=== PATIENT | male | born 1975 | race Caucasian/White ===

== ENCOUNTER 2025-01-23 14:51 | Emergency (ER) | payer OTHER, SELFPAY ==
[2025-01-23] VITALS (26 sets, daily range): BP systolic 104–130; BP diastolic 77–97; PULSE 127–135; TEMP 36.6; O2SAT 79–96; BMI 26.1
--- NOTE | 2025-01-23 15:09 | XR_ITS ---
[address] [address] Patient Name: ERIK ZAVALA MRN: [id number] date: 1975 Sex: M Assigned Patient Location: ER Current Patient Location: ED.MAIN Accession/Order Number: [id number] Exam Date: 01/23/2025 15:38 Report Date: 01/23/2025 15:38 At the request of: SANDER GUPTA MD Procedure: XR chest 1V Single view chest: CLINICAL HISTORY: sob COMPARISON: None FINDINGS: Cardiomegaly. Lungs are clear. No free air. XR/XR chest 1V IMPRESSION: CARDIOMEGALY WITHOUT ACUTE PROCESS. Impression dictated by: Tano Calix Jr., DCheyOChey 01/23/2025 3:38 PM Dictation Location: [place] [address] Electronically authenticated by: [id number] Y Date: 01/23/2025 15:38
--- OUTSIDE RECORDS SUMMARY | 2025-01-23 15:14 | XMS_ITS | Clinical Summary ---
Author Organization [employer] [facility] tem Address [id number] [address] [place] [address] Care Team Providers Care Youth Pastor Name Role Phone Eloise Pedroza MD Primary Care Provider [phone] Allergies No known active allergies Medications ibuprofen (ADVIL,MOTRIN) 200 mg tablet Take 1 tablet (200 mg total) by mouth every 6 (six) hours as needed for pain. Active Active Problems Problem Noted Date Diagnosed Date Elevated liver enzymes 12/27/2022 Tobacco abuse 12/27/2022 Substance abuse 12/27/2022 Acute intractable headache, unspecified headache type 12/24/2022 Weakness 12/24/2022 Hypomagnesemia 12/24/2022 Hypokalemia 12/24/2022 Transaminitis 12/24/2022 Immunizations No known immunizations Social History Tobacco Use Types Packs/Day Years Used Date Smoking Tobacco: Every Day Cigarettes Smokeless Tobacco: Never Tobacco Cessation:Ready to Q uit: Not Asked; Counseling Given: Not Answered Alcohol Use Standard Drinks/Week Comments Not Currently 0 (1 standard drink = 0.6 oz pur e alcohol) PHQ-2 Answer Date Recorded Total Score 1 12/27/2022 Childcare Answer Date Recorded Childcare Unknown 12/01/2018 Employment Answer Date Recorded Employment Unknown 12/01/2018 Hunger Screening Answer Date Recorded Within the past 12 months we worried whether our food would run out before we got money to buy more. Never True 12/24/2022 Within the past 12 months th e food we bought just didn't last and we didn't have money to get more. Never True 12/24/2022 Purpose - Life Answer Date Recorded Purpose and direction in life Unknown Sex and Gender Information Value Date Recorded Sex Assigned at Not on file Legal Sex Male 11:29 AM EDT Gender Identity Not on file Sexual Orientation Not on file Last Filed Vital Signs Vital Sign Reading Time Taken Comments Blood Pressure 129/91 12/28/2022 3:17 PM EDT Pulse 71 12/28/2022 3:17 PM EDT Temperature 36.6 C (97.9 F) 12/28/2022 11:17 AM EDT Respiratory Rate 18 12/28/2022 3:17 PM EDT Oxygen Saturation 95% 12/28/2022 11: 17 AM EDT Inhaled Oxygen Concentration - - Weight 86.5 kg (190 lb 11.2 oz) 023 11:17 AM EDT Height 180.3 cm (5' 11 ) 12/27/2022 8:40 AM EDT Body Mass Index 26.6 12/27/2022 8:40 AM EDT Plan of Treatment Health Maintenance Due Date Last Done Comments Tobacco Screening 1986 DTaP,Tdap and Td Vaccines (1 - Tdap) 1993 Depression Screening 12/28/2023 12/27/2022 Adult BMI Screening 12/29/2023 12/28/2022 Zoster (Shingles) Vaccine (1 of 2) 2024 Influenza Vaccine 02/20/2025 Goals Goal Patient Goal Type Associated Problems Recent Progress Patient-Stated? Author safe discharge to home General Yes Cecy Anguiano, RN Note: Evaluation of progress towards goal: safe transition from hospital to home with family support. Medical Devices Not on file Insurance [id number] Advance Directives * Full Code (Latest Code Status on File) Date Activated Date Inactivated Comments 12/27/2022 3:50 AM 12/28/2022 6:09 PM * Full Code Date Activated Date Inactivated Comments 12/24/2022 1:29 PM 12/27/2022 3:30 AM Care Teams Youth Pastor Relationship Specialty Start Date End Date Eloise Pedroza MD [address] [facility], [place] [address] PCP - General Internal Medicine 01/01/23
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
[2025-01-23 15:37] LABS: Hematocrit 47.0 % (42.0-54.0); Hemoglobin 16.1 g/dL (14.0-18.0); Immature Granulocytes Abs Auto 0.04 10^3/uL (0.00-0.03); Immature Granulocytes Pct Auto 0.4 % (0.0-0.5); Lymphocytes Absolute Auto 2.5 10^3/uL (1.2-3.8); Mean Corpuscular HGB Conc 34.3 g/dL (29.9-35.2); Mean Corpuscular Hemoglobin 31.1 pg (25.9-34.0); Mean Corpuscular Volume 90.9 fL (80.0-94.0); Platelet Count 231 10^3/uL (150-450); Red Blood Count 5.17 10^6/uL (4.70-6.10); White Blood Count 10.5 10^3/uL (4.0-11.0)
[2025-01-23] MEDS: 0.9 % SODIUM CHLORIDE 2,259 ML 753 ML IV (15:50)
[2025-01-23] MEDS: PIPERACILLIN SODIUM/TAZOBACTAM 4.5 GM in 0.9 % SODIUM CHLORIDE 50 ML IV (15:50)
[2025-01-23 15:53] LABS: INR 1.24; Partial Thromboplastin Time 27.2 sec (22.3-36.2); Prothrombin Time 12.9 sec (9.0-11.6)
[2025-01-23 16:04] LABS: Alanine Aminotransferase 46 U/L (16-63); Albumin Globulin Ratio 0.9; Albumin Level 3.1 g/dL (3.4-5.0); Alkaline Phosphatase 135 U/L (46-116); Anion Gap 12.2; Aspartate Amino Transferase 38 U/L (15-37); Blood Urea Nitrogen 21.0 mg/dL (7.0-18.0); Calcium 9.4 mg/dL (8.5-10.1); Carbon Dioxide 23.7 mmol/L (21.0-32.0); Chloride 103 mmol/L (98-107); Estimated GFR (African America >60 (>=60 mL/min/1.73m^2); Estimated GFR (Non-African Ame 57 (>=60 mL/min/1.73m^2); Globulin 3.4 g/dL; Glucose 130 mg/dL (74-106); Lactate/Lactic Acid 1.7 mmol/L (0.4-2.0); Potassium 3.9 mmol/L (3.5-5.1); Sodium 135 mmol/L (136-145); Total Protein 6.5 g/dL (6.4-8.2)
[2025-01-23 16:12] LABS: NT Pro B Type Natriuretic Pept 5665.0 pg/mL (<=900.0)
--- NOTE | 2025-01-23 16:16 | CT_ITS ---
The [address] [address] Patient Name: ERIK ZAVALA MRN: [id number] date: 1975 Sex: M Assigned Patient Location: ER Current Patient Location: ER Accession/Order Number: [id number] Exam Date: 01/23/2025 17:16 Report Date: 01/23/2025 17:21 At the request of: SANDER GUPTA MD Procedure: CT angio chest CT ANGIOGRAM OF THE CHEST, PULMONARY EMBOLISM PROTOCOL: CLINICAL INFORMATION: Tachycardia, shortness breath with leg edema COMPARISON: None TECHNIQUE: Following intravenous injection of contrast CT scans of the chest were obtained using pulmonary embolism protocol. Coronal and sagittal reconstructed images, as well as volume rendered CT pulmonary angiographic images were also submitted.The CT exam was performed using one or more of the following dose reduction techniques: Automated exposure control, adjustment of the MA and/or Kv according to patient size, or use of the iterative reconstruction technique. FINDINGS: Cardiomegaly. No pericardial effusion. Main pulmonary trunk 3.3 cm no central, lobar or segmental branch pulmonary emboli. No suspicious mediastinal or hilar adenopathy. Small right-sided effusion and right basilar atelectasis. Otherwise lungs are clear. The left-sided effusion. No pneumothorax. Multilevel degenerative change of the thoracic spine. Upper abdominal images are grossly unremarkable/noncontributory. CT/CT angio chest IMPRESSION: NO CT EVIDENCE OF PULMONARY EMBOLISM CARDIOMEGALY. RIGHT-SIDED EFFUSION AND ASSOCIATED RIGHT-SIDED ATELECTASIS. Impression dictated by: Peter Parmar M.D. 01/23/2025 5:21 PM Dictation Location: [place] [address] Electronically authenticated by: [id number] Y Date: 01/23/2025 17:21
[2025-01-23] MEDS: FUROSEMIDE 20 MG/2 ML VIAL IVP (18:35)
[2025-01-23] MEDS: DIGOXIN 500 MCG/2 ML AMPUL 250 MCG IV ×2 (18:35→18:46)
[2025-01-23] MEDS: ENOXAPARIN SODIUM 100 MG/ML SYRINGE 85 MG SUBQ (18:44)
--- NOTE | 2025-01-23 19:23 | ED_ITS ---
HPI HPI - General Adult General Chief complaint: Extremity Problem, Nontraumatic Stated complaint: LOWER EXTREMITY SWELLING Time Seen by Provider: 01/23/25 15:01 Source: patient Mode of arrival: walk-in Limitations: no limitations History of Present Illness HPI narrative: 49-year-old male sent to the emergency department and was initially seen by Dr. DUFF and signed out to me after discussing the case with her thoroughly. Related Data Home Medications ?Medication ?Instructions ?Recorded ?Confirmed No Known Home Medications 01/23/25 0810/14 Allergies Allergy/AdvReac Type Severity Reaction Status Date / Time No Known Drug Allergies Allergy Verified 01/23/25 14:54 Opioid HPI Opioid Management Most Recent Opioid Data: Last Pain Scale 5 Today, 14:54 PFSH PFSH Social History Little interest or pleasure in doing things: not at all Feeling down, depressed, or hopeless: not at all Exam Constitutional Vital Signs, click to edit/add: Last Vital Signs Temp 97.9 F 01/23/25 14:54 Pulse 131 H 01/23/25 18:00 Resp 24 H 01/23/25 18:00 BP 119/88 01/23/25 18:00 Pulse Ox 79 L 01/23/25 17:50 O2 Del Method Room Air 01/23/25 14:54 Course Vital Signs Vital signs: Vital Signs Temperature 97.9 F 01/23/25 14:54 Pulse Rate 132 H 01/23/25 14:54 Respiratory Rate 24 H 01/23/25 14:54 Blood Pressure 104/77 01/23/25 14:54 Pulse Oximetry 96 01/23/25 14:54 Oxygen Delivery Method Room Air 01/23/25 14:54 Temperature 97.9 F 01/23/25 14:54 Pulse Rate 131 H 01/23/25 18:00 Respiratory Rate 24 H 01/23/25 18:00 Blood Pressure 119/88 01/23/25 18:00 Pulse Oximetry 79 L 01/23/25 17:50 Oxygen Delivery Method Room Air 01/23/25 14:54 Medical Decision Making MDM Narrative Medical decision making narrative: The patient has been accepted by cardiology and hospitalist and the patient is stable and agreeable for transfer. I spoke to the oil house attendant, Bertha, who reports there is no need for us to speak with the hospitalist. Lab Data Lab results reviewed: Yes I reviewed the patient's lab results Labs: Lab Results 01/23/25 01/23/25 Range/Units 15:26 17:24 WBC 10.5 (4.0-11.0) 10^3/uL RBC 5.17 (4.70-6.10) 10^6/uL Hgb 16.1 (14.0-18.0) g/dL Hct 47.0 (42.0-54.0) % MCV 90.9 (80.0-94.0) fL MCH 31.1 (25.9-34.0) pg MCHC 34.3 (29.9-35.2) g/dL RDW 14.6 (11.0-15.0) % Plt Count 231 (150-450) 10^3/uL MPV 10.1 (9.5-13.5) fL Neut % (Auto) 65.9 (43.0-75.0) % Lymph % (Auto) 23.3 (20.5-60.0) % [place]ball % (Auto) 9.5 (1.7-12.0) % Eos % (Auto) 0.5 L (0.9-7.0) % Baso % (Auto) 0.4 (0.2-2.0) % Neut # (Auto) 6.9 H (1.4-6.5) 10^3/uL Lymph # (Auto) 2.5 (1.2-3.8) 10^3/uL [place] # (Auto) 1.0 H (0.3-0.8) 10^3/uL Eos # (Auto) 0.1 (0.0-0.7) 10^3/uL Baso # (Auto) 0.0 (0.0-0.1) 10^3/uL Abs Immat Gran (auto) 0.04 H (0.00-0.03) 10^3/uL Imm/Tot Granulo (auto) 0.4 (0.0-0.5) % PT 12.9 H (9.0-11.6) sec INR 1.24 APTT 27.2 (22.3-36.2) sec D-Dimer 1.00 H* (<=0.59) mg/L FEU Sodium 135 L (136-145) mmol/L Potassium 3.9 (3.5-5.1) mmol/L Chloride 103 (98-107) mmol/L Carbon Dioxide 23.7 (21.0-32.0) mmol/L Anion Gap 12.2 BUN 21.0 H (7.0-18.0) mg/dL Creatinine 1.33 H (0.70-1.30) mg/dL Est GFR ( Amer) >60 (>=60 mL/min/1.73m^2) Est GFR (Non-Af Amer) 57 L (>=60 mL/min/1.73m^2) BUN/Creatinine Ratio 15.8 Glucose 130 H (74-106) mg/dL Lactate 1.7 (0.4-2.0) mmol/L Calcium 9.4 (8.5-10.1) mg/dL Total Bilirubin 1.1 H (0.2-1.0) mg/dL AST 38 H (15-37) U/L ALT 46 (16-63) U/L Alkaline Phosphatase 135 H (46-116) U/L Troponin I High Sens 116.9 H* 125.3 H* (4.0-76.1) pg/mL NT-Pro-B Natriuret Pep 5665.0 H* (<=900.0) pg/mL Total Protein 6.5 (6.4-8.2) g/dL Albumin 3.1 L (3.4-5.0) g/dL Globulin 3.4 g/dL Albumin/Globulin Ratio 0.9 Imaging Data Chest x-ray: Radiologist's impression: ITS Impressions Chest X-Ray 01/23/25 15:09 IMPRESSION: CARDIOMEGALY WITHOUT ACUTE PROCESS. Impression dictated by: Tano Calix Jr., D.O. 01/23/2025 3:38 PM Dictation Location: [place] [address] Electronically authenticated by: [id number] Y Date: 01/23/2025 15:38 Chest CTA 01/23/25 16:16 IMPRESSION: NO CT EVIDENCE OF PULMONARY EMBOLISM CARDIOMEGALY. RIGHT-SIDED EFFUSION AND ASSOCIATED RIGHT-SIDED ATELECTASIS. Impression dictated by: Peter Parmar M.D. 01/23/2025 5:21 PM Dictation Location: [place] [address] Electronically authenticated by: [id number] Y Date: 01/23/2025 17:21 Discharge Plan Discharge Chief Complaint: Extremity Problem, Nontraumatic Clinical Impression: Congestive heart failure, Cardiomyopathy, Cellulitis of left leg [facility] Time of Disposition Decision: 19:22 Discharge Location: [facility] Condition: Fair Mode of Transportation: EMS
[2025-01-23] MEDS: ACETAMINOPHEN 300 MG/ 30 MG CODEINE TABLET 1 TAB PO (20:06)
== END 2025-01-23 20:59 | disposition short-term general hospital (02) ==
PROVIDERS: Emergency Medicine; Emergency Provider Emergency Medicine
DX: I50.9 Heart failure, unspecified (principal); L03.116 Cellulitis of left lower limb; F17.210 Nicotine dependence, cigarettes, uncomplicated; R79.89 Other specified abnormal findings of blood chemistry; I42.9 Cardiomyopathy, unspecified
CPT/HCPCS: 36415; 71045; 71275; 80053; 83605; 83880; 84484; 85025; 85378; 85610; 85730; 87040; 93005; 93971; 96365; 96372; 96375; 99285; J1160; J1650; J1938; J2543; Q9967

== ENCOUNTER 2025-04-12 14:50 | Inpatient (IN) | payer OTHER, SELFPAY ==
[2025-04-12] VITALS (37 sets, daily range): BP systolic 91–134; BP diastolic 68–101; PULSE 66–153; TEMP 36.8; O2SAT 84–100; BMI 27.4; BMI 29.2
--- OUTSIDE RECORDS SUMMARY | 2025-04-12 14:56 | XMS_ITS | Clinical Summary ---
Author Organization [email or web address] [facility] tem Address [id number] [address] [place] [address] Care Team Providers Care Jet Worker Name Role Phone Eloise Pedroza MD Primary Care Provider [phone] Allergies No known active allergies Medications MedicationSigDispense QuantityRefillsLast FilledStart DateEnd DateStatus ibuprofen (ADVIL,MOTRIN) 200 mg tablet Take 1 tablet (200 mg total) by mouth every 6 (six) hours as needed for pain. Active Active Problems ProblemNoted DateDiagnosed DateElevated liver jhtsczf9812/27/2022Tobacco abuse 12/27/2022Substance abuse12/27/2022cute intractable headache, unspecified headache type12/24/20225625Jxsanntn62/05/8771Yfrtcttxmlpryd82/05/2023Hypokalemia 12/24/20220713Ytbiedixhrmsf56/05/2023 Immunizations No known immunizations Social History Tobacco UseTypesPacks/DayYears UsedDateSmoking Tobacco: Every DayCigarettes Smokeless Tobacco: Never Tobacco Cessation:Ready to Q uit: Not Asked; Counseling Given: Not Answered Alcohol UseStandard Drinks/WeekCommentsNot Currently0 (1 standard drink = 0.6 oz pure alcohol)PHQ-2AnswerDate RecordedTotal Lzjpj417hildcareAnswerDate HynjmnweQyzcaezqzMsngjvp21/12/2019EmploymentAnswerDate RecordedEmploymentUnknown 12/01/2018Hunger ScreeningAnswerDate RecordedWithin the past 12 months we worried whether our food would run out before we got money to buy more.Never True12/24/2022Within the past 12 months the food we bought just didn't last and we didn't have money to get more.Never True12/24/2022urpose - LifeAnswerDate RecordedPurpose and direction in htxvRkavtzq41/11/2021ex and Gender Information ValueDate RecordedSex Assigned at BirthNot on fileLegal RywGkpg0001/25/2015 11:29 AM EDTGender IdentityNot on fileSexual OrientationNot on file Last Filed Vital Signs Vital SignReadingTime TakenCommentsBlood Dvcvpisi911/9112/28/2022 3:17 PM EDT Ohwko004312/28/2022 3:17 PM TPCWamplmgebwk48.6 ??C (97.9 ??F)12/28/2022 11:17 AM EDTRespiratory Eild743412/28/2022 3:17 PM EDTOxygen Ftdzfegryt00%12/28/2022 11:17 AM EDTInhaled Oxygen Concentration--Wxkkoj94.5 kg (190 lb 11.2 oz)12/28/2022 11:17 AM TSVVeaihp316.3 cm (5' 11 )12/27/2022 8:40 AM EDTBody Mass Index26.6 12/27/2022 8:40 AM EDT Plan of Treatment Health MaintenanceDue DateLast DoneCommentsTobacco Jaupnwfzy73/25/1987DTaP,Tdap and Td Vaccines (1 - Tdap)1993Depression Vtdretrpl80 Adult BMI Tuvqyvura76Zoster (Shingles) Vaccine (1 of 2) 2024Influenza Hcshbdb4802/20/2025 Goals GoalPatient Goal TypeAssociated ProblemsRecent ProgressPatient-Stated?Author safe discharge to home Cecy Kelly RN Note: Evaluation of progress towards goal: safe transition from hospital to home with family support. Medical Devices Not on file Insurance * Guarantor: Nathan Santos TypeRelation to PatientDate of BirthPhone Billing AddressPersonal/AsfaitZpkm57/25/1976 [address] [place] [address] Advance Directives * Full Code (Latest Code Status on File) Date ActivatedDate InactivatedComments12/27/2022 3:50 AM12/28/2022 6:09 PM * Full Code Date ActivatedDate InactivatedComments12/24/2022 1:29 PM12/27/2022 3:30 AM Care Teams Team MemberRelationshipSpecialtyStart DateEnd Date Eloise Pedroza MD [address] [facility] [place] [address] PCP - GeneralInternal Medicine01/01/23
--- OUTSIDE RECORDS SUMMARY | 2025-04-12 14:56 | XMS_ITS | Clinical Summary ---
Author Organization [facility] Address [address] [place] [address] Care Team Providers Care Inventory Control Coordinator Name Role Phone Unavailable Primary Care Provider Unavailabl e Allergies No known active allergies Medications No known medications Active Problems ProblemNoted DateDiagnosed DateAcute exacerbation of CHF (congestive heart failure)01/23/2025 Assessment & Plan (01/24/2025 4:14 PM EDT): New onset acute decompensated heart failure Echo pending preliminary suggestive of severely enlarged RA and RV likely in the setting of pulmonary arterial hypertension Continue Lasix 40 IV every 12 as well as Lopressor I's and O's and daily weight Plan for left and right heart cath today Atrial blwkoqz7101/23/2025 Assessment & Plan (01/24/2025 4:14 PM EDT): Cardioversion scheduled for 01/25 Bsguvcbocs37/04/2025 Assessment & Plan (01/24/2025 4:14 PM EDT): Left lower extremity Continue vancomycin for now Duplex ultrasound negative for DVT Assessment & Plan (01/23/2025 11:53 PM EDT): Will start patient on vancomycin, pharmacy to dose and Rocephin 1 g IV daily. Will check lower extremities Doppler to rule out DVT and because of patient's positive D-dimer and negative CTA of the chest Follow-up on lactic acid LA (acute kidney injury)01/23/2025 Assessment & Plan (01/23/2025 11:53 PM EDT): Will continue to monitor. Blood work is ordered. Patient's creatinine at [facility] was at 1.3. Elevated d-dimer01/23/2025 Assessment & Plan (01/23/2025 11:53 PM EDT): Lower extremities Doppler to rule out DVT CTA of the chest was done and it was negative for PE. Elevated /04/2025 Assessment & Plan (01/24/2025 4:14 PM EDT): In the setting of type II SC and decompensated heart failure Again right and left heart cath scheduled today Assessment & Plan (01/23/2025 11:53 PM EDT): We will recheck troponin Cardiology consult Echo is ordered Patient denies any chest pain Follow-up on EKG New onset of congestive heart osfuxgt5601/23/2025 Assessment & Plan (01/23/2025 11:53 PM EDT): Strict I's and O's, daily weight Will check labs, including BNP, TSH, electrolytes. Chest x-ray is ordered. Cardiology consult Echo Patient got IV Lasix before came to [facility] Cor pulmonale (chronic)01/23/2025 Encounters DateTypeDepartmentCare ZafcImcwtujfmpz72/05/2025 6:11 PM EDT - 01/24/2025 8:11 PM EDTSurgery [facility] [address] [place] [phone] Justyn Ramos MD Coronary qnxqkcmsunz36/04/2025 9:56 PM EDT - 01/26/2025 11:55 AM EDTHospital Encounter [facility] Medical Intensive Care [address] [place] [phone] Anand Davis MD Saad, Hani, MD Chang, Kyu Chul, MD Noori, Zaid, MD New onset of congestive heart failure (CMS/HCC) (Primary Dx); Elevated troponin; Elevated d-dimer; LA (acute kidney injury); Cellulitis of left lower extremity; Acute on chronic congestive heart failure, unspecified heart failure type (CMS/HCC); Cor pulmonale (chronic) (CMS/HCC); Atrial flutter, unspecified type (CMS/HCC) Discharge Disposition: Hospice/Medical Facility (51)01/23/2025Travelfrom Last 3 Months Social History Tobacco UseTypesPacks/DayYears UsedDateSmoking Tobacco: Every DayCigarettes Smokeless Tobacco: Never Tobacco Cessation:Ready to Q uit: Not Asked; Counseling Given: Not Answered Passive Exposure Comments:2 cigaretteAlcohol UseStandard Drinks/WeekComments Never0 (1 standard drink = 0.6 oz pure alcohol)[facility] UtilitiesAnswerDate Recorded In the past 12 months has the electric, gas, oil, or water company threatened to shut off services in your home?No01/23/2025Humiliation, Afraid, Rape, and Kick questionnaireAnswerDate RecordedWithin the last year, have you been afraid of your partner or ex-partner?No01/23/2025Emotionally AbusedNot on file01/23/2025 Physically AbusedNot on file01/23/2025Sexually AbusedNot on file01/23/2025 Overall Financial Resource Strain (CARDIA)AnswerDate RecordedHow hard is it for you to pay for the very basics like food, housing, medical care, and heating?Not hard at all01/23/2025TransportationAnswerDate RecordedIn the past 12 months, has lack of transportation kept you from medical appointments or from getting medications?No01/23/2025Lack of Transportation (Non-Medical)Not on file 01/23/2025Housing Stability Vital SignAnswerDate RecordedIn the last 12 months, was there a time when you were not able to pay the mortgage or rent on time?No 01/23/2025Number of Times Moved in the Last YearNot on file01/23/2025t any time in the past 12 months, were you homeless or living in a usp (including now)? No01/23/2025Hunger Vital SignAnswerDate RecordedWithin the past 12 months, you worried that your food would run out before you got the money to buymore.Never true01/23/2025Ran Out of Food in the Last YearNot on file01/23/2025Sex and Gender InformationValueDate RecordedSex Assigned at FiihvAgyl56/05/2025 6:02 AM EDTLegal ZqlLvdj8001/23/2025 6:28 PM EDTGender FtyaudngMswr85/05/2025 6:02 AM EDT Sexual OrientationHeterosexual or Rnfyddyr29/05/2025 6:02 AM EDT Last Filed Vital Signs Vital SignReadingTime TakenCommentsBlood Knrafren284/9401/25/2025 2:00 AM EDT Hhvcf32476/07/2025 10:00 AM XPTZygajtfizeb43.2 ??C (97.2 ??F)01/26/2025 8:30 AM EDTRespiratory Unmu5724 10:00 AM EDTOxygen Mwovjpawic07%01/26/2025 10:00 AM EDTInhaled Oxygen Concentration--Akuvqg33.5 kg (188 lb 7.9 oz)01/25/2025 10:20 AM UDWXhpexd563.3 cm (5' 11 )01/24/2025 12:14 AM EDTBody Mass Index26.29 01/24/2025 12:14 AM EDT Plan of Treatment Health MaintenanceDue DateLast DoneCommentsCT Tgyalzsceyyb74/25/1975Colonoscopy 1974Colorectal Cancer Htsbrunkr47/25/1975FIT-DNA1974FIT1974 FOBT1974 1594Dfnwuushkddtu26/25/1975Depression Nriyahlwh20/25/1987Hepatitis B Vaccines (1 of 3 - 19+ 3-dose series)1993Pneumococcal Vaccine: Pediatrics (0 to 5 Years) and At-Risk Patients (6 to 64 Years) (1 of 2 - PCV)1993 Adult Uxvsmro3212/14/1996Zoster Vaccines (1 of 2)5COVID-19 Vaccine (1 - season)2025Influenza Vaccine (#1)2025HIB VaccinesAged OutNo longer eligible based on patient's age to complete this topicHPV VaccinesAged OutNo longer eligible based on patient's age to complete this topicIPV Vaccines Aged OutNo longer eligible based on patient's age to complete this topic Meningococcal B VaccineAged OutNo longer eligible based on patient's age to complete this topicMeningococcal VaccineAged OutNo longer eligible based on patient's age to complete this topicRotavirus VaccinesAged OutNo longer eligible based on patient's age to complete this topic Procedures Procedure NamePriorityDate/TimeAssociated DiagnosisCommentsCT LOWER EXTREMITY LEFT W IV VGIHCPXZGyiksjh94/07/2025 10:24 AM EDT CTA CHEST W IV SUSVCGWHSvdouqp22/07/2025 10:24 AM EDT ABG COMPLETE UNSOLICITED IXVGIHQWigdqiw61/07/2025 8:15 AM EDT MAGNESIUMPending Lrrcerdco86/07/2025 8:13 AM EDT BASIC METABOLIC PANELPending Aiwubxlje01/07/2025 8:13 AM EDT ABG COMPLETE EVCMUhazrsm58/07/2025 7:35 AM EDTANTI-FACTOR XAPending Discharge 01/26/2025 6:58 AM EDT VANCOMYCIN, RANDOMAdd-On01/26/2025 3:20 AM EDT PHOSPHORUSPending Juoipkpqg25/07/2025 3:20 AM EDT MAGNESIUMPending Pquaoqdqh69/07/2025 3:20 AM EDT BASIC METABOLIC PANELPending Woouoxcql21/07/2025 3:20 AM EDT CBCPending Hcrogsarv76/07/2025 3:20 AM EDT PERIPHERAL BLOOD JZIQSClkxidj43/07/2025 12:12 AM EDT EXTRACTABLE NUCLEAR ANTIGEN WPZKXUUGBNJpffuwm15/07/2025 12:12 AM EDT ANTI-SCLERODERMA XPPWMTDMOgxpqfl56/07/2025 12:12 AM EDT HIV COMBO 8LStyvdvk48/07/2025 12:12 AM EDT ANCA-ASSOCIATED VASCULITIS KFCOWSMXkwehqk99/07/2025 12:12 AM EDT ANTI-FACTOR HXYanmx0501/26/2025 12:12 AM EDT RHEUMATOID FACTORAdd-On01/25/2025 5:56 PM EDT ANCA-ASSOCIATED VASCULITIS EKCUEIONcpemta40/06/2025 5:56 PM EDT OPNWhqyamo06/06/2025 5:56 PM EDT ANTI-FACTOR LUClznj6901/25/2025 5:56 PM EDT LIMITED ECHOCARDIOGRAM (TTE) W/ LTD DOPPLER AND COLOR SPIGTMXL01/06/2025 1:33 PM EDT RESPIRATORY ASSESS AND TREAT ZEXSRSISIiorayc35/06/2025 11:42 AM EDTRESPIRATORY ASSESS AND TREAT PIPFQLEWOtmwbbv69/06/2025 11:42 AM EDTEXTUBATIONRoutine 01/25/2025 11:37 AM EDTABG COMPLETE UNSOLICITED RBKKGCUYdrggzo74/06/2025 11:30 AM EDT LACTIC ACID WITH 4 HOUR QSMOFVZsbolhu20/06/2025 11:21 AM EDT TSH3 REFLEX TO RV4Puo-Pd35/06/2025 11:18 AM EDT CK TOTAL AND CKMBAdd-On01/25/2025 11:18 AM EDT CBC WITH AUTO XCGTWKGBMWNQGFBB09/06/2025 11:18 AM EDT CBC AND CDCDLVAMSNVKTXHR42/06/2025 11:18 AM EDT QQECUKNZCFFSPX31/06/2025 11:18 AM EDT NBPYWCSOUWUIT58/06/2025 11:18 AM EDT COMPREHENSIVE METABOLIC QNDFGXYRD70/06/2025 11:18 AM EDT ANTI-FACTOR LZMeweg9201/25/2025 11:18 AM EDT ABG KCDIAqutyui03/06/2025 11:11 AM EDTABG COMPLETE UXMBGbzwrsu20/06/2025 11:02 AM EDTRESPIRATORY ASSESS AND TREAT HHTVAYYHPbwichr21/06/2025 10:16 AM EDT RESPIRATORY ASSESS AND TREAT NVNNDIMVVcqnoff94/06/2025 10:16 AM EDTABG COMPLETE UNSOLICITED UBUBXZQMaduzwy18/06/2025 10:04 AM EDT EOMRKUAYglbtzo24/06/2025 9:57 AM EDT TOXICOLOGY PANEL HTQAAGnywevo36/06/2025 9:57 AM EDT TOXICOLOGY PANEL URINE WITH HJEGBOIZsgrbiq61/06/2025 9:57 AM EDT RESPIRATORY ASSESS AND TREAT ZZOQPETEXohogyg74/06/2025 9:50 AM EDTXR CHEST 1 JVZXQhzcopt26/06/2025 8:56 AM EDT ABG COMPLETE JUFCPheiapr82/06/2025 8:08 AM EDTXR TIBIA FIBULA 2 VIEWS LEFT Dsevvbc0601/25/2025 8:06 AM EDT RESPIRATORY ASSESS AND TREAT KYGOQOIBWweqhjc07/06/2025 8:00 AM EDTABG COMPLETE UNSOLICITED KKYINBHZbnouau00/06/2025 7:52 AM EDT BLOOD HQXVSSLLsedywy63/06/2025 7:52 AM EDT BLOOD TQLNFUXGtlxhck48/06/2025 7:52 AM EDT ABG COMPLETE TNTNXgwrhrq60/06/2025 7:46 AM EDTPROCALCITONIN TESTAdd-On01/25/2025 4:44 AM EDT GAMOXFAOTEQtcvtzd09/06/2025 4:44 AM EDT ZKJSHJJSAYysjweu59/06/2025 4:44 AM EDT VIAHjbdqqt76/06/2025 4:44 AM EDT ANTI-FACTOR AZQvxfm5301/25/2025 4:44 AM EDT BASIC METABOLIC UMZAGGiwywys14/06/2025 4:44 AM EDT ABG COMPLETE UNSOLICITED NMYLNPWUsmjboq55/06/2025 2:53 AM EDT ABG COMPLETE JOEVVltetgw22/06/2025 2:44 AM EDTCOMPLETE VENOUS BLOOD GAS PANEL Ntdgzww7301/25/2025 12:20 AM EDT PROCALCITONIN TESTAdd-01/24/2025 11:47 PM EDT HWSBEHCXPAHWKH13/05/2025 11:47 PM EDT BASIC METABOLIC EUXLLRDSS66/05/2025 11:47 PM EDT DWHJGXF5401/24/2025 11:47 PM EDT TDAJPTXYNGPEQ63/05/2025 11:47 PM EDT ANTI-FACTOR ZHDldmr5801/24/2025 11:47 PM EDT COMPLETE VENOUS BLOOD GAS TZCNUIvasjwi41/05/2025 11:17 PM EDT LACTIC ACID WITH 4 HOUR CFRIPTLMIG70/05/2025 9:52 PM EDT NTMYDWIHGFTTHY61/05/2025 9:52 PM EDT CMJNWUUMDXXOD18/05/2025 9:52 PM EDT AVUFNCH4001/24/2025 9:52 PM EDT BASIC METABOLIC VGXAJXYIF71/05/2025 9:52 PM EDT ANTI-FACTOR JZGywvf1701/24/2025 9:52 PM EDT ECG 12-GZBBVgimp25/05/2025 8:53 PM EDT PULMONARY GHYHRZCQUSgqxuwk30/05/2025 5:59 PM EDT New onset of congestive heart failure (CMS/HCC) Cor pulmonale (chronic) (CMS/HCC) SWAN (FLOW DIRECTED CATH) CRMIEPXMWVucqpvp30/05/2025 5:59 PM EDT New onset of congestive heart failure (CMS/HCC) Cor pulmonale (chronic) (CMS/HCC) RIGHT HEART DOXVQvumbkq53/05/2025 5:59 PM EDT New onset of congestive heart failure (CMS/HCC) Cor pulmonale (chronic) (CMS/HCC) CORONARY GCHNQBOAAEHVessrkp19/05/2025 5:59 PM EDT New onset of congestive heart failure (CMS/HCC) Cor pulmonale (chronic) (CMS/HCC) POCT HBO2%Cmrvnzo1501/24/2025 5:54 PM EDT POCT HBO2%Tuzyxam2201/24/2025 5:52 PM EDT POCT HBO2%Ogugxrg9501/24/2025 5:52 PM EDT POCT HBO2%Ksxreqm0901/24/2025 4:59 PM EDT POCT HBO2%Lhgpxen0201/24/2025 4:47 PM EDT POCT HBO2%Htuciwc4301/24/2025 4:47 PM EDT POCT HBO2%Mwrmkcs7901/24/2025 4:32 PM EDT GBLRKTHJ86/05/2025 11:17 AM EDT BASIC METABOLIC PANELAdd-On01/24/2025 11:11 AM EDT B-TYPE NATRIURETIC QCMALLEBcxcdsp05/05/2025 11:11 AM EDT HIGH SENSITIVITY TROPONIN ZUpxhhqh17/05/2025 11:11 AM EDT ECG 12-PLZZXrpzqbs36/05/2025 10:24 AM EDT LWHSZCTCSHKzoznxz66/05/2025 9:22 AM EDT VASC US LOWER EXTREMITY VENOUS DUPLEX BSOZURTZSJvglzpc32/05/2025 8:46 AM EDT COMPLETE ECHO (TTE) W/ IMAGING CQCOQElccjjz51/05/2025 8:37 AM EDT ECG 12-MMUQEDIF09/05/2025 7:07 AM EDT XR CHEST 1 YMANKtsfrmx53/05/2025 6:47 AM EDT ECG 12-JEHQYhzzwsp42/05/2025 2:25 AM EDT Procedure Note - 01/24/2025 2:25 AM EDT This note is in progress. IMPRESSION: Sinus tachycardia with occasional Premature ventricular complexes Right bundle branch block Left posterior fascicular block Bifascicular block T wave abnormality, consider lateral ischemia Abnormal ECG When compared with ECG of 23-JAN-2025 23:00, (unconfirmed) Premature ventricular complexes are now Present T wave inversion no longer evident in Inferior lead OPIATE, SERUM OR PLASMA, OYKFOPLWVPKMXoducjg39/04/2025 11:57 PM EDT AMPHETAMINE, SERUM OR PLASMA, BCUEJXYOFIHEMqquror18/04/2025 11:57 PM EDT CBC WITH AUTO JGLYFUMRVVWQIliaivf04/04/2025 11:57 PM EDT LACTIC ACID, SMETJWCcbioyd75/04/2025 11:57 PM EDT C-REACTIVE PPZUVZVPqxarhf56/04/2025 11:57 PM EDT DRUG SCREEN PANEL 9, CSIMLVdwalvp33/04/2025 11:57 PM EDT TSH3 REFLEX TO LT9Fkcheff47/04/2025 11:57 PM EDT HIGH SENSITIVITY TROPONIN EZzamxfd12/04/2025 11:57 PM EDT D-DIMER, DVGZWDCXAOJLMynjcys19/04/2025 11:57 PM EDT PROTIME-IMHGznbdaz21/04/2025 11:57 PM EDT ORYRRUMBVBykmadt03/04/2025 11:57 PM EDT HEPATIC FUNCTION ORSUTSnlcxqm96/04/2025 11:57 PM EDT CBC AND NTLDINUTLJGGAmwnrfv56/04/2025 11:57 PM EDT BASIC METABOLIC OAJYZXfbwrke66/04/2025 11:57 PM EDT B-TYPE NATRIURETIC BLMRKNWWnxumel99/04/2025 11:57 PM EDT PDCBWrltxpm95/04/2025 11:57 PM EDT ECG 12-NNZLZKYF20/04/2025 11:05 PM EDT from Last 3 Months Results * CT lower extremity left w IV contrast (01/26/2025 10:24 AM EDT)Anatomical RegionLateralityModalityLower ExtremitiesLeftComputed TomographySpecimen (Source)Anatomical Location / LateralityCollection Method / VolumeCollection TimeReceived Time01/26/2025 10:32 AM EDT Impressions 01/26/2025 10:37 AM EDT 1. Diffuse edema in the left lower extremity without localized abscess seen. 2. Enlarged left inguinal lymph nodes, possibly reactive. Electronically signed: DAVID LEDEZMA MD. Narrative 01/26/2025 10:[address] of the left lower extremity with contrast INDICATION: Left lower extremity swelling, assess for abscess. PROCEDURE: Automatic radiation exposure lowering techniques were utilized. All CT scans in this facility use dose modulation, iterative reconstruction, and/or weight based dosing when appropriate to reduce radiation dose to as low as reasonably achievable. Following the intravenous injection of 100 mL of Omnipaque 350, a CT of the left lower extremity with contrast and sagittal and coronal reformats obtained. FINDINGS: No comparisons available. Multiple enlarged lymph nodes in the left inguinal region measuring up to 1.6 cm in diameter. There is subcutaneous soft tissue swelling in the left lower extremity and pelvic wall; there is a subcutaneous fluid in the dorsum of the foot without localized or enhancing wall to suggest abscess. Vascular structures are not well evaluated on CTA, but no filling defects seen in the femoral, common femoral, or popliteal veins, these are better evaluated on Doppler ultrasound. Procedure Note David Ledezma MD - 01/26/2025 CT of the left lower extremity with contrast INDICATION: Left lower extremity swelling, assess for abscess. PROCEDURE: Automatic radiation exposure lowering techniques were utilized.All CT scans in this facility use dose modulation, iterative reconstruction,and/or weight based dosing when appropriate to reduce radiation dose to as lowas reasonably achievable. Following the intravenous injection of 100 mL of Omnipaque 350, a CT of the left lower extremity with contrast and sagittaland coronal reformats obtained. FINDINGS: No comparisons available. Multiple enlarged lymph nodes in theleft inguinal region measuring up to 1.6 cm in diameter. There is subcutaneoussoft tissue swelling in the left lower extremity and pelvic wall; there is a subcutaneous fluid in the dorsum of the foot without localized orenhancing wall to suggest abscess. Vascular structures are not well evaluated on CTA, butno filling defects seen in the femoral, common femoral, or popliteal veins,these are better evaluated on Doppler ultrasound. IMPRESSION: 1. Diffuse edema in the left lower extremity without localized abscessseen. 2. Enlarged left inguinal lymph nodes, possibly reactive. Electronically signed: DAVID LEDEZMA MD. Authorizing ProviderResult TypeResult StatusZamelinda Leos MDIM CT PROCEDURESFinal Result * CTA Chest W IV Contrast (01/26/2025 10:24 AM EDT)Anatomical RegionLaterality ModalityBody, ChestComputed TomographySpecimen (Source)Anatomical Location / LateralityCollection Method / VolumeCollection TimeReceived Time01/26/2025 10:26 AM EDT Impressions 01/26/2025 10:31 AM EDT 1. No pulmonary embolism seen. 2. [place] catheter in the descending left pulmonary artery. 3. Severe cardiomegaly predominantly due to dilatation of the right ventricle and right atrium. 4. Small right pleural effusion. 5. Dependent bilateral lower lobes consolidation and/or atelectasis. Electronically signed: DAVID LEDEZMA MD. Narrative 01/26/2025 10:31 AM EDT CTA of the chest with contrast and 3-D reformats dated 01/26/2025 at 10:09 AM INDICATION: Shortness of breath. PROCEDURE: Automatic radiation exposure lowering techniques were utilized. All CT scans in this facility use dose modulation, iterative reconstruction, and/or weight based dosing when appropriate to reduce radiation dose to as low as reasonably achievable. Following the intravenous injection 100 mL of Omnipaque 350, a CTA of the chest and 3-D reformats obtained Including 3-D maximum intensity projection reconstructions constructed under concurrent physician supervision on a independent workstation. 3-D images obtained to improve visualization of vascular detail. FINDINGS: No comparisons available. Severe cardiomegaly and dilatation of the right ventricle and right atrium. There is a small right pleural effusion and dependent consolidation and/or atelectasis in the lower lobes. No airspace disease or interstitial thickening in the rest of the lungs. There is a right IJ [place] catheter tip in the lobar branch of the left lower lobe pulmonary artery. The ascending aorta measures 3.3 cm and the main pulmonary artery measures 3.4 cm. No filling defects in the visualized pulmonary artery branches to suggest pulmonary. Procedure Note David Ledezma MD - 01/26/2025 CTA of the chest with contrast and 3-D reformats dated 01/26/2025 at 10:09AM INDICATION: Shortness of breath. PROCEDURE: Automatic radiation exposure lowering techniques were utilized.All CT scans in this facility use dose modulation, iterative reconstruction,and/or weight based dosing when appropriate to reduce radiation dose to as lowas reasonably achievable. Following the intravenous injection 100 mL ofOmnipaque 350, a CTA of the chest and 3-D reformats obtained Including 3-D maximum intensity projection reconstructions constructed under concurrentphysician supervision on a independent workstation. 3-D images obtained to improve visualization of vascular detail. FINDINGS: No comparisons available. Severe cardiomegaly and dilatation ofthe right ventricle and right atrium. There is a small right pleural effusionand dependent consolidation and/or atelectasis in the lower lobes. Noairspace disease or interstitial thickening in the rest of the lungs. There is aright IJ [place] catheter tip in the lobar branch of the left lower lobepulmonary artery. The ascending aorta measures 3.3 cm and the main pulmonaryartery measures 3.4 cm. No filling defects in the visualized pulmonary arterybranches to suggest pulmonary. IMPRESSION: 1. No pulmonary embolism seen. 2. [place] catheter in the descending left pulmonary artery. 3. Severe cardiomegaly predominantly due to dilatation of the rightventricle and right atrium. 4. Small right pleural effusion. 5. Dependent bilateral lower lobes consolidation and/or atelectasis. Electronically signed: DAVID LEDEZMA MD. Authorizing ProviderResult TypeResult StatusZaid Dafne NAVARRETEIMG CT PROCEDURESFinal Result * (ABNORMAL) Arterial Blood Gas Complete (01/26/2025 8:15 AM EDT) Only the most recent of5 resultswithin the time period is included. ComponentValueRef RangeTest MethodAnalysis TimePerformed AtPathologist Signature pH, Arterial7.437.35 - 7.4508 8:15 AM [facility] RESPIR[facility] THERAPYpCO2, Ebqdelvy63(L)35 - 45 mmHg01/26/2025 8:15 AM [facility] RESPIRAT[facility] THERAPYpO2, Mxpyeyjc51(L)83 - 108 mmHg01/26/2025 8:15 AM [facility] RESPIRAT[facility] THERAPYHCO3, Tkfqouqg23.921.0 - 28.0 mmol/L01/26/2025 8:15 AM [facility] RESPIRAT[facility] THERAPYO2 Sat, Modnyutm95.4(L)94.0 - 100.0 %01/26/2025 8:15 AM [facility] RESPIRAT[facility] THERAPY Base Excess, Arterial-1.6-2.0 - 3.0 mmol/L01/26/2025 8:15 AM [facility] RESPIRAT[facility] THERAPYCalcium Ionized, Arterial1.171.13 - 1.32 mmol/L01/26/2025 8:15 AM [facility] RESPIRATORY THERAPYSodium, Wmekvyir539(L)136 - 146 mmol/L01/26/2025 8:15 AM [facility] RESPIRATORY THERAPYPotassium, Arterial4.33.4 - 5.2 mmol/L01/26/2025 8:15 AM [facility] RESPIRAT[facility] THERAPYChloride, Xnohkvqm08160 - 107 mmol/L01/26/2025 8:15 AM [facility] RESPIRATORY THERAPYGlucose, Elappibs013(H)65 - 95 mg/dL01/26/2025 8:15 AM [facility] RESPIRATORY THERAPYLactate, Arterial0.400.36 - 1.39 mmol/L 01/26/2025 8:15 AM [facility] RESPIRATORY THERAPYHematocrit, Zmwdsybb6298 - 50 % 01/26/2025 8:15 AM [facility] RESPIRATORY THERAPYHemoglobin, Fqqqfidw01.3g/dL 01/26/2025 8:15 AM [facility] RESPIRATORY THERAPYOxyhemoglobin, Xjgpcdjp80.8(L)94.0 - 97.0 %01/26/2025 8:15 AM [facility] RESPIRAT[facility] THERAPYMethemoglobin, Arterial0.7 0.0 - 1.5 %01/26/2025 8:15 AM [facility] RESP[facility] THERAPYCarboxyhemoglobin, Arterial1.1%01/26/2025 8:15 AM [facility] RES[facility] THERAPYDeoxyhemoglobin, Arterial9.4%01/26/2025 8:15 AM [facility] KIFTARHVimcadhenpl01.0??C 01/26/2025 8:15 AM [facility] RES[facility] THERAPYOxygen Device #1High Flow Cannula 01/26/2025 8:15 AM [facility] XSICQMYPVF42.0LPM01/26/2025 8:15 AM EDT [facility] RES[facility]IR[facility] RAKRCAKUxW8197.0%01/26/2025 8:15 AM [facility] THERAPY PF Ustxx26lhAq36/07/2025 8:15 AM [facility] THERAPYA-aGg9406mdEr 01/26/2025 8:15 AM [facility] THERAPYpaO2/pAO20.54ndEa7101/26/2025 8:15 AM [facility] RESPIR[facility] THERAPYNotify Krqd309254/07/2025 8:15 AM [facility] RESPIRATORY THERAPYNotify Ovseyudyqdbpmd35/07/2025 8:15 AM [facility] RESPIRATORY THERAPYNotify ProviderDR BZKBDY9701/26/2025 8:15 AM [facility] RESPIR[facility] THERAPY Notify DovpvjZ4701/26/2025 8:15 AM [facility] RESPIRATORY THERAPYSpecimen (Source) Anatomical Location / LateralityCollection Method / VolumeCollection Time Received TimeBloodArterial blood specimen / Rzpwmxj4301/26/2025 8:15 AM EDT 01/26/2025 8:15 AM EDT Narrative Authorizing ProviderResult TypeResult StatusZaid Dafne MDLAB BLOOD ORDERABLES Final ResultPerforming OrganizationAddressCity/State/ZIP CodePhone Number [facility] THERAPY [address] [place] [address], * Magnesium (01/26/2025 8:13 AM EDT) Only the most recent of7 resultswithin the time period is included. ComponentValueRef RangeTest MethodAnalysis TimePerformed AtPathologist Signature Magnesium2.71.9 - 2.7 mg/dL01/26/2025 9:28 AM [facility] ([facility]) Specimen (Source)Anatomical Location / LateralityCollection Method / Volume Collection TimeReceived TimeBloodVenous blood specimen / UnknownArterial Line / Kegwiiy0001/26/2025 8:13 AM EDT01/26/2025 8:21 AM EDT Narrative Authorizing ProviderResult TypeResult StatusZaid Dafne ELISE BLOOD ORDERABLES Final ResultPerforming OrganizationAddressCity/State/ZIP CodePhone Number [facility] ([facility]) [address] [place] [address] * (ABNORMAL) Basic metabolic panel (01/26/2025 8:13 AM EDT) Only the most recent of7 resultswithin the time period is included. ComponentValueRef RangeTest MethodAnalysis TimePerformed AtPathologist Signature Wadtry945(L)136 - 145 mmol/L01/26/2025 9:28 AM [facility] ([facility]) Potassium4.63.5 - 5.1 mmol/L01/26/2025 9:28 AM [facility] ([facility]) Cwcrrrel61395 - 107 mmol/L01/26/2025 9:28 AM [facility] ([facility])CO224 21 - 31 mmol/L01/26/2025 9:28 AM [facility] ([facility])KFR453 - 25 mg/dL 01/26/2025 9:28 AM [facility] ([facility])Creatinine0.860.70 - 1.30 mg/dL 01/26/2025 9:28 AM [facility] ([facility])Qydswmb333(H)70 - 100 mg/dL 01/26/2025 9:28 AM [facility] ([facility])Calcium8.98.6 - 10.3 mg/dL 01/26/2025 9:28 AM [facility] ([facility])Anion Hui799 - 20 mmol/L 01/26/2025 9:28 AM [facility] ([facility])vSIC311.5>60.0 mL/min/1.73m*2 01/26/2025 9:28 AM [facility] ([facility])Comment:[facility]???s estimated glomerular filtration rate (eGFR) will no longer include consideration of race in its calculation. The National Kid[employer] Foundation???s eGFR Task Force developed new recommendations for the estimation of the glomerular filtration rate in the [place] They recommend immediate implementation of the new equation refit without the race variable in all la boratories because the calculation does not include race. In addition to not including race in the calculation and reporting, it included diversity in its development, and has acceptable performance characteristics and potential consequences that do not disproportionately affect any one group of individuals. BUN/Creatinine Ratio19.8001/26/2025 9:28 AM [facility] ([facility])Specimen (Source)Anatomical Location / LateralityCollection Method / VolumeCollection TimeReceived TimeBloodVenous blood specimen / UnknownArterial Line / Unknown 01/26/2025 8:13 AM EDT01/26/2025 8:21 AM EDT Narrative Authorizing ProviderResult TypeResult StatusBubba ELISE BLOOD ORDERABLES Final ResultPerforming OrganizationAddressCity/State/ZIP CodePhone Number [facility] ([facility]) [address] [place] [address] * (ABNORMAL) Anti-Xa (Heparin Level) (01/26/2025 6:58 AM EDT) Only the most recent of7 resultswithin the time period is included. ComponentValueRef RangeTest MethodAnalysis TimePerformed AtPathologist Signature Anti-Xa (Heparin)0.28(L)0.3 - 0.7 IU/mL01/26/2025 7:41 AM [facility] ([facility])Comment:Rivaroxaban and Apixaban will interfere with the anti Xa assay used to monitor UFH and LMWH.Specimen (Source)Anatomical Location / Laterality Collection Method / VolumeCollection TimeReceived TimeBloodArterial blood specimen / UnknownArterial Line / Vwdnrch3101/26/2025 6:58 AM EDT01/26/2025 7:06 AM EDT Narrative Authorizing ProviderResult TypeResult StatusBubba ELISE BLOOD ORDERABLES Final ResultPerforming OrganizationAddressCity/State/ZIP CodePhone Number [facility]) [address] [place] [address] * (ABNORMAL) CBC (01/26/2025 3:20 AM EDT) Only the most recent of4 resultswithin the time period is included. ComponentValueRef RangeTest MethodAnalysis TimePerformed AtPathologist Signature Auto WBC11.90(H)4.00 - 10.60 10*3/uL01/26/2025 3:43 AM [facility] ([facility])RBC4.794.20 - 5.70 10*6/uL01/26/2025 3:43 AM [facility] ([facility])Exznaomyet25.513.0 - 17.0 g/dL01/26/2025 3:43 AM [facility] ([facility])Ydfbahnwpr81.639.0 - 50.0 %01/26/2025 3:43 AM [facility] ([facility])MCV88.982.0 - 98.0 fL01/26/2025 3:43 AM [facility] ([facility])MCH 30.327.0 - 33.0 pg01/26/2025 3:43 AM [facility] ([facility])MCHC34.032.0 - 35.0 g/dL01/26/2025 3:43 AM [facility] ([facility])RDW14.511.5 - 15.0 % 01/26/2025 3:43 AM [facility] ([facility])Dxxtuxici155096 - 400 10*3/uL 01/26/2025 3:43 AM [facility] ([facility])Specimen (Source)Anatomical Location / LateralityCollection Method / VolumeCollection TimeReceived TimeBlood Arterial blood specimen / UnknownArterial Line / Waqageg1701/26/2025 3:20 AM EDT 01/26/2025 3:36 AM EDT Narrative Authorizing ProviderResult TypeResult StatusZaid Dafne NAVARRETELAB BLOOD ORDERABLES Final ResultPerforming OrganizationAddressCity/State/ZIP CodePhone Number [facility] ([facility]) [address] [place] [address] * Phosphorus (01/26/2025 3:20 AM EDT) Only the most recent of5 resultswithin the time period is included. ComponentValueRef RangeTest MethodAnalysis TimePerformed AtPathologist Signature Phosphorus3.62.5 - 5.0 mg/dL01/26/2025 3:58 AM [facility] ([facility]) Specimen (Source)Anatomical Location / LateralityCollection Method / Volume Collection TimeReceived TimeBloodArterial blood specimen / UnknownArterial Line / Gviutzu2201/26/2025 3:20 AM EDT01/26/2025 3:36 AM EDT Narrative Authorizing ProviderResult TypeResult StatusBubba Leos MNLAB BLOOD ORDERABLES Final ResultPerforming OrganizationAddressCity/State/ZIP CodePhone Number [facility]) [address] [place] [address] * Vancomycin, random (01/26/2025 3:20 AM EDT)ComponentValueRef RangeTest Method Analysis TimePerformed AtPathologist SignatureVancomycin Rm33.020.0 - 40.0 ug/mL01/26/2025 12:58 PM [facility] ([facility])Specimen (Source) Anatomical Location / LateralityCollection Method / VolumeCollection Time Received TimeBloodArterial blood specimen / UnknownArterial Line / Unknown 01/26/2025 3:20 AM EDT01/26/2025 3:36 AM EDT Narrative Authorizing ProviderResult TypeResult StatusScontreras Strauss [facility] BLOOD ORDERABLESFinal ResultPerforming OrganizationAddressCity/State/ZIP CodePhone Number [facility]) [address] [place] [address] * ANCA-Associated Vasculitis Profile (01/26/2025 12:12 AM EDT) Only the most recent of2 resultswithin the time period is included. ComponentValueRef RangeTest MethodAnalysis TimePerformed AtPathologist Signature Myeloperoxidase (MPO) Ab, IgG00 - 19 AU/mL01/28/2025 2:45 PM [facility] ([facility])Comment: INTERPRETIVE INFORMATION: Myeloperoxidase Abs, IgG ??19 AU/mL or Less ......... Negative ??20-25 AU/mL .............. Equivocal ??26 AU/mL or Greater ...... Positive Approximately 90% of patients with a P-ANCA pattern by IFA have antibodies specific for MPO. Serine Proteinase 3 (PR3) Ab, IgG00 - 19 AU/mL01/28/2025 2:45 PM [facility] ([facility])Comment: INTERPRETIVE INFORMATION: Serine Proteinase 3, IgG ??19 AU/mL or Less ........ Negative ??20-25 AU/mL ............. Equivocal ??26 AU/mL or Greater ..... Positive Approximately 85% of patients with a C-ANCA pattern by IFA have antibodies specific for PR3. ANCA IFA Titer<1:20<1: 2:45 PM EDTARUP [facility] ([facility])ANCA IFA PatternNone DetectedNone Egvnyiar30/09/2025 2:45 PM [facility]TAR[facility] ([facility]) Comment: INTERPRETIVE INFORMATION: ANCA IFA Pattern Neutrophil Cytoplasmic Antibodies (C-ANCA = granular cytoplasmic staining, P-ANCA = perinuclear staining) are found in the serum of over 90 percent of patients with certain necrotizing systemic vasculitides, and usually in less than 5 percent of patients with collagen vascular disease or arthritis. Performed By: [facility] [address] [place] [id number] Fnp: Vince Roberts MD, PhD CLIA Number: [id number] Specimen (Source)Anatomical Location / LateralityCollection Method / Volume Collection TimeReceived TimeBloodArterial blood specimen / UnknownArterial Line / Scxagjs5301/26/2025 12:12 AM EDT01/26/2025 12:27 AM EDT Narrative Authorizing ProviderResult TypeResult StatusZaid Dafne ELISE BLOOD ORDERABLES Final ResultPerforming OrganizationAddressCity/State/ZIP CodePhone Number [facility] ([facility]) [address] [place] [id number] * HIV combo 4G (01/26/2025 12:12 AM EDT)ComponentValueRef RangeTest Method Analysis TimePerformed AtPathologist SignatureHIV Combo 4GNegativeNegative 01/26/2025 1:26 AM EDT[facility] ([facility])Specimen (Source)Anatomical Location / LateralityCollection Method / VolumeCollection TimeReceived Time BloodArterial blood specimen / UnknownArterial Line / Dpnaybt6201/26/2025 12:12 AM EDT01/26/2025 12:27 AM EDT Narrative Authorizing ProviderResult TypeResult StatusZaid Dafne ELISE BLOOD ORDERABLES Final ResultPerforming OrganizationAddressCity/State/ZIP CodePhone Number [facility] ([facility]) [address] [place] [address] * Extractable nuclear antigen antibodies (01/26/2025 12:12 AM EDT)ComponentValue Ref RangeTest MethodAnalysis TimePerformed AtPathologist SignatureSmith Antibody, IgG10 - 40 AU/mL01/28/2025 1:43 PM EDTARUP LAB[facility] ([facility]) Comment: INTERPRETIVE INFORMATION: Bhatia ([place]) Antibody, IgG ??29 AU/mL or Less ............. Negative ??30 - 40 AU/mL ................ Equivocal ??41 AU/mL or Greater .......... Positive Bhatia antibody is highly specific (greater than 90 percent) for systemic lupus erythematosus (SLE) but only occurs in 30-35 percent of SLE cases. The presence of antibodies to Bhatia has variable associations with SLE clinical manifestations. Bhatia/PRIVATE EQUITY ANALYST Antibody, IgG50 - 19 Units01/28/2025 1:43 PM EDTARUP LABORATORY ([facility])Comment: INTERPRETIVE INFORMATION: Bhatia/PRIVATE EQUITY ANALYST ([place]) Antibody, IgG ??19 Units or Less ............. Negative ??20 to 39 Units ............... Weak Positive ??40 to 80 Units ............... Moderate Positive ??81 Units or greater .......... Strong Positive Bhatia/PRIVATE EQUITY ANALYST antibodies are frequently seen in patients with mixed connective tissue disease (MCTD) and are also associated with other systemic autoimmune rheumatic diseases (SARDs) such as systemic lupus erythematosus (SLE), systemic sclerosis, and myositis. Antibodies targeting the Bhatia/PRIVATE EQUITY ANALYST antigenic complex also recognize Bhatia antigens, therefore, the Bhatia antibody response must be considered when interpreting these results. Performed By: [facility] [address] [place] [address] Fnp: Vince Roberts MD, PhD CLIA Number: [id number] Specimen (Source)Anatomical Location / LateralityCollection Method / Volume Collection TimeReceived TimeBloodArterial blood specimen / UnknownArterial Line / Kgpwhto2301/26/2025 12:12 AM EDT01/26/2025 12:27 AM EDT Narrative Authorizing ProviderResult TypeResult StatusZaid Dafne ELISE BLOOD ORDERABLES Final ResultPerforming OrganizationAddressCity/State/ZIP CodePhone Number [facility] ([facility]) [address] [place] [address] * Anti-scleroderma antibody (01/26/2025 12:12 AM EDT)ComponentValueRef RangeTest MethodAnalysis TimePerformed AtPathologist SignatureScleroderma SCL-7000 - 40 AU/mL01/28/2025 1:18 PM EDTARUP LAB[facility]ORY ([facility])Comment: INTERPRETIVE INFORMATION: Scleroderma (Scl-70) ([place]) Ab, IgG ??29 AU/mL or Less ............. Negative ??30 - 40 AU/mL ................ Equivocal ??41 AU/mL or Greater .......... Positive The presence of Scl-70 antibodies (also referred to as topoisomerase I, rebekah-I or PATRICIA) is considered diagnostic for systemic sclerosis (SSc). Scl-70 antibodies alone are detected in about 20 percent of SSc patients and are associated with the diffuse form of the disease, which may include specific organ involvement and poor prognosis. Scl-70 antibodies have also been reported in a varying percentage of patients with systemic lupus erythematosus (SLE). Scl-70 (rebekah-1) is a DNA binding protein and anti-DNA/DNA complexes in the sera of SLE patients may bind to rebekah-I, leading to a false-positive result. The presence of Scl-70 antibody in sera may also be due to contamination of recombinant Scl-70 with DNA derived from cellular material used in immunoassays. Strong clinical correlation is recommended if both Scl-70 and dsDNA antibodies are detected. Negative results do not necessarily rule out the presence of SSc. If clinical suspicion remains, consider further testing for centromere, RNA polymerase III and U3-PRIVATE EQUITY ANALYST, PM/Scl, or Th/To antibodies. Performed By: [facility] [address] [place] [address] Fnp: Vince Roberts MD, PhD CLIA Number: [id number] Specimen (Source)Anatomical Location / LateralityCollection Method / Volume Collection TimeReceived TimeBloodArterial blood specimen / UnknownArterial Line / Fbapwwp0901/26/2025 12:12 AM EDT01/26/2025 12:27 AM EDT Narrative Authorizing ProviderResult TypeResult StatusBubba ELISE BLOOD ORDERABLES Final ResultPerforming OrganizationAddressCity/State/ZIP CodePhone Number [facility] ([facility]) [address] [place] [address] * Peripheral blood smear, path review (01/26/2025 12:12 AM EDT)ComponentValueRef RangeTest MethodAnalysis TimePerformed AtPathologist SignatureWBC Comment Normal count and differential.01/26/2025 11:11 AM [facility] ([facility])RBC CommentNo anemia, no specific RBC morphology.01/26/2025 11:11 AM [facility] ([facility])Platelet CommentDEQUATE.01/26/2025 11:11 AM EDT [facility] ([facility])Specimen (Source)Anatomical Location / Laterality Collection Method / VolumeCollection TimeReceived TimeBloodArterial blood specimen / UnknownArterial Line / Taxccjm7801/26/2025 12:12 AM EDT01/26/2025 12:27 AM EDT Narrative [facility] ([facility]) - 01/26/2025 11:11 AM EDT . Authorizing ProviderResult TypeResult Handy ELISE PATHOLOGY ORDERABLESFinal ResultPerforming OrganizationAddressCity/State/ZIP CodePhone Number [facility] ([facility]) [address] [place] [address] * Rheumatoid factor (01/25/2025 5:56 PM EDT)ComponentValueRef RangeTest Method Analysis TimePerformed AtPathologist SignatureRheumatoid Factor<8.0<=12.5 IU/mL08/12/2024 9:38 AM [facility] ([facility])Comment:Testing performed using a new methodology, turbidimetry. Normal ranges have been updated. Old normal range was <20 IU/mL.Specimen (Source)Anatomical Location / Laterality Collection Method / VolumeCollection TimeReceived TimeBloodVenous blood specimen / UnknownArterial Line / Awmioca3001/25/2025 5:56 PM EDT01/25/2025 6:06 PM EDT Narrative Authorizing ProviderResult TypeResult StatusBubba DillardBlount [facility] HospitalLAB BLOOD ORDERABLES Final ResultPerforming OrganizationAddressCity/State/ZIP CodePhone Number [facility] ([facility]) [address] [place] [address] * (ABNORMAL) MALLY (01/25/2025 5:56 PM EDT)ComponentValueRef RangeTest Method Analysis TimePerformed AtPathologist SignatureANA KisigsyXxddtprhr56/12/2025 1:39 PM [facility] ([facility])MALLY Titer1:80(H)<=1:40001/31/2025 1:39 PM [facility] ([facility])Comment:Test performed using PABLO IFA MALLY Hep-2 Test, a pre-standardized assay designed for the qualitativeand semi- quantitative detection of antinuclear antibodies.Specimen (Source)Anatomical Location / LateralityCollection Method / VolumeCollection TimeReceived Time BloodVenous blood specimen / UnknownArterial Line / Cywcldt6801/25/2025 5:56 PM EDT01/25/2025 6:06 PM EDT Narrative Authorizing ProviderResult TypeResult Handy Leos [facility] BLOOD ORDERABLES Final ResultPerforming OrganizationAddressCity/State/ZIP CodePhone Number [facility] ([facility]) [address] [place] [address] * LIMITED ECHOCARDIOGRAM (TTE) W/ LTD DOPPLER AND COLOR FLOW (01/25/2025 1:33 PM EDT)Anatomical RegionLateralityModalityOtherSpecimen (Source)Anatomical Location / LateralityCollection Method / VolumeCollection TimeReceived Time 01/25/2025 12:36 PM EDT Addenda Addendum by Ronaldo Valderrama MD on 01/25/2025 2:56 PM EDT 1 1 [facility] [address] [place] [address] [phone] (fax) Echocardiogram-[facility] Name: NATHAN SANTOS Study Date: 01/25/2025 12:36 PM B/P: 111 mmHg/94 mmHg HR: 115 bpm Date of : 1975 Location: [facility] Height: 71 in. Age: 49 year(s) Patient Room: 3207 Weight: 188 lb. Gender: Male Patient Status: InPt BSA: 2.05 m2 Indication: pulmonary HTN, [place] catheter Examination: Limited Echo/Limited Doppler, Color flow imaging, Agitated Saline Image Quality: Fair Patient Consent: Procedure explained to patient Exam Details Contrast: I.V. dose of agitated saline Conclusions Left Ventricle: The left ventricle is normal size. Global left ventricular systolic function is severely reduced. The EF is 25 % visually. Left ventricular wall thickness is normal. The septum is abnormal, consistent with RV volume and/or pressure overload. Right Ventricle: Catheter noted in the RV. The right ventricle is severely enlarged. Severely reduced right ventricular systolic function. A pacemaker wire/ catheter is seen in the right ventricle. Doppler studies suggest severely elevated right sided pressures. Left Atrium: The left atrium is normal in size. IAS: Atrial septal bowing from right to left. Agitated saline injections suggest a PFO. Right Atrium: The right atrium is severely enlarged. Mitral Valve: Trivial mitral regurgitation. Tricuspid Valve: Flow reversal is seen in the hepatic veins suggestive of severe tricuspid regurgitation. Great Vessels: IVC: The IVC is severely dilated. There is no inspiratory collapse of the IVC. Pericardium: There is a minimal pericardial effusion. A left pleural effusion is seen. Measurements Left Ventricle Label Value Normal Value LVEF visual 25 % LVDd, 2D 4.5 cm (4.2cm - 5.9cm) IVSd, 2D 0.7 cm (0.6cm - 1.1cm) LVPWd, 2D 0.86 cm (0.6cm - 1cm) LV Mass, 2D ASE 109.94 g LV Mass Index, 2D ASE 53.6 g/m?? (50g/m?? - 102.4g/m??) RWT, MM 0.38 (0 - 0.42) Right Ventricle Label Value Normal Value RVDd, 2D 6.41 cm (1.9cm - 3.8cm) Right Atrium Label Value Normal Value RA Area 47.2 cm?? Tricuspid Valve Label Value Normal Value RA Pressure 15 mmHg RVSP 57 mmHg Great Vessels Label Value Normal Value IVC 3.6 cm (1.2cm - 2.3cm) Valvular Assessment LVOT 0.7 - 1.1 m/sec Aortic Valve 1.0 - 1.7 m/sec Mitral Valve 0.6 - 1.3 m/sec Tricuspid Valve 0.3 - 0.7 m/sec Pulmonic Valve 0.6 - 0.9 m/sec Regurgitation No Trivial SevTR Trivial Stenosis No Findings Left Ventricle: The left ventricle is normal size. Global left ventricular systolic function is severely reduced. The EF is 25 % visually. Left ventricular wall thickness is normal. The septum is abnormal, consistent with RV volume and/or pressure overload. Right Ventricle: Catheter noted in the RV. The right ventricle is severely enlarged. Severely reduced right ventricular systolic function. A pacemaker wire/ catheter is seen in the right ventricle. Doppler studies suggest severely elevated right sided pressures. Left Atrium: The left atrium is normal in size. IAS: Atrial septal bowing from right to left. Agitated saline injections suggest a PFO. Right Atrium: The right atrium is severely enlarged. Mitral Valve: There is nonspecific thickening of the mitral valve leaflet. Trivial mitral regurgitation. There is mild mitral annular calcification. Aortic Valve: Focal aortic cusp thickening is noted. No aortic valve regurgitation. No aortic valve stenosis. Tricuspid Valve: Normal tricuspid valve. Flow reversal is seen in the hepatic veins suggestive of severe tricuspid regurgitation. Pulmonic Valve: Normal pulmonary valve. Trivial pulmonary regurgitation. Aorta: The aortic root exhibits upper limit of normal size. Great Vessels: IVC: The IVC is severely dilated. There is no inspiratory collapse of the IVC. Pericardium: There is a minimal pericardial effusion. A left pleural effusion is seen. Procedure Staff Reading Group: [facility] Batch Heat Treat Operator: KIANNA Churchill, RDCS ??Ordering Physician: RONALDO VALDERRAMA ?? Narrative 01/25/2025 2:56 PM EDT 1 1 [facility] [address] [place] [address] [phone] (fax) Echocardiogram-[facility] Name: NATHAN SANTOS Study Date: 01/25/2025 12:36 PM B/P: 111 mmHg/94 mmHg HR: 115 bpm Date of : 1975 Location: [facility] Height: 71 in. Age: 49 year(s) Patient Room: 3207 Weight: 188 lb. Gender: Male Patient Status: InPt BSA: 2.05 m2 Indication: pulmonary HTN, [place] catheter Examination: Limited Echo/Limited Doppler, Color flow imaging, Agitated Saline Image Quality: Fair Patient Consent: Procedure explained to patient Exam Details Contrast: I.V. dose of agitated saline Conclusions Left Ventricle: The left ventricle is normal size. Global left ventricular systolic function is severely reduced. The EF is 25 % visually. Left ventricular wall thickness is normal. The septum is abnormal, consistent with RV volume and/or pressure overload. Right Ventricle: Catheter noted in the RV. The right ventricle is severely enlarged. Severely reduced right ventricular systolic function. Doppler studies suggest severely elevated right sided pressures. Left Atrium: The left atrium is normal in size. IAS: Atrial septal bowing from right to left. Agitated saline injections suggest a PFO. Right Atrium: The right atrium is severely enlarged. Mitral Valve: Trivial mitral regurgitation. Tricuspid Valve: Flow reversal is seen in the hepatic veins suggestive of severe tricuspid regurgitation. Great Vessels: IVC: The IVC is severely dilated. There is no inspiratory collapse of the IVC. Pericardium: There is a minimal pericardial effusion. A left pleural effusion is seen. Measurements Left Ventricle Label Value Normal Value LVEF visual 25 % LVDd, 2D 4.5 cm (4.2cm - 5.9cm) IVSd, 2D 0.7 cm (0.6cm - 1.1cm) LVPWd, 2D 0.86 cm (0.6cm - 1cm) LV Mass, 2D ASE 109.94 g LV Mass Index, 2D ASE 53.6 g/m?? (50g/m?? - 102.4g/m??) RWT, MM 0.38 (0 - 0.42) Right Ventricle Label Value Normal Value RVDd, 2D 6.41 cm (1.9cm - 3.8cm) Right Atrium Label Value Normal Value RA Area 47.2 cm?? Tricuspid Valve Label Value Normal Value RA Pressure 15 mmHg RVSP 57 mmHg Great Vessels Label Value Normal Value IVC 3.6 cm (1.2cm - 2.3cm) Valvular Assessment LVOT 0.7 - 1.1 m/sec Aortic Valve 1.0 - 1.7 m/sec Mitral Valve 0.6 - 1.3 m/sec Tricuspid Valve 0.3 - 0.7 m/sec Pulmonic Valve 0.6 - 0.9 m/sec Regurgitation No Trivial SevTR Trivial Stenosis No Findings Left Ventricle: The left ventricle is normal size. Global left ventricular systolic function is severely reduced. The EF is 25 % visually. Left ventricular wall thickness is normal. The septum is abnormal, consistent with RV volume and/or pressure overload. Right Ventricle: Catheter noted in the RV. The right ventricle is severely enlarged. Severely reduced right ventricular systolic function. Doppler studies suggest severely elevated right sided pressures. Left Atrium: The left atrium is normal in size. IAS: Atrial septal bowing from right to left. Agitated saline injections suggest a PFO. Right Atrium: The right atrium is severely enlarged. Mitral Valve: There is nonspecific thickening of the mitral valve leaflet. Trivial mitral regurgitation. There is mild mitral annular calcification. Aortic Valve: Focal aortic cusp thickening is noted. No aortic valve regurgitation. No aortic valve stenosis. Tricuspid Valve: Normal tricuspid valve. Flow reversal is seen in the hepatic veins suggestive of severe tricuspid regurgitation. Pulmonic Valve: Normal pulmonary valve. Trivial pulmonary regurgitation. Aorta: The aortic root exhibits upper limit of normal size. Great Vessels: IVC: The IVC is severely dilated. There is no inspiratory collapse of the IVC. Pericardium: There is a minimal pericardial effusion. A left pleural effusion is seen. Procedure Staff Reading Group: [facility] Batch Heat Treat Operator: KIANNA Churchill, RDCS ??Ordering Physician: RONALDO VALDERRAMA ?? Procedure Note Ronaldo Valderrama MD - 01/25/2025 1 1 [facility] Heart Station [address] [place] [address] [phone] (fax) Echocardiogram-[facility] Name: NATHAN SANTOS Study Date: 01/25/2025 12:36 PM B/P: 111 mmHg/94 mmHg HR: 115 bpm Date of : 1975 Location: [facility] Height: 71 in. Age: 49 year(s) Patient Room: 3207 Weight: 188 lb. Gender: Male Patient Status: InPt BSA: 2.05 m2 Indication: pulmonary HTN, [place] catheter Examination: Limited Echo/Limited Doppler, Color flow imaging, Agitated Saline Image Quality: Fair Patient Consent: Procedure explained to patient Exam Details Contrast: I.V. dose of agitated saline Conclusions Left Ventricle: The left ventricle is normal size. Global left ventricular systolic function is severely reduced. The EF is 25 % visually. Left ventricular wall thickness is normal. The septum is abnormal, consistent with RV volume and/or pressure overload. Right Ventricle: Catheter noted in the RV. The right ventricle is severely enlarged. Severely reduced right ventricular systolic function. Doppler studies suggest severely elevated right sided pressures. Left Atrium: The left atrium is normal in size. IAS: Atrial septal bowing from right to left. Agitated saline injections suggest a PFO. Right Atrium: The right atrium is severely enlarged. Mitral Valve: Trivial mitral regurgitation. Tricuspid Valve: Flow reversal is seen in the hepatic veins suggestive of severe tricuspid regurgitation. Great Vessels: IVC: The IVC is severely dilated. There is no inspiratory collapse of the IVC. Pericardium: There is a minimal pericardial effusion. A left pleural effusion is seen. Measurements Left Ventricle Label Value Normal Value LVEF visual 25 % LVDd, 2D 4.5 cm (4.2cm - 5.9cm) IVSd, 2D 0.7 cm (0.6cm - 1.1cm) LVPWd, 2D 0.86 cm (0.6cm - 1cm) LV Mass, 2D ASE 109.94 g LV Mass Index, 2D ASE 53.6 g/m?? (50g/m?? - 102.4g/m??) RWT, MM 0.38 (0 - 0.42) Right Ventricle Label Value Normal Value RVDd, 2D 6.41 cm (1.9cm - 3.8cm) Right Atrium Label Value Normal Value RA Area 47.2 cm?? Tricuspid Valve Label Value Normal Value RA Pressure 15 mmHg RVSP 57 mmHg Great Vessels Label Value Normal Value IVC 3.6 cm (1.2cm - 2.3cm) Valvular Assessment LVOT 0.7 - 1.1 m/sec Aortic Valve 1.0 - 1.7 m/sec Mitral Valve 0.6 - 1.3 m/sec Tricuspid Valve 0.3 - 0.7 m/sec Pulmonic Valve 0.6 - 0.9 m/sec Regurgitation No Trivial SevTR Trivial Stenosis No Findings Left Ventricle: The left ventricle is normal size. Global left ventricular systolic function is severely reduced. The EF is 25 % visually. Left ventricular wall thickness is normal. The septum is abnormal, consistent with RV volume and/or pressure overload. Right Ventricle: Catheter noted in the RV. The right ventricle is severely enlarged. Severely reduced right ventricular systolic function. Doppler studies suggest severely elevated right sided pressures. Left Atrium: The left atrium is normal in size. IAS: Atrial septal bowing from right to left. Agitated saline injections suggest a PFO. Right Atrium: The right atrium is severely enlarged. Mitral Valve: There is nonspecific thickening of the mitral valve leaflet. Trivial mitral regurgitation. There is mild mitral annular calcification. Aortic Valve: Focal aortic cusp thickening is noted. No aortic valve regurgitation. No aortic valve stenosis. Tricuspid Valve: Normal tricuspid valve. Flow reversal is seen in the hepatic veins suggestive of severe tricuspid regurgitation. Pulmonic Valve: Normal pulmonary valve. Trivial pulmonary regurgitation. Aorta: The aortic root exhibits upper limit of normal size. Great Vessels: IVC: The IVC is severely dilated. There is no inspiratory collapse of the IVC. Pericardium: There is a minimal pericardial effusion. A left pleural effusion is seen. Procedure Staff Reading Group: [facility] Batch Heat Treat Operator: KIANNA Churchill, RDCS Ordering Physician: RONALDO VALDERRAMA Authorizing ProviderResult TypeResult StatusSarito Valderrama [facility] [place] [place] Edited Result - Final * Lactic acid with 4 hour reflex (01/25/2025 11:21 AM EDT) Only the most recent of2 resultswithin the time period is included. ComponentValueRef RangeTest MethodAnalysis TimePerformed AtPathologist Signature Lactate0.60.5 - 2.2 mmol/L01/25/2025 12:01 PM [facility] ([facility]) Specimen (Source)Anatomical Location / LateralityCollection Method / Volume Collection TimeReceived TimeBloodVenous blood specimen / UnknownArterial Line / Dlzfnzk8501/25/2025 11:21 AM EDT01/25/2025 11:35 AM EDT Narrative Authorizing ProviderResult TypeResult StatusZaid Dafne MDLAB BLOOD ORDERABLES Final ResultPerforming OrganizationAddressCity/State/ZIP CodePhone Number [facility] ([facility]) [address] [place] [address] * TSH3 Reflex to FT4 (01/25/2025 11:18 AM EDT) Only the most recent of2 resultswithin the time period is included. ComponentValueRef RangeTest MethodAnalysis TimePerformed AtPathologist Signature TSH0.790.34 - 5.60 mIU/L01/25/2025 9:33 PM [facility] ([facility])Specimen (Source)Anatomical Location / LateralityCollection Method / VolumeCollection TimeReceived TimeBloodVenous blood specimen / UnknownArterial Line / Unknown 01/25/2025 11:18 AM EDT01/25/2025 11:36 AM EDT Narrative Authorizing ProviderResult TypeResult StatusBubba Leos MDLAB BLOOD ORDERABLES Final ResultPerforming OrganizationAddressCity/State/ZIP CodePhone Number [facility]) [address] [place] [address] * (ABNORMAL) CBC auto differential (01/25/2025 11:18 AM EDT) Only the most recent of2 resultswithin the time period is included. ComponentValueRef RangeTest MethodAnalysis TimePerformed AtPathologist Signature Auto WBC9.534.00 - 10.60 10*3/uL01/25/2025 11:45 AM [facility] ([facility])RBC4.524.20 - 5.70 10*6/uL01/25/2025 11:45 AM [facility] ([facility])Onhkvgykck74.513.0 - 17.0 g/dL01/25/2025 11:45 AM [facility] ([facility])Mebhwlvbco77.139.0 - 50.0 %01/25/2025 11:45 AM [facility] ([facility])MCV88.782.0 - 98.0 fL01/25/2025 11:45 AM [facility] ([facility]) MCH29.927.0 - 33.0 pg01/25/2025 11:45 AM [facility] ([facility])MCHC33.7 32.0 - 35.0 g/dL01/25/2025 11:45 AM [facility] ([facility])RDW14.611.5 - 15.0 %01/25/2025 11:45 AM [facility] ([facility])Neutrophils %73.9(H)40.0 - 72.0 %01/25/2025 11:45 AM [facility] ([facility])Lymphocytes %17.2(L) 20.0 - 45.0 %01/25/2025 11:45 AM [facility] ([facility])Monocytes %7.65.0 - 12.0 %01/25/2025 11:45 AM [facility] ([facility])Eosinophils %0.50.0 - 6.0 %01/25/2025 11:45 AM [facility] ([facility])Basophils %0.40.0 - 1.0 % 01/25/2025 11:45 AM [facility] ([facility])Neutrophils Absolute7.041.60 - 7.60 10*3/uL01/25/2025 11:45 AM [facility] ([facility])Lymphocytes Absolute1.641.20 - 4.00 10*3/uL08 11:45 AM [facility] ([facility]) Monocytes Absolute0.720.10 - 1.00 10*3/uL01/25/2025 11:45 AM [facility] ([facility])Eosinophils Absolute0.050.00 - 0.50 10*3/uL08 11:45 AM [facility] ([facility])Basophils Absolute0.040.00 - 0.20 10*3/uL08/11/2024 11:45 AM [facility] ([facility])Dxrupiohc260207 - 400 10*01/25/2025 11:45 AM [facility] ([facility])nRBC %0.00 %01/25/2025 11:45 AM [facility] ([facility])Immature Granulocytes %0.40.0 - 1.0 %01/25/2025 11:45 AM [facility] ([facility])Immature Granulocytes Absolute0.040.00 - 0.20 10*301/25/2025 11:45 AM [facility] ([facility])Specimen (Source) Anatomical Location / LateralityCollection Method / VolumeCollection Time Received TimeBloodVenous blood specimen / UnknownArterial Line / Unknown 01/25/2025 11:18 AM EDT01/25/2025 11:37 AM EDT Narrative Authorizing ProviderResult TypeResult StatusBubba ELISE BLOOD ORDERABLES Final ResultPerforming OrganizationAddressCity/State/ZIP CodePhone Number [facility] ([facility]) [address] [place] [address] * (ABNORMAL) CK total and CKMB (01/25/2025 11:18 AM EDT)ComponentValueRef Range Test MethodAnalysis TimePerformed AtPathologist SignatureTotal CK81.030.0 - 223.0 U/L01/25/2025 3:00 PM [facility])CK-MB Index20.0(H)0.0 - 1.9001/25/2025 3:00 PM [facility])CK-MB16.2(H)0.0 - 5.0 ng/mL01/25/2025 3:00 PM [facility])Specimen (Source) Anatomical Location / LateralityCollection Method / VolumeCollection Time Received TimeBloodVenous blood specimen / UnknownArterial Line / Unknown 01/25/2025 11:18 AM EDT01/25/2025 11:36 AM EDT Narrative Authorizing ProviderResult TypeResult StatusBubba ELISE BLOOD ORDERABLES Final ResultPerforming OrganizationAddressCity/State/ZIP CodePhone Number [facility]) [address] [place] [address] * (ABNORMAL) Comprehensive metabolic panel (01/25/2025 11:18 AM EDT)Component ValueRef RangeTest MethodAnalysis TimePerformed AtPathologist SignatureSodium 958958 - 145 mmol/L01/25/2025 12:04 [facility] ([facility])Potassium 4.03.5 - 5.1 mmol/L01/25/2025 12:04 [facility] ([facility])Chloride 21921 - 107 mmol/L01/25/2025 12:04 [facility] ([facility])RW97894 - 31 mmol/L01/25/2025 12:04 [facility] ([facility])Anion Kha477 - 20 mmol/L01/25/2025 12:04 [facility] ([facility])NPO489 - 25 mg/dL 01/25/2025 12:04 [facility] ([facility])Creatinine0.950.70 - 1.30 mg/dL01/25/2025 12:04 [facility] ([facility])BUN/Creatinine Ratio23.2 01/25/2025 12:04 [facility] ([facility])Zshfbot525(H)70 - 100 mg/dL 01/25/2025 12:04 [facility] ([facility])Calcium8.78.6 - 10.3 mg/dL 01/25/2025 12:04 [facility] ([facility])LUF1213 - 39 U/L01/25/2025 12:04 [facility] ([facility])ALT (SGPT)177 - 52 U/L01/25/2025 12:04 [facility] ([facility])Alkaline Ikwoxqhkltr3019 - 104 U/L01/25/2025 12:04 [facility] ([facility])Total Protein5.8(L)6.0 - 8.3 g/dL 01/25/2025 12:04 [facility] ([facility])Albumin3.83.5 - 5.7 g/dL 01/25/2025 12:04 PM [facility] ([facility])Total Bilirubin1.6(H)0.3 - 1.0 mg/dL01/25/2025 12:04 PM [facility] ([facility])eGFR97.5>60.0 mL/min/1.73m* 12:04 PM [facility] ([facility])Comment:The [facility]???s estimated glomerular filtration rate (eGFR) will no longer include consideration of race in its calculation. The [employer]???s eGFR Task Force developed new recommendations for the estimation of the glomerular filtration rate in the [place] They recommend immediate implementation of the new equation refit without the race variable in all laboratories because the calculation does not include race. In addition to not including race in the calculation and reporting, it included diversity in its development, and has acceptable performance characteristics and potential consequences that do not disproportionately affect any one group of individuals.Specimen (Source)Anatomical Location / LateralityCollection Method / VolumeCollection TimeReceived TimeBloodVenous blood specimen / UnknownArterial Line / Zfvyzsb3601/25/2025 11:18 AM EDT01/25/2025 11:36 AM EDT Narrative Authorizing ProviderResult TypeResult StatusZaid Dafne ELISE BLOOD ORDERABLES Final ResultPerforming OrganizationAddressCity/State/ZIP CodePhone Number [facility] ([facility]) [address] [place] [address] * (ABNORMAL) Toxicology Screen, Urine (01/25/2025 9:57 AM EDT)ComponentValueRef RangeTest MethodAnalysis TimePerformed AtPathologist SignatureBarbiturates DtedcvukCaxqqzys62/06/2025 1:42 PM [facility] ([facility]) BenzodiazepinesPositive(A)Mzjbvynx16/06/2025 1:42 PM [facility] ([facility])GgpmxmiqsykmDtlfjrmxErbmdksr33/06/2025 1:42 PM [facility] ([facility])DrlvqbfwdPajkwconNncvrxal43/06/2025 1:42 PM [facility] ([facility])EguadsesoiIipmuyyaCwynorrh59/06/2025 1:42 PM [facility] ([facility])PvvjibhcwyloiIefvbamjEetwdjaz37/06/2025 1:42 PM [facility] ([facility])OpiatesPositive(A)Mhjdbgwy96/06/2025 1:42 PM [facility] ([facility])NorstilOqrtqdwfZcjasslr67/06/2025 1:42 PM [facility] ([facility])Amphetamines/MethamphetaminePositive(A)Eqycapwr80/06/2025 1:42 PM EDT [facility] ([facility])NwvqggmtlqjIhgiklhpYqvhfrzv85/06/2025 1:42 PM EDT [facility] ([facility])Specimen (Source)Anatomical Location / Laterality Collection Method / VolumeCollection TimeReceived TimeUrineUrine specimen obtained by clean catch procedure / UnknownNon-blood Collection / Unknown 01/25/2025 9:57 AM EDT01/25/2025 10:14 AM EDT Narrative [facility] ([facility]) - 01/25/2025 1:42 PM EDT Unconfirmed screening results should only be used for medical purposes. Authorizing ProviderResult TypeResult StatusZaid Dafne ELISE URINE ORDERABLES Final ResultPerforming OrganizationAddressCity/State/ZIP CodePhone Number [facility]) [address] [place] [address] * Ethanol (01/25/2025 9:57 AM EDT)ComponentValueRef RangeTest MethodAnalysis TimePerformed AtPathologist SignatureEthanol Calculated %<0.01%01/25/2025 10:44 AM [facility] ([facility])Ethanol Lvl<10<10 mg/dL01/25/2025 10:44 AM [facility] ([facility])Specimen (Source)Anatomical Location / LateralityCollection Method / VolumeCollection TimeReceived TimeBloodVenous blood specimen / UnknownArterial Line / Onmfhrg8401/25/2025 9:57 AM EDT 01/25/2025 10:17 AM EDT Narrative Authorizing ProviderResult TypeResult StatusZaid Dafne ELISE BLOOD ORDERABLES Final ResultPerforming OrganizationAddressCity/State/ZIP CodePhone Number [facility]) [address] [place] [address] * XR chest 1 view (01/25/2025 8:56 AM EDT) Only the most recent of2 resultswithin the time period is included. Anatomical RegionLateralityModalityChestComputed RadiographySpecimen (Source) Anatomical Location / LateralityCollection Method / VolumeCollection Time Received Time01/25/2025 9:04 AM EDT Impressions 01/25/2025 9:06 AM EDT 1. There is a [place] catheter with its tip in the right lower pulmonary arterial branch . 2. Atelectasis in the left lower lung field and mild vascular congestion. 3. No evidence of pneumothorax. Electronically signed: Koby Solano. Narrative 01/25/2025 9:06 AM EDT HISTORY: A 49-year-old male with the history of the shortness of breath. TECHNIQUE: ??Portable upright AP view of chest: One view COMPARISON: ??Comparison is made with the chest radiograph of the [facility] 2024. FINDINGS: ??There is cardiomegaly. A [place] catheter is seen with its tip in the right lower pulmonary arterial branch. Cardiac monitoring leads are seen overlying the chest. There is a parenchymal opacity in the left lower lungs suggestive of atelectasis. There is some mild vascular congestion. No pneumothorax is identified. No pleural effusions are seen. Hemidiaphragms are normal in position and contour. Procedure Note Koby Solano MD - 01/25/2025 HISTORY: A 49-year-old male with the history of the shortness of breath. TECHNIQUE: Portable upright AP view of chest: One view COMPARISON: Comparison is made with the chest radiograph of the [facility] . FINDINGS: There is cardiomegaly. A [place] catheter is seen with itstip in the right lower pulmonary arterial branch. Cardiac monitoring leads areseen overlying the chest. There is a parenchymal opacity in the left lower lungs suggestive of atelectasis. There is some mild vascular congestion. No pneumothorax is identified. No pleural effusions are seen. Hemidiaphragms are normal in position and contour. IMPRESSION: 1.There is a [place] catheter with its tip in the right lowerpulmonary arterial branch . 2.Atelectasis in the left lower lung field and mild vascularcongestion. 3.No evidence of pneumothorax. Electronically signed: Koby Solano. Authorizing ProviderResult TypeResult StatusZaid [facility] XR PROCEDURESFinal Result * XR tibia fibula 2 views left (01/25/2025 8:06 AM EDT)Anatomical Region LateralityModalityLower Extremities, Lower LegLeftComputed RadiographySpecimen (Source)Anatomical Location / LateralityCollection Method / VolumeCollection TimeReceived Time01/25/2025 8:11 AM EDT Impressions 01/25/2025 8:13 AM EDT Impression: 1. No acute fracture or destructive lesion. No periosteal reaction. 2. Diffuse soft tissue swelling, nonspecific. This could be cellulitis. Small foci of soft tissue gas in the anterior soft tissues of the mid left lower leg are not excluded. This could be further assessed with CT if clinically indicated. Electronically signed: Jaleel Kimble. Narrative 01/25/2025 8:13 AM EDT XR TIBIA FIBULA 2 VIEWS LEFT 01/25/2025 7:44 AM CLINICAL INDICATIONS: ??Deep soft tissue infection versus osteomyelitis. COMPARISON: Lower extremity venous duplex 01/24/2025 Procedure Note Jaleel Kimble MD - 01/25/2025 XR TIBIA FIBULA 2 VIEWS LEFT 01/25/2025 7:44 AM CLINICAL INDICATIONS: Deep soft tissue infection versus osteomyelitis. COMPARISON: Lower extremity venous duplex 01/24/2025 IMPRESSION: Impression: 1. No acute fracture or destructive lesion. No periosteal reaction. 2. Diffuse soft tissue swelling, nonspecific. This could be cellulitis.Small foci of soft tissue gas in the anterior soft tissues of the mid left lowerleg are not excluded. This could be further assessed with CT if clinically indicated. Electronically signed: Jaleel Kimble. Authorizing ProviderResult TypeResult StatusZaid [facility]neH[facility] ([place] XR PROCEDURESFinal Result * Blood culture, peripheral #2 (01/25/2025 7:52 AM EDT) Only the most recent of2 resultswithin the time period is included. ComponentValueRef RangeTest MethodAnalysis TimePerformed AtPathologist Signature Blood CultureNo growth at 5 days GEOFF 01/30/2025 9:01 AM [facility] ([facility])Specimen (Source)Anatomical Location / LateralityCollection Method / VolumeCollection TimeReceived TimeBlood Venous blood specimen / UnknownVenipuncture / Arnlbnw4901/25/2025 7:52 AM EDT 01/25/2025 8:14 AM EDT Narrative Authorizing ProviderResult TypeResult StatusZaid Dafne ELISE MICROBIOLOGY - GENERAL ORDERABLESFinal ResultPerforming OrganizationAddressCity/State/ZIP Code Phone Number [facility] ([facility]) [address] [place] [address] * Procalcitonin Test (01/25/2025 4:44 AM EDT) Only the most recent of2 resultswithin the time period is included. ComponentValueRef RangeTest MethodAnalysis TimePerformed AtPathologist Signature Procalcitonin0.060.00 - 0.10 ng/mL01/25/2025 8:12 AM [facility] ([facility])Comment: Suspected Lower Respiratory Tract Infection: 0.1-0.25 ng/mL - Low likelihood for bacterial infection;Antibiotics discouraged.* >0.25 ng/mL - Increased likelihood bacterial infection;Antibiotics encouraged. Suspected Sepsis: Strongly consider initiating antibiotics in all unstable patients. 0.1-0.5 ng/mL - Low likelihood for sepsis; Antibiotics discouraged.* >0.5 ng/mL - Increased likelihood sepsis; Antibiotics encouraged. >2.0 ng/mL - High risk of sepsis/septic shock; Antibiotics strongly encouraged. *Recommend retesting PCT within 6-12 hours if clinically indicated and initial PCT<0.5ng/mL Specimen (Source)Anatomical Location / LateralityCollection Method / Volume Collection TimeReceived TimeBloodVenous blood specimen / UnknownArterial Line / Wekjvgb4401/25/2025 4:44 AM EDT01/25/2025 5:31 AM EDT Narrative Authorizing ProviderResult TypeResult StatusZaid Dafne MDLAB BLOOD ORDERABLES Final ResultPerforming OrganizationAddressCity/State/ZIP CodePhone Number [facility] [address] [place] [address] * (ABNORMAL) Complete Venous Blood Gas Panel (01/25/2025 12:20 AM EDT) Only the most recent of2 resultswithin the time period is included. ComponentValueRef RangeTest MethodAnalysis TimePerformed AtPathologist Signature pH, Ven7.44(H)7.31 - 7.41001/25/2025 12:20 AM [facility] RESP[facility] THERAPYpCO2, Tjb5920 - 50 mmHg01/25/2025 12:20 AM [facility] RESPIR[facility]ORY THERAPYpO2, Ven29(L)35 - 45 mmHg01/25/2025 12:20 AM [facility] RESPIR[facility] THERAPYHCO3, Edgock59.8mmol/L 01/25/2025 12:20 AM [facility] RESPIR[facility] THERAPYO2 Sat, Ven45.4(LL)65.0 - 75.0 % 01/25/2025 12:20 AM [facility] RESPIRATORY THERAPYBase Excess, Ven3.3mmol/L 01/25/2025 12:20 AM [facility] RESPIRATORY THERAPYTotal Hemoglobin,Bckagw56.16.0 - 18.0 g/dL01/25/2025 12:20 AM [facility] RESPIRATORY THERAPYOxyhemoglobin, Venous 44.9%01/25/2025 12:20 AM [facility] RESPIR[facility]ORY THERAPYMethemoglobin, Venous0.5 <=3.0 %01/25/2025 12:20 AM [facility] RESPIR[facility] THERAPYCarboxyhemoglobin, Venous 0.6%01/25/2025 12:20 AM [facility] RESPIR[facility]ORY THERAPYDeoxyhemoglobin, Dfqfeb70.9 (HH)<=6.0 %01/25/2025 12:20 AM [facility] RESPIR[facility]ORY THERAPYSodium, Whole Zgihp441 (L)136 - 145 mmol/L01/25/2025 12:20 AM [facility] RESPIR[facility]ORY THERAPYPotassium, Whole Blood4.23.5 - 5.1 mmol/L01/25/2025 12:20 AM [facility] RESPIRATORY THERAPY Chloride, Dgxuoq81875 - 107 mmol/L01/25/2025 12:20 AM [facility] RESPIR[facility]ORY THERAPYGlucose, Wdwdqr429(H)65 - 95 mg/dL01/25/2025 12:20 AM [facility] RESPIR[facility]ORY THERAPYLactate, Venous0.900.36 - 1.39 mmol/L01/25/2025 12:20 AM [facility] RESPIR[facility]ORY THERAPYCalcium, Ion1.231.15 - 1.33 mmol/L01/25/2025 12:20 AM [facility] RESPIRATORY THERAPYHematocrit, Aoyuaq7902 - 50 %01/25/2025 12:20 AM [facility] RESPIR[facility]ORY DAUXUJNCeuqrrbpweb13.0??C001/25/2025 12:20 AM [facility] RESPIRATORY THERAPYOxygen Device #1Ddnwbfy37/06/2025 12:20 AM [facility] RESPIRATORY THERAPY PsK525.0%01/25/2025 12:20 AM [facility] RESPIRATORY THERAPYNotify [id number] 01/25/2025 12:20 AM [facility] RESPIRATORY THERAPYNotify ZousczyfZIOSN77/06/2025 12:20 AM [facility] RESPIRATORY THERAPYNotify ProviderVERITO NAVARRETE01/25/2025 12:20 AM [facility] RESPIRATORY THERAPYNotify ChylorT8901/25/2025 12:20 AM [facility] RESPIRATORY THERAPYSpecimen (Source)Anatomical Location / LateralityCollection Method / VolumeCollection TimeReceived TimeBloodVenous blood specimen / Csfwvvy9801/25/2025 12:20 AM EDT01/25/2025 12:20 AM EDT Narrative Authorizing ProviderResult TypeResult StatusZaid Dafne MDLAB BLOOD ORDERABLES Final ResultPerforming OrganizationAddressCity/State/ZIP CodePhone Number [facility] RESPIRATORY THERAPY [address] [place] [address], [place] * ECG 12 lead (01/24/2025 8:53 PM EDT) Only the most recent of4 resultswithin the time period is included. ComponentValueRef RangeTest MethodAnalysis TimePerformed AtPathologist Signature Ventricular [id number] MUSEAtrial Qppw398BQTTT MUSEQRS VOKXLWZI466xaTS MUSEQT Chutlwty545mmVX MUSEQTC CALCULATION(BAZETT)542msGE MUSEP Srcq051qzgnisdCA MUSE R-Bpek550gipciceNO MUSET Wave [place]-47degreesGE MUSESpecimen (Source)Anatomical Location / LateralityCollection Method / VolumeCollection TimeReceived Time 01/24/2025 8:26 PM EDT01/25/2025 11:40 PM EDT Impressions GE MUSE - 01/25/2025 11:40 PM EDT Atrial flutter with 2:1 A-V conduction Right bundle branch block , plus right ventricular hypertrophy Left posterior fascicular block Bifascicular block Abnormal ECG Confirmed by Jannie Valle ([id number]) on 01/25/2025 11:40:26 PM Narrative Procedure Note Erin Goode MD - 01/25/2025 IMPRESSION: Atrial flutter with 2:1 A-V conduction Right bundle branch block , plus right ventricular hypertrophy Left posterior fascicular block Bifascicular block Abnormal ECG Confirmed by Jannie Valle ([id number]) on 01/25/2025 11:40:26 PM Authorizing ProviderResult TypeResult StatusChristopher Richard NAVARRETEECStarr ORDERABLES Final ResultPerforming OrganizationAddressCity/State/ZIP CodePhone Number GE MUSE * PULMONARY ANGIOGRAM (01/24/2025 5:59 PM EDT)Anatomical RegionLaterality ModalityOtherSpecimen (Source)Anatomical Location / LateralityCollection Method / VolumeCollection TimeReceived Time Narrative 01/24/2025 6:14 PM EDT PROCEDURE PHYSICIAN: Justyn Ramos MD Clinical Presentation: 49 y.o. Male presents with a history of worsening shortness of breath with severe RV dysfunction by echocardiography Final Impression: 1) Severe pulmonary hypertension with advanced right heart failure (RA 17 mmHg) and severely low cardiac index (1.22 L/min/m2). ??Treatment with adenosine 200 mcg/min resulted in moderate improvement in cardiac index (1.68) with an improvement in pulmonary vascular resistance with no improvement in mean pulmonary pressure (48 mmHg) 2) Normal coronary arteries 3) Normal L heart filling pressure (wedge 9 mmHg) 4) No evidence of significant pulmonary embolism L lung or main PA Recommendations: 1) ??Treatment of primary pulmonary hypertension Procedures Performed: right heart catheterization and coronary angiography (R femoral vein and artery), [place] catheter placement (R IJ), pulmonary angiogram selective L pulmonary artery, conscious sedation (see sheet attached for duration), ultrasound guidance for vascular access, adenosine drug study into pulmonary artery for pulmonary hypertension Procedure Description: The patient was brought to the cardiac catheterization lab in a fasting state. ??Informed written consent was obtained. ??he was prepped and draped in usual sterile fashion. ??Time-out was performed. ??he was given Versed and fentanyl for sedation. ?? 1% lidocaine was infiltrated over the right femoral artery. ??A 6-Greek sheath was placed in right femoral artery. ?? Right heart catheterization was performed with a 6 Fr Grover catheter. Coronary angiography was performed with a JL4 and a JR4. After discussion with the inpatient team, he was prepped and draped in sterile fashion over the R neck and after lidocaine a 9Fr sheath and [place] catheter was placed with micropuncture technique. ??An adenosine study at 50, 100, 150 and 200 mcg / min was performed via the PA catheter. ?? AT completion of the procedure all femoral catheters and wires were removed. ??The right IJ sheath was sutured in place with the [place] catheter for continued monitoring. ?? Then ??manual pressure was applied to ?? to the groin to obtain hemostasis. Specimens Removed: None Complications: None Hemodynamic Data: ?? RA: 18/21/17 mmHg RV: 62/17 mmHg PA: 62/39/48 mmHg PCWP: 10/10/9 mmHg (confirmed saturation 96%) TP mmHg PVR: 15.2 Wood U PVRi: 32 Wood U/m2 CO: 2.56 L/min CI: 1.22 L/min/m2 O2 Sat: PA sat: 49% AO sat: 91% Hemodynamic Data, adenosine 200 mcg/min: ?? PA: 54/42/48 mmHg PCWP: 13/13/11 mmHg (confirmed saturation 96%) TP mmHg PVR: 10.5 Wood U PVRi: 22 Wood U/m2 CO: 3.53 L/min CI: 1.68 L/min/m2 O2 Sat: PA sat: 51% AO sat: 88% Coronary Angiogram: Left main: Normal LAD: Normal LCX: Normal RCA: Normal Study Details New onset of congestive heart failure (CMS/HCC) [I50.9]Cor pulmonale (chronic) (CMS/HCC) [I27.81] Authorizing ProviderResult TypeResult Status[place] Cristopher MonRussel [facility] [place] V[place]ULAR PROCEDURESFinal Result * CORONARY ANGIOGRAPHY, RIGHT HEART CATH, SWAN (FLOW DIRECTED CATH) INSERTION (01/24/2025 5:59 PM EDT)Anatomical RegionLateralityModalityOtherSpecimen (Source)Anatomical Location / LateralityCollection Method / VolumeCollection TimeReceived Time Narrative 01/24/2025 6:14 PM EDT PROCEDURE PHYSICIAN: Justyn Ramos MD Clinical Presentation: 49 y.o. Male presents with a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 Screen, S/P Methodology: Immunoassay Positive Cutoff: 20 ng/mL This test does not distinguish between the delta-8 and delta-9 forms of Carboxy-THC or their metabolites. Drug Screen Comments, Serum or PlasmaSee Note01/26/2025 2:03 PM [facility] ([facility])Comment: Interpretive Information: Drug Screen with Reflex to Quant ?S/P Presumptive negative results for drug(s) and/or drug metabolite(s) may indicate non-compliance, inappropriate timing of specimen collection relative to drug administration, poor drug absorption, or limitations of testing. The concentration at which the screening test can detect a drug or metabolite varies within a drug class. For medical purposes only; not valid for forensic use. This test was developed and its performance characteristics determined by [facility]. It has not been cleared or approved by the [place] Food and Drug Administration. This test was performed in a CLIA certified laboratory and is intended for clinical purposes. Performed By: [facility] [address] [place] [address] Fnp: Vince Roberts MD, PhD CLIA Number: [id number] Specimen (Source)Anatomical Location / LateralityCollection Method / Volume Collection TimeReceived TimeBloodVenous blood specimen / UnknownVenipuncture / Mdholjm9601/23/2025 11:57 PM EDT01/24/2025 12:22 AM EDT Narrative Authorizing ProviderResult TypeResult StatusScontreras ELISE BLOOD ORDERABLESFinal ResultPerforming OrganizationAddressCity/State/ZIP CodePhone Number [facility] ([facility]) [address] [place] [phone] * Amphetamine, serum or plasma, quantitative (01/23/2025 11:57 PM EDT)Component ValueRef RangeTest MethodAnalysis TimePerformed AtPathologist Signature Amphetamine, Gufyp35nh/mL01/28/2025 7:40 AM [facility] ([facility]) Comment: INTERPRETIVE INFORMATION: Amphetamines, Serum or ?Plasma, Quantitative Methodology: Quantitative Liquid Chromatography-Tandem Mass Spectrometry Positive cutoff: 20 ng/mL For medical purposes only; not valid for forensic use. The absence of expected drug(s) and/or drug metabolite(s) may indicate non-compliance, inappropriate timing of specimen collection relative to drug administration, poor drug absorption, or limitations of testing. ??The concentration value must be greater than or equal to the cutoff to be reported as positive. Interpretive questions should be directed to the laboratory. This test was developed and its performance characteristics determined by [facility]. It has not been cleared or approved by the [place] Food and Drug Administration. This test was performed in a CLIA certified laboratory and is intended for clinical purposes. Methamphetamine Tgkef011yu/mL01/28/2025 7:40 AM [facility] ([facility]) Methylenedioxyamphetamine Quant<20ng/mL01/28/2025 7:40 AM [facility] ([facility])Methylenedioxymethamphetamine Quant<20ng/mL01/28/2025 7:40 AM [facility] ([facility])Methylenedioxyethylamphetamine Quant<20ng/mL01/28/2025 7:40 AM [facility] ([facility])Comment: Performed By: [facility] [address] [place] [address] Fnp: Vince Roberts MD, PhD CLIA Number: [id number] Specimen (Source)Anatomical Location / LateralityCollection Method / Volume Collection TimeReceived TimeBloodVenous blood specimen / UnknownVenipuncture / Fegepvo0501/23/2025 11:57 PM EDT01/24/2025 12:22 AM EDT Narrative Authorizing ProviderResult TypeResult StatusSviprashant ELISE BLOOD ORDERABLESFinal ResultPerforming OrganizationAddressCity/State/ZIP CodePhone Number [facility] ([facility]) [address] [place] [phone] * Opiate, serum or plasma, quantitative (01/23/2025 11:57 PM EDT)ComponentValue Ref RangeTest MethodAnalysis TimePerformed AtPathologist Signature6- acetylmorphine, S/P, Quant<2ng/mL02/01/2025 11:10 AM ED[facility] ([facility])Comment: INTERPRETIVE INFORMATION: Opiates, Serum or Plasma, ?Quantitative Methodology: Quantitative Liquid Chromatography-Tandem Mass Spectrometry Positive cutoff: 2 ng/mL For medical purposes only; not valid for forensic use. Identification of specific drug(s) taken by specimen donor is problematic due to common metabolites, some of which are prescription drugs themselves. The absence of expected drug(s) and/or drug metabolite(s) may indicate non-compliance, inappropriate timing of specimen collection relative to drug administration, poor drug absorption, or limitations of testing. All drugs covered are the non-glucuronidated (free) form. ?? The concentration value must be greater than or equal to the cutoff to be reported as positive. A very small amount of an unexpected drug analyte in the presence of a large amount of an expected drug analyte may reflect pharmaceutical impurity. Interpretive questions should be directed to the laboratory. This test was developed and its performance characteristics determined by [facility]. It has not been cleared or approved by the US Food and Drug Administration. This test was performed in a CLIA certified laboratory and is intended for clinical purposes. Codeine, S/P, Nbvyu98ol/mL02/01/2025 11:10 AM [facility] ([facility]) Morphine, S/P, Quant<2ng/mL02/01/2025 11:10 AM [facility] ([facility]) Hydrocodone, S/P, Quant<2ng/mL02/01/2025 11:10 AM [facility] ([facility]) Hydromorphone, S/P, Quant<2ng/mL02/01/2025 11:10 AM [facility] ([facility]) Oxycodone, S/P, Quant<2ng/mL02/01/2025 11:10 AM [facility] ([facility]) Oxymorphone, S/P, Quant<2ng/mL02/01/2025 11:10 AM [facility] ([facility]) Comment: Performed By: [facility] [address] [place] [address] Fnp: Vince Roberts MD, PhD CLIA Number: [id number] Specimen (Source)Anatomical Location / LateralityCollection Method / Volume Collection TimeReceived TimeBloodVenous blood specimen / UnknownVenipuncture / Xcaykwn4201/23/2025 11:57 PM EDT01/24/2025 12:22 AM EDT Narrative Authorizing ProviderResult TypeResult StatusScontreras ELISE URINE ORDERABLESFinal ResultPerforming OrganizationAddressCity/State/ZIP CodePhone Number [facility] ([facility]) [address] [place] [phone] * (ABNORMAL) Protime-INR (01/23/2025 11:57 PM EDT)ComponentValueRef RangeTest MethodAnalysis TimePerformed AtPathologist YgfquswbqZanwhlm74.6(H)12.3 - 14.8 Kltqurz7101/24/2025 12:42 AM [facility] ([facility])INR1.33(H)0.90 - 1.10 01/24/2025 12:42 AM [facility] ([facility])Comment: ACCCP RECOMMENDED INR FOR WARFARIN THERAPY CONDITION ?INR PROPHYLAXIS OF VENOUS THROMBOSIS ? 2-3 (HIGH-RISK SURGERY) TREATMENT OF VENOUS THROMBOSIS ? 2-3 TREATMENT OF PULMONARY EMBOLISM ?2-3 PREVENTION OF SYSTEMIC EMBOLISM: ? 2-3 ?ACUTE MYOCARDIAL INFARCTION ?TISSUE HEART VALVES ?VALVULAR HEART DISEASE ?ATRIAL FIBRILLATION ?RECURRENT SYSTEMIC EMBOLISM MECHANICAL HEART VALVE ? 2.5-3.5 FROM: ORAL ANTICOAGULANTS. ??MECHANISM OF ACTION, CLINICAL EFFECTIVENESS, AND OPTIMAL THERAPEUTIC RANGE. ??CHEST 1995;108:231S-246S. Specimen (Source)Anatomical Location / LateralityCollection Method / Volume Collection TimeReceived TimeBloodVenous blood specimen / UnknownVenipuncture / Kizzwhp5401/23/2025 11:57 PM EDT01/24/2025 12:21 AM EDT Narrative Authorizing ProviderResult TypeResult StatusScontreras Strauss [facility] BLOOD ORDERABLESFinal ResultPerforming OrganizationAddressCity/State/ZIP CodePhone Number [facility]) [address] [place] [address] * (ABNORMAL) D-dimer, quantitative (01/23/2025 11:57 PM EDT)ComponentValueRef RangeTest MethodAnalysis TimePerformed AtPathologist SignatureD-Dimer, Quant (FEU)1.06(H)0.27 - 0.49 mcg/mL FEU01/24/2025 12:45 AM EDT[facility] ([facility])Specimen (Source)Anatomical Location / LateralityCollection Method / VolumeCollection TimeReceived TimeBloodVenous blood specimen / Unknown Venipuncture / Bfdevxq7701/23/2025 11:57 PM EDT01/24/2025 12:21 AM EDT Narrative [facility]) - 01/24/2025 12:45 AM EDT D-Dimer values of less than 0.50 ug/ml (FEU) are considered to be a negative predictor of thrombosis. However, the D-Dimer result should be used in conjunction with pretest probability and should not be used alone to diagnose a thrombotic event. Authorizing ProviderResult TypeResult StatusScontreras Strauss [facility] BLOOD ORDERABLESFinal ResultPerforming OrganizationAddressCity/State/ZIP CodePhone Number [facility]) [address] [place] [address] * (ABNORMAL) C-reactive protein (01/23/2025 11:57 PM EDT)ComponentValueRef Range Test MethodAnalysis TimePerformed AtPathologist GffnzdwkpFFF13.9(H)<=5.0 mg/L 01/24/2025 11:21 AM [facility] ([facility])Comment:Testing performed using a new methodology, turbidimetry. Normal ranges have been updated. Old normal range was <8 mg/L.Specimen (Source)Anatomical Location / Laterality Collection Method / VolumeCollection TimeReceived TimeBloodVenous blood specimen / UnknownVenipuncture / Umkskto5901/23/2025 11:57 PM EDT01/24/2025 12:23 AM EDT Narrative Authorizing ProviderResult TypeResult StatusScontreras Stra[facility] BLOOD ORDERABLESFinal ResultPerforming OrganizationAddressCity/State/ZIP CodePhone Number [facility] ([facility]) [address] [place] [address] * Lactic acid, plasma (01/23/2025 11:57 PM EDT)ComponentValueRef RangeTest MethodAnalysis TimePerformed AtPathologist SignatureLactate1.00.5 - 2.2 mmol/L 01/24/2025 12:49 AM [facility] ([facility])Specimen (Source)Anatomical Location / LateralityCollection Method / VolumeCollection TimeReceived Time BloodVenous blood specimen / UnknownVenipuncture / Nuzjktc1001/23/2025 11:57 PM EDT01/24/2025 12:23 AM EDT Narrative Authorizing ProviderResult TypeResult StatusKody Strauss [facility] BLOOD ORDERABLESFinal ResultPerforming OrganizationAddressCity/State/ZIP CodePhone Number [facility] ([facility]) [address] [place] [address] * (ABNORMAL) Hepatic function panel (01/23/2025 11:57 PM EDT)ComponentValueRef RangeTest MethodAnalysis TimePerformed AtPathologist SignatureTotal Bilirubin 1.1(H)0.3 - 1.0 mg/dL01/24/2025 12:55 AM [facility] ([facility]) Bilirubin, Direct0.4(H)0 - 0.2 mg/dL01/24/2025 12:55 AM [facility] ([facility])Alkaline Xpvuatjmrkh7949 - 104 U/L01/24/2025 12:55 AM [facility] ([facility])SNZ5360 - 39 U/L01/24/2025 12:55 AM [facility] ([facility]) ALT (SGPT)257 - 52 U/L01/24/2025 12:55 AM [facility] ([facility])Total Protein5.7(L)6.0 - 8.3 g/dL01/24/2025 12:55 AM [facility] ([facility]) Albumin3.3(L)3.5 - 5.7 g/dL01/24/2025 12:55 AM [facility] ([facility]) Specimen (Source)Anatomical Location / LateralityCollection Method / Volume Collection TimeReceived TimeBloodVenous blood specimen / UnknownVenipuncture / Xnvybwa2501/23/2025 11:57 PM EDT01/24/2025 12:23 AM EDT Narrative Authorizing ProviderResult TypeResult StatusSviprashant Strauss [facility] BLOOD ORDERABLESFinal ResultPerforming OrganizationAddressCity/State/ZIP CodePhone Number [facility] ([facility]) [address] [place], [place] [phone] from Last 3 Months Insurance * Guarantor: Nathan SantosAccount TypeRelation to PatientDate of BirthPhone Billing AddressPersonal/OeanahGhnr27/25/1976 [address] [place] [address] Advance Directives * Full Code (Latest Code Status on File) Date ActivatedDate InactivatedComments01/23/2025 11:36 PM8/12/2024 1:55 PM
--- NOTE | 2025-04-12 15:18 | ECG_ITS ---
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 Measurements Intervals [place] Rate: 154 P: -13565 [place]: -[address] QRS: 94 QRSD: 136 T: -54 QT: 334 QTc: 421 Interpretive Statements Atrial flutter with variable AV conduction 2450 Right bundle branch block 3424 Possible septal myocardial infarction, age undetermined [address] depression, possible subendocardial injury 4164 Twave abnormality, possible anterior ischemia 4664 Twave abnormality, possible inferior ischemia 9150 abnormal ECG Compared to ECG 10/14/2018 10:08:29 Right bundle-branch block now present Myocardial infarct finding now present Possible ischemia now present. Sinus rhythm no longer present Electronically Signed On 04-12-2025 23:50:03 EDT by UMANG CASTAÑEDA M.D.
--- NOTE | 2025-04-12 15:19 | XR_ITS ---
[address] [address] Patient Name: ERIK ZAVALA MRN: [id number] date: 1975 Sex: M Assigned Patient Location: ER Current Patient Location: ER Accession/Order Number: [id number] Exam Date: 04/12/2025 15:25 Report Date: 04/12/2025 16:10 At the request of: BRISA PRYOR Procedure: XR chest 1V PA CHEST: CLINICAL HISTORY: Epigastric pain COMPARISON: 01/23/2025 Enlarged cardiomediastinal silhouette with minor perihilar congestion. Minimal bibasilar atelectasis and or narrowing. Otherwise no definite large effusion or pneumothorax XR/XR chest 1V IMPRESSION: Cardiomegaly. Minimal right basilar parenchymal opacities favor scarring and atelectasis. Impression dictated by: Peter Parmar M.D. 04/12/2025 4:10 PM Dictation Location: [place] [address] Electronically authenticated by: [id number] Y Date: 04/12/2025 16:10
[2025-04-12 15:27] LABS: Hematocrit 48.0 % (42.0-54.0); Hemoglobin 15.8 g/dL (14.0-18.0); Immature Granulocytes Abs Auto 0.02 10^3/uL (0.00-0.03); Immature Granulocytes Pct Auto 0.2 % (0.0-0.5); Lymphocytes Absolute Auto 3.3 10^3/uL (1.2-3.8); Mean Corpuscular HGB Conc 32.9 g/dL (29.9-35.2); Mean Corpuscular Hemoglobin 29.2 pg (25.9-34.0); Mean Corpuscular Volume 88.6 fL (80.0-94.0); Platelet Count 330 10^3/uL (150-450); Red Blood Count 5.42 10^6/uL (4.70-6.10); White Blood Count 9.2 10^3/uL (4.0-11.0)
[2025-04-12] MEDS: DILTIAZEM HCL 25 MG/5 ML VIAL 20 MG IV (15:42)
[2025-04-12 15:43] LABS: Alanine Aminotransferase 99 U/L (16-63); Albumin Globulin Ratio 1.1; Albumin Level 3.8 g/dL (3.4-5.0); Alkaline Phosphatase 120 U/L (46-116); Anion Gap 13.6; Aspartate Amino Transferase 67 U/L (15-37); Blood Urea Nitrogen 24.0 mg/dL (7.0-18.0); Calcium 9.3 mg/dL (8.5-10.1); Carbon Dioxide 28.6 mmol/L (21.0-32.0); Chloride 102 mmol/L (98-107); Estimated GFR (African America >60 (>=60 mL/min/1.73m^2); Estimated GFR (Non-African Ame 58 (>=60 mL/min/1.73m^2); Globulin 3.6 g/dL; Glucose 106 mg/dL (74-106); Potassium 3.2 mmol/L (3.5-5.1); Sodium 141 mmol/L (136-145); Total Protein 7.4 g/dL (6.4-8.2)
[2025-04-12 15:50] LABS: Lipase 45.0 U/L (16.0-77.0)
[2025-04-12 15:53] LABS: NT Pro B Type Natriuretic Pept 7536.0 pg/mL (<=900.0)
--- NOTE | 2025-04-12 16:46 | ED_ITS ---
HPI HPI - General Adult General Chief complaint: Shortness of Breath/Dyspnea Stated complaint: SOB ABDOMINAL PAIN Time Seen by Provider: 04/12/25 14:54 Source: patient Mode of arrival: Wheelchair Limitations: no limitations History of Present Illness HPI narrative: Patient is a 49-year-old male with a PMH of A-fib, CHF, and pulmonary hypertension that presents to the emergency department with complaints of a few days of shortness of breath and chest/epigastric pain. At his last visit in this ED he was transferred to [facility] for elevated troponin and BNP. He states that they ended up transferring him to [facility] and he was placed on Coumadin, furosemide, and sildenafil. He states that he has been following with [facility] since his discharge but has had to move a few appointments and they would not refill his sildenafil without being seen. He is following with Pulmonology in [place], [place]. He states he has been out of this for about 5 to 7 days and thinks he would feel much better with that. He also feels like he is bloated but denies abdominal pain. His bloating feels better when he passes flatus. He states he has had a BM a couple days ago but feels he did not fully evacuate his bowels. He denies any abdominal surgery. Related Data Home Medications ?Medication ?Instructions ?Recorded ?Confirmed torsemide 20 mg tablet 20 mg PO DAILY 04/12/2503/23 warfarin 1 mg tablet 7 mg PO DAILY 04/12/2504/12 Allergies Allergy/AdvReac Type Severity Reaction Status Date / Time No Known Drug Allergies Allergy Verified 04/12/25 14:55 Opioid HPI Opioid Management Most Recent Opioid Data: Last Pain Scale 9 Today, 14:55 Review of Systems ROS Status of ROS 10 or more systems reviewed and unremark able except as noted in history and below PFSH PFSH Social History Little interest or pleasure in doing things: not at all Feeling down, depressed, or hopeless: not at all Exam Narrative Exam Narrative: General: No distress, age-appropriate Skin: Warm, dry, no pallor. No rash. Head: Normocephalic, atraumatic. Neck: Supple, non-tender. Eye: Pupils are equal, round and EOMI. No scleral icterus. Ears, Nose, Mouth, and Throat: No nasal mucosal hypertrophy. Oral mucosa is moist, no posterior oropharynx erythema, uvula is mid-line Cardiovascular: Tachycardic rate, A-fib with RVR with murmur, no gallop or rub. Respiratory: No accessory muscle use, mildy respiratory distress, speaks in few word sentences. Lungs are clear to auscultation, no wheezing, rales or rhonchi Chest Wall: epigastric tenderness Back: No midline thoracic or lumbar vertebral tenderness. Musculoskeletal: Full ROM of all extremities, no calf or popliteal tenderness GI: Abdomen is soft, non-distended, epigastric tenderness. No masses appreciated. No rebound, guarding, or rigidity noted. Neurological: A&O x4. No cranial nerve dysfunction observed. No truncal ataxia. Moves all extremities. Sensation intact. Psychiatric: Cooperative and interactive. Normal mood and affect. Constitutional Vital Signs, click to edit/add: Last Vital Signs Pulse 101 H 04/12/25 19:10 Resp 13 04/12/25 19:10 BP 119/91 04/12/25 19:10 Pulse Ox 96 04/12/25 19:10 O2 Del Method Nasal Cannula 04/12/25 15:46 O2 Flow Rate 2 04/12/25 15:46 Documenting provider has reviewed patient's vital signs: yes Course Vital Signs Vital signs: Vital Signs Pulse Rate 66 04/12/25 14:55 Respiratory Rate 20 04/12/25 14:55 Blood Pressure 118/84 04/12/25 14:55 Pulse Oximetry 95 04/12/25 14:55 Oxygen Delivery Method Room Air 04/12/25 14:55 Pulse Rate 101 H 04/12/25 19:10 Respiratory Rate 13 04/12/25 19:10 Blood Pressure 119/91 04/12/25 19:10 Pulse Oximetry 96 04/12/25 19:10 Oxygen Delivery Method Nasal Cannula 04/12/25 15:46 Oxygen Delivery Flow Rate 2 04/12/25 15:46 Medical Decision Making MDM Narrative Medical decision making narrative: This is a 49-year-old male with a past medical history of pulmonary hypertension, atrial fibrillation, cardiomyopathy, CHF that presented to the emergency department with complaints of about 3 days of epigastric pain and shortness of breath. On 01/23/25 he was evaluated in this emergency department for bilateral leg swelling and SOB, was transferred to [facility] with elevated BNP and troponin. He had a heart cath done at [facility], no stents placed. He was then transferred to [facility] for treatment of pulmonary hypertension. He was started on Coumadin, furosemide, and sildenafil. He has been unable to get his sildenafil refilled and has been out of it for about 5 to 7 days. On arrival he is speaking in few word sentences. Heart rate is varying between 130s/40s. He is having the chest/epigastric pain on exam. Pain cannot be reproduced with palpation. IV placed. CBC, CMP, troponin, BNP, INR, lipase, EKG and chest x-ray ordered. 2 L NC placed, O2 saturations were dipping into the high 80s. EKG reviewed and he appears to be in A.Fib with RVR. Troponin 75 first draw, 62 on repeat. Lipase within normal limits. No anemia, Hgb 15.8. INR 2.36, therapeutic on warfarin. A-fib with RVR -EKG as above -20 mg Cardizem bolus given, heart rate stabilized around to 100, Cardizem drip started. CHF - BNP 7536 - CXR with enlarged cardiomediastinal silhouette with minor perihilar congestion. Minimal bibasilar atelectasis and or narrowing. No definite PTX or effusion Trasaminitis - AST 67, ALT 99, alk phos 120-baseline unknown After Cardizem bolus and drip started, patient reports improvement in shortness of breath. He states he is feeling much better. Now he states he is hungry and thirsty. I discussed admission with him given his workup and findings and he is agreeable. I did discuss admission with Dr. Ureña who accepted patient to stepdown floor. Patient's blood pressure was stable in the emergency department. His heart rate remained around the 100 after the start of the Car dizem drip. I was able to wean him off of supplemental oxygen. Patient was transferred to the stepdown floor in fair condition for further treatment of his A-fib with RVR, pulmonary hypertension, and CHF. Differential Diagnosis Differential Diagnosis: Acute decompensated CHF, worsening pulm HTN, ACS, A-fib with RVR Lab Data Lab results reviewed: Yes I reviewed the patient's lab results Labs: Lab Results 04/12/25 04/12/25 Range/Units 15:10 17:53 WBC 9.2 (4.0-11.0) 10^3/uL RBC 5.42 (4.70-6.10) 10^6/uL Hgb 15.8 (14.0-18.0) g/dL Hct 48.0 (42.0-54.0) % MCV 88.6 (80.0-94.0) fL MCH 29.2 (25.9-34.0) pg MCHC 32.9 (29.9-35.2) g/dL RDW 14.6 (11.0-15.0) % Plt Count 330 (150-450) 10^3/uL MPV 9.4 L (9.5-13.5) fL Neut % (Auto) 55.1 (43.0-75.0) % Lymph % (Auto) 36.0 (20.5-60.0) % [place] % (Auto) 6.5 (1.7-12.0) % Eos % (Auto) 1.2 (0.9-7.0) % Baso % (Auto) 1.0 (0.2-2.0) % Neut # (Auto) 5.1 (1.4-6.5) 10^3/uL Lymph # (Auto) 3.3 (1.2-3.8) 10^3/uL [place] # (Auto) 0.6 (0.3-0.8) 10^3/uL Eos # (Auto) 0.1 (0.0-0.7) 10^3/uL Baso # (Auto) 0.1 (0.0-0.1) 10^3/uL Abs Immat Gran (auto) 0.02 (0.00-0.03) 10^3/uL Imm/Tot Granulo (auto) 0.2 (0.0-0.5) % PT 23.0 H (9.0-11.6) sec INR 2.36 APTT 28.7 (22.3-36.2) sec Sodium 141 (136-145) mmol/L Potassium 3.2 L (3.5-5.1) mmol/L Chloride 102 (98-107) mmol/L Carbon Dioxide 28.6 (21.0-32.0) mmol/L Anion Gap 13.6 BUN 24.0 H (7.0-18.0) mg/dL Creatinine 1.31 H (0.70-1.30) mg/dL Est GFR ( Amer) >60 (>=60 mL/min/1.73m^2) Est GFR (Non-Af Amer) 58 L (>=60 mL/min/1.73m^2) BUN/Creatinine Ratio 18.3 Glucose 106 (74-106) mg/dL Calcium 9.3 (8.5-10.1) mg/dL Total Bilirubin 2.3 H (0.2-1.0) mg/dL AST 67 H (15-37) U/L ALT 99 H (16-63) U/L Alkaline Phosphatase 120 H (46-116) U/L Troponin I High Sens 75.0 62.7 (4.0-76.1) pg/mL NT-Pro-B Natriuret Pep 7536.0 H* (<=900.0) pg/mL Total Protein 7.4 (6.4-8.2) g/dL Albumin 3.8 (3.4-5.0) g/dL Globulin 3.6 g/dL Albumin/Globulin Ratio 1.1 Lipase 45.0 (16.0-77.0) U/L Imaging Data Chest x-ray: Attestation: I have reviewed the pertinent imaging results. Radiologist's impression: ITS Impressions Chest X-Ray 04/12/25 15:19 IMPRESSION: Cardiomegaly. Minimal right basilar parenchymal opacities favor scarring and atelectasis. Impression dictated by: Peter Parmar M.D. 04/12/2025 4:10 PM Dictation Location: [place] [address] Electronically authenticated by: [id number] Y Date: 04/12/2025 16:10 ECG Data Attestation: ?I have reviewed the pertinent ECG results. Discharge Plan Discharge Chief Complaint: Shortness of Breath/Dyspnea Clinical Impression: Atrial fibrillation with RVR, Pulmonary artery hypertension, CHF (congestive heart failure) Patient Disposition: Admitted As Inpatient Time of Disposition Decision: 18:48 Condition: Fair Discharge Date/Time: 04/12/25 19:32
[2025-04-12 17:13] LABS: INR 2.36; Partial Thromboplastin Time 28.7 sec (22.3-36.2); Prothrombin Time 23.0 sec (9.0-11.6)
--- NOTE | 2025-04-12 19:17 | PC.NURSE ---
this patient informed of his room will be 223 and i take him upstairs inn 15 minutes
--- NOTE | 2025-04-12 20:15 | ECG_ITS ---
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 Measurements Intervals [place] Rate: 111 P: -36049 [place]: -87466 QRS: 70 QRSD: 162 T: 58 QT: 436 QTc: 501 Interpretive Statements Atrial flutter with variable AV conduction with premature ventricular or aberrantly conducted complexes 2450 Right bundle branch block [address] depression, possible subendocardial injury or digitalis effect 06382 Twave abnormality, possible anterior ischemia or digitalis effect 7300 Indeterminate axis 9150 abnormal ECG Compared to ECG 04/12/2025 15:03:33 Indeterminate axis now present Premature ventricular or aberrantly conducted complexes are now present Electronically Signed On 04-12-2025 23:54:31 EDT by UMANG CASTAÑEDA M.D.
[2025-04-12] MEDS: METOPROLOL TARTRATE 25 MG TABLET PO (22:09)
[2025-04-12] MEDS: ASPIRIN 81 MG TAB.CHEW PO (22:09)
[2025-04-12] MEDS: POTASSIUM CHLORIDE 10 MEQ ER TABLET 30 MEQ PO (22:09)
[2025-04-13] VITALS (95 sets, daily range): BP systolic 71–132; BP diastolic 49–101; PULSE 83–115; TEMP 36.4–36.9; O2SAT 80–100
[2025-04-13 01:38] LABS: Glucose Urine UA NEGATIVE (NEGATIVE)
[2025-04-13 01:53] LABS: Cast Seen? NONE SEEN #/LPF (NONE SEEN); Crystals Seen? None Seen #/HPF (None Seen); Urine Culture Indicated NO
[2025-04-13] MEDS: ONDANSETRON 4 MG RAPDIS TABLET PO (02:23)
[2025-04-13] MEDS: CALCIUM CARBONATE 500 MG (200MG ELEMENTAL) TAB CHEW PO ×2 (02:23→12:07)
[2025-04-13 06:11] LABS: Hematocrit 43.7 % (42.0-54.0); Hemoglobin 14.1 g/dL (14.0-18.0); Immature Granulocytes Abs Auto 0.03 10^3/uL (0.00-0.03); Immature Granulocytes Pct Auto 0.3 % (0.0-0.5); Lymphocytes Absolute Auto 2.6 10^3/uL (1.2-3.8); Mean Corpuscular HGB Conc 32.3 g/dL (29.9-35.2); Mean Corpuscular Hemoglobin 28.7 pg (25.9-34.0); Mean Corpuscular Volume 88.8 fL (80.0-94.0); Platelet Count 298 10^3/uL (150-450); Red Blood Count 4.92 10^6/uL (4.70-6.10); White Blood Count 9.3 10^3/uL (4.0-11.0)
[2025-04-13 06:26] LABS: INR 2.57; Prothrombin Time 24.8 sec (9.0-11.6)
[2025-04-13 06:35] LABS: Alanine Aminotransferase 81 U/L (16-63); Albumin Globulin Ratio 1.1; Albumin Level 3.1 g/dL (3.4-5.0); Alkaline Phosphatase 101 U/L (46-116); Anion Gap 12.5; Aspartate Amino Transferase 57 U/L (15-37); Blood Urea Nitrogen 24.0 mg/dL (7.0-18.0); Calcium 8.8 mg/dL (8.5-10.1); Carbon Dioxide 28.7 mmol/L (21.0-32.0); Chloride 102 mmol/L (98-107); Cholesterol 119 mg/dL (<=200); Estimated GFR (African America >60 (>=60 mL/min/1.73m^2); Estimated GFR (Non-African Ame 59 (>=60 mL/min/1.73m^2); Globulin 2.9 g/dL; Glucose 104 mg/dL (74-106); HDL Cholesterol 27 mg/dL (40-60); Magnesium 2.0 mg/dL (1.8-2.4); Potassium 3.2 mmol/L (3.5-5.1); Sodium 140 mmol/L (136-145); Thyroid Stimulating Hormone 4.365 uIU/mL (0.358-3.740); Total Protein 6.0 g/dL (6.4-8.2); Triglycerides 70 mg/dL (<=150); VLDL CHOLESTEROL 14.0 mg/dL
[2025-04-13 06:41] LABS: NT Pro B Type Natriuretic Pept 4819.0 pg/mL (<=900.0)
--- NOTE | 2025-04-13 08:00 | ECG_ITS ---
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 Measurements Intervals [place] Rate: 98 P: 251 [place]: 256 QRS: 82 QRSD: 164 T: 90 QT: 440 QTc: 496 Interpretive Statements Atrial flutter with premature ventricular or aberrantly conducted complexes 2450 Right bundle branch block [address] depression, possible subendocardial injury 4164 Twave abnormality, possible anterior ischemia 7300 Indeterminate axis 9150 abnormal ECG Compared to ECG 04/12/2025 19:52:18 No significant changes Electronically Signed On 04-13-2025 19:19:00 EDT by UMANG CASTAÑEDA M.D.
--- NOTE | 2025-04-13 08:00 | US_ITS ---
The [address] [address] Patient Name: ERIK ZAVALA MRN: [id number] date: 1975 Sex: M Assigned Patient Location: MS Current Patient Location: Accession/Order Number: [id number] Exam Date: 04/13/2025 08:01 Report Date: 04/13/2025 09:20 At the request of: JAYLA SHEFFIELD MD Procedure: US right upper quadrant LIMITED RIGHT UPPER QUADRANT ABDOMINAL ULTRASOUND CLINICAL HISTORY: Elevated LFTs. Epigastric pain for the past couple days. COMPARISON: Chest CT 01/23/2025 The gallbladder is physiologically distended without shadowing calculi. The gallbladder wall is borderline thickened. There is perihepatic and pericholecystic ascites. No intra- or extrahepatic biliary dilatation is evident. The common duct measures 4 - 5 mm. The liver has a subtle nodular contour. There is normal hepatic echogenicity, without focal masses. There is pulsatile flow within the main portal vein. This is nonspecific though could be seen with right heart failure as suspected based on comparison chest CT or cirrhosis. The pancreas shows no significant sonographic abnormality. Evaluation of the right kidney reveals no hydronephrosis. US/US right upper quadrant IMPRESSION: MILD RIGHT UPPER QUADRANT ASCITES. NO CHOLELITHIASIS. Impression dictated by: Mirna Gilbert M.D. 04/13/2025 9:20 AM Dictation Location: [place] [address] Electronically authenticated by: [id number] Y Date: 04/13/2025 09:20
[2025-04-13] MEDS: ASPIRIN 81 MG TAB.CHEW PO (09:30)
[2025-04-13] MEDS: METOPROLOL TARTRATE 25 MG TABLET PO (09:30)
--- NOTE | 2025-04-13 10:38 | PM.IMHP1 ---
Internal Medicine - H&P: HPI History of Present Illness Chief complaint: SOB ABDOMINAL PAIN, AFIB, PULIMON, HTN Narrative: This is a 49 y.o male with past history of methamphetamine use disorder, biventricular systolic CHF EF 25%, with severe pulmonary hypertension and right heart failure questionable compliance to medication doctors visits, likely undiagnosed DON. He presented to the ED yesterday with shortness of breath as well as chest/epigastric pain that has been going on for few days. Patient states that the symptoms were not related to exertion. He states that as he has no nausea vomiting or palpitations. He feels uncomfortable even when he is on he was still uncomfortable. Patient states that he has been off his Coumadin for the last few days and has been off his sildenafil for at least 1 or 2 weeks and that [facility] would not refill his sildenafil without being seen. Of note, he presented to [facility] on 01/23 he had a EF at the time of that admission and showed severe biventricular systolic dysfunction at LV LVEF of 25%, he underwent IV Lasix and underwent both right and left heart cath which were negative for ischemia. Right heart cath showed severe pulmonary hypertension advanced right heart failure severe low cardiac index with no pulmonary embolism. He was transferred at the time to [facility] for further management he was in a flutter in the 120s at the time and was started on warfarin. Pt is a poor historian and appears to be with poor compliance to medication regimen or to doctor's visit. Back to his ED visit, patient was noted to be in atrial flutter with RVR, his blood pressure was normal. Troponin x 2 were negative. EKG did show atrial flutter. His CBC and CMP were not significant. TSH was normal. Patient was started on a Cardizem drip, he was signed out to my colleague overnight and he was accepted to be admitted. When I saw him today he was out of the Cardizem drip. Review of Systems ROS Status of ROS 10 or more systems reviewed and unremarkable except as noted in history and below [facility] Social History (Updated 04/12/25 @ 20:34 by Edel Juarez) Within the past year, how often did you have a drink containing alcohol: never Score interpretation: A score less than 4 is consistent with normal alcohol consumption. Smoking status: Former smoker Non-prescribed substance use: denies use Highest level of school completed/degree received: high school graduate Are you now , , , , never or living with a partner: don't know Little interest or pleasure in doing things: not at all Feeling down, depressed, or hopeless: not at all Feel stressed/tense/nervous/anxious/difficulty sleeping: not at all Gender Identity: male Meds Home Medications and Allergies Home Medications ?Medication ?Instructions ?Recorded ?Confirmed ?Type sildenafil (pulm.hypertension) 20 mg 04/12/25 History mg tablet torsemide 20 mg tablet 20 mg PO DAILY 04/12/25 04/12/25 History warfarin 1 mg tablet 7 mg PO DAILY 04/12/25 04/12/25 History Allergies Allergy/AdvReac Type Severity Reaction Status Date / Time No Known Drug Allergies Allergy Verified 04/12/25 14:55 Exam Narrative Exam Narrative: General: Frail 49-year-old male, appears much older than stated age. Chronically ill. Does appear to be uncomfortable. In mild to moderate respiratory distress Skin: Warm, dry, no pallor. No rash. Head: Normocephalic, atraumatic. Neck: Supple, non-tender. Eye: Pupils are equal, round and EOMI. No scleral icterus Cardiovascular: Tachycardic rate, A-fib with RVR with murmur, no gallop or rub. Respiratory: No accessory muscle use, not able to speak in full sentences. He does have some tachypnea appears to be increased work of breathing. No wheezes but decreased bilateral air entry. No crackles. Saturating 90% on 2 L nasal cannula Lungs are clear to auscultation, no wheezing, rales or rhonchi Back: No midline thoracic or lumbar vertebral tenderness. Musculoskeletal: Full ROM of all extremities, no calf or popliteal tenderness GI: Abdomen is soft, non-distended, no tenderness on exam. No masses appreciated. No rebound, guarding, or rigidity noted. Neurological: A&O x4. No cranial nerve dysfunction observed. No truncal ataxia. Moves all extremities. Sensation intact. Constitutional Vital Signs, click to edit/add: Last Vital Signs Temp 97.6 F 04/13/25 08:00 Pulse 99 H 04/13/25 10:00 Resp 20 04/13/25 08:00 BP 109/70 04/13/25 08:00 Pulse Ox 90 L 04/13/25 08:00 O2 Del Method Nasal Cannula 04/13/25 08:00 O2 Flow Rate 2 04/13/25 08:00 Internal Medicine - H&P: Reslt Labs Labs: Short CBC 04/12/25 04/13/25 Range/Units 15:10 05:43 WBC 9.2 9.3 (4.0-11.0) 10^3/uL Hgb 15.8 14.1 (14.0-18.0) g/dL Hct 48.0 43.7 (42.0-54.0) % Plt Count 330 298 (150-450) 10^3/uL BMP 04/12/25 04/13/25 15:10 05:43 Sodium 141 140 Potassium 3.2 L 3.2 L Chloride 102 102 Carbon Dioxide 28.6 28.7 BUN 24.0 H 24.0 H Creatinine 1.31 H 1.29 Glucose 106 104 Calcium 9.3 8.8 Liver Function 04/12/25 04/13/25 Range/Units 15:10 05:43 Total Bilirubin 2.3 H 1.9 H (0.2-1.0) mg/dL AST 67 H 57 H (15-37) U/L ALT 99 H 81 H (16-63) U/L Alkaline Phosphatase 120 H 101 (46-116) U/L Albumin 3.8 3.1 L (3.4-5.0) g/dL Urine 04/13/25 Range/Units 01:20 Urine Color Lt. yellow (YELLOW) Urine Clarity Clear (CLEAR) Urine pH 6.0 (5.0-9.0) Ur Specific [place] <=1.005 A (1.005-1.025) Urine Protein Negative (NEG/TRACE) mg/dL Urine Glucose (UA) Negative (NEGATIVE) mg/dL Assessment and Plan Assessment and Plan (1) CHF (congestive heart failure): (2) Pulmonary artery hypertension: (3) Atrial fibrillation with RVR: (4) Cardiomyopathy: Plan A-fib with RVR with hypoxic respiratory failure in the setting of complex history of severe biventricular heart failure with pulmonary hypertension type I Questionable compliance with medications, history of substance use mainly methamphetamine (former) - Patient admitted to stepdown unit here at [facility] -Unfortunately I was told that we have no cardiology service in house here. I will try to reach out to the visual merchandising specialist on-call at [facility] since the patient is not a [facility] patient. That is as per the hospital protocol -Agree with metoprolol tartrate 25 mg p.o. twice daily, patient off Cardizem -Restart warfarin, patient counseled on the importance of compliance with his warfarin -Obtain CT angio of the chest -Full code -Further recommendations to follow after speaking with cardiology data collection associate
--- NOTE | 2025-04-13 10:56 | CT_ITS ---
The [address] [address] Patient Name: ERIK ZAVALA MRN: [id number] date: 1975 Sex: M Assigned Patient Location: Current Patient Location: Accession/Order Number: [id number] Exam Date: 04/13/2025 12:38 Report Date: 04/13/2025 13:25 At the request of: LAURIE CLEMENS MD Procedure: CT angio chest CT angio chest 04/13/2025 12:44 PM SIGN AND SYMPTOMS: ^ruling out PE vs dissection, epigastric pain CONTRAST: 100 mL of intravenous Omnipaque 350 TECHNIQUE: Multidetector CT axial slices of the chest were obtained with IV contrast. Multiplanar reformats were performed and viewed on a separate workstation and reviewed to further define anatomy and possible pathology. CT was performed with one or more of the following dose reduction techniques: Automated exposure control, adjustment of the mA and/or kV according to patient size, or use of iterative reconstruction technique. COMPARISON: 01/24/2024. FINDINGS: Lower neck: Thyroid gland within normal limits, no supraclavicle adenopathy. Vessels: Within normal limits. There is no evidence of pulmonary embolism. There is reflux of contrast into the inferior vena cava suggesting elevated right heart pressures. The thoracic aorta is difficult to assess for dissection due to pulmonary bolus timing evaluation for PE. Mediastinum and [place]: Within normal limits. Heart: There is cardiomegaly. No pericardial effusion. Airways: Within normal limits Lungs: There is compressive atelectasis in the right lung base. Pleura: There is a moderate right-sided pleural effusion. Chest Wall: There is mild diffuse anasarca. Upper Abdomen: Calcified granulomas are noted in the spleen. Intra-abdominal ascites is noted, greatest in the left upper quadrant. Bones: Degenerative changes are noted in the cervical and thoracic spine. CT/CT angio chest IMPRESSION: There is cardiomegaly with a moderate right-sided pleural effusion and reflux of contrast into the inferior vena cava suggesting congestive heart failure. There is no evidence of pulmonary embolism. The thoracic aorta is difficult to assess for dissection due to pulmonary bolus timing evaluation for PE. Intra-abdominal ascites is noted with diffuse anasarca. Impression dictated by: Segundo Fields M.D. 04/13/2025 1:25 PM Dictation Location: [place] [address] Electronically authenticated by: [id number] Y Date: 04/13/2025 13:25
[2025-04-13] MEDS: SILDENAFIL CITRATE 20 MG TABLET 10 MG PO (11:20)
--- NOTE | 2025-04-13 11:30 | CM.NOTE ---
I initiated the transfer process to [facility]. A face sheet and clinical information were faxed to fax # [phone].
[2025-04-13] MEDS: FUROSEMIDE 20 MG/2 ML VIAL IVP ×2 (11:49→14:54)
--- NOTE | 2025-04-13 12:08 | CM.NOTE ---
Rounds made with Dr. Salinas, discussed plan of care with pt. Pt possibly being transferred to higher level of care. Call placed to [facility] for request to transfer.
--- NOTE | 2025-04-13 13:07 | PC.NURSE ---
pt switched from bipap to vapotherm 40L/min 50% fiO2 per respiratory
--- NOTE | 2025-04-13 13:09 | PC.NURSE ---
[address] per wheelchair with O2 4L NC by radiology staff. [address] bipap initiated per respiratory
[2025-04-13 14:28] LABS: Cannabinoid Screen Urine NEGATIVE (NEGATIVE); Methamphetamines Screen Urine POSITIVE (NEGATIVE); Tricyclic Antidepressant Urine NEGATIVE (NEGATIVE)
--- NOTE | 2025-04-13 15:10 | CM.NOTE ---
[facility] did not have any beds available so requested a transfer to [facility] in [place]. I placed a call to [facility] at [phone]. They requested imaging and a face sheet to be faxed to fax # [phone]. They will reach out to for further information.
[2025-04-13 15:28] LABS: Alanine Aminotransferase 91 U/L (16-63); Albumin Globulin Ratio 1.1; Albumin Level 3.2 g/dL (3.4-5.0); Alkaline Phosphatase 111 U/L (46-116); Anion Gap 13.7; Aspartate Amino Transferase 70 U/L (15-37); Blood Urea Nitrogen 25.0 mg/dL (7.0-18.0); Calcium 8.7 mg/dL (8.5-10.1); Carbon Dioxide 29.2 mmol/L (21.0-32.0); Chloride 96 mmol/L (98-107); Estimated GFR (African America 59 (>=60 mL/min/1.73m^2); Estimated GFR (Non-African Ame 48 (>=60 mL/min/1.73m^2); Globulin 3.0 g/dL; Glucose 94 mg/dL (74-106); Potassium 3.9 mmol/L (3.5-5.1); Sodium 135 mmol/L (136-145); Total Protein 6.2 g/dL (6.4-8.2)
--- NOTE | 2025-04-13 17:56 | PM.DS1 ---
DS: Providers Provider Date of admission: 04/12/25 19:32 Primary care physician: Non-Staff Physician, Consults: 04/12/25 20:15 Consult to Cardiology Routine Reason for consultation: A fib RV R DS: Diagnosis Discharge Diagnosis (1) CHF (congestive heart failure): (2) Pulmonary artery hypertension: (3) Atrial fibrillation with RVR: (4) Cardiomyopathy: DS: Summary Time Spent with Patient Time attestation: Total time spent providing and/or coordinating discharge services: Exam Constitutional Vital Signs, click to edit/add: Last Vital Signs Temp 98.4 F 04/13/25 15:45 Pulse 96 H 04/13/25 17:10 Resp 13 04/13/25 17:10 BP 102/77 04/13/25 17:01 Pulse Ox 99 04/13/25 17:10 O2 Del Method Vapotherm 04/13/25 13:10 O2 Flow Rate 40 04/13/25 15:45 FiO2 100 04/13/25 15:45 DS: Data Data Completed and Pending Labs on day of discharge: Labs from last 24 hours 04/13/25 04/13/25 04/13/25 14:54 14:06 05:43 WBC 9.3 RBC 4.92 Hgb 14.1 Hct 43.7 MCV 88.8 MCH 28.7 MCHC 32.3 RDW 14.6 Plt Count 298 MPV 9.7 Neut % (Auto) 63.6 Lymph % (Auto) 28.1 [place] % (Auto) 5.9 Eos % (Auto) 1.5 Baso % (Auto) 0.6 Neut # (Auto) 5.9 Lymph # (Auto) 2.6 [place] # (Auto) 0.6 Eos # (Auto) 0.1 Baso # (Auto) 0.1 Abs Immat Gran (auto) 0.03 Imm/Tot Granulo (auto) 0.3 PT 24.8 H INR 2.57 Sodium 135 L 140 Potassium 3.9 3.2 L Chloride 96 L 102 Carbon Dioxide 29.2 28.7 Anion Gap 13.7 12.5 BUN 25.0 H 24.0 H Creatinine 1.53 H 1.29 Est GFR ( Amer) 59 L >60 Est GFR (Non-Af Amer) 48 L 59 L BUN/Creatinine Ratio 16.3 18.6 Glucose 94 104 Calcium 8.7 8.8 Phosphorus 3.8 Magnesium 2.0 Total Bilirubin 2.0 H 1.9 H AST 70 H 57 H ALT 91 H 81 H Alkaline Phosphatase 111 101 Troponin I High Sens NT-Pro-B Natriuret Pep 4819.0 H* Total Protein 6.2 L 6.0 L Albumin 3.2 L 3.1 L Globulin 3.0 2.9 Albumin/Globulin Ratio 1.1 1.1 Triglycerides 70 Cholesterol 119 LDL Cholesterol, Calc 78.0 VLDL Cholesterol 14.0 HDL Cholesterol 27 L Cholesterol/HDL Ratio 4.4 TSH 4.365 H Urine Color Urine Clarity Urine pH Ur Specific [place] Urine Protein Urine Glucose (UA) Urine Ketones Urine Occult Blood Urine Nitrite Urine Bilirubin Urine Urobilinogen Ur Leukocyte Esterase Urine RBC Urine WBC Ur Squamous Epith Cells Urine Crystals Urine Bacteria Urine Casts Urine Mucus Ur Culture Indicated? Urine Opiates Screen Negative Ur Buprenorphine Scrn Negative Ur Oxycodone Screen Negative Urine Methadone Screen Negative Ur Barbiturates Screen Negative U Tricyclic Antidepress Negative Ur Phencyclidine Scrn Negative Ur Amphetamines Screen Positive A U Methamphetamines Scrn Positive A U Benzodiazepines Scrn Negative Urine Cocaine Screen Negative U Cannabinoids Screen Negative 04/13/25 04/12/25 01:20 17:53 WBC RBC Hgb Hct MCV MCH MCHC RDW Plt Count MPV Neut % (Auto) Lymph % (Auto) [place] % (Auto) Eos % (Auto) Baso % (Auto) Neut # (Auto) Lymph # (Auto) [place] # (Auto) Eos # (Auto) Baso # (Auto) Abs Immat Gran (auto) Imm/Tot Granulo (auto) PT INR Sodium Potassium Chloride Carbon Dioxide Anion Gap BUN Creatinine Est GFR ( Amer) Est GFR (Non-Af Amer) BUN/Creatinine Ratio Glucose Calcium Phosphorus Magnesium Total Bilirubin AST ALT Alkaline Phosphatase Troponin I High Sens 62.7 NT-Pro-B Natriuret Pep Total Protein Albumin Globulin Albumin/Globulin Ratio Triglycerides Cholesterol LDL Cholesterol, Calc VLDL Cholesterol HDL Cholesterol Cholesterol/HDL Ratio TSH Urine Color Lt. yellow Urine Clarity Clear Urine pH 6.0 Ur Specific [place] <=1.005 A Urine Protein Negative Urine Glucose (UA) Negative Urine Ketones Negative Urine Occult Blood Negative Urine Nitrite Negative Urine Bilirubin Negative Urine Urobilinogen 1.0 Ur Leukocyte Esterase Negative Urine RBC None seen Urine WBC None seen Ur Squamous Epith Cells None seen Urine Crystals None seen Urine Bacteria None seen Urine Casts None seen Urine Mucus None seen Ur Culture Indicated? No Urine Opiates Screen Ur Buprenorphine Scrn Ur Oxycodone Screen Urine Methadone Screen Ur Barbiturates Screen U Tricyclic Antidepress Ur Phencyclidine Scrn Ur Amphetamines Screen U Methamphetamines Scrn U Benzodiazepines Scrn Urine Cocaine Screen U Cannabinoids Screen Discharge Plan Discharge Disposition: Xfer Acute Care Hospital Condition: Fair
--- OUTSIDE RECORDS SUMMARY | 2025-04-13 18:24 | XMS_ITS | Encounter Summary ---
Author Organization [facility] Address [address] [place] [address] Care Team Providers Care Rn Cardiovascular Name Role Phone 3, Pharmacist Unavailable Unavailable Source Comments In the event this information is protected by the Federal Confidentiality of Alcohol and Drug AbusePatient Records regulations: The Federal rules restrict any use of the information to criminally investigate or prosecute any alcohol or drug abuse patient.[facility] Reason for Referral * Consult, Test, Treat (Routine)SpecialtyDiagnoses / ProceduresReferred By ContactReferred To Contact [address] [address] Phone: tel: Referral IDStatusReasonStart DateExpiration DateVisits RequestedVisits Authorized PCP Requested Referral Reason for Visit * Auth/Cert (Routine)SpecialtyDiagnoses / ProceduresReferred By ContactReferred To Contact Diagnoses Acute right heart failure (HCC) Acute right ventricular heart failure (HCC) Procedures [facility] IP/OBS CARE HIGH MDM 75 MINUTES [facility] [id number] [place] [address] Phone: tel: Referral IDStatusReasonStart DateExpiration DateVisits RequestedVisits [id number] Encounter Details DateTypeDepartmentCare Team (Latest Contact Info)Nfxrbtqhggn88/23/2025 6:24 PM EDT - PresentHospital Encounter [facility] [address] [place], [place] [id number] Kina Vásquez MD [address] [place], [place] [phone] [place] [address] [place], [place] [id number] TaryntTessy MD [address] [place] [address] [place] [address] [place] [address] Acute right heart failure (HCC) [I50.811] Social History Tobacco UseTypesPacks/DayYears UsedDateSmoking Tobacco: Never AssessedHunger Vital SignAnswerDate RecordedWithin the past 12 months, you worried that your food would run out before you got the money to buymore.Never true04/16/2025 Within the past 12 months, the food you bought just didn't last and you didn't have money to get more.Never true04/16/2025PRAPARE - TransportationAnswerDate RecordedIn the past 12 months, has lack of transportation kept you from medical appointments or from getting medications?No04/16/2025In the past 12 months, has lack of transportation kept you from meetings, work, or from getting things needed for daily living?No04/16/2025Housing Stability Vital SignAnswerDate RecordedIn the last 12 months, was there a time when you were not able to pay the mortgage or rent on time?No04/16/2025In the past 12 months, how many times have you moved where you were living?t any time in the past 12 months, were you homeless or living in a retirement (including now)?No04/16/2025HC UtilitiesAnswerDate RecordedIn the past 12 months has the electric, gas, oil, or water company threatened to shut off services in your home?No04/16/2025rea Deprivation IndexAnswerDate RecordedNational Score (1-100), lower number is lower thhx975302/06/2025State Score (1-10), lower number is lower odgg535 Data from: https://www.neighborhoodatlas.[facility].edu/. Last address used for refpdrvvvor[address]02/06/2025Sex and Gender InformationValueDate RecordedSex Assigned at BirthNot on fileLegal BhiRyhk1401/25/2025 10:57 AM EDT Gender IdentityNot on fileSexual OrientationNot on filedocumented as of this encounter Last Filed Vital Signs Vital SignReadingTime TakenCommentsBlood Rnnxdmer73/6904/17/2025 8:45 AM EDT Tdtss232804/17/2025 8:45 AM OBXKolixjcyzag96.4 ??C (97.5 ??F)04/17/2025 8:00 AM EDTRespiratory Ilml8592 8:45 AM EDTOxygen Fehnbhpcpn43%04/17/2025 7:19 AM EDTInhaled Oxygen Concentration--Direwx92.6 kg (188 lb 11.4 oz)04/17/2025 4:00 AM FIZFowpvb033.8 cm (5' 10 )04/13/2025 8:05 PM EDTBody Mass Index27.08 04/13/2025 8:05 PM EDTdocumented in this encounter Functional Status * Are you deaf or do you have serious difficulty hearing?AnswerDate of SrnaxevgpeSwbumbVo56/14/2025 2:25 PM María Elena Arits, CARRILLO * Are you blind or do you have serious difficulty seeing, even when wearing glasses?AnswerDate of HwqrzqvjhbOgqpmhTg81/14/2025 2:25 PM María Elena Artis, RN * Do you have serious difficulty walking or climbing stairs?AnswerDate of LkrrsenxvuPayjmuUl37/14/2025 2:25 PM María Elena Artis RN * Do you have difficulty dressing or bathing?AnswerDate of AssessmentAuthorNo 02/02/2025 2:25 PM María Elena Artis RN * Because of a physical, mental, or emotional condition, do you have difficulty doing errands alone such as visiting a doctor's office or shopping?AnswerDate of MyzjbuksfsMuykwyTb78/14/2025 2:25 PM María Elena Artis RN documented as of this encounter Mental Status * Because of a physical, mental, or emotional condition, do you have serious difficulty concentrating, remembering, or making decisions?AnswerEntry Date NadyjzLp56/14/2025 2:25 PM María Elena Artis RN documented in this encounter Discharge Instructions * Discharge Instr - Other Orders* Janice Raymond APRN.FIELD ADMINISTRATOR - 04/17/2025 8:31 AM EDT Behavioral Health Discharge Instructions If you are experiencing a behavioral health emergency, please call Mobile Crisis at [phone]. Recovery Resources Warmline - Peer support crisis line: [phone] Open 9:00am-1:00am, including holidays You are advised to not use drugs or alcohol. You were advised to take medications as prescribed. You were advised to go to a chemical dependency program such as: Alcoholics Anonymous: 912.353.9945 or [phone], http://www.aacleve.org/ Narcotics Anonymous:9-691-OMA-HOPE, http://nabuckeye.org/ [facility] [address] [address] [facility] [address] [place] [address] [facility] [address] [facility], [address] [address] Ana Moy [address] [place], [place] [id number] [facility] [address] [place] [address] [facility] [address] [facility] [address] [place], [place] [id number] [facility] [address] [place] [address] [facility] [id number] [place] [id number] documented in this encounter Progress Notes * Raysa Cervantes DO - 04/16/2025 1:18 PM EDT Images from the original note were not included. MICU PROGRESS NOTE WITH [facility] DATE: 04/16/2025 Admission Date: 04/13/2025 Indication for MICU Admission: AHRF on BiPAP/airvo Significant PMH/PSH: - Migraines - Substance abuse, methamphetamine use - Afib on Coumadin - CHF (EF 25%) - Severe pHTN, on Sildenafil Hospital Course: 49 y/o male with the above history who reportedly ran out of home Sildenafil around one to two months prior to admission. Pt presented to [facility] in [place], [place] with c/oepigastric pain and respiratory distress, saturating 93% on 2L NC. Cardiomegaly seen on imaging. Ptgiven lasix and cent for CT PE. Pt also noted to be in afib w RVR so started on Cardizem gtt. Givenongoing respiratory distress pt placed on BiPAP. Pt transferred to ICU for acute hypoxic respiratory failure 2/2 acute right HF w exacerbation iso severe PH and medication non compliance. Pt arrived at [facility] and placed on Airvo 40L 45% with SpO2 96%. Off cardizem drip and in NSR rate 90s, normotensive and afebrile. Luis Eduardo-mckeon breathing, intermittent tachycardia. CVC placed. [place] placed. Significant New Events Past 24 hrs: net negative 2.9L On 50L/50%fiO2 A/P of Major Active Problems: Neuro: #Hx Migraines #Substance abuse, methamphetamines There is a previous history of substance abuse, but pt denies tobacco use, alcohol or illicit drug use Plan: - Delirium monitoring - Tylenol PRN pain - Consult Psychiatry-appreciate recs - Social work consulted for outpatient resources Pulm: #AHRF 2/2 CHF exacerbation #pHTN On HF 50L at 50% Plan: - Titrate down FiO2 to maintain SpO2 >90% - Wean O2 as tolerated - cont diuresis - Continue inhaled Epoprostenol - Continue Sildenafil 80mg TID CV: #Acute right heart failure exacerbation #Afib with RVR, on Coumadin #Severe pulmondary HTN on Sildenafil #CHF Echo 04/14 EF 15%, RV severely dilated and decreased function. Entire anterior wall, entire lateralwall, entire septum, entire apex, and entire inferior wall are severely hypokinetic Plan: - D/c lasix drip, switch to 120mg IV BID. Diuresis goal: 2-3L - Continue home Sildenafil - d/c amio drip, resume home PO - Start AC once INR closer to 2 (currently 3.1) - start jardiance - Consult cardiology Renal / Electrolytes: #LA Plan: - Daily BMP, Mag, Phos GI / Nutrition: Plan: - heart healthy diet Heme / Onc: Plan: - PT/INR - Start Enoxaparin once INR is within range - Daily CBC Barriers to transfer out of MICU: O2 requirements Plan Discussed with Dr Cervantes and RN OBJECTIVE: BP 95/80 Pulse 102 Temp 36.7 ??C (98 ??F) (Oral) Resp 26 Ht 177.8 cm (5' 10 ) Wt 88.5 kg (195 lb 1.7 oz) SpO2 97% BMI 27.99 kg/m?? Vital signs reviewed. Relevant comments- stable NET FLUID BALANCE Intake/Output Summary (Last 24 hours) at 04/16/2025 1319 Last data filed at 04/16/2025 1306 Gross per 24 hour Intake 1163.2 ml Output 5350 ml Net -4186.8 ml MEDICATIONS Current Facility-Administered Medications Medication Dose Route Frequency sodium chloride 0.9 % (flush) 2-10 mL (BD POSIFLUSH) 2-10 mL INTRAVENOUS DIRECTED PRN And perflutren lipid microspheres 1.1 mg/mL 1.3 mL injection (DEFINITY) 1.3 mL INTRAVENOUS DIRECTED PRN NaCl 0.9% iv flush bag 20 mL INTRAVENOUS PRN aluminum-magnesium hydroxide-simethicone 200-200-20 mg/5 mL 30 mL 30 mL ORAL q 6 H PRN epoprostenol INHALATION 1.5 mg in NaCl 0.9% 50 mL syringe (VELETRI) 0.01-0.05 mcg/kg/min ([place]) INHALATION CONTINUOUS prochlorperazine 10 mg injection (COMPAZINE) 10 mg INTRAVENOUS q 6 H PRN sildenafil 80 mg tab(s) (REVATIO) 80 mg ORAL TID furosemide 120 mg injection (LASIX) 120 mg INTRAVENOUS BID 9a/5p amiodarone 200 mg tab(s) (PACERONE) 200 mg ORAL DAILY [START ON 04/17/2025] empagliflozin 10 mg tab(s) (JARDIANCE) 10 mg ORAL DAILY INFUSIONS epoprostenol, Last Rate: 0.05 mcg/kg/min (04/16/25 1158) Lines, Drains, and Airways Line Duration Peripheral 04/13/25 1845 [facility] Left Forearm 20 Gauge 2 days Peripheral 04/13/25 184 [facility] Left Wrist 22 Gauge 2 days Arterial Line/Sheath 04/14/25 1515 Right Radial 1 day Central Line Triple Lumen 04/14/251999 Pulmonary Artery Catheter Right Neck Through Introducer 1 day Introducer / Venous Sheath Single Lumen 04/14/251999 Right Neck 1 day Drain Duration Indwelling Urinary Catheter 04/14/25 [facility] Coude 16 Fr 2 days PHYSICAL EXAM HEENT: Oral Mucosa: Moist mucous membranes Feeding Tube: No Eyes: PERRL Neck: no jugular venous distention Cardiovascular: atrial fibrillation / atrial flutter Edema- No edema, 1+ edema his legs Respiratory: Reduced breath sounds bilat. Hi flow NC Abdomen: Soft, non-tender, non-distended. Bowel sounds normal. Extremities: Peripheral Pulses-UE 3+= normal LE 3+= normal Cap Refill: CAP REFILL: < or = 2 seconds Skin: Abnormalities- No Breakdown- No Neurologic: Oriented to person, place, and time. No focal motor, sensory deficits. NUTRITION: Heart healthy Enteral Feeds: Yes DATA: Diagnostic tests reviewed for today's visit: Most recent labs and imaging results. LABS: CBC, Coags, BMP, Mg, Phos Recent Labs 04/16/25 0413 04/15/25 0350 04/14/25 0545 04/13/25 2103 WBC 10.09 11.47* 7.83 9.68 HB 13.0 13.9 13.4 13.9 HCT 38.3* 41.0 41.5 42.9 PLT 257 298 298 312 INR 3.1* 3.2* 2.5* 2.6* APTT -- -- -- 27.9 NA 130* 132* 136 136 K 3.6* 4.1 4.0 3.7 CHLOR 95* 95* 100 99 CO2 23 21* 22 24 BUN 28* 30* 25* 27* CREAT 1.34* 1.51* 1.18 1.34* GLUC 122* 130* 93 101* CA 8.4* 9.0 8.7 8.9 MG 2.0 2.0 2.0 1.8 P 2.7 4.2 3.1 3.6 ICU Checklist Last Documented/Reviewed time: 04/16/2025 1:14 PM ICU Consent Complete?: Yes ICU Code Status History assess/Full code by default: No, active code status present A= Assess, Prevent, Manage Pain Pain adequately controlled?: Yes C= Choice of Sedation and Analgesia RASS at Goal?: Yes B= Both Spontaneous Awakening and Breathing Trials Ventilator: None D= Delirium: Assess, Prevent and Manage ICU Delirium Status: CAM Negative - no action required Sleep adequate?: Yes Restraint Status: None E= Early Mobility/Excercise ICU Mobility: ICU Mobility Goal: Head of bed 60 degrees F= Family Engagement and Empowerment ICU plan of care visit at bedside in last 24 hours: Yes, Provider, RN, Patient/ designee ICU Disposition: ICU Disposition-POC Detail: To be determined Prevention: Line Status: Arterial line, Central multi-lumen catheter Arterial Line Status: Still need today Central Line Status: Still need today Chavez Status: Present, still need today Pressure Injury Status: None GI/Stress Ulcer Prophylaxis: None - not required Nutrition is at Goal: Advancing to goal VTE Prophylaxis: Chemoprophylaxis: Therapeutic Anticoagulation SIGNATURE: Cydney Foster APRN.CNP PATIENT NAME: Erik Santos DATE: April 16, 2025 TIME: 1:19 PM [phone] [facility] STAFF PHYSICIAN NOTE OF PERSONAL INVOLVEMENT IN CARE I have reviewed the progress note obtained and documented by the Resident/Fellow/JOSE. I have personally performed a face to face assessment of the patient and performed history, physical exam the substantive portion of the visit which includes the medical decision making. I have discussed the case and management of the patient's care. The following comments revise or confirm relevant jessica components of the note. IMPRESSION: 49 year old male with toxin (amphetamine) induced PAH and HFrEF 2/2 nonischemic cardiomyopathy withbiventricular heart failure presenting with cardiogenic shock (RV shock, SCAI B) with acute kidney and liver injury (improving) course complicated by encephalopathy likely with amphetamine withdrawal(resolved) Previous history: RHC/LHC performed by Dr. Erin Goode ([facility]) on 01/24/2025 demonstratedmRAP 17, PA 62/39 (48), PAWP 10 (confirmed by gas), CO 2.5, PVR 15. Vasodilator challenge did improve cardiac output (TDCO 2.5 --> 3.5) leading to reduciton in PVR 15-->10. LHC at this time normal. PFT normal. NM VQ normal. Liver Vascular US without concern for PoPH. Noted LV systolic failure (LVEF 15 now, 25% in January) Repeat hemodynamics with PA locked at 58cm this morning - mRAP 20s-->15 without respiratory oscillation and steep y-descent, PAP 42/24 (m31), PAWP ~16-18, BP 90s/60s (MAP 70), HR 80s NSR iFICK CO 3.33 MVO2 52%. REYNOLD remains ~1.2 Warm, improved skin tone and temperature relative to admission. DATA MINING ANALYST < 3 seconds. Cr improving 1.5 --> 1.3 and UOP remains robust. In summary - it appears that RV (and LV) failure here is likely provoked primarily by pump failure / cardiomyopathy related to amphetamine use primarily with further RV insult from precapillary pulmonary hypertension and surprisingly less driven by LV failure given absence of lung congestion and significant PAWP elevation. PLAN: - consult to psychiatry given drug dependence, CM will see tomorrow re: inpatient rehabilitation discussion - continue inhaled epoprostenol, will trial weaning process today and reassess hemodynamics - continue sildenafil 80mg TID, will not add on additional vasodilators - discontinue furosemide infusion, resume bolus dosing to maintain UOP > 150cc hour goal net negative 2-3L today (RAP 8-10 at least) - discontinue amiodarone infusion, restart home maintenance , would benefit from outpatient EP evaluation for ablative therapies as this will improve BIV performance and protends better mordbitiy/mortality over time - holding warfarin for AF until INR < 2 at which point we will start LMHW vs UFH - appreciate HF consultation by Dr. Delacruz, noting patient not a LVAD/Nick candidate given profound ongoing dependence issues and BiV failure Check hemodynamics every shift now given improvement. Patient not candidate for VAD therapies as noted but could be candidate for [facility]- ECMO as bridge to recovery in case of progressive decompensation shock and SHOCK team should be convened if he were to get worse. This patient has a high probability of sudden, clinically significant deterioration, which requiresthe highest level of physician preparedness to intervene urgently. I managed/supervised life or organ supporting interventions that required frequent physician assessment. I devoted my full attentionto the direct care of this patient for the amount of time indicated below. Time I spent with familyor surrogate(s) is included only if the patient was incapable of providing the necessary information or participating in medical decision making. Time devoted to teaching and to any procedures I billed separately is not included. ICU Checklist: DVT PPX: INR > 3 Diet: oral Lines/Chavez: R. Radial Arterial Line (D2), RIJ PAC (D2) Code Status: Full Code Family Contact: Mother Disposition: ICU Time spent providing critical care services: 60 minutes. SIGNATURE: Raysa Cervantes DO [facility] April 16, 2025 * Rafaela Matos RN - 04/16/2025 1:07 PM EDT CARE MANAGEMENT: ASSESSMENT AND DISCHARGE PLAN SERVICE DATE: April 16, 2025 SERVICE TIME: 1:10 PM PCP: No primary care provider on file. Primary Contact: Extended Emergency Contact Information Primary Emergency Contact: Ivory Ureña Mobile Relation: Mother Secondary Emergency Contact: Ryan Santos Mobile Relation: Son Admission Status: Inpatient Insurance Provider: BESSY RUBALCAVA TPA Discharge Planning requested by: Per Department Practice Potential Transition Plans Home Advance Directives Current Advance Directive: Health Care Power of Clerk Secretary In Chart: Yes Up To Date and Valid: Yes Current Living Arrangements and Support Lives with: Parent (Mother) Type of Residence: Private Residence (House) Does the patient have to climb stairs at home?: No Support: Family members, Children, Parent How do you manage to accomplish the following: Independent: Ambulation, Bathe/Shower, Dress, Meals/Meal Prep, Going to the bathroom, Medication Management, Transportation to appointments/community Current Services/Equipment Current Post-Acute Service(s): None Discharge Planning Patient Goal(s): General wellness, Independent living, Be able to go home [place] of Choice Explained: Are you interested in bedside delivery of your medications? No Discharge Planning Participant(s): Patient Patient/Family Comments: Return home. Caregiver Assessment: Caregiver is ready, willing and able to meet the patient's needs as recommended by the inter-professional team: Yes Name of Caregiver: Mom and son as needed. Transport at Discharge: Transportation Arrangements: Car Destination: Home Needs Prior to Discharge: Needs Prior to Discharge: Desat Study Post-Acute Discharge Plan: 49 y/o lives with his mother Ivory. He describes himself being independent with ADLs/IADLs. He states he still drives and uses no assistive devices. His mother will provide dc transportation. He was admitted 04/13/25 for acute right heart failure pre chart review. CM reviewed his chart, he reportedly ran out of home Sildenafil one to two months prior to admission. Pt presented to [facility] in [place], [place] with c/o epigastric pain and respiratory distress, saturating 93% on 2L NC. Cardiomegaly seen on imaging. Pt given lasix and cent for CT PE. Pt also noted to be in afib w RVR so started on Cardizem gtt. Given ongoing respiratory distress pt placed on BiPAP. Pt transferredto ICU for acute hypoxic respiratory failure 2/2 acute right HF w exacerbation iso severe PH andmedication non compliance. Patient denied to CM financial difficulty paying for medications. Patient has history of polysubstance abuse, but pt denies tobacco use, alcohol or illicit drug use,Psychiatry consulted for drug dependence. Per Psychiatry note Patient is methamphetamine 40 dollarsa day for few years. Last use a couple weeks ago. Currently no withdrawal symptoms. Longest period of sobriety 8 months . Polysubstance use disorder (methamphetamine. Marijuana, LSD) in early remission). SW consulted for outpatient resources. SIGNATURE: Rafaela Matos RN PATIENT NAME: Erik Santos DATE: April 16, 2025 TIME: 1:07 PM * Raysa Cervantes DO - 04/15/2025 11:34 AM EDT MICU PROGRESS NOTE SERVICE DATE: 04/15/2025 SERVICE TIME: 11:34 AM Admission Date: 04/13/2025 Hospital Day # 2 Assessment/Plan Indication for MICU Admission: AHRF on BiPAP/airvo Significant PMH/PSH: - Migraines - Substance abuse, methamphetamine use - Afib on Coumadin - CHF (EF 25%) - Severe pHTN, on Sildenafil Hospital Course: 49 y/o male with the above history who reportedly ran out of home Sildenafil around one to two months prior to admission. Pt presented to [facility] in [place], [place] with c/oepigastric pain and respiratory distress, saturating 93% on 2L NC. Cardiomegaly seen on imaging. Ptgiven lasix and cent for CT PE. Pt also noted to be in afib w RVR so started on Cardizem gtt. Givenongoing respiratory distress pt placed on BiPAP. Pt transferred to ICU for acute hypoxic respiratory failure 2/2 acute right HF w exacerbation iso severe PH and medication non compliance. Pt arrived at [facility] and placed on Airvo 40L 45% with SpO2 96%. Off cardizem drip and in NSR rate 90s, normotensive and afebrile. Luis Eduardo-mckeon breathing, intermittent tachycardia. CVC placed. [place] placed. Significant New Events Past 24 hrs: CVC and swan catheter placed. PA pressure 41/25 w/ mean 31, Systemic 91/68 with mean of 76, Right atrial pressure 20. On lasix gtt and amio gtt. INR 3.2-heparin held. A/P of Major Active Problems: Neuro: #Hx Migraines #Substance abuse, methamphetamines There is a previous history of substance abuse, but pt denies tobacco use, alcohol or illicit drug use Plan: - Delirium care plan if needed - Tylenol PRN pain - Consult Psychiatry-appreciate recs Pulm: #AHRF 2/2 CHF exacerbation #pHTN On HF 60L at 60% [place] in place PA Pressure: 41/25 Mean 31, Systemic 91/68 Mean 76, Right Atrial Pressure 20. Plan: - Titrate down FiO2 to maintain SpO2 >90% - Wean O2 as tolerated - Repeat CXR - Continue inhaled Epoprostenol - Continue Sildenafil 80mg TID - ABG q8h - VBG q8h CV: #Acute right heart failure exacerbation #Afib with RVR, on Coumadin #Severe pulmondary HTN on Sildenafil #CHF Echo 02/13: LV normal in size, no LVH, severely decreased LV systolic function, LVEF 25%, RV severely dilated with severely decreased function, RA severely dilated, moderately severe TR caused by annular dilation, RVSP likely underestimated but 61mmHg c/w moderate pHTn. No PFO. Plan: - Continue Lasix gtt at 10mg/hr. Diuresis goal: 2-3L today - Continue home Sildenafil - Continue Amio gtt - Stop Heparin, start Enoxaparin once PTT is therapeutic - Consult cardiology, may need initiation of GDMT Renal / Electrolytes: #LA Plan: - Daily BMP, Mag, Phos GI / Nutrition: Plan: - Clear liquid diet Heme / Onc: Plan: - PT/INR - Start Enoxaparin once INR is within range - Daily CBC Barriers to transfer out of MICU: O2 requirements Principal Problem: Acute right ventricular heart failure (HCC) Active Problems: Acute on chronic systolic congestive heart failure (HCC) Biventricular heart failure (HCC) Acute hypoxic respiratory failure (HCC) Right ventricular dysfunction Elevated LFTs Methamphetamine use Shock circulatory (HCC) LA (acute kidney injury) (HCC) Lines, Drains, and Airways Line Duration Peripheral 04/13/25 184 [facility] Left Forearm 20 Gauge 1 day Peripheral 04/13/25 184 [facility] Left Wrist 22 Gauge 1 day Arterial Line/Sheath 04/14/25 1515 Right Radial <1 day Central Line Triple Lumen 04/14/251999 Pulmonary Artery Catheter Right Neck Through Introducer <1 day Introducer / Venous Sheath Single Lumen 04/14/251999 Right Neck <1 day Drain Duration Indwelling Urinary Catheter 04/14/25 [facility] Coude 16 Fr 1 day Central Line Reviewed and Maintained Due to: REASONS: Intravenous fluids Frequent Blood Draws Urinary catheter reviewed and Maintained Due to: REASONS: Strict immobilization with instability Objective PHYSICAL EXAM PERFORMED: HEENT: HF cannula in place. Poor dentition. Oral Mucosa: Moist mucous membranes Eyes: PERRLA Neck: Unremarkable; No adenopathy or JVD Cardiovascular: Irregular rhythm Respiratory: Clear to auscultation Vent/Oxygen: Supplemental Oxygen: Yes. FiO2 60% Abdomen: Soft and Nontender Extremities: Edema- No Peripheral Pulses- Present all extremities Capillary Refill- less than 3 seconds Neurologic: Awake, oriented, Alert, and Follows commands ICU Checklist Last Documented/Reviewed time: 04/15/2025 9:42 AM ICU Consent Complete?: Yes ICU Code Status History assess/Full code by default: No, active code status present A= Assess, Prevent, Manage Pain Pain adequately controlled?: Yes C= Choice of Sedation and Analgesia RASS at Goal?: Yes B= Both Spontaneous Awakening and Breathing Trials Ventilator: None D= Delirium: Assess, Prevent and Manage ICU Delirium Status: CAM Negative - no action required Sleep adequate?: Yes Restraint Status: None E= Early Mobility/Excercise ICU Mobility: ICU Mobility Goal: Head of bed 60 degrees F= Family Engagement and Empowerment ICU plan of care visit at bedside in last 24 hours: Yes, Provider, RN, Patient/ designee ICU Disposition: ICU Disposition-POC Detail: To be determined Prevention: Line Status: Arterial line, Central multi-lumen catheter Arterial Line Status: Still need today Central Line Status: Still need today Chavez Status: Discontinue chavez order Pressure Injury Status: None GI/Stress Ulcer Prophylaxis: None - not required Nutrition is at Goal: Advancing to goal VTE Prophylaxis: Chemoprophylaxis: Therapeutic Anticoagulation Saul Arrieta MD PGY-2 Family Medicine SIGNATURE: Salu Arrieta MD PATIENT NAME: Erik Santos DATE: April 15, 2025 TIME: 11:34 AM [facility] STAFF PHYSICIAN NOTE OF PERSONAL INVOLVEMENT IN CARE I have reviewed the progress note obtained and documented by the Resident/Fellow/JOSE. I have personally performed a face to face assessment of the patient and performed history, physical exam the substantive portion of the visit which includes the medical decision making. I have discussed the case and management of the patient's care. The following comments revise or confirm relevant jessica components of the note. 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 Previous history: RHC/LHC performed by Dr. Erin Goode ([facility]) on 01/24/2025 demonstratedmRAP 17, PA 62/39 (48), PAWP 10 (confirmed by gas), CO 2.5, PVR 15. Vasodilator challenge did improve cardiac output (TDCO 2.5 --> 3.5) leading to reduciton in PVR 15-->10. LHC at this time normal. PFT normal. NM VQ normal. Liver Vascular US without concern for PoPH. Noted LV systolic failure (LVEF 15 now, 25% in January) Repeat hemodynamics with PA locked at 58cm this morning demonstrate persistent RV falure with RV diastolic dysfunction and poor PA pulsatility : mRAP 20s without respiratory variation and with steep y-descents, PAP 41/25 (m30), Reynold ~1.2, unable to wedge, iFICK CO/CI 2.7 / 1.3 , MVo2 47%, AV PCO2 ~10, BP 90- 100s/70s (MAP 75-85), HR 80s now NSR. Updated Hemodynamic MEasurements (1300): SpO2 100% HR 94 in NSR. 95/65 (MAP 74). mRAP 14. End expiratory PAWP 16 (mPAWP 13). PAP 43/24 (m31). MVO2 59 iFICK CO/CI 3.55 / 1.7 PVR ~4.22 LAGOS. Reynold ~ 1.4 In summary - it appears that RV (and LV) failure here is likely provoked primarily by pump failure cardiomyopathy related to amphetamine use primarily with further insult precapillary pulmonary hypertension and surprisingly less driven by LV failure given absence of lung congestion and significant PAWP elevation. PLAN: - consult to psychiatry given drug dependence, and guidance for withdrawal beyond BZD - continue inhaled epoprostenol at current dose, will start to wean tomorrow given recovery - continue sildenafil 80mg TID, will not add on additional vasodilators - can consider dobutamine for inotropic support IF patient decompensates unexpectedly - continue current loop diuretic infusion, targeting net negative >2-3L today, goal RAP ~8-10 ultimately - continue amidoarone infusion for atrial fibrillation likely provoked by above, would benefit frommaintenance of sinus rhythm and outpatient EP evaluation for ablative therapies as this will improve BIV performance and protends better mordbitiy/mortality over time - holding warfarin for AF until INR < 2 at which point we will start LMHW vs UFH - appreciate HF consultation by Dr. Delacruz, noting patient not a LVAD/Nick candidate given profound ongoing dependence issues and BiV failure Will check hemodynamics every 8 hours. Patient not candidate for VAD therapies as noted but could be candidate for VA-ECMO as bridge to recovery in case of progressive decompensation shock and SHOCK team should be convened if he were to get worse. This patient has a high probability of sudden, clinically significant deterioration, which requiresthe highest level of physician preparedness to intervene urgently. I managed/supervised life or organ supporting interventions that required frequent physician assessment. I devoted my full attentionto the direct care of this patient for the amount of time indicated below. Time I spent with familyor surrogate(s) is included only if the patient was incapable of providing the necessary information or participating in medical decision making. Time devoted to teaching and to any procedures I billed separately is not included. ICU Checklist: DVT PPX: INR > 3 Diet: oral Lines/Chavez: R. Radial Arterial Line (D1), RIJ PAC (D1) Code Status: Full Code Family Contact: Mother Disposition: ICU Time spent providing critical care services: 60 minutes. SIGNATURE: Raysa Cervantes DO [facility] DATE of SERVICE: 04/15/2025 * Judi Roman MD - 04/14/2025 7:00 PM EDT [facility] Consult Note [facility] STAFF PHYSICIAN NOTE OF PERSONAL INVOLVEMENT IN CARE IMPRESSION/PLAN: 49M with severe biventricular failure and in occult cardiogenic shock who needed placement of pulmonary artery catheter and ongoing assessments to guide therapy including reduction in RV/LV preload, RV preload with improvement in RV-PA coupling with improved cardiac indices and circulation along with hypoxemia. Our local pulmonary hypertension expertise involved. Will need re-assessments. Patient/Family Updated: patient updated This patient has a high probability of sudden, clinically significant deterioration, which requiresthe highest level of physician preparedness to intervene urgently. I managed/supervised life or organ supporting interventions that required frequent physician assessment. I devoted my full attentionto the direct care of this patient for the amount of time indicated below. Time I spent with familyor surrogate(s) is included only if the patient was incapable of providing the necessary information or participating in medical decision making. Time devoted to teaching and to any procedures I billed separately is not included. Critical Care Documentation: The patient has the following organ/system impairment(s): Circulatory shock Time spent providing critical care services: 70 minutes. SIGNATURE: Holbrook MD [facility] DATE of SERVICE: 04/14/2025 * Justyn Rosales LSW - 04/14/2025 3:15 PM EDT CARE MANAGEMENT PROGRESS NOTE SERVICE DATE: 04/14/2025 SERVICE TIME: 3:15 PM LOS: 1 day CM attempted to see pt bedside for initial assessment. Pt unavailable, Medical team in room with ptdiscussing care. CM will revisit pt to complete initial assessment. CM will continue to follow. For weekend coverage please contact by secure chat: Sejal [facility] THURSDAY/THURSDAY: SHOBHA MATOS SIGNATURE: MITUL Coleman PATIENT NAME: Erik Santos DATE: April 14, 2025 TIME: 3:15 PM * Kina Vásquez MD - 04/14/2025 8:35 AM EDT [facility] STAFF PHYSICIAN NOTE OF PERSONAL INVOLVEMENT IN CARE I have reviewed the progress note obtained and documented by the JOSE. I have personally performed aface to face assessment of the patient and performed the substantive portion of the visit which includes the medical decision making. I have discussed the case and management of the patient's care. The following comments revise or confirm relevant jessica components of the note. Interval events: net positive overnight, still requiring HFNC. IMPRESSION/PLAN: Acute hypoxic respiratory failure d/t 2: on 40%/40L. Biventricular heart failure: Baseline pHTN, suspected exacerbation in the setting of pulmonary edema as well as non-adherence with his sildenafil, which has been restarted. pHTN team consulted. Formal echo for LV function pending but at outside institution reported EF of 25%, unclear cause. Overtlyvolume overloaded but blood pressures may preclude very aggressive diuresis. For now, plan for net negative 1-1.5 L for the day, will start with lasix 60 mg and reassess for more doses today. Afib with RVR: not adherent to amiodarone as an outpatient. Will re-load with IV amiodarone then switch back to po. On warfarin, therapeutic. [place] checked for eliquis, not covered. Will swtich to heparin gtt to allow for potential PAC placement. Heparin gtt PIVs HHD This patient has a high probability of sudden, clinically significant deterioration, which requiresthe highest level of physician preparedness to intervene urgently. I managed/supervised life or organ supporting interventions that required frequent physician assessment. I devoted my full attentionto the direct care of this patient for the amount of time indicated below. Time I spent with familyor surrogate(s) is included only if the patient was incapable of providing the necessary information or participating in medical decision making. Time devoted to teaching and to any procedures I billed separately is not included. Critical Care Documentation: The patient has the following organ/system impairment(s): acute on chronic heart failure systolic, acute hypoxic respiratory failure. Time spent providing critical care services: 110 minutes. SIGNATURE: Kina Vásquez MD [facility] DATE of SERVICE: 04/14/2025 * Portia Rhoades APRN.FIELD ADMINISTRATOR - 04/14/2025 7:10 AM EDT MICU PROGRESS NOTE SERVICE DATE: 04/14/2025 SERVICE TIME: 11:02 AM Admission Date: 04/13/2025 Hospital Day # 1 Assessment/Plan Indication for MICU Admission: AHRF on BiPAP/airvo Significant PMH/PSH: - Migraines - Substance abuse, methamphetamine use - Afib on Coumadin - CHF (EF 25%) - Severe pHTN, on Sildenafil Hospital Course: 49 y/o male with the above history who reportedly ran out of home Sildenafil around one to two months prior to admission. Pt presented to [facility] in [place], [place] with c/oepigastric pain and respiratory distress, saturating 93% on 2L NC. Cardiomegaly seen on imaging. Ptgiven lasix and cent for CT PE. Pt also noted to be in afib w RVR so started on Cardizem gtt. Givenongoing respiratory distress pt placed on BiPAP. Pt transferred to ICU for acute hypoxic respiratory failure 2/2 acute right HF w exacerbation iso severe PH and medication non compliance. Pt arrived at [facility] and palced on Airvo 40L 45% with SpO2 96%. Off cardizem drip and in NSR rate 90s, normotensive and afebrile. He is A7Ox4 reports significantly improved shortness of breath. Significant New Events Past 24 hrs: Afebrile, HDS remains in Afib overnight. On HFNC 40L/40%. Resumed home amio and coumadin, continued Sildenafil. Was given 40mg Lasix yesterday, and had 750cc out, net +250cc/24 hours. Plan to trial 60mg Lasix with goal net negative 1-1.5L Consult to Dr. SHARMA for pHTN, and consult to Dr. Delacruz for HF and Afib. Continues to have AFib with RVR therefore was bolus with 300mg Amio and started on Amio gtt. A/P of Major Active Problems: Neuro: #Hx Migraines #Substance abuse, methamphetamines There is a previous history of substance abuse, but pt denies tobacco use, alcohol or illicit drug use Plan: - Delirium care plan if needed - Tylenol PRN pain Pulm: #AHRF 2/2 CHF exacberbation Plan: - Titrate down FiO2 to maintain SpO2 >90% - Continue airvo for now, can keep off NIV - CXR CV: #Acute right heart failure exacerbation #Afib with RVR, on Coumadin #Severe pulmondary HTN on Sildenafil #CHF Echo 02/13: LV normal in size, no LVH, severely decreased LV systolic function, LVEF 25%, RV severely dilated with severely decreased function, RA severely dilated, moderately severe TR caused by annular dilation, RVSP likely underestimated but 61mmHg c/w moderate pHTn. No PFO. Plan: - Echo in AM - Lasix 60mg, goal net negative 1-1.5L (assess urine output throughout the day and may need re-dose) - Continue home Sildenafil, Amio - Continue home Coumadin - Consult cardiology, may need initiation of GDMT - Consult PK for RV failure and pHTN Renal / Electrolytes: #LA Plan: - Daily BMP, Mag, Phos GI / Nutrition: Plan: - Clear liquid diet Heme / Onc: Plan: - PT/INR - Will consult pharmacy and restart coumadin based on INR - Daily CBC Barriers to transfer out of MICU: O2 requirements Principal Problem: Acute right ventricular heart failure (HCC) Active Problems: Biventricular heart failure (HCC) Lines, Drains, and Airways Line Duration Peripheral 04/13/251844 [facility] Left Forearm 20 Gauge <1 day Peripheral 04/13/251844 [facility] Left Wrist 22 Gauge <1 day Objective PHYSICAL EXAM PERFORMED: HEENT: Oral Mucosa: Moist mucous membranes Eyes: PERRLA Neck: Unremarkable; No adenopathy or JVD Cardiovascular: Regular rhythm Respiratory: Reduced breath sounds bilat Vent/Oxygen: Supplemental Oxygen: Yes. FiO2 40L/40% Abdomen: Soft and Positive bowel sounds Extremities: Edema- No Peripheral Pulses- Present all extremities Capillary Refill- less than 3 seconds Neurologic: Awake, oriented, Alert, Follows commands, and Moving all extremities ICU Checklist Last Documented/Reviewed time: 04/14/2025 9:18 AM ICU Consent Complete?: Yes ICU Code Status History assess/Full code by default: No, active code status present A= Assess, Prevent, Manage Pain Pain adequately controlled?: Yes C= Choice of Sedation and Analgesia RASS at Goal?: Yes B= Both Spontaneous Awakening and Breathing Trials Ventilator: None D= Delirium: Assess, Prevent and Manage ICU Delirium Status: CAM Negative - no action required Sleep adequate?: Yes Restraint Status: None E= Early Mobility/Excercise ICU Mobility: ICU Mobility Goal: Head of bed 60 degrees F= Family Engagement and Empowerment ICU plan of care visit at bedside in last 24 hours: Yes, Provider, RN, Patient/ designee ICU Disposition: ICU Disposition-POC Detail: To be determined Prevention: Line Status: None Chavez Status: None Pressure Injury Status: None GI/Stress Ulcer Prophylaxis: None - not required Nutrition is at Goal: Advancing to goal VTE Prophylaxis: Chemoprophylaxis: Therapeutic Anticoagulation SIGNATURE: Portia Rhoades APRN.CNP PATIENT NAME: Erik Santos DATE: April 14, 2025 TIME: 7:10 AM Cosigned by Kina Vásquez MD at 04/14/2025 4:00 PM EDT Associated attestation - Kina Vásquez MD - 04/14/2025 4:00 PM EDT [facility] STAFF PHYSICIAN NOTE OF PERSONAL INVOLVEMENT IN CARE I have reviewed the history and physical examination obtained and documented by the JOSE. I have personally performed a face to face assessment of the patient and have personally participated on the jessica components of the history, exam and medical decision making. I have discussed the case and management of the patient's care. Please see my separate note for comments revising or confirming relevantkey components of the note. documented in this encounter H&P Notes * Kaleb Pepe MD - 04/13/2025 7:25 PM EDT MICU H&P SERVICE DATE: 04/13/2025 SERVICE TIME: 8:49 PM Admission Date: 04/13/2025 Subjective HPI: This is a 49 year old with hisotry of migraines, substance abuse, afib on Coumadin, CHF (EF 25%) and severe pulmonary hypertension on Sildenafil. Pt reportedly ran out of home Sildenafil around a week prior to admission. Pt presented to [facility] in [place], [place] with c/o epigastric pain and respiratory distress, saturating 93% on 2L NC. Cardiomegaly seen on imaging. Pt given lasix and cent for CT PE. Pt also noted to be in afib w RVR so started on Cardizem gtt. Given ongoing respiratory distress pt placed on BiPAP. Pt transferred to ICU for acute hypoxic respiratory failure 2/2 acute right HF w exacerbation iso severe PH and medication non compliance. Pt arrived at [facility] and palced on Airvo 40L 45% with SpO2 96%. Off cardizem drip and in NSR rate 90s, normotensive and afebrile. He is A7Ox4 reports significantly improved shortness of breath. The following problems are present on admission at this time: Cardiac arrhythmias afib, afib w RVR Heart failure Respiratory Failure: Acute Hypoxemia Drug abuse Pulmonary circulation disease Continue current outpatient treatment plan and current medications for these conditions, except where otherwise noted. No past medical history on file. No past surgical history on file. No family history on file. SOCIAL HISTORY[1] Prescriptions Prior to Admission[2] ALLERGIES No Known Allergies COMPLETE REVIEW OF SYSTEMS: Pt reports shortness of breath and chest tightness with deep breathing but denies other pain, N/V, fever, chills, fatigue Objective VITAL SIGNS (last 24hrs min/max): Temp Av.9 ??C (98.4 ??F) Min: 36.9 ??C (98.4 ??F) Max: 36.9 ??C (98.4 ??F) Pulse Av.5 Min: 98 Max: 100 No data recorded Cuff BP Min: 102/70 Max: 146/104 Vital signs reviewed. Relevant comments- HDS NET FLUID BALANCE No intake or output data in the 24 hours ending 04/13/251924 [employer]HE[employer]: Lines, Drains, and Airways Line Duration Peripheral 04/13/25 184 [facility] Left Forearm 20 Gauge <1 day Peripheral 04/13/251844 [facility] Left Wrist 22 Gauge <1 day PHYSICAL EXAM: Physical exam performed HEENT: Oral Mucosa: Moist mucous membranes Feeding Tube: No Eyes: PERRL Neck: Unremarkable; No adenopathy or JVD Cardiovascular: Irregular rhythm Relevant Hemodynamic Data: HDS Respiratory: Reduced breath sounds bilat Supplemental Oxygen: Yes. FiO2 40% 40L Abdomen: Nontender, Firm, and Positive bowel sounds Extremities: Edema- No Peripheral Pulses- Present all extremities Capillary Refill- less than 3 seconds Skin: Abnormalities- No Breakdown- No Neurologic: Awake, oriented, Alert, Follows commands, and Moving all extremities NUTRITION: well nourished Enteral Feeds: No DATA: Diagnostic tests reviewed for today's visit: Most recent labs and imaging results. Most recent EKG LABS: CBC, Coags, BMP, Mg, Phos Cardiac Enzymes CULTURES: N/A CXR FINDINGS: CXR personally viewed and interpreted by ICU staff Nurse Practitioner OTHER IMAGING: na Assessment/Plan Patient Summary: 49yo male admitted to [facility] after presenting to [facility]SH with shortness of breath and epigastric pain. Pt reported that he had not taken his Sildenafil for the past week as he ran out athome. Admitted with AHRF iso CHF exacerbation 2/2 severe pHTN. Assessment + Plan: The following diagnoses were present upon admission to the MICU: migraines, substance abuse, afib on Coumadin, CHF (EF 25%) and severe pulmonary hypertension on Sildenafil, acute on chronic RV failure Neuro: #Hx Migraines #Substance abuse, methamphetamines Assessment: There is a previous history of substance abuse, but pt denies tobacco use, alcohol or illicit drug use Plan: - Delirium care plan if needed - Tylenol PRN pain Pulm: #AHRF 2/2 CHF exacberbation Assessment: Plan: - Titrate down FiO2 to maintain SpO2 >90% - Continue airvo for now, can keep off NIV - CXR CV: #Acute right heart failure exacerbation #Afib with RVR, on Coumadin #Severe pulmondary HTN on Sildenafil #CHF Assessment: Echo 02/13: LV normla in size, no LVH, severely decreased LV systolic function, LVEF 25%, RV severely dilated with severely decreased function, RA severely dilated, moderately severe TR caused by annular dilation, RVSP likely underestimated but 61mmHg c/w moderate pHTn. No PFO. Plan: - Echo in AM - Troponin - BNP - 40mg lasix, goal net negative 1-2L - Restart home Sildenafil, Amio - Will resume home Coumadin after INR results - Consult cardiology, may need initiation of GDMT - Consult PK for RV failure Renal / Electrolytes: No active issues Assessment: Plan: - Daily BMP, Mag, Phos GI / Nutrition: No active issues Assessment: Plan: - Clears Heme / Onc: No active issues Assessment: Plan: - PT/INR - Will consult pharmacy and restart coumadin based on INR - Daily CBC Medication and Non-Pharmacologic VTE Prophylaxis/Anticoagulants 04/13/25 190 activity - mobilize patient (wy,dc) VTE Prophylaxis: VTE prophylaxis appropriate ICU Checklist Last Documented/Reviewed time: 04/13/2025 8:04 PM ICU Consent Complete?: Yes ICU Code Status History assess/Full code by default: No, active code status present A= Assess, Prevent, Manage Pain Pain adequately controlled?: Yes C= Choice of Sedation and Analgesia RASS at Goal?: Yes B= Both Spontaneous Awakening and Breathing Trials Ventilator: None D= Delirium: Assess, Prevent and Manage ICU Delirium Status: CAM Negative - no action required Sleep adequate?: Yes Restraint Status: None E= Early Mobility/Excercise ICU Mobility: ICU Mobility Goal: Head of bed 60 degrees F= Family Engagement and Empowerment ICU plan of care visit at bedside in last 24 hours: Yes, Provider, RN, Patient/ designee ICU Disposition: ICU Disposition-POC Detail: To be determined Prevention: Line Status: None Chavez Status: None Pressure Injury Status: None GI/Stress Ulcer Prophylaxis: None - not required Nutrition is at Goal: Advancing to goal VTE Prophylaxis: Chemoprophylaxis: Therapeutic Anticoagulation SIGNATURE: DEEDEE LEWIS APRN.CNP PATIENT NAME: Erik Santos DATE: April 13, 2025 TIME: 7:25 PM [facility] STAFF PHYSICIAN NOTE OF PERSONAL INVOLVEMENT IN CARE I have reviewed the history and physical examination obtained and documented by the nurse practitioner and I personally participated in the jessica components. I have discussed the case and management ofthe patient's care. The following comments revise or confirm relevant jessica components of the note and have added additional documentation as needed. HPI: 49 year old male w/ PMH as below who p/w c/o respiratory failure admitted to ICU for further evaluation and management. Interval Events: Admission PAST MEDICAL HISTORY No past medical history on file. PAST SURGICAL HISTORY No past surgical history on file. FAMILY HISTORY No family history on file. No current facility-administered medications on file prior to encounter. Current Outpatient Medications on File Prior to Encounter Medication Sig warfarin (COUMADIN) 1 mg tablet Take 5 mg daily or as directed by [facility] torsemide (DEMADEX) 20 mg tablet Take 1 tablet by mouth once daily. amiodarone (PACERONE) 200 mg tablet Take 1 tablet by mouth once daily. sildenafil (REVATIO) 20 mg tablet Take 3 tablets by mouth every 8 hours until MONDAY 02/05. 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 Y Wounds: N Social: Full code The following problems are present on admission at this time: Heart failure Drug abuse Pulmonary circulation disease Continue current outpatient treatment plan and current medications for these conditions, except where otherwise noted. Portions of this note including HPI, ROS, impression/plan, and examination may have been copied forward as to provide important historical information essential in contributing to medical decision making. Documentation has been reviewed and edited as necessary to support clinical decision making for today's visit and to reflect my own independent evaluation of this patient on 04/13/2025 This patient has a high probability of sudden, clinically significant deterioration, which requiresthe highest level of physician preparedness to intervene urgently. I managed/supervised life or organ supporting interventions that required frequent physician assessment. I devoted my full attentionto the direct care of this patient for the amount of time indicated below. Time I spent with familyor surrogate(s) is included only if the patient was incapable of providing the necessary information or participating in medical decision making. Time devoted to teaching and to any procedures I billed separately is not included. Critical Care Documentation: The patient has the following organ/system impairment(s): As per impression and plan above Time spent providing critical care services: 60 minutes. SIGNATURE: Kaleb Pepe MD [facility] [1] [2] warfarin (COUMADIN) 1 mg tablet, Take 5 mg daily or as directed by [facility], Disp: 200 tablet, Rfl: 1 torsemide (DEMADEX) 20 mg tablet, Take 1 tablet by mouth once daily., Disp: 30 tablet, Rfl: 1 amiodarone (PACERONE) 200 mg tablet, Take 1 tablet by mouth once daily., Disp: 30 tablet, Rfl: 0 sildenafil (REVATIO) 20 mg tablet, Take 3 tablets by mouth every 8 hours until MONDAY 02/05. Starting TUESDAY 02/06 take 4 tablets every 8 hours, Disp: 387 tablet, Rfl: 0 documented in this encounter Procedure Notes * Judi Roman MD - 04/14/2025 7:14 PM EDTAssociated Order(s): PA CATHETER Post-Procedure Diagnose(s): Acute right-sided heart failure (HCC); Acute right ventricular heart failure (HCC) BEDSIDE PROCEDURE NOTE PA CATHETER Performed by: Judi Roman MD Authorized by: Judi Roman MD Where was Patient When this Procedure was Performed: Bedside/Unscheduled Procedure Room Informed Consent Consent Obtained: Written [place] Protocol A moment to CARE was completed. SIGN IN Personnel directly involved with the procedure wore the appropriate PPE. Patient/Surrogate Stated/Verified: Patient name, Date of , Relevant allergies and Intended procedure TIME OUT Relevant labs, photos, and/or imaging studies have been reviewed. Intended patient and procedure match source documents. Consent obtained and matches the intended procedure. Correct side/site marked and visible. Medications required for procedure verified. Fire risk assessed and interventions discussed. Pre-Procedure Details: The area was prepped with chlorhexidine (Chloroprep) and allowed to dry. A sterile full body drape was applied following the usual aseptic technique. [facility] Central Line Insertion Checklist, attached to the Central Line- Associated Bloodstream Infection Prevention policy utilized: Yes Medications: Local Anesthesia (see MAR): Lidocaine 1% Procedure Details: Indication: Monitoring of pulmonary arterial pressures, pulmonary wedge pressure and cardiac output Patient Position: Reverse Trendelenburg Site: right internal jugular Insertion Type: New stick A thermodilution pulmonary arterial catheter was threaded through a contamination sleeve. All portswere flushed with sterile saline solution and transduced to monitor waveforms. The balloon was inflated with air to document integrity and the catheter tip was shaken to document waveform transduction. Introducer Details: 10 cm, single-lumen, 8.5 Fr Catheter Size: 7.5 [place], 110 cm The catheter was inserted through the introducer sheath and the balloon was inflated. The catheter was floated with the balloon inflated while monitoring the pressure waveform. The catheter was advanced through the right ventricle into the pulmonary artery to a distance of 48cm. The balloon was deflated. The contamination sleeve was extended and connected to the introducersheath. Securement/Dressing: Securement device used Wave form: PA RA Pressure: 27 RV Pressure: 47/18 PA Pressure: 48/34 PA Mean Pressure: 38 Post-procedure X-ray: Pending All catheters, needles, and wires were accounted for and intact Number of attempts: 1 Post-Procedure Details: Patient Tolerance: Patient tolerated the procedure well with no immediate complications Comments: Unable to wedge because of patient going into VT when attempting x 2. SIGNATURE: [place] MD PATIENT NAME: Erik Santos DATE: April 14, 2025 TIME: 7:10 PM * Portia Rhoades APRN.FIELD ADMINISTRATOR - 04/14/2025 3:25 PM EDTAssociated Order(s): ART LINE/SHEATH Post-Procedure Diagnose(s): Acute hypoxic respiratory failure (HCC) BEDSIDE PROCEDURE NOTE ART LINE/SHEATH Date/Start Time: 04/14/2025 3:15 PM Date/Stop Time: 04/14/2025 3:25 PM Performed by: Portia Rhoades APRN.CNP Authorized by: Portia Rhoades APRN.CNP Where was Patient When this Procedure was Performed: Bedside/Unscheduled Procedure Room This procedure has been performed by a resident/fellow without an attending's supervision Informed Consent Consent Obtained: Written [place] Protocol A moment to CARE was completed. SIGN IN Sign in communication not applicable due to emergent procedure. Personnel directly involved with the procedure wore the appropriate PPE. Special Equipment: N/A Patient/Surrogate Stated/Verified: Patient name, Date of , Relevant allergies and Intended procedure TIME OUT Relevant labs, photos, and/or imaging studies have been reviewed. Intended patient and procedure match source documents. Consent obtained and matches the intended procedure. Correct side/site marked and visible. Medications required for procedure verified. Fire risk assessed and interventions discussed. No implant(s) inserted. Pre-Procedure Details: The area was prepped with chlorhexidine (Chloroprep) and allowed to dry. A sterile partial body drape was applied following the usual aseptic technique. Medications: None Procedure Details: Indication: Monitoring of vital bodily functions and frequent ABGs and labs Arterial Line Type: arterial line Site: right radial Technique: Modified Seldinger The vessel was cannulated under direct ultrasound visualization with a 20 gauge catheter. A straight-tipped spring wire was passed into the artery through the indwelling catheter and left in situ while the catheter was advanced. The catheter was left in situ while the guidewire was removed. Arterial Sheath Size: 2.5 Fr Pulsatile blood flow exited the catheter. Securement/Dressing: Sterile, transparent, occlusive dressing All catheters, needles, and wires were accounted for and intact Number of attempts: 1 Successful Placement: Yes Post-Procedure Details: Patient Tolerance: Patient tolerated the procedure well with no immediate complications Estimated Blood Loss: scant Specimens Sent: none SIGN OUT No specimen collected. SIGNATURE: Portia Rhoades APRN.CNP PATIENT NAME: Erik Santos DATE: April 14, 2025 TIME: 3:25 PM documented in this encounter Consult Notes * Umu Linda MD - 04/16/2025 7:00 AM EDTAssociated Order(s): PHYSICIAN CONSULT (AK,AV,EU,FV,HL,IR,MICHAEL,MH,MM,MO,MR,SP,UN) CL NEW - PSYCHIATRY INITIAL CONSULTATION NOTE SERVICE DATE: April 16, 2025 SERVICE TIME: 7:01 AM Visit Type: In person CONSULTING SERVICE : Psychiatry, requested by REASON FOR CONSULTATION: Detox. Subjective IDENTIFYING INFO: Mr. Santos is a 49 year old male from [place], [place] HISTORY OF PRESENT ILLNESS : Patient is 49 yo male with past medical history of migraines, afib, severe pulmonary hypertension and past psychiatry history of polysubstance use disorder presenting with Shortness of Breath Patient is methamphetamine 40 dollars a day for few years. Last use a couple weeks ago. Currently no withdrawal symptoms. Longest period of sobriety 8 months Denied symptoms of depression/ panic disorder/ carlyle/ psychosis/ ETHAN/ PTSD/ OCD. No previous hospitalizations. No previous SA. NO self mutilation behaviors Denied CURRENT SI/HI/AVH. Denied access to guns at home Does Patient Have Any Suicidal Ideations: No STRESSORS: none PSYCHIATRIC REVIEW OF SYMPTOMS: The remainder was reviewed and unremarkable. MEDICAL REVIEW OF SYSTEMS: Pertinent Positives: The remainder was reviewed and unremarkable. PSYCHIATRIC HISTORY: Diagnoses: Substance Abuse Current Psychiatrist: None Current Therapist: None Psychiatric Hospitalization(s): None History of Suicide Attempts: None Previous Psychiatric Medication Trials: none Current Outpatient Psychiatric Medications: none SUBSTANCE ABUSE HISTORY: Alcohol: No history of use or dependence Marijuana: Positive for previous use history, in partial/full remission for 10 years Cocaine: No history of use or dependence Opioids: No history of use or dependence Other Substance Use: see HPI SOCIAL HISTORY: Childhood: ok Relationships: Children: Yes, adult (1)(3) minors - does not have custody Living Situation: lives with mother Education: High school 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 FAMILY PSYCHIATRIC HISTORY: None No family history on file. No past medical history on file. No past surgical history on file. Current Facility-Administered Medications Medication Dose Route Frequency potassium chloride ER 20 mEq tab(s) (KLOR-CON) 20 mEq ORAL ONCE sildenafil 80 mg tab(s) (REVATIO) 80 mg ORAL TID amiodarone iv infusion 360 mg in D5W 200 mL (NEXTERONE) 0.5 mg/min INTRAVENOUS CONTINUOUS aluminum-magnesium hydroxide-simethicone 200-200-20 mg/5 mL 30 mL 30 mL ORAL q 6 H PRN epoprostenol INHALATION 1.5 mg in NaCl 0.9% 50 mL syringe (VELETRI) 0.01-0.05 mcg/kg/min ([place]) INHALATION CONTINUOUS furosemide 500 mg in empty container, plastic bag 50 mL (LASIX) 10 mg/hr INTRAVENOUS CONTINUOUS prochlorperazine 10 mg injection (COMPAZINE) 10 mg INTRAVENOUS q 6 H PRN sodium chloride 0.9 % (flush) 2-10 mL (BD POSIFLUSH) 2-10 mL INTRAVENOUS DIRECTED PRN And perflutren lipid microspheres 1.1 mg/mL 1.3 mL injection (DEFINITY) 1.3 mL INTRAVENOUS DIRECTED PRN NaCl 0.9% iv flush bag 20 mL INTRAVENOUS PRN ALLERGIES No Known Allergies Objective VITAL SIGNS: 04/16/25 0400 04/16/25 0406 04/16/25 0415 04/16/25 0430 BP: Pulse: 100 100 94 98 Resp: 13 25 16 21 Temp: 36.4 ??C (97.5 ??F) TempSrc: Axillary SpO2: 95% 94% 98% 96% Weight: 88.5 kg (195 lb 1.7 oz) Height: PHYSICAL EXAMINATION: Muscle Tone/Strength: No Tremors, Rigidity, Hyperreflexia, or Clonus. Moved Extremities Against [place]. Gait / Station: Not assessed MENTAL STATUS EXAMINATION: Appearance: In hospital gown, well groomed, good eye contact. Behavior: Engaged readily, cooperative, appropriate. Psychomotor: No psychomotor agitation. Cognition: Level of Consciousness: Awake and alert. No fluctuation in wakefulness. Orientation: Person, Place, Time and Situation Memory: Intact Attention/Concentration: Fair Fund of Knowledge: Able to demonstrate an awareness of current events. Mood: Euthymic Affect: Mood-congruent and reactive within a normal range. Speech/Language: Appropriate tone, prosody, len, phonetics, and syntax Thought Form: Goal directed. No Loosening of associations Thought Content: No delusions. Perceptual disturbances: No hallucinations. Safety: Suicidal Ideations: No suicidal ideation, intent or plan. Homicidal Ideations: No homicidal ideation, intent or plan. Insight: Recognized the presence of illness. Judgment: Appropriate. MINI MENTAL STATUS EXAM : (click the first blank choice if not needed): LABS : Lab Results Component Value Date/Time WBC 10.09 04/16/2025 04:13 AM RBC 4.55 04/16/2025 04:13 AM HCT 38.3 (L) 04/16/2025 04:13 AM MCV 84.2 04/16/2025 04:13 AM MCH 28.6 04/16/2025 04:13 AM MCHC 33.9 04/16/2025 04:13 AM RDWCV 14.6 04/16/2025 04:13 AM PLT 257 04/16/2025 04:13 AM GLUC 122 (H) 04/16/2025 04:13 AM NA 130 (L) 04/16/2025 04:13 AM K 3.6 (L) 04/16/2025 04:13 AM K 4.2 12/28/2022 05:33 AM CHLOR 95 (L) 04/16/2025 04:13 AM BUN 28 (H) 04/16/2025 04:13 AM CREAT 1.34 (H) 04/16/2025 04:13 AM MG 2.0 04/16/2025 04:13 AM CO2 23 04/16/2025 04:13 AM TPROT 5.9 (L) 04/16/2025 04:13 AM ALB 3.3 (L) 04/16/2025 04:13 AM CA 8.4 (L) 04/16/2025 04:13 AM AST 117 (H) 04/16/2025 04:13 AM ALT 119 (H) 04/16/2025 04:13 AM ALKPHOS 88 04/16/2025 04:13 AM TBILI 1.7 (H) 04/16/2025 04:13 AM Urinalysis (past 7 days) Recent Labs 04/14/25 1035 UPH 6.0 SPGR 1.026 UGLUC Negative UBILI Negative UKET Negative UHB Negative UPROT Negative UROBILINOGEN Normal NITRITES Negative UWBC 0-5 /HPF Urine Toxicology & Blood Alcohol Lab Results Component Value Date UBARB2 Negative 04/14/2025 UBENZ Negative 04/14/2025 UCOC2 Negative 04/14/2025 UTHC Negative 04/14/2025 UOPI Negative 04/14/2025 UPCP Negative 04/14/2025 UETOH <11 04/14/2025 IMAGING : Not indicated EKG: QTC-504 ASSESSMENT : DIAGNOSIS: Patient is 49 yo male with past medical history of migraines, afib, severe pulmonary hypertension and past psychiatry history of polysubstance use disorder presenting with Shortness of Breath Patient is methamphetamine 40 dollars a day for few years. Last use a couple weeks ago. Currently no withdrawal symptoms. Longest period of sobriety 8 months Denied symptoms of depression/ panic disorder/ carlyle/ psychosis/ ETHAN/ PTSD/ OCD. No previous hospitalizations. No previous SA. NO self mutilation behaviors Denied CURRENT SI/HI/AVH. Denied access to guns at home 1. Polysubstance use disorder (methamphetamine. Marijuana, LSD) in early remission) Global Assessment of Functionin-51 Moderate symptoms or moderate difficulty in social, occupational or school functioning. Clinical Global Impression--Severity of illness Scale: 4 = Moderately ill (overt symptoms, noticeable but modest functional impairment, may warrant meds) PLAN : 1. Patient would like to have resources for chemical dependency rehab 2. Get SW involved tomorrow for outpatient resources 3. Follow up as needed it I discussed my assessment and recommendations with Primary Team Staff My final impression and recommendations will be communicated back to the requesting physician by way of the shared medical record. During weekdays, 8 AM - 5 PM: please page for any questions of concerns. After 5 PM, weekends, and holidays: Please page psychiatry business solutions director at [phone]. SIGNATURE: Umu Linda MD PATIENT NAME: Erik Santos DATE: April 16, 2025 TIME: 7:01 AM I spent a total of 50 minutes on the date of the service which included preparing to see the patient, [id number] patient care, completing clinical documentation, obtaining and/or reviewing separately obtained history, counseling and educating the patient/family/caregiver, and care coordination (no t separately reported). * Ruthy Sy [facility] - 04/14/2025 12:49 PM EDT PHARMACY ANTICOAGULATION CONSULT Patient Name:Rosalba Santos Admission Date: 04/13/2025 Date: 04/14/2025 Time: 12:52 PM Consult for warfarin dosing per pharmacy has been discontinued. Pharmacy will sign off. Please place order for warfarin dosing per pharmacy if pharmacy is to resume warfarin dosing. Thank you for allowing us to participate in the care of this patient. Ruthy Sy RPh * Maryann Delacruz MD - 04/14/2025 10:06 AM EDTAssociated Order(s): PHYSICIAN CONSULT (AK,AV,EU,FV,HL,IR,MICHAEL,MH,MM,MO,MR,SP,UN) Images from the original note were not included. CONSULT: ADVANCED HEART FAILURE AND TRANSPLANT CARDIOLOGY SERVICE IMPRESSION/ASSESSMENT: Erik Santos is a 49 year old male with a pmhx of non-ischemic CM (LVEF 25% 01/2025), PAH thoughtto be 2/2 to meth use, Aflutter, substance use who is admitted from OSH with epigastric pain and respiratory distress. HF consulted given aflutter and low EF PROBLEM LIST Atrial flutter: intermittent RVR. Acute on Chronic Systolic Heart Failure/ biventricular failure/ predominant RV dysfunction: NT pro 4.0K, Suspect his LV dysfunction is likely from meth vs arrhythmia issues. Echo 01/26 -- LVEF 25%, LV small, RVSF severe, RV severely dil. Hypoxic Resp Failure: on HHF NC PAH - evaluated by PH team at . On sildenafil. Has been out of it for ~ 1 wk. Presumed from meth use. RHC from OSH 01/2025 with PVR 15.2, PCWP 8, RAP 17mmHg with low CO/CI. Substance use: ongoing. Elevated LFTs: likely congestion +/- low output state. PLAN/RECOMMENDATIONS: Agree with PH consult for management of PAH. Update echocardiogram here. Agree with IV amiodarone for flutter control. Would benefit from EP consult for ablation consideration in the usp once optimized Continue IV diuresis currently IV 60mg --> can increase as needed. Goal negative ~ 1.0 to 1.5L. Trend labs q 6 hrs --> CMP, lactate etc. If hemodynamic issues arise would have low threshold for PA-C placement. AT: not a heart transplant candidate given active/ongoing IV meth use and PAH; Not an LVAD candidate due to small LV size and severe RV dysfunction. 2L fluid and 2g Na restriction Check daily weights (standing weight ideal if possible) Measure strict I/O's atleast every shift and record. Please replace electrolytes to maintain K> 4, Mg >2 Plan discussed with patient, mom and ICU team. Thank you for allowing me to participate in the care of Erik Santos. Cardiology Team A to follow over the weekend. Feel free to reach out with questions or concerns. Please contact Team A pager for urgent questions/concerns about this patient and for routine questions after-hours or on weekends. [place] [phone]; [place] [phone] Maryann Delacruz MD [facility] Transplant [facility] [place] [address] Appointment: [phone] SERVICE DATE: 04/14/2025 SERVICE TIME: 8:00AM Admit date: 04/13/2025 6:24 PM Length of stay: 1 CONSULTING PHYSICIAN: maryann delacruz PCP: No primary care provider on file. ATTENDING: Kina Vásquez* REASON FOR CONSULT: history of EF 25%, history of afib CHIEF COMPLAINT: Acute right heart failure (HCC) [I50.811] Acute right ventricular heart failure (HCC) [I50.811] HISTORY OF PRESENT ILLNESS: Mr. Santos is a 49 year old male with a pmhx of non- ischemic CM (LVEF 25% 01/2025), PAH thought to be 2/2 to meth use, Aflutter, substance use who is admitted from OSH with epigastric pain and respiratory distress. Mr. Santos was admitted to in January with cardiogenic shock due to PAH and RV dysfunction. He wasreportedly in his usual state of health until December of 2024 when he went to an OSH and was noted to have elevated LFTs and Echo with severe RV dsyfunction and PH. LVEF was 50-55% at that time. He later presented on January 23 to [facility] with worsening dyspnea and palpitations along with LE erythema/swelling. While admitted there he underwent an echo which was notable for LVEF of 25% and ongoing severe RV dysfunction and PH. He underwent a RHC/LHC notable for no epicardial CAD, severe pre-cap PH, with reduced CI. He was subsequently admitted to the ICU --> started on veletri and transferred to F . On admission to the MICU we was noted to have ongoing flutter --> evaluated by PH and cardiology teams. PH felt to be from amphetamine use. He was transitioned to PO sildenafil uptitratedto 80mg TID. Since discharge has been unable to follow up with PH team. He states that since his discharge he was feeling well until ~ 5-7 days ago when he started to haveabd bloating/pain, dyspnea on exertion again and with progressive sxs went to the ED for eval. He notes that since his discharge he has taken his torsemide but has been out of his amiodarone for the past 6 wks and ran out of his sildenafil ~ 1 wk ago. He also notes that he is back to using meth - last use likely a few days ago. He reports that he is not using as often as prior. He also notes difficulty with keeping follow up appts but isn't able to state why he cancelled some. Currently he notes ongoing dyspnea, abd pain/distention, +nausea. No past medical history on file. No past surgical history on file. No family history on file. SOCIAL HISTORY[1] Prior to Admission Medications Prescriptions Last Dose Informant Patient Reported? Taking? amiodarone (PACERONE) 200 mg tablet No No Sig: Take 1 tablet by mouth once daily. sildenafil (REVATIO) 20 mg tablet No No Sig: Take 3 tablets by mouth every 8 hours until MONDAY 02/05. Starting TUESDAY 02/06 take 4 tablets every 8 hours torsemide (DEMADEX) 20 mg tablet No No Sig: Take 1 tablet by mouth once daily. warfarin (COUMADIN) 1 mg tablet No No Sig: Take 5 mg daily or as directed by [facility] Facility-Administered Medications: None Current Facility-Administered Medications Medication Dose Route Frequency sodium chloride 0.9 % (flush) 2-10 mL (BD POSIFLUSH) 2-10 mL INTRAVENOUS DIRECTED PRN And perflutren lipid microspheres 1.1 mg/mL 1.3 mL injection (DEFINITY) 1.3 mL INTRAVENOUS DIRECTED PRN sildenafil 80 mg tab(s) (REVATIO) 80 mg ORAL q 8 H WARFARIN DOSING PER PHARMACY 1 each OTHER DAILY - WARFARIN NaCl 0.9% iv flush bag 20 mL INTRAVENOUS PRN amiodarone iv infusion 360 mg in D5W 200 mL (NEXTERONE) 1 mg/min INTRAVENOUS CONTINUOUS Followed by amiodarone iv infusion 360 mg in D5W 200 mL (NEXTERONE) 0.5 mg/min INTRAVENOUS CONTINUOUS ALLERGIES No Known Allergies No current facility-administered medications on file prior to encounter. Current Outpatient Medications on File Prior to Encounter Medication Sig warfarin (COUMADIN) 1 mg tablet Take 5 mg daily or as directed by Coumadin Clinic torsemide (DEMADEX) 20 mg tablet Take 1 tablet by mouth once daily. amiodarone (PACERONE) 200 mg tablet Take 1 tablet by mouth once daily. sildenafil (REVATIO) 20 mg tablet Take 3 tablets by mouth every 8 hours until MONDAY 02/05. StartingTUESDAY 02/06 take 4 tablets every 8 hours REVIEW OF SYSTEMS: Constitution: negative for fevers, chills, night sweats, +fatigue HEENT: negative for headache, vision changes Respiratory: negative for cough,+shortness of breath Cardiovascular: as above Gastrointestinal: negative for: abdominal bloating/pain, : negative for dysuria or hematuria Musculoskeletal: negative for arthralgias, myalgias Neurological: negative for headaches, syncope. Skin: negative for rash. Psychiatry: negative for anxiety, depression, hallucinations. Objective PHYSICAL EXAM: BP 89/71 Pulse 97 Temp (Src) 97.5 (Oral) Resp 26 Ht 5' 10 (1.78m) Wt 207 lb 3.7 oz (94.0kg) SpO2 98% BMI 29.73 kg/(m^2). O2 Therapy: Hi-Flow Nasal Cannula-Heated, Liters (Numeric Only): 40, %FIO2: (S) 40 Admission Weight: 86.2 kg (190 lb) General: appears uncomfortale Neck: supple, no carotid bruits. JVD to earlob cm H2O. Cardiac: tachycardic, regular. Normal S1 and S2. No S3 or S4. no murmurs or gallops. Lungs: fair inspiratory effort anteriorly Abdominal: soft, nontender, mildly distended. Extremities: Edema: none. Pulses: normal radial artery pulses. Normal capillary refill. Skin: Warm to touch. No clubbing or cyanosis. Neuro: awake, Psychiatric: appropriate mood and affect for his clinical situation. DATA: I/O's 24 hrs: Intake/Output Summary (Last 24 hours) at 04/14/2025 1006 Last data filed at 04/14/2025 0414 Gross per 24 hour Intake 1000 ml Output 750 ml Net 250 ml No current facility-administered medications on file prior to encounter. Current Outpatient Medications on File Prior to Encounter Medication Sig warfarin (COUMADIN) 1 mg tablet Take 5 mg daily or as directed by Coumadin Clinic torsemide (DEMADEX) 20 mg tablet Take 1 tablet by mouth once daily. amiodarone (PACERONE) 200 mg tablet Take 1 tablet by mouth once daily. sildenafil (REVATIO) 20 mg tablet Take 3 tablets by mouth every 8 hours until MONDAY 02/05. StartingTUESDAY 02/06 take 4 tablets every 8 hours LABS: Recent Labs 04/14/25 0545 04/13/25 2103 WBC 7.83 9.68 HB 13.4 13.9 HCT 41.5 42.9 PLT 298 312 NA 136 136 K 4.0 3.7 BUN 25* 27* CREAT 1.18 1.34* GLUC 93 101* NATALIYA High Sensitivity 32 04/13/2025 No results found for: CHOL , HDL , LDL , TG @RESUFAST)HBA1C)@ No results found for this basename: tsh,t3,t4,cor No results found for: FE , SAT , TIBC , CARIDAD IMAGING AND TESTS (personally reviewed) TELE: flutter EK04/14/25 Wide complex tach CXR: 04/13/25 IMPRESSION: As above. Echo: 01/26/25 Impression CONCLUSIONS: - Technically difficult exam due to suboptimal positioning and body habitus. - Exam indication: R/p PFO, eval RVSP - The left ventricle is normal in size. There is no left ventricular hypertrophy. Left ventricular systolic function is severely decreased. EF = 25 ?? 5% (visual est.) - The right ventricle is severely dilated. Right ventricular systolic function is severely decreased. - The right atrial cavity is severely dilated. - There is moderately severe (3+) tricuspid valve regurgitation caused by annular dilatation. - Estimated right ventricular systolic pressure is likely underestimated due to a weak or incomplete tricuspid regurgitation signal and is, at least, 61 mmHg consistent with moderate pulmonary hypertension. Estimated right atrial pressure is 15 mmHg based on IVC assessment. - Agitated saline was administered to rule out PFO [clips: 2]. There is evidence of a right to left shunt as detected by agitated saline contrast. - The patient has not had a prior CC echocardiographic exam for comparison. Cath: 01/24/25 Final Impression: 1) Severe pulmonary hypertension with advanced right heart failure (RA 17 mmHg) and severely low cardiac index (1.22 L/min/m2). Treatment with adenosine 200 mcg/min resulted in moderate improvement in cardiac index (1.68) with an improvement in pulmonary vascular resistance with no improvement in mean pulmonary pressure (48 mmHg) 2) Normal coronary arteries 3) Normal L heart filling pressure (wedge 9 mmHg) 4) No evidence of significant pulmonary embolism L lung or main PA Hemodynamic Data: RA: 18/21/17 mmHg RV: 62/17 mmHg PA: 62/39/48 mmHg PCWP: 10/10/9 mmHg (confirmed saturation 96%) TP mmHg PVR: 15.2 Wood U PVRi: 32 Wood U/m2 CO: 2.56 L/min CI: 1.22 L/min/m2 O2 Sat: PA sat: 49% AO sat: 91% Hemodynamic Data, adenosine 200 mcg/min: PA: 54/42/48 mmHg PCWP: 13/13/11 mmHg (confirmed saturation 96%) TP mmHg PVR: 10.5 Wood U PVRi: 22 Wood U/m2 CO: 3.53 L/min CI: 1.68 L/min/m2 O2 Sat: PA sat: 51% AO sat: 88% Coronary Angiogram: Left main: Normal LAD: Normal LCX: Normal RCA: Normal Study Details [1] * Garo Landin, [facility] - 04/13/2025 9:58 PM EDT PHARMACY WARFARIN DOSING CONSULT PATIENT NAME: Erik Santos DATE of SERVICE: 04/13/2025 TIME of SERVICE: 9:58 PM Indication for Anticoagulation: A fib (Cardioversion Planned? no) Goal INR: 2.0 to 3.0 Expected Duration of Therapy: Indefinite Pharmacy is consulted to manage warfarin dosing for Erik Santos, a 49 year old male. Assessment: New Start: No Home Dose: Warfarin 5mg daily, with last recorded visit on 03/06 with INR of 2.4 Other Anticoagulants: None Dosing Considerations/Precautions: None Drug interactions (Kaitlin Comp level C, D and contraindicated or otherwise clinically relevant: May INCREASE the anticoagulant effect and/or bleeding risk of warfarin: amiodarone (Of note, medications taken prior to admission concurrently with warfarin may not be of significantconcern) Is INR less than 1.7 (2.1 if goal INR 2.5-3.5)? No Is bridge therapy active? No Has phytonadione been administered during the current admission? No Current liver function test values elevated? No Any relevant history of holding doses, significant bleeding, etc, that will influence subsequent warfarin dosing? No Evidence of side effects?: No The patient's INR is currently therapeutic. Continue 5mg x1. Pt reported he last took a dose on 04/10. He has no hx of elevated INR will continue home dose. Plan: Based on the protocol approved by the hospital Pharmacy and Therapeutics Committee, the following order will be initiated: Warfarin 5mg PO x 1 dose Patient's INR, condition, and signs/symptoms of bleeding will be monitored daily. Thank you for allowing me to participate in the care for this patient. Current Laboratory Values Recent Labs 04/13/25 2103 03/06/25 1449 02/24/25 0952 02/17/25 0817 02/07/25 1028 02/02/25 1416 02/02/25 0440 02/01/25 0554 01/27/25 1230 01/27/25 0223 01/26/25 1737 INR 2.6* 2.4* 3.0* 2.5* < > -- 1.1 -- < > -- -- APTT 27.9 -- -- -- -- 51.5* 51.6* 69.6* < > -- -- HEPASY -- -- -- -- -- -- -- -- -- <0.10 1.45* < > = values in this interval not displayed. Recent Labs 04/13/25 2103 01/31/25 0903 01/29/25 0014 01/27/25 2308 HB 13.9 15.0 15.4 14.9 HCT 42.9 45.1 45.7 44.9 PLT 312 152 201 204 Recent Labs 04/13/25 2103 01/31/25 0903 01/29/25 2350 01/29/25 0014 ALB 3.6* 4.1 3.8* 3.9 AST 66* 42* 45* 57* ALT 71* 43 41 43 Estimated Creatinine Clearance: 68.1 mL/min (A) (based on SCr of 1.34 mg/dL (H)). Current Medications Current Facility-Administered Medications Medication Dose Route Frequency sodium chloride 0.9 % (flush) 2-10 mL (BD POSIFLUSH) 2-10 mL INTRAVENOUS DIRECTED PRN And perflutren lipid microspheres 1.1 mg/mL 1.3 mL injection (DEFINITY) 1.3 mL INTRAVENOUS DIRECTED PRN amiodarone 200 mg tab(s) (PACERONE) 200 mg ORAL DAILY sildenafil 80 mg tab(s) (REVATIO) 80 mg ORAL q 8 H WARFARIN DOSING PER PHARMACY 1 each OTHER DAILY - WARFARIN warfarin 5 mg tab(s) (COUMADIN) 5 mg ORAL ONCE Garo Landin RPh 04/13/2025 9:58 PM Phone/Extension: or [facility] pharmacy at [phone]. documented in this encounter Miscellaneous Notes * Plan of Care - Presley Crawford CPhT - 04/17/2025 9:23 AM EDT Reason for test claim: Cardiology Farxiga (dapagliflozin) Medication: Farxiga 10 mg tablets Qty: 30 tablets Day supply: 30 days Cost on Insurance: $0 Does patient have a deductible? No No - Patient has already exhausted their once per lifetime use of voucher, unable to use voucher again Reason for test claim: Cardiology Jardiance (empagliflozin) Medication: Jardiance 10 mg tablets Qty: 30 tablets Day supply: 30 days Cost on Insurance: $0 Total number of whiting checks: 2 If prior authorization is required, please send medication to designated pharmacy 24-48 hours in advance. Any questions, please reach out the medication dispute coordinator. Thank you. (Prices may vary at different pharmacy locations, this is the cost at [facility] on April 17, 2025 ). * [facility] - Ruben Rodriguez RT(R) - 04/17/2025 8:38 AM EDT Radiology Service Progress Note PATIENT NAME: Erik Santos DATE OF SERVICE: April 17, 2025 TIME: 8:38 AM PATIENT IDENTITY VERIFICATION COMPLETED USING TWO (2) IDENTIFIERS: Name and Date of confirmedby patient verbally and Name and Date of confirmed by identification band. FALL SCREENING: Has the patient had 2 falls in the last year or 1 fall with injury or currently using an Ambulatory Assistive Device (Walker, Cane, Wheelchair, Crutches, etc.)? [facility] PAT[facility] GEND[facility] DATA: Assigned male at PATIENT RELEVANT IMPLANT DATA REVIEWED: Not Applicable PATIENT PRESENTS WITH AN IMPLANTABLE OR ATTACHED SLAB POLISHER: No RADIOLOGY DEPARTMENT: General X-ray: Exam(s) Completed: Chest X-Ray PERIPHERAL IV DATA: Not applicable SIGNED BY: RT Nakul(Stacy) April 17, 2025 8:38 AM * [facility] - [place] RT(R) - 04/16/2025 9:11 AM EDT Radiology Service Progress Note PATIENT NAME: Erik Santos DATE OF SERVICE: April 16, 2025 TIME: 9:11 AM PATIENT IDENTITY VERIFICATION COMPLETED USING TWO (2) IDENTIFIERS: Name and Date of confirmedby patient verbally and Name and Date of confirmed by identification band. FALL SCREENING: Has the patient had 2 falls in the last year or 1 fall with injury or currently using an Ambulatory Assistive Device (Walker, Cane, Wheelchair, Crutches, etc.)? [facility] PATIENT GENDER DATA: Assigned male at PATIENT RELEVANT IMPLANT DATA REVIEWED: Not Applicable PATIENT PRESENTS WITH AN IMPLANTABLE OR ATTACHED SLAB POLISHER: No RADIOLOGY DEPARTMENT: General X-ray: Exam(s) Completed: Chest X-Ray PERIPHERAL IV DATA: Not applicable SIGNED BY: RT Malcom(R) April 16, 2025 9:11 AM * [facility] - [place] RT(Stacy) - 04/15/2025 10:19 AM EDT Radiology Service Progress Note PATIENT NAME: Erik Santos DATE OF SERVICE: April 15, 2025 TIME: 10:19 AM PATIENT IDENTITY VERIFICATION COMPLETED USING TWO (2) IDENTIFIERS: Name and Date of confirmedby patient verbally and Name and Date of confirmed by identification band. FALL SCREENING: Has the patient had 2 falls in the last year or 1 fall with injury or currently using an Ambulatory Assistive Device (Walker, Cane, Wheelchair, Crutches, etc.)? [facility] PATIENT GENDER DATA: Assigned male at PATIENT RELEVANT IMPLANT DATA REVIEWED: Not Applicable PATIENT PRESENTS WITH AN IMPLANTABLE OR ATTACHED SLAB POLISHER: No RADIOLOGY DEPARTMENT: General X-ray: Exam(s) Completed: Chest X-Ray PERIPHERAL IV DATA: Not applicable SIGNED BY: RT Malcom(Stacy) April 15, 2025 10:19 AM * Plan of Care - Raysa Cervantes DO - 04/15/2025 7:51 AM EDT [facility] STAFF PHYSICIAN NOTE OF PERSONAL INVOLVEMENT IN CARE I have reviewed the progress note obtained and documented by the Resident/Fellow/JOSE. I have personally performed a face to face assessment of the patient and performed history, physical exam the substantive portion of the visit which includes the medical decision making. I have discussed the case and management of the patient's care. The following comments revise or confirm relevant jessica components of the note. 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 Previous history: RHC/LHC performed by Dr. Erin Goode ([facility]) on 01/24/2025 demonstratedmRAP 17, PA 62/39 (48), PAWP 10 (confirmed by gas), CO 2.5, PVR 15. Vasodilator challenge did improve cardiac output (TDCO 2.5 --> 3.5) leading to reduciton in PVR 15-->10. LHC at this time normal. PFT normal. NM VQ normal. Liver Vascular US without concern for PoPH. Noted LV systolic failure (LVEF 15 now, 25% in January) Repeat hemodynamics with PA locked at 58cm this morning demonstrate persistent RV falure with RV diastolic dysfunction and poor PA pulsatility : mRAP 20s without respiratory variation and with steep y-descents, PAP 41/25 (m30), Reynold ~1.2, unable to wedge, iFICK CO/CI 2.7 / 1.3 , MVo2 47%, AV PCO2 ~10, BP 90- 100s/70s (MAP 75-85), HR 80s now NSR. Updated Hemodynamic MEasurements (1300): SpO2 100% HR 94 in NSR. 95/65 (MAP 74). mRAP 14. End expiratory PAWP 16 (mPAWP 13). PAP 43/24 (m31). MVO2 59 iFICK CO/CI 3.55 / 1.7 PVR ~4.22 LAGOS. Reynold ~ 1.4 In summary - it appears that RV (and LV) failure here is likely provoked primarily by pump failure cardiomyopathy related to amphetamine use primarily with further insult precapillary pulmonary hypertension and surprisingly less driven by LV failure given absence of lung congestion and significant PAWP elevation. PLAN: - consult to psychiatry given drug dependence, and guidance for withdrawal beyond BZD - continue inhaled epoprostenol at current dose, will start to wean tomorrow given recovery - continue sildenafil 80mg TID, will not add on additional vasodilators - can consider dobutamine for inotropic support IF patient decompensates unexpectedly - continue current loop diuretic infusion, targeting net negative >2-3L today, goal RAP ~8-10 ultimately - continue amidoarone infusion for atrial fibrillation likely provoked by above, would benefit frommaintenance of sinus rhythm and outpatient EP evaluation for ablative therapies as this will improve BIV performance and protends better mordbitiy/mortality over time - holding warfarin for AF until INR < 2 at which point we will start LMHW vs UFH - appreciate HF consultation by Dr. Delacruz, noting patient not a LVAD/Nikc candidate given profound ongoing dependence issues and BiV failure Will check hemodynamics every 8 hours. Patient not candidate for VAD therapies as noted but could be candidate for VA-ECMO as bridge to recovery in case of progressive decompensation shock and SHOCK team should be convened if he were to get worse. This patient has a high probability of sudden, clinically significant deterioration, which requiresthe highest level of physician preparedness to intervene urgently. I managed/supervised life or organ supporting interventions that required frequent physician assessment. I devoted my full attentionto the direct care of this patient for the amount of time indicated below. Time I spent with familyor surrogate(s) is included only if the patient was incapable of providing the necessary information or participating in medical decision making. Time devoted to teaching and to any procedures I billed separately is not included. ICU Checklist: DVT PPX: INR > 3 Diet: oral Lines/Chavez: R. Radial Arterial Line (D1), RIJ PAC (D1) Code Status: Full Code Family Contact: Mother Disposition: ICU Time spent providing critical care services: 60 minutes. SIGNATURE: Raysa Cervantes DO [facility] DATE of SERVICE: 04/15/2025 * [facility] - Renae Lane RT(R) - 04/14/2025 8:15 PM EDT Radiology Service Progress Note PATIENT NAME: Erik Santos DATE OF SERVICE: April 14, 2025 TIME: 8:15 PM PATIENT IDENTITY VERIFICATION COMPLETED USING TWO (2) IDENTIFIERS: Name and Date of confirmedby patient verbally and Name and Date of confirmed by identification band. FALL SCREENING: Has the patient had 2 falls in the last year or 1 fall with injury or currently using an Ambulatory Assistive Device (Walker, Cane, Wheelchair, Crutches, etc.)? [facility] PATIENT GENDER DATA: Assigned male at PATIENT RELEVANT IMPLANT DATA REVIEWED: Not Applicable PATIENT PRESENTS WITH AN IMPLANTABLE OR ATTACHED SLAB POLISHER: No RADIOLOGY DEPARTMENT: General X-ray: Exam(s) Completed: Chest X-Ray PERIPHERAL IV DATA: Not applicable SIGNED BY: RT Luis(R) April 14, 2025 8:15 PM * [facility] - Segundo Barrientos RT(R) - 04/13/2025 8:06 PM EDT Radiology Service Progress Note PATIENT NAME: Erik Santos DATE OF SERVICE: April 13, 2025 TIME: 8:06 PM PATIENT IDENTITY VERIFICATION COMPLETED USING TWO (2) IDENTIFIERS: Name and Date of confirmedby patient verbally and Name and Date of confirmed by identification band. FALL SCREENING: Has the patient had 2 falls in the last year or 1 fall with injury or currently using an Ambulatory Assistive Device (Walker, Cane, Wheelchair, Crutches, etc.)? [facility] PATIENT GENDER DATA: Assigned male at PATIENT RELEVANT IMPLANT DATA REVIEWED: Not Applicable PATIENT PRESENTS WITH AN IMPLANTABLE OR ATTACHED SLAB POLISHER: No RADIOLOGY DEPARTMENT: General X-ray: Exam(s) Completed: Chest X-Ray PERIPHERAL IV DATA: Not applicable SIGNED BY: RT Rizwana(R) April 13, 2025 8:06 PM documented in this encounter Plan of Treatment DateTypeDepartmentCare Team (Latest Contact Info)Wgedyicsfjw08/30/2025 8:30 AM EDTOffice Visit Pulmonary Medicine [address], [address] [place] [address] Raysa Cervantes [address] [place] [address] 05/11/2025 12:15 PM ESTProcedure Cardiology [address] [id number] Acute systolic congestive heart mcladwx9405/11/2025 12:45 PM ESTOffice Visit Cardiology [address] [phone] Cristopher Alonzo MD [address] [id number] Acute systolic congestive heart failureNameTypePriorityAssociated Diagnoses Date/TimeECG DMWQOXMWVJCKITB75/24/2025 8:02 AM EDTNameTypePriorityAssociated DiagnosesOrder ScheduleECG COMPLETEECGSTATConditional (Specify) for 10 Occurrences starting 04/13/2025, 1 completedARTERIAL BLOOD GASESLabRoutineRT Protocol (Adult Critical Care) until discontinued starting 04/14/2025, 1 completedCOMPREHENSIVE METABOLIC PANELLabRoutineMorning draw (Lab) until discontinued starting 04/15/2025, 3 completedMAGNESIUMLabRoutineMorning draw (Lab) until discontinued starting 04/15/2025, 3 completedPROTHROMBIN TIMELab RoutineMorning draw (Lab) until discontinued starting 04/15/2025, 3 completed VENOUS BLOOD GASESLabRoutineTWICE DAILY until discontinued starting 04/16/2025, 2 completedBASIC METABOLIC PANELLabRoutineONCE for 1 Occurrences starting 04/17/2025 until 04/17/2025NameTypePriorityAssociated DiagnosesOrder Schedule SMOKING CESSATION (AK,AV,EU,FV,HL,IR,MICHAEL,MH,MM,MO,MR,SP,UN)ReferralRoutine Conditional x 1 for 1 Occurrences starting 04/13/2025documented as of this encounter Procedures * The patient is currently admitted. The information in this section might not be complete until the patient is discharged. Procedure NamePriorityDate/TimeAssociated DiagnosisCommentsCOMPLETE BLOOD COUNT STAT1 8:46 AM EDT XR CHEST 1V FADDPDKDROP60/27/2025 8:32 AM EDT VENOUS BLOOD COISEAlcklgd61/27/2025 6:09 AM EDT MAGNESIUM EDHQthbxcn88/27/2025 4:23 AM EDT PROTHROMBIN LJHSMxdvdix14/27/2025 4:23 AM EDT COMPREHENSIVE METABOLIC ZJMRBFefmddm95/27/2025 4:23 AM EDT VENOUS BLOOD QBTOXTMIO30/26/2025 11:29 PM EDT VENOUS BLOOD ATCFDUrllcyw34/26/2025 9:00 PM EDT MAGNESIUM GBLYhrxrwr19/26/2025 4:03 PM EDT BASIC METABOLIC QSZVXCpgphkd62/26/2025 4:03 PM EDT XR CHEST 1V FRONTAL FVYYEFIA32/26/2025 9:09 AM EDT MAGNESIUM QVXYycyhyz93/26/2025 4:13 AM EDT VENOUS BLOOD MJQVURgvib85/26/2025 4:13 AM EDT ARTERIAL BLOOD IPITPKueyw80/26/2025 4:13 AM EDT PROTHROMBIN PAUWBsvlalg03/26/2025 4:13 AM EDT PHOSPHORUS EXFZGTKKLYjovwef35/26/2025 4:13 AM EDT COMPREHENSIVE METABOLIC HZOFFUefarwq04/26/2025 4:13 AM EDT COMPLETE BLOOD GOOZDMzkvckt16/26/2025 4:13 AM EDT VENOUS BLOOD IULKOQfszs63/25/2025 8:23 PM EDT ARTERIAL BLOOD DMKXFQyopo48/25/2025 8:23 PM EDT VENOUS BLOOD MZQJYFtpnwad05/25/2025 1:28 PM EDT XR CHEST 1V FRONTAL ZSULDgpftrl16/25/2025 10:18 AM EDT VENOUS BLOOD ZKXRDLclzm58/25/2025 8:39 AM EDT ARTERIAL BLOOD FECVUJlqrg27/25/2025 8:39 AM EDT MAGNESIUM QHBSmatubc60/25/2025 3:50 AM EDT VENOUS BLOOD UZMXVAjuwh45/25/2025 3:50 AM EDT ARTERIAL BLOOD FYFLERyvcy43/25/2025 3:50 AM EDT PROTHROMBIN NLTZWnbpvby28/25/2025 3:50 AM EDT PHOSPHORUS BCMBKIFDEGpkxewg76/25/2025 3:50 AM EDT COMPREHENSIVE METABOLIC VYZKFKfqjbqa36/25/2025 3:50 AM EDT COMPLETE BLOOD IRSHZYncnadb39/25/2025 3:50 AM EDT VENOUS BLOOD QDOCXGyzjp93/24/2025 11:48 PM EDT ARTERIAL BLOOD SFASOVrqmi13/24/2025 10:25 PM EDT ARTERIAL BLOOD ZGFCMCZTT70/24/2025 8:28 PM EDT XR CHEST 1V FRONTAL SGDYKOZE69/24/2025 8:20 PM EDT VENOUS BLOOD KUQJTOoawi74/24/2025 8:15 PM EDT US VASCULAR ACCESS (POC) ICU USE AXTEQmbjpnf37/24/2025 7:21 PM EDTINSERTION FLOW DIRECTED CATHETER FOR QZFUNKYKTMOqyauvd31/24/2025 7:14 PM EDT Acute right-sided heart failure (HCC) Acute right ventricular heart failure (HCC) INSERTION FLOW DIRECTED CATHETER FOR DSHITZBMNVQxmhlvv08/24/2025 7:14 PM EDT Acute right-sided heart failure (HCC) Acute right ventricular heart failure (HCC) ARTERIAL BLOOD CBHDDBvakbof23/24/2025 5:30 PM EDT ARTERIAL BLOOD TVKPRSUOS20/24/2025 4:20 PM EDT ARTL CATHJ/CANNULJ MNTR/TRANSFUSION SPX LSINpthxmr24/24/2025 3:25 PM EDT Acute hypoxic respiratory failure (HCC) ARTERIAL LINE (SMARTFORM LINK)Rdegrpf4904/14/2025 3:25 PM EDT Acute hypoxic respiratory failure (HCC) ARTL CATHJ/CANNULJ MNTR/TRANSFUSION SPX ZKEZrglpfs13/24/2025 3:25 PM EDT Acute hypoxic respiratory failure (HCC) ARTERIAL BLOOD VFNTCNRKX66/24/2025 1:46 PM EDT LVEF RKJNLjuhskk58/24/2025 11:46 AM EDT WRZXRNZX24/24/2025 11:46 AM EDT URINALYSIS (WITH MICROSCOPIC) WITH CULTURE IF EGAHTJFHODbdysmp80/24/2025 10:35 AM EDT TOX SCREEN ROUT EHSyikifs85/24/2025 10:35 AM EDT ECG GRNBDQZXSJRM83/24/2025 8:02 AM EDTMAGNESIUM EYHAfkotth76/24/2025 5:45 AM EDT PROTHROMBIN CYQDMcvuyij36/24/2025 5:45 AM EDT PHOSPHORUS DYGUQSKNJVthlhdg88/24/2025 5:45 AM EDT COMPREHENSIVE METABOLIC OJTMCFicwzmo30/24/2025 5:45 AM EDT COMPLETE BLOOD BFPLMOiwwfbm23/24/2025 5:45 AM EDT VENOUS BLOOD JQJBIYomwnrl89/23/2025 10:50 PM EDT STAPHYLOCOCCUS AUREUS & MRSA SCREEN, PCR, DVGICNfuqczy09/23/2025 9:33 PM EDT MAGNESIUM RRMALEQ53/23/2025 9:03 PM EDT HIGH SENSITIVITY TROPONIN TSTAT1 9:03 PM EDT NT PRO NIJCFBT7704/13/2025 9:03 PM EDT PROTHROMBIN OGRWWTHE23/23/2025 9:03 PM EDT PHOSPHORUS QXJZCZUJSPYVP04/23/2025 9:03 PM EDT HEPATIC FUNCTION FMKObofzir26/23/2025 9:03 PM EDT COMPLETE BLOOD PQXUVGGYU25/23/2025 9:03 PM EDT BASIC METABOLIC KXOIWAKCH56/23/2025 9:03 PM EDT ACTIVATED ITYNhhjtiv91/23/2025 9:03 PM EDT XR CHEST 1V FRONTAL GNFBWRCC82/23/2025 8:07 PM EDT documented in this encounter Results * (ABNORMAL) COMPLETE BLOOD COUNT (04/17/2025 8:46 AM EDT)ComponentValueRef RangeTest MethodAnalysis TimePerformed AtPathologist SignatureWBC9.703.70 - 11.00 k/uL04/17/2025 8:59 AM EDTFAIRVIEW LABORATORYRBC4.294.20 - 6.00 m/uL 04/17/2025 8:59 AM EDTFAIRVIEW QRLYSUJINQYsmruautrw71.2(L)13.0 - 17.0 g/dL 04/17/2025 8:59 AM EDTFAIRVIEW VIWEXHLNOGAurctxpcef85.7(L)39.0 - 51.0 % 04/17/2025 8:59 AM EDTFAIRVIEW SSZMWEBKXGYNO64.580.0 - 100.0 fL04/17/2025 8:59 AM EDTFAIRVIEW PSZFBIYZBWECP32.426.0 - 34.0 pg04/17/2025 8:59 AM EDTFAIRVIEW CUDNFVAGGLVAGS65.230.5 - 36.0 g/dL04/17/2025 8:59 AM EDTFAIRVIEW LABORATORY RDW-CV14.611.5 - 15.0 %04/17/2025 8:59 AM EDTFAIRVIEW LABORATORYPlatelet Count [id number] - 400 k/uL04/17/2025 8:59 AM EDTFAIRVIEW LABORATORYMPV9.29.0 - 12.7 fL 04/17/2025 8:59 AM EDTFAIRVIEW LABORATORYAbsolute nRBC<0.01<0.01 k/uL 04/17/2025 8:59 AM EDTFAIRVIEW LABORATORYSpecimen (Source)Anatomical Location / LateralityCollection Method / VolumeCollection TimeReceived TimeBloodBLOOD SPECIMEN / UnknownVenipuncture / Wyfkrhf6204/17/2025 8:46 AM EDT1 8:53 AM EDT Narrative Authorizing ProviderResult TypeResult StatusXiomara Arias APRN.CNPLABORATORY Final ResultPerforming OrganizationAddressCity/State/[facility] CodePhone Number [facility] [address] * XR CHEST 1V FRONTAL (04/17/2025 8:32 AM EDT)Anatomical RegionLaterality ModalityChestRadiographic ImagingSpecimen (Source)Anatomical Location / LateralityCollection Method / VolumeCollection TimeReceived Time04/17/2025 8:32 AM EDT Impressions 04/17/2025 8:35 AM EDT IMPRESSION: Right internal jugular approach pulmonary artery catheter with tip in the right pulmonary artery, slightly more proximal than on prior. Deckhand: KEATON ?? Transcribe Date/Time: Apr 17 2025 ??8:32A Dictated by : ANETA GUZMAN MD This examination was interpreted and the report reviewed and electronically signed by: ANETA GUZMAN MD on Apr 17 2025 ??8:33AM ??EST Narrative 04/17/2025 8:35 AM EDT * * *Final Report* * * DATE OF EXAM: Apr 17 2025 ??8:32AM ?? FVX ?? 5290 ??- ??XR CHEST 1V FRONTAL ?? / PROCEDURE REASON: Evaluate tube, line, ??or lead position ? * * * * Physician Interpretation * * * * EXAMINATION: ??CHEST RADIOGRAPH (SINGLE VIEW AP OR PA) CLINICAL HISTORY: Evaluate tube, line, ??or lead position MQ: ??XC1_5 Comparison: ??04/16/2025 RESULT: Lines, tubes, and devices: ??Right internal jugular approach pulmonary artery catheter with tip in the right pulmonary artery, slightly more proximal than on prior. Lungs and pleura: ??No consolidation. No lung mass. No pleural effusion. Cardiomediastinal silhouette: ??Unchanged cardiomegaly. Procedure Note Provider, [facility] [place] - 04/17/2025 * * *Final Report* * * DATE OF EXAM: Apr 17 2025 8:32AM FVX 5290 - XR CHEST 1V FRONTAL / PROCEDURE REASON: Evaluate tube, line, or lead position * * * * Physician Interpretation * * * * EXAMINATION: CHEST RADIOGRAPH (SINGLE VIEW AP OR PA) CLINICAL HISTORY: Evaluate tube, line, or lead position MQ: XC1_5 Comparison: 04/16/2025 RESULT: Lines, tubes, and devices: Right internal jugular approach pulmonary artery catheter with tip in the right pulmonary artery, slightly more proximal than on prior. Lungs and pleura: No consolidation. No lung mass. No pleural effusion. Cardiomediastinal silhouette: Unchanged cardiomegaly. IMPRESSION IMPRESSION: Right internal jugular approach pulmonary artery catheter with tip in the right pulmonary artery, slightly more proximal than on prior. Deckhand: [facility] Transcribe Date/Time: Apr 17 2025 8:32A Dictated by : ANETA GUZMAN MD This examination was interpreted and the report reviewed and electronically signed by: ANETA GUZMAN MD on Apr 17 2025 8:33AM EST Authorizing ProviderResult TypeResult StatusNaveenponce Arias SENIOR MOBILE APPLICATION DEVELOPER.CNPRAD-PAMAFinal Result * (ABNORMAL) VENOUS BLOOD GASES (04/17/2025 6:09 AM EDT)ComponentValueRef Range Test MethodAnalysis TimePerformed AtPathologist SignaturepH, Venous7.44(H)7.32 - 7.421 6:32 AM EDTFAIRVIEW LABORATORYpCO2, Nmmcfo6640 - 55 mmHg 04/17/2025 6:32 AM EDTFAIRVIEW LABORATORYpO2, Venous<4035 - 45 mmHg04/17/2025 6:32 AM [facility] LABORATORYO2 Saturation, Iysoil4737 - 85 %04/17/2025 6:32 AM [facility] LABORATORYBase Excess, Venous6(H)0 - 2 mmol/L1 6:32 AM [facility] LABORATORYBicarbonate, Tfxwmh66(H)24 - 28 mmol/L1 6:32 AM [facility] LABORATORYOxyhemoglobin, Fcrdky1386 - 85 %04/17/2025 6:32 AM [facility] LABORATORYCarboxyhemoglobin, Venous0.70.0 - 2.0 %04/17/2025 6:32 AM [facility] LABORATORYComment:Carboxyhemoglobin Reference Range for Smokers: 2.0-8.0%Methemoglobin, Venous0.70.0 - 1.5 %04/17/2025 6:32 AM [facility] LABORATORYSodium, Whole Xclhm785(L)136 - 144 mmol/L1 6:32 AM [facility] LABORATORYPotassium, Whole Blood3.1(L)3.5 - 5.0 mmol/L1 6:32 AM [facility] LABORATORYChloride, Whole Nufba4668 - 105 mmol/L1 6:32 AM [facility] LABORATORYCalcium Ionized, Whole Blood1.151.08 - 1.30 mmol/L1 6:32 AM [facility] LABORATORYCalcium Ionized, pH corrected 1.171.08 - 1.30 mmol/L1 6:32 AM [facility] LABORATORYGlucose, Whole Zihir8607 - 105 mg/dL04/17/2025 6:32 AM [facility] LABORATORYLactate0.80.5 - 2.2 mmol/L1 6:32 AM [facility] LABORATORYHemoglobin, Whole Blood12.3 (L)13.0 - 17.0 g/dL04/17/2025 6:32 AM [facility] LABORATORYHematocrit, Whole Blood37.8(L)39.0 - 51.0 %04/17/2025 6:32 AM EDTFAIRVIEW LABORATORYTemperature, Body37.0C1 6:32 AM EDTFAIRVIEW AQTQPQEDCJFmV940%04/17/2025 6:32 AM EDTFAIRVIEW LABORATORYO2 TherapyHi-Flow Nasal Cannula-Bexhet1904/17/2025 6:32 AM EDTFAIRVIEW LABORATORYSpecimen (Source)Anatomical Location / Laterality Collection Method / VolumeCollection TimeReceived TimeBlood, VenousBLOOD SPECIMEN / UnknownCentral Line / Fledhhw9204/17/2025 6:09 AM EDT1 6:12 AM EDT Narrative Authorizing ProviderResult TypeResult StatusPradhab Kirupaharan DOBLOOD GASES Final ResultPerforming OrganizationAddressCity/State/ZIP CodePhone Number [facility] [address] * (ABNORMAL) PROTHROMBIN TIME (04/17/2025 4:23 AM EDT)ComponentValueRef Range Test MethodAnalysis TimePerformed AtPathologist SignaturePT Sec20.3(H)9.7 - 13.0 sec04/17/2025 4:54 AM EDTFAIRVIEW LABORATORYINR2.0(H)0.9 - 1.310 4:54 AM EDTFAIRVIEW LABORATORYComment: Vitamin K Antagonist (VKA) Therapeutic Range: INR 2 to 3 (Target INR of 2.5) Note: For patients treated with VKA drugs, such as warfarin, the [place] [employer] 2012 Guideline recommends a therapeutic INR range of 2 to 3 (target INR of 2.5). This recommendation includes high-risk patients with antiphospholipid syndrome with previous arterial or venous thromboembolism, current-generation mechanical or bioprosthetic aortic heart valve replacement. Note: Patients with mechanical aortic valve replacement and additional risk factors for thromboembolic events (atrial fibrillation, previous thromboembolism, LV dysfunction, hypercoagulable conditions) or an older generation mechanical AVR (i.e., ball in-Cage) or any mechanical MVR should have a INR therapeutic range of 2.5 to 3.5 (target INR of 3). Edy VIRAMONTES, et al. Chest 2012, 141:7S-47S Mark RA, et al. JACC 2017, 70: 252-289 Specimen (Source)Anatomical Location / LateralityCollection Method / Volume Collection TimeReceived TimeBloodBLOOD SPECIMEN / UnknownVenipuncture / Unknown 04/17/2025 4:23 AM EDT1 4:26 AM EDT Narrative Authorizing ProviderResult TypeResult StatusEileen Panstares PA-CLABORATORYFinal ResultPerforming OrganizationAddressCity/State/ZIP CodePhone Number [facility] [address] [place] [address], * MAGNESIUM (04/17/2025 4:23 AM EDT)ComponentValueRef RangeTest MethodAnalysis TimePerformed AtPathologist SignatureMagnesium2.01.7 - 2.3 mg/dL04/17/2025 5:01 AM EDTFAIRVIEW LABORATORYSpecimen (Source)Anatomical Location / LateralityCollection Method / VolumeCollection TimeReceived TimeBloodBLOOD SPECIMEN / UnknownVenipuncture / Azuspom7504/17/2025 4:23 AM EDT1 4:26 AM EDT Narrative Authorizing ProviderResult TypeResult StatusEileen Panstares PA-CLABORATORYFinal ResultPerforming OrganizationAddressCity/State/ZIP CodePhone Number [facility] [phone] [place] [address], * (ABNORMAL) COMPREHENSIVE METABOLIC PANEL (04/17/2025 4:23 AM EDT)Component ValueRef RangeTest MethodAnalysis TimePerformed AtPathologist Signature Protein, Total5.6(L)6.3 - 8.0 g/dL04/17/2025 5:01 AM EDTFAIRVIEW LABORATORY Albumin3.4(L)3.9 - 4.9 g/dL04/17/2025 5:01 AM EDTFAIRVIEW LABORATORYCalcium, Total8.4(L)8.5 - 10.2 mg/dL04/17/2025 5:01 AM EDTFAIRVIEW LABORATORYBilirubin, Total2.0(H)0.2 - 1.3 mg/dL04/17/2025 5:01 AM EDTFAIRVIEW LABORATORYAlkaline Jqrtpmygsyr3456 - 113 U/L1 5:01 AM EDTFAIRVIEW BLOVKHNZFOBBL12(H)14 - 40 U/L1 5:01 AM EDTFAIRVIEW MSNKUZSBUONNT13(H)10 - 54 U/L1 5:01 AM [facility] OYJHTQBNYZZdsiqqk5498 - 99 mg/dL04/17/2025 5:01 AM [facility] LABORATORYComment: The [place] [employer] (ADA) provides guidance for cutoff values for fasting glucose andrandom glucose. The ADA defines fasting as no caloric intake for at least 8 hours. Fasting plasma glucose results between 100 to 125 mg/dL indicate increased risk for diabetes (prediabetes). Fasting plasma glucose results greater than or equal to 126 mg/dL meet the criteria for diagnosis of diabetes. In the absence of unequivocal hyperglycemia, results should be confirmed by repeat testing. In a patient with classic symptoms of hyperglycemia or hyperglycemic crisis, random plasma glucose results greater than or equal to 200 mg/dL meet the criteria for diagnosis of diabetes. Reference: Standards of Medical Care in Diabetes 2016, [place] [employer]. Diabetes Care. 2016.39(Suppl 1). RYH861 - 24 mg/dL04/17/2025 5:01 AM [facility] LABORATORYCreatinine1.060.73 - 1.22 mg/dL04/17/2025 5:01 AM [facility] FCNLVGMSZMNaiqlq459(L)136 - 144 mmol/L 04/17/2025 5:01 AM [facility] LABORATORYPotassium3.5(L)3.7 - 5.1 mmol/L 04/17/2025 5:01 AM [facility] WNDRESEAPUFructdse16(L)98 - 107 mmol/L1 5:01 AM [facility] GOADGQDXJPZA86050 - 30 mmol/L1 5:01 AM [facility] LABORATORYAnion Out711 - 15 mmol/L1 5:01 AM [facility]ORY Estimated Glomerular Filtration Rate85>=60 mL/min/1.73m 04/17/2025 5:01 AM [facility] LABORATORYComment:Estimated Glomerular Filtration Rate (eGFR) is calculated using the 2020 CKD-EPI creatinine equation. This equation utilizes serum creatinine, sex, and age as parameters. The creatinine assay has traceable calibration to isotope dilution-mass spectrometry. Refer to KDIGO guidelines for clinical interpretation. In patients with unstable renal function, e.g. those with acute kidney injury, the eGFRmay not accurately reflect actual GFR.Specimen (Source)Anatomical Location / LateralityCollection Method / VolumeCollection TimeReceived TimeBloodBLOOD SPECIMEN / Unknown Venipuncture / Dreeree3204/17/2025 4:23 AM EDT1 4:26 AM EDT Narrative Authorizing ProviderResult TypeResult StatusEileen Panstares PA-CLABORATORYFinal ResultPerforming OrganizationAddressCity/State/ZIP CodePhone Number [facility] [id number] * (ABNORMAL) VENOUS BLOOD GASES (04/16/2025 11:29 PM EDT)ComponentValueRef Range Test MethodAnalysis TimePerformed AtPathologist SignaturepH, Venous7.45(H)7.32 - 7.421 11:37 PM EDTFAIRVIEW LABORATORYpCO2, Jiiaro2867 - 55 mmHg 04/16/2025 11:37 PM EDTFAIRVIEW LABORATORYpO2, Venous<4035 - 45 mmHg04/16/2025 11:37 PM EDTFAIRVIEW LABORATORYO2 Saturation, Pytvkq32(L)60 - 85 %04/16/2025 11:37 PM EDTFAIRVIEW LABORATORYBase Excess, Venous7(H)0 - 2 mmol/L1 11:37 PM EDTFAIRVIEW LABORATORYBicarbonate, Beqhwa43(H)24 - 28 mmol/L 04/16/2025 11:37 PM EDTFAIRVIEW LABORATORYOxyhemoglobin, Tsdtyl71(L)60 - 85 % 04/16/2025 11:37 PM EDTFAIRVIEW LABORATORYCarboxyhemoglobin, Venous0.50.0 - 2.0 %04/16/2025 11:37 PM EDTFAIRVIEW LABORATORYComment:Carboxyhemoglobin Reference Range for Smokers: 2.0-8.0%Methemoglobin, Venous0.70.0 - 1.5 % 04/16/2025 11:37 PM EDTFAIRVIEW LABORATORYSodium, Whole Crxse842(L)136 - 144 mmol/L1 11:37 PM EDTFAIRVIEW LABORATORYPotassium, Whole Blood3.4(L) 3.5 - 5.0 mmol/L1 11:37 PM EDTFAIRVIEW LABORATORYChloride, Whole Blood95(L)97 - 105 mmol/L1 11:37 PM EDTFAIRVIEW LABORATORYCalcium Ionized, Whole Blood1.121.08 - 1.30 mmol/L1 11:37 PM EDTFAIRVIEW LABORATORYCalcium Ionized, pH corrected1.151.08 - 1.30 mmol/L1 11:37 PM EDTFAIRVIEW LABORATORYGlucose, Whole Jjgqv691(H)60 - 105 mg/dL04/16/2025 11:37 PM EDTFAIRVIEW LABORATORYLactate1.40.5 - 2.2 mmol/L1 11:37 PM EDTFAIRVIEW LABORATORYHemoglobin, Whole Blood12.7(L)13.0 - 17.0 g/dL04/16/2025 11:37 PM EDTFAIRVIEW LABORATORYHematocrit, Whole Blood39.039.0 - 51.0 % 04/16/2025 11:37 PM EDTFAIRVIEW LABORATORYTemperature, Body37.0C1 11:37 PM EDTFAIRVIEW MADFFQYKRGDlC339%04/16/2025 11:37 PM EDTFAIRVIEW RFPWBWFIUXWcovjk77Nwcasl/min04/16/2025 11:37 PM EDTFAIRVIEW LABORATORYO2 TherapyHi-Flow Nasal Cannula-Ldzrqk2704/16/2025 11:37 PM EDTFAIRVIEW LABORATORY Specimen (Source)Anatomical Location / LateralityCollection Method / Volume Collection TimeReceived TimeBlood, VenousBLOOD SPECIMEN / UnknownCentral Line / Popryyo2704/16/2025 11:29 PM EDT1 11:34 PM EDT Narrative Authorizing ProviderResult TypeResult StatusSamankristin Ruiz SENIOR MOBILE APPLICATION DEVELOPER.CNPBLOOD GASES Final ResultPerforming OrganizationAddressCity/State/ZIP CodePhone Number [facility] [phone] [place] [address], * (ABNORMAL) VENOUS BLOOD GASES (04/16/2025 9:00 PM EDT)ComponentValueRef Range Test MethodAnalysis TimePerformed AtPathologist SignaturepH, Venous7.46(H)7.32 - 7.421 9:07 PM EDTFAIRVIEW LABORATORYpCO2, Nqjvpj4280 - 55 mmHg 04/16/2025 9:07 PM ED[facility] LABORATORYpO2, Venous<4035 - 45 mmHg04/16/2025 9:07 PM EDHOU[facility] LABORATORYO2 Saturation, Ibpasd36(L)60 - 85 %04/16/2025 9:07 PM EDHOU[facility] LABORATORYBase Excess, Venous5(H)0 - 2 mmol/L1 9:07 PM EDHOU[facility] OF [facility] LABORATORYBicarbonate, Nzkdzc81(H)24 - 28 mmol/L1 9:07 PM EDHOU[facility] LABORATORYOxyhemoglobin, Pytqhk50(L)60 - 85 %04/16/2025 9:07 PM EDHOU[facility] LABORATORYCarboxyhemoglobin, Venous1.20.0 - 2.0 % 04/16/2025 9:07 PM [facility] LABORATORYComment:Carboxyhemoglobin Reference Range for Smokers: 2.0-8.0%Methemoglobin, Venous0.40.0 - 1.5 %04/16/2025 9:07 PM [facility] LABORATORYSodium, Whole Majvu400(L)136 - 144 mmol/L1 9:07 PM [facility] LABORATORYPotassium, Whole Blood3.3(L)3.5 - 5.0 mmol/L 04/16/2025 9:07 PM [facility] LABORATORYChloride, Whole Tlswb7646 - 105 mmol/L1 9:07 PM [facility] LABORATORYCalcium Ionized, Whole Blood 1.05(L)1.08 - 1.30 mmol/L1 9:07 PM [facility] LABORATORYCalcium Ionized, pH corrected1.081.08 - 1.30 mmol/L1 9:07 PM [facility] LABORATORYGlucose, Whole Gmsdq000(H)60 - 105 mg/dL04/16/2025 9:07 PM [facility] LABORATORYLactate1.80.5 - 2.2 mmol/L1 9:07 PM [facility] LABORATORYHemoglobin, Whole Blood12.1(L)13.0 - 17.0 g/dL04/16/2025 9:07 PM [facility] LABORATORYHematocrit, Whole Blood37.1(L)39.0 - 51.0 %04/16/2025 9:07 PM EDTFAIRVIEW LABORATORYTemperature, Body37.0C1 9:07 PM EDTFAIRVIEW ZSHRXYRAVRPlC739%04/16/2025 9:07 PM EDTFAIRVIEW VPLXTZZDKTDjtfii61Sslxqq/min 04/16/2025 9:07 PM EDTFAIRVIEW LABORATORYO2 TherapyHi-Flow Nasal Cannula-Nehtss5104/16/2025 9:07 PM EDTFAIRVIEW LABORATORYSpecimen (Source) Anatomical Location / LateralityCollection Method / VolumeCollection Time Received TimeBlood, VenousBLOOD SPECIMEN / UnknownCentral Line / Unknown 04/16/2025 9:00 PM EDT1 9:04 PM EDT Narrative Authorizing ProviderResult TypeResult StatusPradhab Kirupaharan DOBLOOD GASES Final ResultPerforming OrganizationAddressCity/State/ZIP CodePhone Number [facility] [phone] [place] [address], [place] * MAGNESIUM (04/16/2025 4:03 PM EDT)ComponentValueRef RangeTest MethodAnalysis TimePerformed AtPathologist SignatureMagnesium1.91.7 - 2.3 mg/dL04/16/2025 4:44 PM EDTFAIRMERCY [facility]ALTH LABORATORYSpecimen (Source)Anatomical Location / LateralityCollection Method / VolumeCollection TimeReceived TimeBloodBLOOD SPECIMEN / UnknownVenipuncture / Jfqgnbh7204/16/2025 4:03 PM EDT1 4:29 PM EDT Narrative Authorizing ProviderResult TypeResult StatusAutumn Bittikofer SENIOR MOBILE APPLICATION DEVELOPER.CNPLABORATORY Final ResultPerforming OrganizationAddressCity/State/ZIP CodePhone Number [facility] [phone] [place] [address], * (ABNORMAL) BASIC METABOLIC PANEL (04/16/2025 4:03 PM EDT)ComponentValueRef RangeTest MethodAnalysis TimePerformed AtPathologist NxpbrkdlyXeobkjg260(H)74 - 99 mg/dL04/16/2025 4:44 PM EDTFAIRVIEW LABORATORYComment: The [place] [employer] (ADA) provides guidance for cutoff values for fasting glucose andrandom glucose. The ADA defines fasting as no caloric intake for at least 8 hours. Fasting plasma glucose results between 100 to 125 mg/dL indicate increased risk for diabetes (prediabetes). Fasting plasma glucose results greater than or equal to 126 mg/dL meet the criteria for diagnosis of diabetes. In the absence of unequivocal hyperglycemia, results should be confirmed by repeat testing. In a patient with classic symptoms of hyperglycemia or hyperglycemic crisis, random plasma glucose results greater than or equal to 200 mg/dL meet the criteria for diagnosis of diabetes. Reference: Standards of Medical Care in Diabetes 2016, [place] [employer]. Diabetes Care. 2016.39(Suppl 1). DIX412 - 24 mg/dL04/16/2025 4:44 PM EDTFAIRVIEW LABORATORYCreatinine1.100.73 - 1.22 mg/dL04/16/2025 4:44 PM EDTFAIRVIEW CRJDFGOWNMIcwsjz712(L)136 - 144 mmol/L 04/16/2025 4:44 PM EDTFAIRVIEW LABORATORYPotassium3.3(L)3.7 - 5.1 mmol/L 04/16/2025 4:44 PM EDTFAIRVIEW TLMLBNTECUWbkoiovc26(L)98 - 107 mmol/L1 4:44 PM EDTFAIRVIEW KGSBOJUAJRCX33512 - 30 mmol/L1 4:44 PM EDTFAIRVIEW LABORATORYAnion Mmg017 - 15 mmol/L1 4:44 PM EDTFAIRVIEW LABORATORY Calcium, Total8.4(L)8.5 - 10.2 mg/dL04/16/2025 4:44 PM EDTFAIRVIEW LABORATORY Estimated Glomerular Filtration Rate82>=60 mL/min/1.73m 04/16/2025 4:44 PM EDTFAIRVIEW LABORATORYComment:Estimated Glomerular Filtration Rate (eGFR) is calculated using the 2020 CKD-EPI creatinine equation. This equation utilizes serum creatinine, sex, and age as parameters. The creatinine assay has traceable calibration to isotope dilution-mass spectrometry. Refer to KDIGO guidelines for clinical interpretation. In patients with unstable renal function, e.g. those with acute kidney injury, the eGFRmay not accurately reflect actual GFR.Specimen (Source)Anatomical Location / LateralityCollection Method / VolumeCollection TimeReceived TimeBloodBLOOD SPECIMEN / Unknown Venipuncture / Xtiftdj11/ 4:03 PM EDT1 4:29 PM EDT Narrative Authorizing ProviderResult TypeResult StatusAutumn Bittiravindercaridad SENIOR MOBILE APPLICATION DEVELOPER.CNPLABORATORY Final ResultPerforming OrganizationAddressCity/State/ZIP CodePhone Number [facility] [address] [place] [id number], [place] * XR CHEST 1V FRONTAL PORT (04/16/2025 9:09 AM EDT)Anatomical RegionLaterality ModalityChestRadiographic ImagingSpecimen (Source)Anatomical Location / LateralityCollection Method / VolumeCollection TimeReceived Time04/16/2025 9:09 AM EDT Impressions 04/16/2025 9:35 AM EDT IMPRESSION: 1. ??Slight interval retraction of the [place]-Sharon catheter with tip overlying the RIGHT pulmonary artery. 2. ??Otherwise stable when compared with 04/15/2025 at 9:56 AM. Deckhand: PSCB ?? Transcribe Date/Time: Apr 16 2025 ??9:31A Dictated by : OLIVERIO RAYMOND MD This examination was interpreted and the report reviewed and electronically signed by: OLIVERIO RAYMOND MD on Apr 16 2025 ??9:33AM ??EST Narrative 04/16/2025 9:35 AM EDT * * *Final Report* * * DATE OF EXAM: Apr 16 2025 ??9:09AM ?? FVX ?? [id number] ??- ??XR CHEST 1V FRONTAL PORT ??/ PROCEDURE REASON: Evaluate tube, line, ??or lead position ? * * * * Physician Interpretation * * * * EXAMINATION: ??CHEST RADIOGRAPH (PORTABLE SINGLE VIEW AP) Exam Date/Time: ??04/16/2025 9:09 AM CLINICAL HISTORY: Evaluate tube, line, ??or lead position MQ: ??XCPR_5 Comparison: ??Chest x-ray dated 04/15/2025 and 9:56 AM and 04/14/2025 at 7:58 PM RESULT: Lines, tubes, and devices: ??[place]Sh[place] catheter in place with tip overlying the RIGHT pulmonary artery, only slightly retracted when compared with 04/15/2025. Lungs and pleura: ??Relative, bilateral upper lobe hyperlucency with diminished pulmonary vascular markings. ??No pleural effusion or pneumothorax. ??No discrete focal consolidation. ??Right lower lobe subpleural atelectasis. Cardiomediastinal silhouette: ??Stable enlargement of the cardiac pericardial silhouette. Other: ??No acute osseous abnormality. Procedure Note Provider, [facility] - 04/16/2025 * * *Final Report* * * DATE OF EXAM: Apr 16 2025 9:09AM FVX 5376 - XR CHEST 1V FRONTAL PORT / PROCEDURE REASON: Evaluate tube, line, or lead position * * * * Physician Interpretation * * * * EXAMINATION: CHEST RADIOGRAPH (PORTABLE SINGLE VIEW AP) Exam Date/Time: 04/16/2025 9:09 AM CLINICAL HISTORY: Evaluate tube, line, or lead position MQ: XCPR_5 Comparison: Chest x-ray dated 04/15/2025 and 9:56 AM and 04/14/2025 at 7:58 PM RESULT: Lines, tubes, and devices: [place]Sh[place] catheter in place with tip overlying the RIGHT pulmonary artery, only slightly retracted when compared with 04/15/2025. Lungs and pleura: Relative, bilateral upper lobe hyperlucency with diminished pulmonary vascular markings. No pleural effusion or pneumothorax. No discrete focal consolidation. Right lower lobe subpleural atelectasis. Cardiomediastinal silhouette: Stable enlargement of the cardiac pericardial silhouette. Other: No acute osseous abnormality. IMPRESSION IMPRESSION: 1. Slight interval retraction of the [place]-Sharon catheter with tip overlying the RIGHT pulmonary artery. 2. Otherwise stable when compared with 04/15/2025 at 9:56 AM. Deckhand: KEATON Transcribe Date/Time: Apr 16 2025 9:31A Dictated by : OLIVERIO RAYMOND MD This examination was interpreted and the report reviewed and electronically signed by: OLIVERIO RAYMOND MD on Apr 16 2025 9:33AM EST Authorizing ProviderResult TypeResult StatusAutumn Bittikocaridad BAUMANN.CNPRAD-PAMA Final Result * (ABNORMAL) COMPLETE BLOOD COUNT (04/16/2025 4:13 AM EDT)ComponentValueRef RangeTest MethodAnalysis TimePerformed AtPathologist PnyhfqnioSUO57.093.70 - 11.00 k/uL04/16/2025 4:24 AM EDTFBOST[facility] LABORATORYRBC4.554.20 - 6.00 m/uL 04/16/2025 4:24 AM EDHARDTNER MEDICAL [facility]ENTERV[facility] UPSAFEBYNQVijuqheawu56.013.0 - 17.0 g/dL 04/16/2025 4:24 AM [facility] FTUKFWQKGHPrgnvzzosd29.3(L)39.0 - 51.0 % 04/16/2025 4:24 AM [facility] ABKFGTGXOZOUR76.280.0 - 100.0 fL04/16/2025 4:24 AM [facility] ARHGCNXMDOJJQ85.626.0 - 34.0 pg04/16/2025 4:24 AM [facility] VLFXKRMCEYJKFN67.930.5 - 36.0 g/dL04/16/2025 4:24 AM [facility] RDW-CV14.611.5 - 15.0 %04/16/2025 4:24 AM [facility] LABORATORYPlatelet Count 875155 - 400 k/uL04/16/2025 4:24 AM [facility] LABORATORYMPV9.19.0 - 12.7 fL 04/16/2025 4:24 AM ED[facility] LABORATORYAbsolute nRBC<0.01<0.01 k/uL 04/16/2025 4:24 AM [facility] LABORATORYSpecimen (Source)Anatomical Location / LateralityCollection Method / VolumeCollection TimeReceived TimeBloodBLOOD SPECIMEN / UnknownVenipuncture / Lnxtcyb5504/16/2025 4:13 AM EDT1 4:19 AM EDT Narrative Authorizing ProviderResult TypeResult StatusSakatelynn Ruiz SENIOR MOBILE APPLICATION DEVELOPER.CNPLABORATORY Final ResultPerforming OrganizationAddressCity/State/ZIP CodePhone Number [facility] [address] [place] [address], * (ABNORMAL) VENOUS BLOOD GASES (04/16/2025 4:13 AM EDT)ComponentValueRef Range Test MethodAnalysis TimePerformed AtPathologist SignaturepH, Venous7.45(H)7.32 - 7.421 4:34 AM EDTFBOSTON [facility] W[facility] LABORATORYpH, Temp Corrected, Venous 04/16/2025 4:34 AM EDHARDTNER MED[facility]ENTERVIEW LABORATORYpCO2, Jugtgj53(L)42 - 55 mmHg 04/16/2025 4:34 AM EDTFAIRVIEW LABORATORYpCO2, Temp Corrected, Venous 04/16/2025 4:34 AM EDTFAIRVIEW LABORATORYpO2, Venous<4035 - 45 mmHg04/16/2025 4:34 AM EDTFAIRVIEW LABORATORYpO2, Temp Corrected, Tacxka5504/16/2025 4:34 AM EDTFAIRVIEW LABORATORYO2 Saturation, Jadnpp43(L)60 - 85 %04/16/2025 4:34 AM EDTFBAN[facility]ON [facility]ERVIEW LABORATORYBase Excess, Venous4(H)0 - 2 mmol/L1 4:34 AM EDTFBANNER PAYSON [facility]ENTERV[facility] LABORATORYBicarbonate, Yczcah0523 - 28 mmol/L1 4:34 AM EDTFBOSTON HOSPITAL FOR WOMEN LABORATORYOxyhemoglobin, Wahoyx98(L)60 - 85 %04/16/2025 4:34 AM ED[facility] LABORATORYCarboxyhemoglobin, Venous1.00.0 - 2.0 %04/16/2025 4:34 AM ED[facility] LABORATORYComment:Carboxyhemoglobin Reference Range for Smokers: 2.0-8.0%Methemoglobin, Venous0.40.0 - 1.5 %04/16/2025 4:34 AM [facility] LABORATORYSodium, Whole Sytfq181(L)136 - 144 mmol/L1 4:34 AM [facility] LABORATORYPotassium, Whole Blood3.1(L)3.5 - 5.0 mmol/L1 4:34 AM [facility] LABORATORYChloride, Whole Duoxe65392 - 105 mmol/L 04/16/2025 4:34 AM [facility] LABORATORYCalcium Ionized, Whole Blood1.05(L) 1.08 - 1.30 mmol/L1 4:34 AM EDTFBANNER PAYSON [facility]ENT[facility] LABORATORYCalcium Ionized, pH corrected1.081.08 - 1.30 mmol/L1 4:34 AM [facility] Glucose, Whole Ueavj692(H)60 - 105 mg/dL04/16/2025 4:34 AM EDTFAIRVIEW LABORATORYLactate1.50.5 - 2.2 mmol/L1 4:34 AM EDTFAIRMERCY [facility]AT[facility] Hemoglobin, Whole Blood12.8(L)13.0 - 17.0 g/dL04/16/2025 4:34 AM [facility] LABORATORYHematocrit, Whole Blood39.539.0 - 51.0 %04/16/2025 4:34 AM EDT [facility]ORATORYTemperature, Body36.4C04/16/2025 4:34 AM EDHARDTNER [facility]ENTERV[facility] WPQMYKPAJWAlH811%04/16/2025 4:34 AM EDTFBANNER PAYSON [facility]ENTERV[facility] EEVYQESYEMWvvkuj89Wktohg/min 04/16/2025 4:34 AM EDHARDTNER MEDICAL CENTERVIEW LABORATORYO2 TherapyHi-Flow Nasal Cannula-Bwioqe6704/16/2025 4:34 AM EDTFBOSTON H[facility] FOR WOM[facility] LABORATORYSpecimen (Source) Anatomical Location / LateralityCollection Method / VolumeCollection Time Received TimeBlood, VenousBLOOD SPECIMEN / UnknownCentral Line / Unknown 04/16/2025 4:13 AM EDT1 4:30 AM EDT Narrative Authorizing ProviderResult TypeResult StatusSamankristin Ruiz SENIOR MOBILE APPLICATION DEVELOPER.CNPBLOOD GASES Final ResultPerforming OrganizationAddressCity/State/ZIP CodePhone Number [facility] [id number] [place] [address], * (ABNORMAL) ARTERIAL BLOOD GASES (04/16/2025 4:13 AM EDT)ComponentValueRef RangeTest MethodAnalysis TimePerformed AtPathologist SignaturepH, Arterial7.48 (H)7.35 - 7.451 4:25 AM EDTFAIRVIEW LABORATORYpH, Temp Corrected, Cybcumph22/26/2025 4:25 AM EDTFAIRVIEW LABORATORYpCO2, Qauwxsrw76(L)36 - 46 mm Hg04/16/2025 4:25 AM EDTFAIRVIEW LABORATORYpCO2, Temp Corrected, Arterial 04/16/2025 4:25 AM EDTFAIRVIEW LABORATORYpO2, Jmpbhosm68(L)85 - 95 mm Hg 04/16/2025 4:25 AM EDTFAIRVIEW LABORATORYpO2, Temp Corrected, Arterial 04/16/2025 4:25 AM EDTFAIRVIEW LABORATORYBicarbonate, Qkkrtkex7620 - 26 mmol/L 04/16/2025 4:25 AM [facility] LABORATORYO2 Saturation, Dxeovfnz1367 - 98 % 04/16/2025 4:25 AM EDHOU[facility] LABORATORYBase Excess, Arterial3(H)0 - 2 mmol/L 04/16/2025 4:25 AM ED[facility] LABORATORYOxyhemoglobin, Mycaojol72(L)95 - 98 % 04/16/2025 4:25 AM ED[facility] LABORATORYCarboxyhemoglobin, Arterial1.50.0 - 2.0 %04/16/2025 4:25 AM [facility] LABORATORYComment:Carboxyhemoglobin Reference Range for Smokers: 2.0-8.0%Methemoglobin, Arterial0.30.0 - 1.5 % 04/16/2025 4:25 AM [facility] LABORATORYSodium, Whole Vbrpg491(L)136 - 144 mmol/L1 4:25 AM ED[facility] LABORATORYPotassium, Whole Blood3.3(L)3.5 - 5.0 mmol/L1 4:25 AM [facility] LABORATORYChloride, Whole Blood99 97 - 105 mmol/L1 4:25 AM [facility] LABORATORYCalcium Ionized, Whole Blood1.091.08 - 1.30 mmol/L1 4:25 AM [facility] LABORATORYCalcium Ionized, pH corrected1.131.08 - 1.30 mmol/L1 4:25 AM [facility] LABORATORYGlucose, Whole Jazql301(H)60 - 105 mg/dL04/16/2025 4:25 AM [facility] LABORATORYLactate1.50.5 - 2.2 mmol/L1 4:25 AM [facility] LABORATORYHemoglobin, Whole Blood13.213.0 - 17.0 g/dL04/16/2025 4:25 AM [facility] LABORATORYHematocrit, Whole Blood40.539.0 - 51.0 %04/16/2025 4:25 AM [facility] LABORATORYTemperature, Body36.4C04/16/2025 4:25 AM EDTFAIRVIEW HTCEIKADBNOcR338%04/16/2025 4:25 AM EDTFAIRVIEW LABORATORYPO2 / FIO2 Xqlif387 (L)>300 mmHg04/16/2025 4:25 AM EDTFAIRVIEW UKKIPYRSWROkfxtn37Uzxbtb/min 04/16/2025 4:25 AM EDTFAIRVIEW LABORATORYO2 TherapyHi-Flow Nasal Cannula-Bdxwcw8304/16/2025 4:25 AM EDTFAIRVIEW LABORATORYSpecimen (Source) Anatomical Location / LateralityCollection Method / VolumeCollection Time Received TimeBlood, ArterialBLOOD SPECIMEN / Usxftot8504/16/2025 4:13 AM EDT 04/16/2025 4:20 AM EDT Narrative Authorizing ProviderResult TypeResult StatusSamantha Joseph SENIOR MOBILE APPLICATION DEVELOPER.CNPBLOOD GASES Final ResultPerforming OrganizationAddressCity/State/ZIP CodePhone Number [facility] [phone] [place] [address], * PHOSPHORUS INORGANIC (04/16/2025 4:13 AM EDT)ComponentValueRef RangeTest MethodAnalysis TimePerformed AtPathologist SignaturePhosphorus2.72.7 - 4.8 mg/dL04/16/2025 4:42 AM EDTFAIRVIEW LABORATORYSpecimen (Source)Anatomical Location / LateralityCollection Method / VolumeCollection TimeReceived Time BloodBLOOD SPECIMEN / UnknownVenipuncture / Vkmhrbb1804/16/2025 4:13 AM EDT 04/16/2025 4:20 AM EDT Narrative Authorizing ProviderResult TypeResult StatusEileen Panstares PA-CLABORATORYFinal ResultPerforming OrganizationAddressCity/State/ZIP CodePhone Number [facility] [phone] [place] [address], * (ABNORMAL) PROTHROMBIN TIME (04/16/2025 4:13 AM EDT)ComponentValueRef Range Test MethodAnalysis TimePerformed AtPathologist SignaturePT Sec30.7(H)9.7 - 13.0 sec04/16/2025 4:44 AM EDTFAIRVIEW LABORATORYINR3.1(H)0.9 - 1.310 4:44 AM EDTFAIRVIEW LABORATORYComment: Vitamin K Antagonist (VKA) Therapeutic Range: INR 2 to 3 (Target INR of 2.5) Note: For patients treated with VKA drugs, such as warfarin, the [place] [employer] 2012 Guideline recommends a therapeutic INR range of 2 to 3 (target INR of 2.5). This recommendation includes high-risk patients with antiphospholipid syndrome with previous arterial or venous thromboembolism, current-generation mechanical or bioprosthetic aortic heart valve replacement. Note: Patients with mechanical aortic valve replacement and additional risk factors for thromboembolic events (atrial fibrillation, previous thromboembolism, LV dysfunction, hypercoagulable conditions) or an older generation mechanical AVR (i.e., ball in-Cage) or any mechanical MVR should have a INR therapeutic range of 2.5 to 3.5 (target INR of 3). Edy GH, et al. Chest 2012, 141:7S-47S Mark RA, et al. [facility] 2017, 70: 252-289 Specimen (Source)Anatomical Location / LateralityCollection Method / Volume Collection TimeReceived TimeBloodBLOOD SPECIMEN / UnknownVenipuncture / Unknown 04/16/2025 4:13 AM EDT1 4:20 AM EDT Narrative Authorizing ProviderResult TypeResult StatusEileen Panstares PA-CLABORATORYFinal ResultPerforming OrganizationAddressCity/State/ZIP CodePhone Number [facility] [phone] [place] [address], * MAGNESIUM (04/16/2025 4:13 AM EDT)ComponentValueRef RangeTest MethodAnalysis TimePerformed AtPathologist SignatureMagnesium2.01.7 - 2.3 mg/dL04/16/2025 4:42 AM EDTFAIRMERCY [facility]ALTH LABORATORYSpecimen (Source)Anatomical Location / LateralityCollection Method / VolumeCollection TimeReceived TimeBloodBLOOD SPECIMEN / UnknownVenipuncture / Udeffhf5304/16/2025 4:13 AM EDT1 4:20 AM EDT Narrative Authorizing ProviderResult TypeResult StatusEileen Panstares PA-CLABORATORYFinal ResultPerforming OrganizationAddressCity/State/ZIP CodePhone Number [facility] [phone] [place] [address], * (ABNORMAL) COMPREHENSIVE METABOLIC PANEL (04/16/2025 4:13 AM EDT)Component ValueRef RangeTest MethodAnalysis TimePerformed AtPathologist Signature Protein, Total5.9(L)6.3 - 8.0 g/dL04/16/2025 4:42 AM EDTFAIRVIEW LABORATORY Albumin3.3(L)3.9 - 4.9 g/dL04/16/2025 4:42 AM EDTFAIRVIEW LABORATORYCalcium, Total8.4(L)8.5 - 10.2 mg/dL04/16/2025 4:42 AM EDTFAIRVIEW LABORATORYBilirubin, Total1.7(H)0.2 - 1.3 mg/dL04/16/2025 4:42 AM EDTFAIRVIEW LABORATORYAlkaline Dixnrtidxus2952 - 113 U/L1 4:42 AM EDTFAIRVIEW JDZZAYTQPGTOQ834(H)14 - 40 U/L1 4:42 AM EDTFAIRVIEW WPFBZAYWNMABF673(H)10 - 54 U/L 04/16/2025 4:42 AM EDTFAIRVIEW GTHHHEDVGOSignlov540(H)74 - 99 mg/dL04/16/2025 4:42 AM EDTFAIRVIEW LABORATORYComment: The [place] [employer] (ADA) provides guidance for cutoff values for fasting glucose andrandom glucose. The ADA defines fasting as no caloric intake for at least 8 hours. Fasting plasma glucose results between 100 to 125 mg/dL indicate increased risk for diabetes (prediabetes). Fasting plasma glucose results greater than or equal to 126 mg/dL meet the criteria for diagnosis of diabetes. In the absence of unequivocal hyperglycemia, results should be confirmed by repeat testing. In a patient with classic symptoms of hyperglycemia or hyperglycemic crisis, random plasma glucose results greater than or equal to 200 mg/dL meet the criteria for diagnosis of diabetes. Reference: Standards of Medical Care in Diabetes 2016, [place] [employer]. Diabetes Care. 2016.39(Suppl 1). BUN28(H)9 - 24 mg/dL04/16/2025 4:42 AM EDTFAIRVIEW LABORATORYCreatinine1.34(H) 0.73 - 1.22 mg/dL04/16/2025 4:42 AM EDTFAIRVIEW YKDFSUBMJXYciwnb646(L)136 - 144 mmol/L1 4:42 AM EDTFAIRVIEW LABORATORYPotassium3.6(L)3.7 - 5.1 mmol/L 04/16/2025 4:42 AM EDTFAIRVIEW ILKDJPTHHVUekqchqd13(L)98 - 107 mmol/L1 4:42 AM EDTFAIRVIEW BAGGVVIHCRTR17936 - 30 mmol/L1 4:42 AM EDTFAIRVIEW LABORATORYAnion Krd203 - 15 mmol/L1 4:42 AM EDTFAIRVIEW LABORATORY Estimated Glomerular Filtration Rate65>=60 mL/min/1.73m 04/16/2025 4:42 AM EDTFAIRVIEW LABORATORYComment:Estimated Glomerular Filtration Rate (eGFR) is calculated using the 2020 CKD-EPI creatinine equation. This equation utilizes serum creatinine, sex, and age as parameters. The creatinine assay has traceable calibration to isotope dilution-mass spectrometry. Refer to KDIGO guidelines for clinical interpretation. In patients with unstable renal function, e.g. those with acute kidney injury, the eGFRmay not accurately reflect actual GFR.Specimen (Source)Anatomical Location / LateralityCollection Method / VolumeCollection TimeReceived TimeBloodBLOOD SPECIMEN / Unknown Venipuncture / Fgramxb0804/16/2025 4:13 AM EDT1 4:20 AM EDT Narrative Authorizing ProviderResult TypeResult StatusEileen Panstares PA-CLABORATORYFinal ResultPerforming OrganizationAddressCity/State/[facility] CodePhone Number [place] [phone] [place] [address], * (ABNORMAL) VENOUS BLOOD GASES (04/15/2025 8:23 PM EDT)ComponentValueRef Range Test MethodAnalysis TimePerformed AtPathologist SignaturepH, Venous7.45(H)7.32 - 7.421 8:33 PM EDTFAIRVIEW LABORATORYpCO2, Rpyton36(L)42 - 55 mmHg 04/15/2025 8:33 PM EDTFAIRVIEW LABORATORYpO2, Venous<4035 - 45 mmHg04/15/2025 8:33 PM EDTFAIRVIEW LABORATORYO2 Saturation, Amncfh92(L)60 - 85 %04/15/2025 8:33 PM EDTFAIRVIEW LABORATORYBase Excess, Venous4(H)0 - 2 mmol/L1 8:33 PM EDTFAIRVIEW LABORATORYBicarbonate, Qrjftk1042 - 28 mmol/L1 8:33 PM EDTFAIRMERCY HEALTH LABORATORYOxyhemoglobin, Hzmekn01(L)60 - 85 %04/15/2025 8:33 PM EDTFAIRVIEW LABORATORYCarboxyhemoglobin, Venous0.90.0 - 2.0 % 04/15/2025 8:33 PM EDTFBANNER PAYSON MEDICAL CENTERVIEW LABORATORYComment:Carboxyhemoglobin Reference Range for Smokers: 2.0-8.0%Methemoglobin, Venous0.60.0 - 1.5 %04/15/2025 8:33 PM EDTFAIRVIEW LABORATORYSodium, Whole Sdhfa063(L)136 - 144 mmol/L1 8:33 PM EDTFAIRVIEW LABORATORYPotassium, Whole Blood3.63.5 - 5.0 mmol/L 04/15/2025 8:33 PM EDTFBANNER PAYSON MEDICAL CENTERVIEW LABORATORYChloride, Whole Vbngc2207 - 105 mmol/L1 8:33 PM EDTFBOSTON H[facility] FOR [facility] LABORATORYCalcium Ionized, Whole Blood 1.081.08 - 1.30 mmol/L1 8:33 PM EDHOU[facility] LABORATORYCalcium Ionized, pH corrected1.111.08 - 1.30 mmol/L1 8:33 PM EDHOU[facility] LABORATORYGlucose, Whole Oeiei152(H)60 - 105 mg/dL04/15/2025 8:33 PM EDT [facility] LABORATORYLactate2.00.5 - 2.2 mmol/L1 8:33 PM EDHOU[facility] LABORATORYHemoglobin, Whole Blood13.213.0 - 17.0 g/dL04/15/2025 8:33 PM EDT [facility] LABORATORYHematocrit, Whole Blood40.539.0 - 51.0 %04/15/2025 8:33 PM EDHOU[facility] LABORATORYTemperature, Body37.0C1 8:33 PM EDTFBOSTON HOSPITAL FOR WOM[facility] NZVUVKJOOUIiY488%04/15/2025 8:33 PM EDTFBANNER PAYSON MEDICAL CENTERVIEW OPNOEYEBOYJckqzj34Genwfp/min 04/15/2025 8:33 PM EDTFBOSTON HOSPITAL FOR WOMEN LABORATORYO2 TherapyHi-Flow Nasal Cannula-Fkbavq4304/15/2025 8:33 PM EDTFAIRVIEW LABORATORYSpecimen (Source) Anatomical Location / LateralityCollection Method / VolumeCollection Time Received TimeBlood, VenousBLOOD SPECIMEN / UnknownCentral Line / Unknown 04/15/2025 8:23 PM EDT1 8:28 PM EDT Narrative Authorizing ProviderResult TypeResult StatusKina Vásquez MD BLOOD GASESFinal ResultPerforming OrganizationAddressCity/State/ZIP CodePhone Number [facility] [phone] * (ABNORMAL) ARTERIAL BLOOD GASES (04/15/2025 8:23 PM EDT)ComponentValueRef RangeTest MethodAnalysis TimePerformed AtPathologist SignaturepH, Arterial7.51 (H)7.35 - 7.451 8:33 PM EDTFAIRVIEW LABORATORYpCO2, Ppwvfqrg11(L)36 - 46 mm Hg04/15/2025 8:33 PM EDTFAIRVIEW LABORATORYpO2, Coywiutr60(L)85 - 95 mm Hg04/15/2025 8:33 PM EDTFAIRVIEW LABORATORYBicarbonate, Yzyslkiq2346 - 26 mmol/L1 8:33 PM EDTFAIRVIEW LABORATORYO2 Saturation, Wfrjghya7037 - 98 %04/15/2025 8:33 PM EDTFAIRVIEW LABORATORYBase Excess, Hqlzdsob19 - 2 mmol/L1 8:33 PM EDTFAIRVIEW LABORATORYOxyhemoglobin, Gsctdqai8665 - 98 %04/15/2025 8:33 PM EDTFAIRVIEW LABORATORYCarboxyhemoglobin, Arterial1.40.0 - 2.0 %04/15/2025 8:33 PM EDTFAIRVIEW LABORATORYComment:Carboxyhemoglobin Reference Range for Smokers: 2.0-8.0%Methemoglobin, Arterial0.50.0 - 1.5 % 04/15/2025 8:33 PM EDTFAIRVIEW LABORATORYSodium, Whole Swlsh474(L)136 - 144 mmol/L1 8:33 PM EDTFAIRVIEW LABORATORYPotassium, Whole Blood3.73.5 - 5.0 mmol/L1 8:33 PM EDTFAIRVIEW LABORATORYChloride, Whole Mrhsa33644 - 105 mmol/L1 8:33 PM EDTFAIRVIEW LABORATORYCalcium Ionized, Whole Blood1.091.08 - 1.30 mmol/L1 8:33 PM EDTFAIRVIEW LABORATORYCalcium Ionized, pH corrected1.151.08 - 1.30 mmol/L1 8:33 PM EDTFAIRVIEW LABORATORYGlucose, Whole Foflg286(H)60 - 105 mg/dL04/15/2025 8:33 PM EDT [facility] LABORATORYLactate1.80.5 - 2.2 mmol/L1 8:33 PM EDTFAIRMERCY HEALTH LABORATORYHemoglobin, Whole Blood13.313.0 - 17.0 g/dL04/15/2025 8:33 PM EDT [facility]ORATORYHematocrit, Whole Blood40.939.0 - 51.0 %04/15/2025 8:33 PM EDTFBANNER PAYSON MEDICAL CENTERVIEW LABORATORYTemperature, Body37.0C1 8:33 PM EDTFAIRVIEW BWXJEBLXGYZyP067%04/15/2025 8:33 PM EDTFAIRVIEW LABORATORYPO2 / FIO2 Nbrzy904 (L)>300 mmHg04/15/2025 8:33 PM EDTFAIRVIEW BFRKQVUFCRAemdzf33Ypabtp/min 04/15/2025 8:33 PM EDTFAIRVIEW LABORATORYO2 TherapyHi-Flow Nasal Cannula-Squjjd4504/15/2025 8:33 PM EDTFAIRMERCY HEALTH LABORATORYSpecimen (Source) Anatomical Location / LateralityCollection Method / VolumeCollection Time Received TimeBlood, ArterialBLOOD SPECIMEN / Qydeakb0504/15/2025 8:23 PM EDT 04/15/2025 8:28 PM EDT Narrative Authorizing ProviderResult TypeResult StatusKina Vásquez MD BLOOD GASESFinal ResultPerforming OrganizationAddressCity/State/ZIP CodePhone Number [facility] [phone] [place] [address], * (ABNORMAL) VENOUS BLOOD GASES (04/15/2025 1:28 PM EDT)ComponentValueRef Range Test MethodAnalysis TimePerformed AtPathologist SignaturepH, Venous7.43(H)7.32 - 7.421 1:40 PM EDTFAIRMERCY HEALTH LABORATORYpCO2, Lrvehu11(L)42 - 55 mmHg 04/15/2025 1:40 PM EDHOU[facility] LABORATORYpO2, Venous<4035 - 45 mmHg04/15/2025 1:40 PM EDHOU[facility] LABORATORYO2 Saturation, Snxkin37(L)60 - 85 %04/15/2025 1:40 PM EDHOU[facility] LABORATORYBase Excess, Hbckwa48 - 2 mmol/L1 1:40 PM EDHOU[facility] LABORATORYBicarbonate, Aabjsx2356 - 28 mmol/L1 1:40 PM EDHOU[facility] LABORATORYOxyhemoglobin, Tlhwvl64(L)60 - 85 %04/15/2025 1:40 PM EDHOU[facility] LABORATORYCarboxyhemoglobin, Venous0.50.0 - 2.0 %04/15/2025 1:40 PM [facility] LABORATORYComment:Carboxyhemoglobin Reference Range for Smokers: 2.0-8.0%Methemoglobin, Venous0.70.0 - 1.5 %04/15/2025 1:40 PM [facility] LABORATORYSodium, Whole Yfcvt365(L)136 - 144 mmol/L1 1:40 PM [facility] LABORATORYPotassium, Whole Blood3.53.5 - 5.0 mmol/L1 1:40 PM [facility] LABORATORYChloride, Whole Jflgc8312 - 105 mmol/L1 1:40 PM [facility] LABORATORYCalcium Ionized, Whole Blood1.081.08 - 1.30 mmol/L1 1:40 PM [facility] LABORATORYCalcium Ionized, pH corrected 1.101.08 - 1.30 mmol/L1 1:40 PM [facility] LABORATORYGlucose, Whole Zltls293(H)60 - 105 mg/dL04/15/2025 1:40 PM EDHOU[facility] LABORATORYLactate1.6 0.5 - 2.2 mmol/L1 1:40 PM [facility] LABORATORYHemoglobin, Whole Blood13.413.0 - 17.0 g/dL04/15/2025 1:40 PM [facility] LABORATORYHematocrit, Whole Blood41.139.0 - 51.0 %04/15/2025 1:40 PM EDTFAIRVIEW LABORATORY Temperature, Body37.0C1 1:40 PM EDTFAIRVIEW LABORATORYO2 TherapyHi- Flow Nasal Cannula-Pnsbiz1604/15/2025 1:40 PM EDTFAIRVIEW LABORATORYSpecimen (Source)Anatomical Location / LateralityCollection Method / VolumeCollection TimeReceived TimeBlood, VenousBLOOD SPECIMEN / UnknownCentral Line / Unknown 04/15/2025 1:28 PM EDT1 1:37 PM EDT Narrative Authorizing ProviderResult TypeResult StatusPradhab Kirupaharan DOBLOOD GASES Final ResultPerforming OrganizationAddressCity/State/ZIP CodePhone Number [facility] [phone] * XR CHEST 1V FRONTAL PORT (04/15/2025 10:18 AM EDT)Anatomical RegionLaterality ModalityChestRadiographic ImagingSpecimen (Source)Anatomical Location / LateralityCollection Method / VolumeCollection TimeReceived Time04/15/2025 10:18 AM EDT Impressions 04/15/2025 1:04 PM EDT IMPRESSION: NO SIGNIFICANT INTERVAL CHANGE SINCE 04/14/2025. Deckhand: KEATON ?? Transcribe Date/Time: Apr 15 2025 ??1:00P Dictated by : MOHAN RUIZ MD This examination was interpreted and the report reviewed and electronically signed by: MOHAN RUIZ MD on Apr 15 2025 ??1:02PM ??EST Narrative 04/15/2025 1:04 PM EDT * * *Final Report* * * DATE OF EXAM: Apr 15 2025 10:18AM ?? FVX ?? [id number] ??- ??XR CHEST 1V FRONTAL PORT ??/ PROCEDURE REASON: Evaluate tube, line, ??or lead position ? * * * * Physician Interpretation * * * * EXAMINATION: ??CHEST RADIOGRAPH (PORTABLE SINGLE VIEW AP) Exam Date/Time: ??04/15/2025 10:18 AM CLINICAL HISTORY: Evaluate tube, line, ??or lead position MQ: ??XCPR_5 Comparison: ??Chest x-ray dated 04/14/2025, 04/13/2025, 01/31/2025, 01/30/2025 RESULT: Lines, tubes, and devices: ??The right IJ [place]-Sharon catheter is again identified. Lungs and pleura: ??The lungs are grossly clear. Cardiomediastinal silhouette: ??Stable cardiomediastinal silhouette. ?? Pericardial effusion cannot be excluded. Other: ??No bony abnormalities. Procedure Note Provider, [facility] - 04/15/2025 * * *Final Report* * * DATE OF EXAM: Apr 15 2025 10:18AM FVX 5376 - XR CHEST 1V FRONTAL PORT / PROCEDURE REASON: Evaluate tube, line, or lead position * * * * Physician Interpretation * * * * EXAMINATION: CHEST RADIOGRAPH (PORTABLE SINGLE VIEW AP) Exam Date/Time: 04/15/2025 10:18 AM CLINICAL HISTORY: Evaluate tube, line, or lead position MQ: XCPR_5 Comparison: Chest x-ray dated 04/14/2025, 04/13/2025, 01/31/2025, 01/30/2025 RESULT: Lines, tubes, and devices: The right IJ [place]-Sharon catheter is again identified. Lungs and pleura: The lungs are grossly clear. Cardiomediastinal silhouette: Stable cardiomediastinal silhouette. Pericardial effusion cannot be excluded. Other: No bony abnormalities. IMPRESSION IMPRESSION: NO SIGNIFICANT INTERVAL CHANGE SINCE 04/14/2025. Deckhand: KEATON Transcribe Date/Time: Apr 15 2025 1:00P Dictated by : MOHAN RUIZ MD This examination was interpreted and the report reviewed and electronically signed by: MOHAN RUIZ MD on Apr 15 2025 1:02PM EST Authorizing ProviderResult TypeResult StatusPradhab Kirupaharan DORAD-PAMAFinal Result * (ABNORMAL) ARTERIAL BLOOD GASES (04/15/2025 8:39 AM EDT)ComponentValueRef RangeTest MethodAnalysis TimePerformed AtPathologist SignaturepH, Arterial7.47 (H)7.35 - 7.451 8:46 AM EDTFAIRVIEW LABORATORYpCO2, Ezvelucl74(L)36 - 46 mm Hg10/ 8:46 AM EDTFAIRPanizon LABORATORYpO2, Kpxhxnmu284(H)85 - 95 mm Hg04/15/2025 8:46 AM EDTFAIRPanizon LABORATORYBicarbonate, Llfbjmbv30(L)22 - 26 mmol/L1 8:46 AM EDTFAIRPanizon LABORATORYO2 Saturation, Mkpbaiye50(H) 95 - 98 %04/15/2025 8:46 AM EDTFAIRPanizon LABORATORYBase Deficit, Xfrcogrc-0-7 - 0 mmol/L1 8:46 AM EDTFAIRPanizon LABORATORYOxyhemoglobin, Axzlokeh4577 - 98 %04/15/2025 8:46 AM EDTFBANNER PAYSON MEDICAL CENTERPanizon LABORATORYCarboxyhemoglobin, Arterial1.2 0.0 - 2.0 %04/15/2025 8:46 AM EDHARDTNER MEDICAL CENTERPanizon LABORATORYComment:Carboxyhemoglobin Reference Range for Smokers: 2.0-8.0%Methemoglobin, Arterial0.60.0 - 1.5 % 04/15/2025 8:46 AM EDHARDTNER MEDICAL CENTERPanizon LABORATORYSodium, Whole Wkbzh246(L)136 - 144 mmol/L1 8:46 AM EDHum LABORATORYPotassium, Whole Blood3.83.5 - 5.0 mmol/L1 8:46 AM EDHum LABORATORYChloride, Whole Faobw61277 - 105 mmol/L1 8:46 AM EDHum LABORATORYCalcium Ionized, Whole Blood1.111.08 - 1.30 mmol/L1 8:46 AM EDTFAIRPanizon LABORATORYCalcium Ionized, pH corrected1.151.08 - 1.30 mmol/L1 8:46 AM EDHARDTNER MEDICAL CENTERPanizon LABORATORYGlucose, Whole Magtr748(H)60 - 105 mg/dL04/15/2025 8:46 AM [facility] LABORATORYLactate2.20.5 - 2.2 mmol/L1 8:46 AM EDHARDTNER MEDICAL CENTERPanizon LABORATORYHemoglobin, Whole Blood13.913.0 - 17.0 g/dL04/15/2025 8:46 AM [facility] LABORATORYHematocrit, Whole Blood42.739.0 - 51.0 %04/15/2025 8:46 AM EDTFAIRVIEW LABORATORYTemperature, Body37.0C1 8:46 AM EDTFAIRVIEW LABORATORYO2 TherapyHi-Flow Nasal Cannula-Latizd7004/15/2025 8:46 AM EDTFAIRVIEW LABORATORYSpecimen (Source)Anatomical Location / LateralityCollection Method / VolumeCollection TimeReceived TimeBlood, ArterialBLOOD SPECIMEN / Unknown 04/15/2025 8:39 AM EDT1 8:43 AM EDT Narrative Authorizing ProviderResult TypeResult StatusEileen Panstares PA-CBLOOD GASES Final ResultPerforming OrganizationAddressCity/State/ZIP CodePhone Number [facility] [phone] * (ABNORMAL) VENOUS BLOOD GASES (04/15/2025 8:39 AM EDT)ComponentValueRef Range Test MethodAnalysis TimePerformed AtPathologist SignaturepH, Venous7.417.32 - 7.421 8:46 AM EDTFAIRVIEW LABORATORYpCO2, Jfcacp18(L)42 - 55 mmHg 04/15/2025 8:46 AM EDTFAIRVIEW LABORATORYpO2, Venous<4035 - 45 mmHg04/15/2025 8:46 AM EDTFAIRVIEW LABORATORYO2 Saturation, Pheudf88(L)60 - 85 %04/15/2025 8:46 AM EDTFAIRVIEW LABORATORYBase Excess, Fkpeoc13 - 2 mmol/L1 8:46 AM EDTFAIRVIEW LABORATORYBicarbonate, Hthtdv5020 - 28 mmol/L1 8:46 AM EDTFAIRVIEW LABORATORYOxyhemoglobin, Lwriqz80(L)60 - 85 %04/15/2025 8:46 AM EDTFAIRVIEW LABORATORYCarboxyhemoglobin, Venous0.80.0 - 2.0 %04/15/2025 8:46 AM EDTFAIRVIEW LABORATORYComment:Carboxyhemoglobin Reference Range for Smokers: 2.0-8.0%Methemoglobin, Venous0.60.0 - 1.5 %04/15/2025 8:46 AM EDT [facility] LABORATORYSodium, Whole Dqrlk544(L)136 - 144 mmol/L10/ 8:46 AM EDTFAIRVIEW LABORATORYPotassium, Whole Blood3.73.5 - 5.0 mmol/L1 8:46 AM EDTFAIRVIEW LABORATORYChloride, Whole Gqjmq8271 - 105 mmol/L1 8:46 AM EDTFAIRVIEW LABORATORYCalcium Ionized, Whole Blood1.111.08 - 1.30 mmol/L1 8:46 AM EDTFAIRVIEW LABORATORYCalcium Ionized, pH corrected 1.121.08 - 1.30 mmol/L1 8:46 AM EDTFAIRVIEW LABORATORYGlucose, Whole Tqiad609(H)60 - 105 mg/dL04/15/2025 8:46 AM EDTFAIRVIEW LABORATORYLactate2.1 0.5 - 2.2 mmol/L1 8:46 AM EDTFAIRVIEW LABORATORYHemoglobin, Whole Blood13.813.0 - 17.0 g/dL04/15/2025 8:46 AM EDTFAIRVIEW LABORATORYHematocrit, Whole Blood42.339.0 - 51.0 %04/15/2025 8:46 AM EDTFBANNER PAYSON MEDICAL CENTERVIEW LABORATORY Temperature, Body37.0C1 8:46 AM EDTFAIRVIEW LABORATORYO2 TherapyHi- Flow Nasal Cannula-Lrtjov3804/15/2025 8:46 AM EDTFBOSTON [facility]ITAL FOR [facility] LABORATORYSpecimen (Source)Anatomical Location / LateralityCollection Method / VolumeCollection TimeReceived TimeBlood, VenousBLOOD SPECIMEN / UnknownCentral Line / Unknown 04/15/2025 8:39 AM EDT1 8:43 AM EDT Narrative Authorizing ProviderResult TypeResult StatusEileen Panstares PA-CBLOOD GASES Final ResultPerforming OrganizationAddressCity/State/ZIP CodePhone Number [facility] [id number] [place] [address], * (ABNORMAL) ARTERIAL BLOOD GASES (04/15/2025 3:50 AM EDT)ComponentValueRef RangeTest MethodAnalysis TimePerformed AtPathologist SignaturepH, Arterial7.54 (H)7.35 - 7.451 4:13 AM EDTFAIRMERCY HEALTH LABORATORYpH, Temp Corrected, Qpcnzcwb32/ 4:13 AM EDHOU[facility] LABORATORYpCO2, Ixshwtdu91(L)36 - 46 mm Hg04/15/2025 4:13 AM EDTFBAN[facility]ERVIEW LABORATORYpCO2, Temp Corrected, Arterial 04/15/2025 4:13 AM EDHARDTNER MEDICAL CENTERVIEW LABORATORYpO2, Wprzoovi789(H)85 - 95 mm Hg 04/15/2025 4:13 AM EDHARDTNER MEDICAL CENTERVIEW LABORATORYpO2, Temp Corrected, Arterial 04/15/2025 4:13 AM EDHOU[facility] LABORATORYBicarbonate, Ukgvtqtl40(L)22 - 26 mmol/L1 4:13 AM EDHOU[facility] LABORATORYO2 Saturation, Xgejtkbd511(H)95 - 98 %04/15/2025 4:13 AM EDHOU[facility] LABORATORYBase Deficit, Lcxrjjiq-3-7 - 0 mmol/L1 4:13 AM [facility] LABORATORYOxyhemoglobin, Qshynxxl0202 - 98 %04/15/2025 4:13 AM EDHOU[facility] LABORATORYCarboxyhemoglobin, Arterial1.40.0 - 2.0 %04/15/2025 4:13 AM [facility] LABORATORYComment:Carboxyhemoglobin Reference Range for Smokers: 2.0-8.0%Methemoglobin, Arterial0.40.0 - 1.5 % 04/15/2025 4:13 AM [facility] LABORATORYSodium, Whole Ycvsy111(L)136 - 144 mmol/L1 4:13 AM EDHOU[facility] LABORATORYPotassium, Whole Blood3.93.5 - 5.0 mmol/L1 4:13 AM EDHOU[facility] LABORATORYChloride, Whole Kbiqj1588 - 105 mmol/L1 4:13 AM EDHOU[facility] LABORATORYCalcium Ionized, Whole Blood1.101.08 - 1.30 mmol/L1 4:13 AM EDHOU[facility] LABORATORYCalcium Ionized, pH corrected1.181.08 - 1.30 mmol/L1 4:13 AM [facility] LABORATORYGlucose, Whole Hunvk082(H)60 - 105 mg/dL04/15/2025 4:13 AM [facility] LABORATORYLactate2.9(H)0.5 - 2.2 mmol/L1 4:13 AM ED[facility] LABORATORYHemoglobin, Whole Blood14.313.0 - 17.0 g/dL04/15/2025 4:13 AM EDT [facility] LABORATORYHematocrit, Whole Blood43.839.0 - 51.0 %04/15/2025 4:13 AM ED[facility] LABORATORYTemperature, Body36.4C04/15/2025 4:13 AM [facility] GKAKOJEOMDXjP627%04/15/2025 4:13 AM EDTFBAN[facility] LABORATORYPO2 / FIO2 Iofqo766 (L)>300 mmHg04/15/2025 4:13 AM EDTFBANNER [facility] UXQHTFMZIHXqztks99Xtugjz/min 04/15/2025 4:13 AM EDHOU[facility] LABORATORYO2 TherapyHi-Flow Nasal Cannula-Klzhin3804/15/2025 4:13 AM ED[facility] LABORATORYSpecimen (Source) Anatomical Location / LateralityCollection Method / VolumeCollection Time Received TimeBlood, ArterialBLOOD SPECIMEN / UnknownArterial Line / Unknown 04/15/2025 3:50 AM EDT1 4:06 AM EDT Narrative Authorizing ProviderResult TypeResult StatusEileen Panstares PA-CBLOOD GASES Final ResultPerforming OrganizationAddressCity/State/ZIP CodePhone Number [facility] [phone] [place] [address], * PHOSPHORUS INORGANIC (04/15/2025 3:50 AM EDT)ComponentValueRef RangeTest MethodAnalysis TimePerformed AtPathologist SignaturePhosphorus4.22.7 - 4.8 mg/dL04/15/2025 4:46 AM EDHOU[facility] LABORATORYSpecimen (Source)Anatomical Location / LateralityCollection Method / VolumeCollection TimeReceived Time BloodBLOOD SPECIMEN / UnknownVenipuncture / Nrcaepk9804/15/2025 3:50 AM EDT 04/15/2025 4:06 AM EDT Narrative Authorizing ProviderResult TypeResult StatusEileen Panstares PA-CLABORATORYFinal ResultPerforming OrganizationAddressCity/State/ZIP CodePhone Number [facility] [phone] [place] [address], * (ABNORMAL) COMPLETE BLOOD COUNT (04/15/2025 3:50 AM EDT)ComponentValueRef RangeTest MethodAnalysis TimePerformed AtPathologist BhusutxraCPI15.47(H)3.70 - 11.00 k/uL04/15/2025 4:12 AM EDTFBOST[facility] LABORATORYRBC4.904.20 - 6.00 m/uL 04/15/2025 4:12 AM ED[facility] RHJNUEHIUJOpulqphdfe70.913.0 - 17.0 g/dL 04/15/2025 4:12 AM ED[facility] XEGJYRTXRQFzvexyqxmy72.039.0 - 51.0 %04/15/2025 4:12 AM [facility] SPWBBTCDSYQSS86.780.0 - 100.0 fL04/15/2025 4:12 AM EDT [facility] FHXJOZKSOTTSC24.426.0 - 34.0 pg04/15/2025 4:12 AM [facility] JGQXUUWZZUXNNX17.930.5 - 36.0 g/dL04/15/2025 4:12 AM [facility] LABORATORY RDW-CV14.711.5 - 15.0 %04/15/2025 4:12 AM [facility] LABORATORYPlatelet Count 777407 - 400 k/uL04/15/2025 4:12 AM [facility] LABORATORYMPV9.49.0 - 12.7 fL 04/15/2025 4:12 AM [facility] LABORATORYAbsolute nRBC<0.01<0.01 k/uL 04/15/2025 4:12 AM [facility] LABORATORYSpecimen (Source)Anatomical Location / LateralityCollection Method / VolumeCollection TimeReceived TimeBloodBLOOD SPECIMEN / UnknownVenipuncture / Avezgxr8104/15/2025 3:50 AM EDT1 4:06 AM EDT Narrative Authorizing ProviderResult TypeResult StatusEileen Panstares PA-CLABORATORYFinal ResultPerforming OrganizationAddressCity/State/ZIP CodePhone Number [facility] [phone] [place] [address], * (ABNORMAL) VENOUS BLOOD GASES (04/15/2025 3:50 AM EDT)ComponentValueRef Range Test MethodAnalysis TimePerformed AtPathologist SignaturepH, Venous7.427.32 - 7.421 4:14 AM EDTFBAN[facility] LABORATORYpH, Temp Corrected, Venous 04/15/2025 4:14 AM EDTFBAN[facility] LABORATORYpCO2, Tncmaq42(L)42 - 55 mmHg 04/15/2025 4:14 AM EDTFAIRVIEW LABORATORYpCO2, Temp Corrected, Venous 04/15/2025 4:14 AM EDTFAIRVIEW LABORATORYpO2, Venous<4035 - 45 mmHg04/15/2025 4:14 AM EDTFAIRVIEW LABORATORYpO2, Temp Corrected, Lynpud0904/15/2025 4:14 AM EDTFBOSTON [facility]OSP[facility] FOR W[facility] LABORATORYO2 Saturation, Qljpze39(L)60 - 85 %04/15/2025 4:14 AM EDHOU[facility] LABORATORYBase Deficit, Venous>-1-2 - 0 mmol/L1 4:14 AM EDTFBAN[facility] LABORATORYBicarbonate, Wtuezi4708 - 28 mmol/L1 4:14 AM ED[facility] LABORATORYOxyhemoglobin, Wwidqy63(L)60 - 85 %04/15/2025 4:14 AM ED[facility] LABORATORYCarboxyhemoglobin, Venous0.80.0 - 2.0 %04/15/2025 4:14 AM ED[facility] LABORATORYComment:Carboxyhemoglobin Reference Range for Smokers: 2.0-8.0%Methemoglobin, Venous0.50.0 - 1.5 %04/15/2025 4:14 AM [facility] LABORATORYSodium, Whole Uvkvt165(L)136 - 144 mmol/L1 4:14 AM ED[facility] LABORATORYPotassium, Whole Blood3.83.5 - 5.0 mmol/L1 4:14 AM EDTFBOSTON [facility]OSP[facility] LABORATORYChloride, Whole Dxmrr4962 - 105 mmol/L1 4:14 AM EDTFBOSTON [facility]OSP[facility] FOR W[facility] LABORATORYCalcium Ionized, Whole Blood1.081.08 - 1.30 mmol/L1 4:14 AM EDTFBAN[facility] LABORATORYCalcium Ionized, pH corrected 1.091.08 - 1.30 mmol/L1 4:14 AM EDTFAIRVIEW LABORATORYGlucose, Whole Jdkhq313(H)60 - 105 mg/dL04/15/2025 4:14 AM EDTFAIRVIEW LABORATORYLactate2.4 (H)0.5 - 2.2 mmol/L1 4:14 AM EDTFAIRVIEW LABORATORYHemoglobin, Whole Blood14.113.0 - 17.0 g/dL04/15/2025 4:14 AM EDTFAIRVIEW LABORATORYHematocrit, Whole Blood43.239.0 - 51.0 %04/15/2025 4:14 AM EDTFAIRVIEW LABORATORY Temperature, Body36.4C04/15/2025 4:14 AM EDTFAIRVIEW QTIVMJEXCJLqH527% 04/15/2025 4:14 AM EDTFAIRVIEW MBUYQVIWZGTbwmwr41Nsdfhu/min04/15/2025 4:14 AM EDTFAIRVIEW LABORATORYO2 TherapyHi-Flow Nasal Cannula-Pdqgpr4504/15/2025 4:14 AM EDTFAIRVIEW LABORATORYSpecimen (Source)Anatomical Location / Laterality Collection Method / VolumeCollection TimeReceived TimeBlood, VenousBLOOD SPECIMEN / UnknownCentral Line / Ulkavyu0204/15/2025 3:50 AM EDT1 4:06 AM EDT Narrative Authorizing ProviderResult TypeResult StatusEileen Panstares PA-CBLOOD GASES Final ResultPerforming OrganizationAddressCity/State/ZIP CodePhone Number [facility] [address] * (ABNORMAL) PROTHROMBIN TIME (04/15/2025 3:50 AM EDT)ComponentValueRef Range Test MethodAnalysis TimePerformed AtPathologist SignaturePT Sec32.1(H)9.7 - 13.0 sec04/15/2025 4:35 AM EDTFAIRVIEW LABORATORYINR3.2(H)0.9 - 1.310 4:35 AM EDTFAIRVIEW LABORATORYComment: Vitamin K Antagonist (VKA) Therapeutic Range: INR 2 to 3 (Target INR of 2.5) Note: For patients treated with VKA drugs, such as warfarin, the [place] [employer] 2012 Guideline recommends a therapeutic INR range of 2 to 3 (target INR of 2.5). This recommendation includes high-risk patients with antiphospholipid syndrome with previous arterial or venous thromboembolism, current-generation mechanical or bioprosthetic aortic heart valve replacement. Note: Patients with mechanical aortic valve replacement and additional risk factors for thromboembolic events (atrial fibrillation, previous thromboembolism, LV dysfunction, hypercoagulable conditions) or an older generation mechanical AVR (i.e., ball in-Cage) or any mechanical MVR should have a INR therapeutic range of 2.5 to 3.5 (target INR of 3). Edy GH, et al. Chest 2012, 141:7S-47S Mark RA, et al. [facility] 2017, 70: 252-289 Specimen (Source)Anatomical Location / LateralityCollection Method / Volume Collection TimeReceived TimeBloodBLOOD SPECIMEN / UnknownVenipuncture / Unknown 04/15/2025 3:50 AM EDT1 4:06 AM EDT Narrative Authorizing ProviderResult TypeResult StatusEileen Panstares PA-CLABORATORYFinal ResultPerforming OrganizationAddressCity/State/ZIP CodePhone Number [facility] [phone] [place] [address], * MAGNESIUM (04/15/2025 3:50 AM EDT)ComponentValueRef RangeTest MethodAnalysis TimePerformed AtPathologist SignatureMagnesium2.01.7 - 2.3 mg/dL04/15/2025 4:46 AM EDTFAIRVIEW LABORATORYSpecimen (Source)Anatomical Location / LateralityCollection Method / VolumeCollection TimeReceived TimeBloodBLOOD SPECIMEN / UnknownVenipuncture / Czwliwj2204/15/2025 3:50 AM EDT1 4:06 AM EDT Narrative Authorizing ProviderResult TypeResult StatusEileen Panstares PA-CLABORATORYFinal ResultPerforming OrganizationAddressty/State/ZIP CodePhone Number [facility] [phone] [place] [address], * (ABNORMAL) COMPREHENSIVE METABOLIC PANEL (04/15/2025 3:50 AM EDT)Component ValueRef RangeTest MethodAnalysis TimePerformed AtPathologist Signature Protein, Total6.36.3 - 8.0 g/dL04/15/2025 4:46 AM EDTFAIRVIEW LABORATORY Albumin3.6(L)3.9 - 4.9 g/dL04/15/2025 4:46 AM EDTFAIRVIEW LABORATORYCalcium, Total9.08.5 - 10.2 mg/dL04/15/2025 4:46 AM EDTFAIRVIEW LABORATORYBilirubin, Total2.0(H)0.2 - 1.3 mg/dL04/15/2025 4:46 AM EDTFAIRVIEW LABORATORYAlkaline Rngrltdzdql9120 - 113 U/L1 4:46 AM EDTFAIRVIEW UIQVCQTURIXVP717(H)14 - 40 U/L1 4:46 AM EDTFAIRVIEW ZBSOAKEEMKTBR085(H)10 - 54 U/L 04/15/2025 4:46 AM EDTFAIRVIEW SSREXHXGOVDrqwxqo222(H)74 - 99 mg/dL04/15/2025 4:46 AM EDTFAIRVIEW LABORATORYComment: The [place] [employer] (ADA) provides guidance for cutoff values for fasting glucose andrandom glucose. The ADA defines fasting as no caloric intake for at least 8 hours. Fasting plasma glucose results between 100 to 125 mg/dL indicate increased risk for diabetes (prediabetes). Fasting plasma glucose results greater than or equal to 126 mg/dL meet the criteria for diagnosis of diabetes. In the absence of unequivocal hyperglycemia, results should be confirmed by repeat testing. In a patient with classic symptoms of hyperglycemia or hyperglycemic crisis, random plasma glucose results greater than or equal to 200 mg/dL meet the criteria for diagnosis of diabetes. Reference: Standards of Medical Care in Diabetes 2016, [place] [employer]. Diabetes Care. 2016.39(Suppl 1). BUN30(H)9 - 24 mg/dL04/15/2025 4:46 AM EDTFAIRVIEW LABORATORYCreatinine1.51(H) 0.73 - 1.22 mg/dL04/15/2025 4:46 AM EDTFAIRVIEW BDPLDZGZJTGgjczu288(L)136 - 144 mmol/L1 4:46 AM EDTFAIRVIEW LABORATORYPotassium4.13.7 - 5.1 mmol/L 04/15/2025 4:46 AM EDTFAIRVIEW DOWKIWFDCWEuayokjd47(L)98 - 107 mmol/L1 4:46 AM EDTFAIR[facility] DSAVRACBDQGR233(L)22 - 30 mmol/L1 4:46 AM EDT [facility] LABORATORYAnion Gap16(H)8 - 15 mmol/L1 4:46 AM EDTFBANNER PAYSON MEDICAL CENTERVIEW LABORATORYEstimated Glomerular Filtration Rate56(L)>=60 mL/min/1.73m 04/15/2025 4:46 AM EDHOU[facility] LABORATORYComment:Estimated Glomerular Filtration Rate (eGFR) is calculated using the 2020 CKD-EPI creatinine equation. This equation utilizes serum creatinine, sex, and age as parameters. The creatinine assay has traceable calibration to isotope dilution-mass spectrometry. Refer to KDIGO guidelines for clinical interpretation. In patients with unstable renal function, e.g. those with acute kidney injury, the eGFRmay not accurately reflect actual GFR.Specimen (Source)Anatomical Location / LateralityCollection Method / VolumeCollection TimeReceived TimeBloodBLOOD SPECIMEN / Unknown Venipuncture / Xsxghhw4504/15/2025 3:50 AM EDT1 4:06 AM EDT Narrative Authorizing ProviderResult TypeResult StatusEileen Panstares PA-CLABORATORYFinal ResultPerforming OrganizationAddressCity/State/ZIP CodePhone Number [facility] [phone] [place] [address], * (ABNORMAL) VENOUS BLOOD GASES (04/14/2025 11:48 PM EDT)ComponentValueRef Range Test MethodAnalysis TimePerformed AtPathologist SignaturepH, Venous7.417.32 - 7.421 12:09 AM EDTFAIRVIEW LABORATORYpCO2, Nbfttq82(L)42 - 55 mmHg 04/15/2025 12:09 AM EDTFAIRVIEW LABORATORYpO2, Venous<4035 - 45 mmHg04/15/2025 12:09 AM EDTFAIRVIEW LABORATORYO2 Saturation, Gitsac02(L)60 - 85 %04/15/2025 12:09 AM EDTFAIRVIEW LABORATORYBase Deficit, Venous>-1-2 - 0 mmol/L1 12:09 AM EDTFAIRVIEW LABORATORYBicarbonate, Nautiy5052 - 28 mmol/L1 12:09 AM EDTFAIRVIEW LABORATORYOxyhemoglobin, Sbnvam31(L)60 - 85 %04/15/2025 12:09 AM EDTFAIRVIEW LABORATORYCarboxyhemoglobin, Venous0.80.0 - 2.0 % 04/15/2025 12:09 AM [facility] LABORATORYComment:Carboxyhemoglobin Reference Range for Smokers: 2.0-8.0%Methemoglobin, Venous0.60.0 - 1.5 %04/15/2025 12:09 AM [facility] LABORATORYSodium, Whole Yinvt796(L)136 - 144 mmol/L1 12:09 AM [facility] LABORATORYPotassium, Whole Blood4.13.5 - 5.0 mmol/L 04/15/2025 12:09 AM [facility] LABORATORYChloride, Whole Oakxq3163 - 105 mmol/L1 12:09 AM [facility] LABORATORYCalcium Ionized, Whole Blood 1.141.08 - 1.30 mmol/L1 12:09 AM [facility] LABORATORYCalcium Ionized, pH corrected1.151.08 - 1.30 mmol/L1 12:09 AM [facility] LABORATORYGlucose, Whole Guwiy690(H)60 - 105 mg/dL04/15/2025 12:09 AM [facility] LABORATORYLactate2.10.5 - 2.2 mmol/L1 12:09 AM [facility] LABORATORYHemoglobin, Whole Blood14.613.0 - 17.0 g/dL04/15/2025 12:09 AM [facility] LABORATORYHematocrit, Whole Blood44.839.0 - 51.0 %04/15/2025 12:09 AM [facility] LABORATORYTemperature, Body37.0C1 12:09 AM [facility] LLLMJCKXFUIfV505%04/15/2025 12:09 AM [facility] PHDBXQQWVPNvzgrl44Gnmyaf/min 04/15/2025 12:09 AM [facility] LABORATORYO2 TherapyHi-Flow Nasal Cannula-Kacofk2804/15/2025 12:09 AM [facility] LABORATORYSpecimen (Source) Anatomical Location / LateralityCollection Method / VolumeCollection Time Received TimeBlood, VenousBLOOD SPECIMEN / UnknownCentral Line / Unknown 04/14/2025 11:48 PM EDT1 11:58 PM EDT Narrative Authorizing ProviderResult TypeResult StatusEileen Panstares PA-CBLOOD GASES Final ResultPerforming OrganizationAddressCity/State/ZIP CodePhone Number [facility] [phone] * (ABNORMAL) ARTERIAL BLOOD GASES (04/14/2025 10:25 PM EDT)ComponentValueRef RangeTest MethodAnalysis TimePerformed AtPathologist SignaturepH, Arterial7.45 7.35 - 7.451 10:38 PM EDTFBOSTON [facility] FOR W[facility] LABORATORYpCO2, Mbktvpft66(L)36 - 46 mm Hg04/14/2025 10:38 PM EDTFBOSTON HOSPITAL FOR WOM[facility] LABORATORYpO2, Lnjmvquz758(H)85 - 95 mm Hg04/14/2025 10:38 PM EDHOU[facility] LABORATORYBicarbonate, Tdjscywf56(L)22 - 26 mmol/L1 10:38 PM EDHOU[facility] LABORATORYO2 Saturation, Qzmoxfjz023 (H)95 - 98 %04/14/2025 10:38 PM ED[facility] LABORATORYBase Deficit, Arterial-5 (L)-2 - 0 mmol/L1 10:38 PM EDHOU[facility] LABORATORYOxyhemoglobin, Yfcrixko1557 - 98 %04/14/2025 10:38 PM EDTFBOSTON HOSP[facility] FOR W[facility] LABORATORY Carboxyhemoglobin, Arterial1.10.0 - 2.0 %04/14/2025 10:38 PM EDHOU[facility] LABORATORYComment:Carboxyhemoglobin Reference Range for Smokers: 2.0-8.0% Methemoglobin, Arterial0.60.0 - 1.5 %04/14/2025 10:38 PM ED[facility] LABORATORYSodium, Whole Nptbv036(L)136 - 144 mmol/L1 10:38 PM EDT [facility] LABORATORYPotassium, Whole Blood4.23.5 - 5.0 mmol/L1 10:38 PM EDTFBOSTON HOSP[facility] FOR WOM[facility] LABORATORYChloride, Whole Ifwjg31610 - 105 mmol/L1 10:38 PM ED[facility] LABORATORYCalcium Ionized, Whole Blood1.151.08 - 1.30 mmol/L1 10:38 PM EDTFAIRVIEW LABORATORYCalcium Ionized, pH corrected 1.181.08 - 1.30 mmol/L1 10:38 PM EDTFAIRVIEW LABORATORYGlucose, Whole Ikplw224(H)60 - 105 mg/dL04/14/2025 10:38 PM EDTFAIRVIEW LABORATORYLactate2.0 0.5 - 2.2 mmol/L1 10:38 PM EDTFAIRVIEW LABORATORYHemoglobin, Whole Blood14.613.0 - 17.0 g/dL04/14/2025 10:38 PM EDTFAIRVIEW LABORATORYHematocrit, Whole Blood44.839.0 - 51.0 %04/14/2025 10:38 PM EDTFAIRVIEW LABORATORY Temperature, Body37.0C1 10:38 PM EDTFAIRVIEW LLWWVEDWKXWbT645% 04/14/2025 10:38 PM EDTFAIRVIEW LABORATORYPO2 / FIO2 Ibudl722(L)>300 mmHg 04/14/2025 10:38 PM EDTFAIRVIEW JQAMKDFZJWLmjhes16Nsjkzp/min04/14/2025 10:38 PM EDTFAIRVIEW LABORATORYO2 TherapyHi-Flow Nasal Cannula-Szlkpi7204/14/2025 10:38 PM EDTFAIRVIEW LABORATORYSpecimen (Source)Anatomical Location / LateralityCollection Method / VolumeCollection TimeReceived TimeBlood, ArterialBLOOD SPECIMEN / UnknownArterial Line / Whtjnfq4504/14/2025 10:25 PM EDT 04/14/2025 10:32 PM EDT Narrative Authorizing ProviderResult TypeResult StatusEileen Panstares PA-CBLOOD GASES Final ResultPerforming OrganizationAddressCity/State/ZIP CodePhone Number [facility] [address] * (ABNORMAL) ARTERIAL BLOOD GASES (04/14/2025 8:28 PM EDT)ComponentValueRef RangeTest MethodAnalysis TimePerformed AtPathologist SignaturepH, Arterial7.37 7.35 - 7.451 8:40 PM EDTFAIRVIEW LABORATORYpCO2, Bvjqfxsz4262 - 46 mm Hg04/14/2025 8:40 PM EDTFAIRVIEW LABORATORYpO2, Jwreuvlk949(H)85 - 95 mm Hg 04/14/2025 8:40 PM EDTFBOSTON [facility] W[facility] LABORATORYBicarbonate, Taahepku1902 - 26 mmol/L 04/14/2025 8:40 PM EDTFBOSTON HOSPITAL FOR WOM[facility] LABORATORYO2 Saturation, Xnaxipvi7215 - 98 % 04/14/2025 8:40 PM ED[facility] LABORATORYBase Deficit, Arterial-3(L)-2 - 0 mmol/L1 8:40 PM EDTFAIRVIEW LABORATORYOxyhemoglobin, Nvlwjqht1608 - 98 %04/14/2025 8:40 PM EDTFBOSTON HOSPITAL FOR WOM[facility] LABORATORYCarboxyhemoglobin, Arterial1.20.0 - 2.0 %04/14/2025 8:40 PM EDHOU[facility] LABORATORYComment:Carboxyhemoglobin Reference Range for Smokers: 2.0-8.0%Methemoglobin, Arterial0.50.0 - 1.5 % 04/14/2025 8:40 PM ED[facility] LABORATORYSodium, Whole Mgtpl440(L)136 - 144 mmol/L1 8:40 PM ED[facility] LABORATORYPotassium, Whole Blood3.93.5 - 5.0 mmol/L1 8:40 PM ED[facility] LABORATORYChloride, Whole Uknqb31854 - 105 mmol/L1 8:40 PM EDHOU[facility] LABORATORYCalcium Ionized, Whole Blood1.151.08 - 1.30 mmol/L1 8:40 PM ED[facility] LABORATORYCalcium Ionized, pH corrected1.131.08 - 1.30 mmol/L1 8:40 PM EDHOU[facility] LABORATORYGlucose, Whole Orrpf463(H)60 - 105 mg/dL04/14/2025 8:40 PM EDT [facility] LABORATORYLactate2.8(H)0.5 - 2.2 mmol/L1 8:40 PM EDHOU[facility] LABORATORYHemoglobin, Whole Blood14.413.0 - 17.0 g/dL04/14/2025 8:40 PM [facility] LABORATORYHematocrit, Whole Blood44.139.0 - 51.0 %04/14/2025 8:40 PM ED[facility] LABORATORYTemperature, Body37.0C1 8:40 PM EDTFAIRVIEW YDDDWQIIDSJqE136%04/14/2025 8:40 PM EDTFAIRVIEW LABORATORYPO2 / FIO2 Lnhwz421 (L)>300 mmHg04/14/2025 8:40 PM EDTFAIRVIEW DQDHYVCPPGZtccxq49Fkromh/min 04/14/2025 8:40 PM EDTFAIRVIEW LABORATORYO2 TherapyHi-Flow Nasal Cannula-Nndfyb2304/14/2025 8:40 PM EDTFAIRVIEW LABORATORYSpecimen (Source) Anatomical Location / LateralityCollection Method / VolumeCollection Time Received TimeBlood, ArterialBLOOD SPECIMEN / UnknownArterial Line / Unknown 04/14/2025 8:28 PM EDT1 8:33 PM EDT Narrative Authorizing ProviderResult TypeResult StatusDivyajot Abel MDBLOOD GASESFinal ResultPerforming OrganizationAddressCity/State/[facility] CodePhone Number [facility] [phone] [place] [address], * XR CHEST 1V FRONTAL PORT (04/14/2025 8:20 PM EDT)Anatomical RegionLaterality ModalityChestRadiographic ImagingSpecimen (Source)Anatomical Location / LateralityCollection Method / VolumeCollection TimeReceived Time04/14/2025 8:20 PM EDT Impressions 04/14/2025 9:48 PM EDT IMPRESSION: 1. ??Pulmonary artery catheter tip projects proximal main pulmonary artery and is directed antegrade 2. ??Enlargement cardiac silhouette shown on same-day CT to represent predominantly right chamber cardiomegaly, especially right atrial, with contributing small to moderate pericardial effusion predominantly distributed superiorly about the great vessels. 3. ??Preexistent right pleural effusion Deckhand: KEATON ?? Transcribe Date/Time: Apr 14 2025 ??9:37P Dictated by : ALEXANDER MC MD This examination was interpreted and the report reviewed and electronically signed by: ALEXANDER MC MD on Apr 14 2025 ??9:46PM ??EST Narrative 04/14/2025 9:48 PM EDT * * *Final Report* * * DATE OF EXAM: Apr 14 2025 ??8:20PM ?? FVX ?? [id number] ??- ??XR CHEST 1V FRONTAL PORT ??/ PROCEDURE REASON: Evaluate tube, line, ??or lead position ? * * * * Physician Interpretation * * * * EXAMINATION: ??CHEST RADIOGRAPH (PORTABLE SINGLE VIEW AP) Exam Date/Time: ??04/14/2025 8:20 PM CLINICAL HISTORY: Evaluate tube, line, ??or lead position MQ: ??XCPR_5 Comparison: ??Chest radiograph 04/13/2025 time stamped 1640, imported outside institution CT chest PE study 04/13/2025 time stamped 0939 RESULT: Labeled AP portable supine Lines, tubes, and devices: ??New right jugular approach pulmonary artery catheter, tip projecting proximal main pulmonary artery and directed antegrade. ??External devices and artifacts. Lungs and pleura: ??Preexistent right pleural effusion layering dependently in the supine image, producing mild increased density right compared to left hemithorax. ??More distended upper lung veins attributed to supine position. Cardiomediastinal silhouette: ??Similar saccular enlargement cardiac silhouette Other: ??. Procedure Note Provider, [facility] [place] - 04/14/2025 * * *Final Report* * * DATE OF EXAM: Apr 14 2025 8:20PM FVX [id number] - XR CHEST 1V FRONTAL PORT / PROCEDURE REASON: Evaluate tube, line, or lead position * * * * Physician Interpretation * * * * EXAMINATION: CHEST RADIOGRAPH (PORTABLE SINGLE VIEW AP) Exam Date/Time: 04/14/2025 8:20 PM CLINICAL HISTORY: Evaluate tube, line, or lead position MQ: XCPR_5 Comparison: Chest radiograph 04/13/2025 time stamped 1640, imported outside institution CT chest PE study 04/13/2025 time stamped 0939 RESULT: Labeled AP portable supine Lines, tubes, and devices: New right jugular approach pulmonary artery catheter, tip projecting proximal main pulmonary artery and directed antegrade. External devices and artifacts. Lungs and pleura: Preexistent right pleural effusion layering dependently in the supine image, producing mild increased density right compared to left hemithorax. More distended upper lung veins attributed to supine position. Cardiomediastinal silhouette: Similar saccular enlargement cardiac silhouette Other: . IMPRESSION IMPRESSION: 1. Pulmonary artery catheter tip projects proximal main pulmonary artery and is directed antegrade 2. Enlargement cardiac silhouette shown on same-day CT to represent predominantly right chamber cardiomegaly, especially right atrial, with contributing small to moderate pericardial effusion predominantly distributed superiorly about the great vessels. 3. Preexistent right pleural effusion Deckhand: KEATON Transcribe Date/Time: Apr 14 2025 9:37P Dictated by : ALEXANDER MC MD This examination was interpreted and the report reviewed and electronically signed by: ALEXANDER MC MD on Apr 14 2025 9:46PM EST Authorizing ProviderResult TypeResult StatusDivrena Roman MDRAD-PAMAFinal Result * (ABNORMAL) VENOUS BLOOD GASES (04/14/2025 8:15 PM EDT)ComponentValueRef Range Test MethodAnalysis TimePerformed AtPathologist SignaturepH, Venous7.397.32 - 7.421 8:39 PM EDTFAIRVIEW LABORATORYpH, Temp Corrected, Venous 04/14/2025 8:39 PM EDTFAIRVIEW LABORATORYpCO2, Coyhpy23(L)42 - 55 mmHg 04/14/2025 8:39 PM EDTFAIRVIEW LABORATORYpCO2, Temp Corrected, Venous 04/14/2025 8:39 PM EDTFAIRVIEW LABORATORYpO2, Venous<4035 - 45 mmHg04/14/2025 8:39 PM EDTFAIRVIEW LABORATORYpO2, Temp Corrected, Fobbpu4004/14/2025 8:39 PM EDTFAIRVIEW LABORATORYO2 Saturation, Mkhtjm60(L)60 - 85 %04/14/2025 8:39 PM EDTFAIRVIEW LABORATORYBase Deficit, Venous>-1-2 - 0 mmol/L1 8:39 PM EDTFAIRVIEW LABORATORYBicarbonate, [id number] - 28 mmol/L1 8:39 PM EDTFAIRVIEW LABORATORYOxyhemoglobin, Nxddeo93(L)60 - 85 %04/14/2025 8:39 PM EDTFAIRVIEW LABORATORYCarboxyhemoglobin, Venous0.70.0 - 2.0 %04/14/2025 8:39 PM EDTFAIRVIEW LABORATORYComment:Carboxyhemoglobin Reference Range for Smokers: 2.0-8.0%Methemoglobin, Venous0.60.0 - 1.5 %04/14/2025 8:39 PM EDT [facility] LABORATORYSodium, Whole [id number] - 144 mmol/L1 8:39 PM EDTFBOSTON [facility] FOR WOMEN LABORATORYPotassium, Whole Blood3.93.5 - 5.0 mmol/L1 8:39 PM EDTFBANNER PAYSON MEDICAL CENTERVIEW LABORATORYChloride, Whole Fxpmk5207 - 105 mmol/L1 8:39 PM EDTFAIRVIEW LABORATORYCalcium Ionized, Whole Blood1.211.08 - 1.30 mmol/L1 8:39 PM EDTFAIRVIEW LABORATORYCalcium Ionized, pH corrected 1.211.08 - 1.30 mmol/L1 8:39 PM EDTFBOSTON [facility]OS[facility] FOR [facility]OMEN LABORATORYGlucose, Whole Nlkks019(H)60 - 105 mg/dL04/14/2025 8:39 PM EDTFBANNER [facility]YSON [facility]ENTERVIEW LABORATORYLactate1.8 0.5 - 2.2 mmol/L1 8:39 PM EDTFBOSTON HOSP[facility] FOR [facility] LABORATORYHemoglobin, Whole Blood14.413.0 - 17.0 g/dL04/14/2025 8:39 PM EDTFBOSTON HOSPITAL FOR WOMEN LABORATORYHematocrit, Whole Blood44.239.0 - 51.0 %04/14/2025 8:39 PM EDTFBOSTON [facility] Temperature, Body36.7C04/14/2025 8:39 PM EDTFBOSTON HOSP[facility] FOR [facility] XZUGTOWIBUTcQ488% 04/14/2025 8:39 PM EDTFBOSTON HOSPITAL FOR WOMEN IPVTWLPZAUOwkdfe68Iwqsfn/min04/14/2025 8:39 PM EDTFBOSTON HOSPITAL FOR WOMEN LABORATORYO2 TherapyHi-Flow Nasal Cannula-Taunns6704/14/2025 8:39 PM EDTFBOSTON HOSPITAL FOR WOMEN LABORATORYSpecimen (Source)Anatomical Location / Laterality Collection Method / VolumeCollection TimeReceived TimeBlood, VenousBLOOD SPECIMEN / UnknownCentral Line / Xbojxyt4904/14/2025 8:15 PM EDT1 8:28 PM EDT Narrative Authorizing ProviderResult TypeResult StatusEileen Panstares PA-CBLOOD GASES Final ResultPerforming OrganizationAddressCity/State/ZIP CodePhone Number [facility] [phone] [place] [address], [place] * US VASCULAR ACCESS (POC) ICU USE ONLY (04/14/2025 7:21 PM EDT)Specimen (Source)Anatomical Location / LateralityCollection Method / VolumeCollection TimeReceived Time04/14/2025 7:21 PM EDT Narrative Authorizing ProviderResult TypeResult StatusEileen Panstares PA-CIMAGESFinal ResultPerforming OrganizationAddressCity/State/ZIP CodePhone Number [facility] * INSERTION FLOW DIRECTED CATHETER FOR MONITORING, INSERTION FLOW DIRECTED CATHETER FOR MONITORING (04/14/2025 7:14 PM EDT) Narrative Judi Roman MD - 04/14/2025 7:14 PM EDT Judi Roman MD 04/14/2025 10:02 PM PA CATHETER Performed by: Judi Roman MD Authorized by: Judi Roman MD ?? Where was Patient When this Procedure was Performed: Bedside/Unscheduled Procedure Room Informed Consent Consent Obtained: Written [place] Protocol A moment to CARE was completed. SIGN IN Personnel directly involved with the procedure wore the appropriate PPE. Patient/Surrogate Stated/Verified: Patient name, Date of , Relevant allergies and Intended procedure TIME OUT Relevant labs, photos, and/or imaging studies have been reviewed. Intended patient and procedure match source documents. Consent obtained and matches the intended procedure. Correct side/site marked and visible. Medications required for procedure verified. Fire risk assessed and interventions discussed. Pre-Procedure Details: The area was prepped with chlorhexidine (Chloroprep) and allowed to dry. A sterile full body drape was applied following the usual aseptic technique. [facility] Central Line Insertion Checklist, attached to the Central Line- Associated Bloodstream Infection Prevention policy utilized: Yes Medications: Local Anesthesia (see MAR): ??Lidocaine 1% Procedure Details: Indication: ??Monitoring of pulmonary arterial pressures, pulmonary wedge pressure and cardiac output Patient Position: ??Reverse Trendelenburg Site: right internal jugular Insertion Type: ??New stick A thermodilution pulmonary arterial catheter was threaded through a contamination sleeve. ??All ports were flushed with sterile saline solution and transduced to monitor waveforms. ??The balloon was inflated with air to document integrity and the catheter tip was shaken to document waveform transduction. ?? Introducer Details: 10 cm, single-lumen, 8.5 Fr Catheter Size: ??7.5 Beninese, 110 cm The catheter was inserted through the introducer sheath and the balloon was inflated. The catheter was floated with the balloon inflated while monitoring the pressure waveform. ?? The catheter was advanced through the right ventricle into the pulmonary artery to a distance of 48 cm. The balloon was deflated. The contamination sleeve was extended and connected to the introducer sheath. Securement/Dressing: ??Securement device used Wave form: ??PA RA Pressure: 27 RV Pressure: 47/18 PA Pressure: 48/34 PA Mean Pressure: 38 Post-procedure X-ray: ??Pending All catheters, needles, and wires were accounted for and intact Number of attempts: ??1 Post-Procedure Details: Patient Tolerance: Patient tolerated the procedure well with no immediate complications Comments: Unable to wedge because of patient going into [place] when attempting x 2. Authorizing ProviderResult TypeResult StatusDivyajot Sadsumit MDPROCEDUREFinal Result * (ABNORMAL) ARTERIAL BLOOD GASES (04/14/2025 5:30 PM EDT)ComponentValueRef RangeTest MethodAnalysis TimePerformed AtPathologist SignaturepH, Arterial7.37 7.35 - 7.451 5:41 PM EDTFAIRVIEW LABORATORYpCO2, Qdyujhwg25(L)36 - 46 mm Hg04/14/2025 5:41 PM EDTFAIRVIEW LABORATORYpO2, Qkcwiaks104(H)85 - 95 mm Hg04/14/2025 5:41 PM EDTFAIRVIEW LABORATORYBicarbonate, Vwxnscwp06(L)22 - 26 mmol/L1 5:41 PM EDTFAIRVIEW LABORATORYO2 Saturation, Txrlzfrq4189 - 98 %04/14/2025 5:41 PM EDTFAIRVIEW LABORATORYBase Deficit, Arterial-4(L)-2 - 0 mmol/L1 5:41 PM EDTFAIRVIEW LABORATORYOxyhemoglobin, Rxtcrmxh5589 - 98 %04/14/2025 5:41 PM EDTFAIRVIEW LABORATORYCarboxyhemoglobin, Arterial1.30.0 - 2.0 %04/14/2025 5:41 PM EDTFAIRVIEW LABORATORYComment:Carboxyhemoglobin Reference Range for Smokers: 2.0-8.0%Methemoglobin, Arterial0.40.0 - 1.5 % 04/14/2025 5:41 PM EDTFAIRVIEW LABORATORYSodium, Whole Uluqy240(L)136 - 144 mmol/L1 5:41 PM EDTFAIRVIEW LABORATORYPotassium, Whole Blood4.23.5 - 5.0 mmol/L1 5:41 PM EDTFAIRVIEW LABORATORYChloride, Whole Cpjws14964 - 105 mmol/L1 5:41 PM EDTFAIRVIEW LABORATORYCalcium Ionized, Whole Blood1.131.08 - 1.30 mmol/L1 5:41 PM EDTFAIRVIEW LABORATORYCalcium Ionized, pH corrected1.111.08 - 1.30 mmol/L1 5:41 PM EDTFAIRVIEW LABORATORYGlucose, Whole Ldqxz546(H)60 - 105 mg/dL04/14/2025 5:41 PM EDT [facility]ORATORYLactate4.1(H)0.5 - 2.2 mmol/L1 5:41 PM EDTFBOSTON HOSPITAL FOR WOM[facility] LABORATORYHemoglobin, Whole Blood14.413.0 - 17.0 g/dL04/14/2025 5:41 PM EDT [facility]ATORYHematocrit, Whole Blood44.339.0 - 51.0 %04/14/2025 5:41 PM EDTFBOSTON HOSPITAL FOR WOMEN LABORATORYTemperature, Body37.0C1 5:41 PM EDTFBANNER PA[facility]ON [facility]ENTERVIEW UIUNCLTBHBPsZ849%04/14/2025 5:41 PM EDTFAIRVIEW LABORATORYPO2 / FIO2 Qlkeb014 (L)>300 mmHg04/14/2025 5:41 PM EDTFBANNER PA[facility]ON MEDICAL CENTERVIEW UEZNNBHIMAVtkfkg07Mgfvhj/min 04/14/2025 5:41 PM EDTFAIRVIEW LABORATORYO2 TherapyHi-Flow Nasal Cannula-Hekvke2304/14/2025 5:41 PM EDTFBOSTON HOSPITAL FOR WOMEN LABORATORYSpecimen (Source) Anatomical Location / LateralityCollection Method / VolumeCollection Time Received TimeBlood, ArterialBLOOD SPECIMEN / Yviaoxf2004/14/2025 5:30 PM EDT 04/14/2025 5:33 PM EDT Narrative Authorizing ProviderResult TypeResult StatusErica Liddy SENIOR MOBILE APPLICATION DEVELOPER.CNPBLOOD GASESFinal ResultPerforming OrganizationAddressCity/State/ZIP CodePhone Number [facility] [address] [place] [address], * (ABNORMAL) ARTERIAL BLOOD GASES (04/14/2025 4:20 PM EDT)ComponentValueRef RangeTest MethodAnalysis TimePerformed AtPathologist SignaturepH, Arterial7.51 (H)7.35 - 7.451 4:28 PM EDTFAIRVIEW LABORATORYpCO2, Ykirugpn86(L)36 - 46 mm Hg04/14/2025 4:28 PM EDTFAIRVIEW LABORATORYpO2, Uxvtweug35(L)85 - 95 mm Hg04/14/2025 4:28 PM EDTFAIRVIEW LABORATORYBicarbonate, Biyrgeoa90(L)22 - 26 mmol/L1 4:28 PM EDTFAIRVIEW LABORATORYO2 Saturation, Sifvdfex8201 - 98 %04/14/2025 4:28 PM EDTFAIRVIEW LABORATORYBase Deficit, Arterial-4(L)-2 - 0 mmol/L1 4:28 PM EDTFAIRVIEW LABORATORYOxyhemoglobin, Vsrfimke1740 - 98 %04/14/2025 4:28 PM EDTFAIRVIEW LABORATORYCarboxyhemoglobin, Arterial1.40.0 - 2.0 %04/14/2025 4:28 PM EDTFAIRVIEW LABORATORYComment:Carboxyhemoglobin Reference Range for Smokers: 2.0-8.0%Methemoglobin, Arterial0.50.0 - 1.5 % 04/14/2025 4:28 PM EDTFAIRVIEW LABORATORYSodium, Whole Cshgu041(L)136 - 144 mmol/L1 4:28 PM EDTFAIRVIEW LABORATORYPotassium, Whole Blood4.13.5 - 5.0 mmol/L1 4:28 PM EDTFAIRVIEW LABORATORYChloride, Whole Qalug96581 - 105 mmol/L1 4:28 PM EDTFAIRVIEW LABORATORYCalcium Ionized, Whole Blood1.081.08 - 1.30 mmol/L1 4:28 PM EDTFAIRVIEW LABORATORYCalcium Ionized, pH corrected1.141.08 - 1.30 mmol/L1 4:28 PM EDTFAIRVIEW LABORATORYGlucose, Whole Xykdp342(H)60 - 105 mg/dL04/14/2025 4:28 PM EDT [facility]ORATORYLactate3.7(H)0.5 - 2.2 mmol/L1 4:28 PM EDHOU[facility] LABORATORYHemoglobin, Whole Blood14.813.0 - 17.0 g/dL04/14/2025 4:28 PM EDT [facility]ORYHematocrit, Whole Blood45.539.0 - 51.0 %04/14/2025 4:28 PM EDTFBOSTON HOSPITAL FOR W[facility] LABORATORYTemperature, Body37.0C1 4:28 PM EDHOU[facility] TZLCQYEMWZRvU880%04/14/2025 4:28 PM EDTFBOSTON HOSPITAL FOR WOMEN LABORATORYPO2 / FIO2 Zctbz807 (L)>300 mmHg04/14/2025 4:28 PM EDTFBANNER PAYSON MEDICAL CENTERVIEW NISOKHAYTQFeyuqe83Xdmobw/min 04/14/2025 4:28 PM EDHOU[facility] LABORATORYO2 TherapyHi-Flow Nasal Cannula-Jxfkqc7004/14/2025 4:28 PM EDHOU[facility] LABORATORYSpecimen (Source) Anatomical Location / LateralityCollection Method / VolumeCollection Time Received TimeBlood, ArterialBLOOD SPECIMEN / Duwicdo5004/14/2025 4:20 PM EDT 04/14/2025 4:25 PM EDT Narrative Authorizing ProviderResult TypeResult StatusKina Vásquez MD BLOOD GASESFinal ResultPerforming OrganizationAddressCity/State/[facility] CodePhone Number [facility] [phone] * ARTL CATHJ/CANNULJ MNTR/TRANSFUSION SPX PRQ, ARTERIAL LINE (SMARTFORM LINK), ARTL CATHJ/CANNULJ MNTR/TRANSFUSION SPX PRQ (04/14/2025 3:25 PM EDT) Narrative Portia Rhoades APRN.FIELD ADMINISTRATOR - 04/14/2025 3:25 PM EDT Portia Rhoades APRN.CNP 04/14/2025 3:26 PM ART LINE/SHEATH Date/Start Time: 04/14/2025 3:15 PM Date/Stop Time: 04/14/2025 3:25 PM Performed by: Portia Rhoades APRN.CNP Authorized by: Portia Rhoades APRN.CNP ?? Where was Patient When this Procedure was Performed: Bedside/Unscheduled Procedure Room This procedure has been performed by a resident/fellow without an attending's supervision ?? Informed Consent Consent Obtained: Written [place] Protocol A moment to CARE was completed. SIGN IN Sign in communication not applicable due to emergent procedure. Personnel directly involved with the procedure wore the appropriate PPE. Special Equipment: N/A Patient/Surrogate Stated/Verified: Patient name, Date of , Relevant allergies and Intended procedure TIME OUT Relevant labs, photos, and/or imaging studies have been reviewed. Intended patient and procedure match source documents. Consent obtained and matches the intended procedure. Correct side/site marked and visible. Medications required for procedure verified. Fire risk assessed and interventions discussed. No implant(s) inserted. Pre-Procedure Details: The area was prepped with chlorhexidine (Chloroprep) and allowed to dry. A sterile partial body drape was applied following the usual aseptic technique. Medications: None Procedure Details: Indication: ??Monitoring of vital bodily functions and frequent ABGs and labs Arterial Line Type: arterial line Site: right radial Technique: ??Modified Seldinger The vessel was cannulated under direct ultrasound visualization with a 20 gauge catheter. A straight-tipped spring wire was passed into the artery through the indwelling catheter and left in situ while the catheter was advanced. The catheter was left in situ while the guidewire was removed. Arterial Sheath Size: 2.5 Fr Pulsatile blood flow exited the catheter. Securement/Dressing: ??Sterile, transparent, occlusive dressing All catheters, needles, and wires were accounted for and intact Number of attempts: ??1 Successful Placement: ??Yes Post-Procedure Details: Patient Tolerance: Patient tolerated the procedure well with no immediate complications Estimated Blood Loss: scant Specimens Sent: none SIGN OUT No specimen collected. Authorizing ProviderResult TypeResult StatusErica Verona ROPERPROCEDUREFinal Result * (ABNORMAL) ARTERIAL BLOOD GASES (04/14/2025 1:46 PM EDT)ComponentValueRef RangeTest MethodAnalysis TimePerformed AtPathologist SignaturepH, Arterial7.49 (H)7.35 - 7.451 2:10 PM EDTFAIRVIEW LABORATORYpCO2, Fpffoaze71(L)36 - 46 mm Hg04/14/2025 2:10 PM EDTFAIRVIEW LABORATORYpO2, Rrikazby17(L)85 - 95 mm Hg04/14/2025 2:10 PM EDTFAIRVIEW LABORATORYBicarbonate, Hsdvxdka07(L)22 - 26 mmol/L1 2:10 PM EDTFAIRVIEW LABORATORYO2 Saturation, Whplnphh32(L)95 - 98 %04/14/2025 2:10 PM EDTFAIRVIEW LABORATORYBase Deficit, Arterial-4(L)-2 - 0 mmol/L1 2:10 PM EDTFAIRVIEW LABORATORYOxyhemoglobin, Znrcqjly04(L) 95 - 98 %04/14/2025 2:10 PM EDTFAIRVIEW LABORATORYCarboxyhemoglobin, Arterial 0.70.0 - 2.0 %04/14/2025 2:10 PM EDTFAIRVIEW LABORATORYComment: Carboxyhemoglobin Reference Range for Smokers: 2.0-8.0%Methemoglobin, Arterial 0.60.0 - 1.5 %04/14/2025 2:10 PM EDTFAIRVIEW LABORATORYSodium, Whole Bwibc850 (L)136 - 144 mmol/L1 2:10 PM EDTFAIRVIEW LABORATORYPotassium, Whole Blood3.93.5 - 5.0 mmol/L1 2:10 PM EDTFAIRVIEW LABORATORYChloride, Whole Lqxhy44115 - 105 mmol/L1 2:10 PM EDTFAIRVIEW LABORATORYCalcium Ionized, Whole Blood1.121.08 - 1.30 mmol/L1 2:10 PM EDTFAIRVIEW LABORATORYCalcium Ionized, pH corrected1.181.08 - 1.30 mmol/L1 2:10 PM EDTFAIRVIEW LABORATORYGlucose, Whole Weptf080(H)60 - 105 mg/dL04/14/2025 2:10 PM EDTFAIRVIEW LABORATORYLactate4.3(H)0.5 - 2.2 mmol/L1 2:10 PM EDTFAIRVIEW LABORATORYHemoglobin, Whole Blood14.513.0 - 17.0 g/dL04/14/2025 2:10 PM EDTFAIRVIEW LABORATORYHematocrit, Whole Blood44.439.0 - 51.0 % 04/14/2025 2:10 PM EDTFAIRMERCY [facility]ALTH LABORATORYTemperature, Body37.0C1 2:10 PM EDTFAIRVIEW SVVRILOFSREjxhmo8Kysvei/min04/14/2025 2:10 PM EDTFAIRVIEW LABORATORYO2 TherapyNC = Nasal Zwzkrim8304/14/2025 2:10 PM EDTFAIRMERCY HEALTH LABORATORYSpecimen (Source)Anatomical Location / LateralityCollection Method / VolumeCollection TimeReceived TimeBlood, ArterialBLOOD SPECIMEN / Unknown Arterial Puncture / Itlzkql7004/14/2025 1:46 PM EDT1 2:00 PM EDT Narrative Authorizing ProviderResult TypeResult StatusKina Vásquez MD BLOOD GASESFinal ResultPerforming OrganizationAddressCity/State/ZIP CodePhone Number [facility] [address] * (ABNORMAL) LVEF ECHO (04/14/2025 11:46 AM EDT)ComponentValueRef RangeTest MethodAnalysis TimePerformed AtPathologist SignatureLV Ejection Jtoofajw52(A) <52 %[facility] CARDIOLOGYComment: (visual est.) EF > 52 An LV Ejection Fraction of > 50% is normal Specimen (Source)Anatomical Location / LateralityCollection Method / Volume Collection TimeReceived Time04/14/2025 11:46 AM EDT Narrative Authorizing ProviderResult TypeResult StatusKaleb Pepe MDLVEF RESULTS Final ResultPerforming OrganizationAddressCity/State/ZIP CodePhone Number [facility] [address] [place] [address] * ECHO (04/14/2025 11:46 AM EDT)Specimen (Source)Anatomical Location / LateralityCollection Method / VolumeCollection TimeReceived Time04/14/2025 11:46 AM EDT Impressions [facility] - 04/14/2025 4:10 PM EDT CONCLUSIONS: - Technically difficult exam due to body habitus, suboptimal positioning and Pt unable to stay still. - Exam indication: Re-evaluation of known heart failure with a change in clinical status without change in med/diet - The left ventricle is normal in size. There is no left ventricular hypertrophy. Left ventricular systolic function is severely decreased. EF = 15 ?? 5% (visual est.) - The right ventricle is severely dilated. Right ventricular systolic function is severely decreased. - The left atrial cavity is severely dilated. - The right atrial cavity is very severely dilated. - Mild (1+) mitral regurgitation. - There is severe (4+) tricuspid valve regurgitation. - Interventricular septal flattening as well as interatrial septum bowing toward left atrium. - There is evidence of a right to left shunt (likely interatrial) as detected by agitated saline contrast. - Dilated IVC. - RVSP not accurate based on TR jet given the severity of tricuspid regurgitation and elevated RA pressures. - Exam was compared with the prior echocardiographic exam performed on 01/26/2025 report comparison only. * * * Final * * * Narrative [facility] - 04/14/2025 4:10 PM EDT Echocardiography Report: Transthoracic Echo [facility] Date of service: 04/14/2025 11:46:51 AM Ordering physician: KALEB PEPE Exam indication: Re-evaluation of known heart failure with a change in clinical status without change in med/diet Technologist: Eddy Navarrete [facility] Interpreting physician: Estevan Aguilar MD PATIENT: Name: ERIK SANTOS : 1975 Age: 49 years Gender: M History of hypertension, valvular heart disease and PHTN. Primary rhythm: atrial fib. Height: 177.80 cm BSA: 2.06 m?? Weight: 86.18 kg ??BMI: 27.3 kg/m?? Heart rate ? 75 bpm Blood pressure 117/75 mmHg Technically difficult exam due to body habitus, suboptimal positioning and Pt unable to stay still. Color Doppler was utilized to interrogate the cardiac valves assessed and spectral Doppler was utilized to determine the flow velocities and pressure gradients reported in this exam. MEASUREMENTS: ? Value ?Indexed ?Normal Left atrial volume 115 ml (biplane A-L) 56 ml/m Robbie <= 34 LV ID (diastole) ? 5.0 cm (2D) ?2.43 cm/m?? LV ID (systole) ?4.4 cm (2D) ?2.11 cm/m?? IVS, leaflet tips ?1.0 cm (2D) Posterior wall thickness 0.9 cm (2D) Left ventricular mass ?166 g (2D) ? 81 g/m?? Ejection Fraction 15 % (visual est.) EF > 52 FINDINGS: LEFT VENTRICLE The left ventricle is normal in size. There is no left ventricular hypertrophy. Left ventricular systolic function is severely decreased. Left ventricular diastolic function was not evaluated. Wall Motion: The entire anterior wall, entire lateral wall, entire septum, entire apex, and entire inferior wall are severely hypokinetic. RIGHT VENTRICLE The right ventricle is severely dilated. Right ventricular systolic function is severely decreased. Estimated right ventricular systolic pressure is 28 mmHg consistent with normal pulmonary artery pressures (but may be underestimated due to severe TR). Estimated right atrial pressure is 15 mmHg based on IVC assessment. LEFT ATRIUM The left atrial cavity is severely dilated. RIGHT ATRIUM The right atrial cavity is severely dilated. Inferior Vena Cava: The inferior vena cava appears dilated measuring 4.0 cm. The vessel decreases less than 50 percent with inspiration. MITRAL VALVE There is mild (1+) mitral valve regurgitation. TRICUSPID VALVE There is severe (4+) tricuspid valve regurgitation. The hepatic venous pattern showed reversed systolic flow. AORTIC VALVE The aortic valve cusps are structurally normal. There is no aortic valve stenosis. There is no aortic valve regurgitation. Tricuspid aortic valve. There is mild thickening at the tips. PULMONIC VALVE The pulmonic valve was not seen or not interrogated. There is mild (1+) pulmonic valve regurgitation. The peak gradient is 1 mmHg. INTERATRIAL SEPTUM There is evidence of a right to left shunt as detected by agitated saline contrast. INTERVENTRICULAR SEPTUM There is abnormal motion of the interventricular septum. IVS septal flattening. PERICARDIUM There is a trivial pericardial effusion. Authorizing ProviderResult TypeResult StatusBahaadin Al-Jarani MDECHOFinal ResultPerforming OrganizationAddressCity/State/ZIP CodePhone Number [facility] [address] [place] [address] * (ABNORMAL) URINALYSIS (WITH MICROSCOPIC) WITH CULTURE IF INDICATED (04/14/2025 10:35 AM EDT)ComponentValueRef RangeTest MethodAnalysis TimePerformed At Pathologist EmibkkegyHuzqjZrfswwTxxceh65/24/2025 10:56 AM EDHOU[facility] WFOSXLOLOUZpvxccyQqxbgZhtce55/24/2025 10:56 AM ED[facility] LABORATORYGlucose, UrineNegativeTrace, Ucslqrpg07/24/2025 10:56 AM ED[facility] Bilirubin, LewjwLztichwkCvgzufms49/24/2025 10:56 AM [facility] Ketones, UrineNegativeNegative, Trace04/14/2025 10:56 AM [facility] LABORATORYSpecific [place], Ur1.0261.005 - 1.4563804/14/2025 10:56 AM EDT [facility]ORYHemoglobin/Blood,UrNegativeNegative, Trace04/14/2025 10:56 AM [facility] LABORATORYpH, Urine6.05.0 - 8.010 10:56 AM EDHOU[facility] LABORATORYProtein, UrineNegativeTrace, Qdcfvyvq25/24/2025 10:56 AM [facility] VODBEUGGDJQjofzufbcmriVxxqnaEjvssw57/24/2025 10:56 AM [facility]ORY YrhhblqvJgdubgjcHdxipzjm32/24/2025 10:56 AM [facility] LABORATORYLeuk EsteraseNegativeNegative, 25 Smita/uL04/14/2025 10:56 AM [facility] WBC, Urine0-5 /HPF0-5 /HPF04/14/2025 10:56 AM [facility] LABORATORYRBC, Urine 0-3 /HPF0-3 /HPF04/14/2025 10:56 AM [facility] LABORATORYCasts, Hyaline4-10 /LPF(A)0 /LP04/14/2025 10:56 AM [facility] LABORATORYSpecimen (Source) Anatomical Location / LateralityCollection Method / VolumeCollection Time Received TimeUrineMID-STREAM URINE SPECIMEN / UnknownNon Blood / Unknown 04/14/2025 10:35 AM EDT1 10:43 AM EDT Narrative Authorizing ProviderResult TypeResult StatusKaleb Pepe MDLABORATORYFinal ResultPerforming OrganizationAddressCity/State/ZIP CodePhone Number [facility] [address] * (ABNORMAL) TOXICOLOGY SCREEN, ROUTINE URINE (04/14/2025 10:35 AM EDT)Component ValueRef RangeTest MethodAnalysis TimePerformed AtPathologist Signature Amphetamines, UrinePreliminary positive(A)Tabgcqnn13/24/2025 11:02 AM EDT [facility]ORATORYComment:Cutoff threshold at 1000 ng/mL.Barbiturates, Urine GjzoauctDduoomgj79/24/2025 11:02 AM EDHOU[facility] LABORATORYComment:Cutoff threshold at 200 ng/mL.Benzodiazepines, IyjvvIdcmwdkfJjniaghs84/24/2025 11:02 AM ED[facility] LABORATORYComment:Cutoff threshold at 200 ng/mL.Cannabinoids, KedodWqjxubjvLeobogdx53/24/2025 11:02 AM ED[facility] LABORATORYComment:Cutoff threshold at 50 ng/mL.Cocaine, MveivHolzkrsfJsodgula93/24/2025 11:02 AM EDT [facility]ORATORYComment:Cutoff threshold at 300 ng/mL.Ethanol, Urine<11<11 mg/dL04/14/2025 11:02 AM EDTFBOSTON H[facility] FOR WOMEN LABORATORYFentanyl, UrineNegativeNegative 04/14/2025 11:02 AM EDHOU[facility] LABORATORYComment:Cutoff threshold at 5 ng/mL. Opiates, PdxizVcgdnkmtZtoptiso44/24/2025 11:02 AM EDTFBOSTON [facility] Comment:Cutoff threshold at 300 ng/mL.Oxycodone, UrineNegativeNegative 04/14/2025 11:02 AM EDTFBOSTON [facility] FOR WOM[facility] LABORATORYComment:Cutoff threshold at 100 ng/mL.Phencyclidine, DorwjSrxpjlmxXadnmjun61/24/2025 11:02 AM EDTFBOSTON [facility] FOR WOM[facility] LABORATORYComment:Cutoff threshold at 25 ng/mL.Specimen (Source)Anatomical Location / LateralityCollection Method / VolumeCollection TimeReceived Time UrineURINE SPECIMEN / UnknownNon Blood / Rlnoghk1504/14/2025 10:35 AM EDT 04/14/2025 10:44 AM EDT Narrative [facility] - 04/14/2025 11:02 AM EDT Immunoassay screen only. Cross reactivity with other substances can occur with immunoassay screening. Detection of any drug(s) in this urine toxicology panel is presumptive only. These tests are for medical purposes only and should not be used for compliance monitoring, legal, or forensic use. Samples should be within normal physiological conditions (e.g. pH). This assay does not include adulteration/specimen validity testing. In clinical settings, confirmatory testing is at the practitioner's discretion [1]. ??If clinicallyindicated, confirmation by high specificity, quantitative methodology, which includes adulteration/specimen validity testing, may be requested on the same specimen through Client Services ([phone]) if contacted within 48 hours of initial testing. [1]Substance Abuse and Mental Health Services Administration (2012). Clinical Drug Testing in Primary Care Technical Assistance Publication Series 32. Department of Health and Human Services, [place], p.10. Authorizing ProviderResult TypeResult StatusKaleb Pepe MDLABORATORYFinal ResultPerforming OrganizationAddressCity/State/ZIP CodePhone Number [facility] [phone] [place] [address], [place] * [employer] (04/14/2025 5:45 AM EDT)ComponentValueRef RangeTest MethodAnalysis TimePerformed AtPathologist SignaturePhosphorus3.12.7 - 4.8 mg/dL04/14/2025 8:19 AM EDTFAIRMERCY HEALTH LABORATORYSpecimen (Source)Anatomical Location / LateralityCollection Method / VolumeCollection TimeReceived Time BloodBLOOD SPECIMEN / UnknownVenipuncture / Dqojpwu5604/14/2025 5:45 AM EDT 04/14/2025 7:58 AM EDT Narrative Authorizing ProviderResult TypeResult StatusMegan Joshua SENIOR MOBILE APPLICATION DEVELOPER.CNPLABORATORY Final ResultPerforming OrganizationAddressty/State/[place] [address], [place] * MAGNESIUM (04/14/2025 5:45 AM EDT)ComponentValueRef RangeTest MethodAnalysis TimePerformed AtPathologist SignatureMagnesium2.01.7 - 2.3 mg/dL04/14/2025 8:19 AM EDTFAIRVIEW LABORATORYSpecimen (Source)Anatomical Location / LateralityCollection Method / VolumeCollection TimeReceived TimeBloodBLOOD SPECIMEN / UnknownVenipuncture / Lzpzcfo5404/14/2025 5:45 AM EDT1 7:58 AM EDT Narrative Authorizing ProviderResult TypeResult StatusMegan Joshua SENIOR MOBILE APPLICATION DEVELOPER.CNPLABORATORY Final ResultPerforming OrganizationAddressCity/State/ZIP CodePhone Number [facility] [address] [place] [address], * COMPLETE BLOOD COUNT (04/14/2025 5:45 AM EDT)ComponentValueRef RangeTest MethodAnalysis TimePerformed AtPathologist SignatureWBC7.833.70 - 11.00 k/uL 04/14/2025 8:01 AM ED[facility] LABORATORYRBC4.804.20 - 6.00 m/uL04/14/2025 8:01 AM [facility] WTBBAQRRCGXgfhobxlrg41.413.0 - 17.0 g/dL04/14/2025 8:01 AM [facility] JOCGEYQKBSIqbfzliefp93.539.0 - 51.0 %04/14/2025 8:01 AM EDT [facility] LDVMFADFTLASB67.580.0 - 100.0 fL04/14/2025 8:01 AM [facility] IMGCZPYUBRBFO92.926.0 - 34.0 pg04/14/2025 8:01 AM [facility] LABORATORYMCHC 32.330.5 - 36.0 g/dL04/14/2025 8:01 AM [facility] LABORATORYRDW-CV14.611.5 - 15.0 %04/14/2025 8:01 AM [facility] LABORATORYPlatelet Uxswo649534 - 400 k/uL 04/14/2025 8:01 AM [facility] LABORATORYMPV9.59.0 - 12.7 fL04/14/2025 8:01 AM EDHOU[facility] LABORATORYAbsolute nRBC<0.01<0.01 k/uL04/14/2025 8:01 AM EDT [facility] LABORATORYSpecimen (Source)Anatomical Location / LateralityCollection Method / VolumeCollection TimeReceived TimeBloodBLOOD SPECIMEN / Unknown Venipuncture / Tqhrydf2604/14/2025 5:45 AM EDT1 7:47 AM EDT Narrative Authorizing ProviderResult TypeResult StatusMegan Joshua SENIOR MOBILE APPLICATION DEVELOPER.CNPLABORATORY Final ResultPerforming OrganizationAddressCity/State/ZIP CodePhone Number [facility] [address] [place] [address], * (ABNORMAL) COMPREHENSIVE METABOLIC PANEL (04/14/2025 5:45 AM EDT)Component ValueRef RangeTest MethodAnalysis TimePerformed AtPathologist Signature Protein, Total6.0(L)6.3 - 8.0 g/dL04/14/2025 8:19 AM EDTFAIRVIEW LABORATORY Albumin3.5(L)3.9 - 4.9 g/dL04/14/2025 8:19 AM [facility] LABORATORYCalcium, Total8.78.5 - 10.2 mg/dL04/14/2025 8:19 AM EDHOU[facility] LABORATORYBilirubin, Total1.6(H)0.2 - 1.3 mg/dL04/14/2025 8:19 AM EDHOU[facility] LABORATORYAlkaline Bbivgfvwueq4760 - 113 U/L1 8:19 AM EDHARDTNER [facility] AAHNESWIAPMZO80(H)14 - 40 U/L1 8:19 AM EDHARDTNER [facility]ENTERV[facility] RUAPXECDFDJCE29(H)10 - 54 U/L1 8:19 AM EDHOU[facility] BGBTQZUNSDSwdsmgj2489 - 99 mg/dL04/14/2025 8:19 AM EDT [facility] LABORATORYComment: The [place] [employer] (ADA) provides guidance for cutoff values for fasting glucose andrandom glucose. The ADA defines fasting as no caloric intake for at least 8 hours. Fasting plasma glucose results between 100 to 125 mg/dL indicate increased risk for diabetes (prediabetes). Fasting plasma glucose results greater than or equal to 126 mg/dL meet the criteria for diagnosis of diabetes. In the absence of unequivocal hyperglycemia, results should be confirmed by repeat testing. In a patient with classic symptoms of hyperglycemia or hyperglycemic crisis, random plasma glucose results greater than or equal to 200 mg/dL meet the criteria for diagnosis of diabetes. Reference: Standards of Medical Care in Diabetes 2016, [place] [employer]. Diabetes Care. 2016.39(Suppl 1). BUN25(H)9 - 24 mg/dL04/14/2025 8:19 AM EDTFAIRVIEW LABORATORYCreatinine1.180.73 - 1.22 mg/dL04/14/2025 8:19 AM EDTFBOST[facility] MPGQLIVWVABgoahe538892 - 144 mmol/L 04/14/2025 8:19 AM EDTFAIRVIEW LABORATORYPotassium4.03.7 - 5.1 mmol/L1 8:19 AM EDTFAIRMER[facility] YVQWFTANYTMtdlbemj07739 - 107 mmol/L1 8:19 AM EDT [facility] UHLGOVRXICVT07166 - 30 mmol/L1 8:19 AM EDAIRMERCY HEALTH LABORATORY Anion Pnv807 - 15 mmol/L1 8:19 AM EDTFBANNER PAYSON [facility] CENTERVIEW LABORATORYEstimated Glomerular Filtration Rate75>=60 mL/min/1.73m 04/14/2025 8:19 AM EDHOU[facility] LABORATORYComment:Estimated Glomerular Filtration Rate (eGFR) is calculated using the 2020 CKD-EPI creatinine equation. This equation utilizes serum creatinine, sex, and age as parameters. The creatinine assay has traceable calibration to isotope dilution-mass spectrometry. Refer to KDIGO guidelines for clinical interpretation. In patients with unstable renal function, e.g. those with acute kidney injury, the eGFRmay not accurately reflect actual GFR.Specimen (Source)Anatomical Location / LateralityCollection Method / VolumeCollection TimeReceived TimeBloodBLOOD SPECIMEN / Unknown Venipuncture / Oaquznc7604/14/2025 5:45 AM EDT1 7:58 AM EDT Narrative Authorizing ProviderResult TypeResult StatusMegan Joshua SENIOR MOBILE APPLICATION DEVELOPER.CNPLABORATORY Final ResultPerforming OrganizationAddressCity/State/ZIP CodePhone Number [facility] [address] * (ABNORMAL) PROTHROMBIN TIME (04/14/2025 5:45 AM EDT)ComponentValueRef Range Test MethodAnalysis TimePerformed AtPathologist SignaturePT Sec25.1(H)9.7 - 13.0 sec04/14/2025 8:22 AM EDTFAIRMERCY HEALTH LABORATORYINR2.5(H)0.9 - 1.310/ 8:22 AM EDTFAIRVIEW LABORATORYComment: Vitamin K Antagonist (VKA) Therapeutic Range: INR 2 to 3 (Target INR of 2.5) Note: For patients treated with VKA drugs, such as warfarin, the [place] [employer] 2012 Guideline recommends a therapeutic INR range of 2 to 3 (target INR of 2.5). This recommendation includes high-risk patients with antiphospholipid syndrome with previous arterial or venous thromboembolism, current-generation mechanical or bioprosthetic aortic heart valve replacement. Note: Patients with mechanical aortic valve replacement and additional risk factors for thromboembolic events (atrial fibrillation, previous thromboembolism, LV dysfunction, hypercoagulable conditions) or an older generation mechanical AVR (i.e., ball in-Cage) or any mechanical MVR should have a INR therapeutic range of 2.5 to 3.5 (target INR of 3). Edy VIRAMONTES, et al. Chest 2012, 141:7S-47S Mark RA, et al. JACC 2017, 70: 252-289 Specimen (Source)Anatomical Location / LateralityCollection Method / Volume Collection TimeReceived TimeBloodBLOOD SPECIMEN / UnknownVenipuncture / Unknown 04/14/2025 5:45 AM EDT1 7:46 AM EDT Narrative Authorizing ProviderResult TypeResult StatusKina Vásquez MD LABORATORYFinal ResultPerforming OrganizationAddressCity/State/ZIP CodePhone Number [facility] [address] * (ABNORMAL) VENOUS BLOOD GASES (04/13/2025 10:50 PM EDT)ComponentValueRef Range Test MethodAnalysis TimePerformed AtPathologist SignaturepH, Venous7.44(H)7.32 - 7.421 10:57 PM EDTFAIRVIEW LABORATORYpH, Temp Corrected, Venous 04/13/2025 10:57 PM EDTFAIRVIEW LABORATORYpCO2, Xxosuq80(L)42 - 55 mmHg 04/13/2025 10:57 PM EDTFAIRVIEW LABORATORYpCO2, Temp Corrected, Venous 04/13/2025 10:57 PM EDTFAIRVIEW LABORATORYpO2, Ybwmso87(H)35 - 45 mmHg 04/13/2025 10:57 PM EDTFAIRVIEW LABORATORYpO2, Temp Corrected, Venous 04/13/2025 10:57 PM EDHOU[facility] LABORATORYO2 Saturation, Yuzijc74(H)60 - 85 % 04/13/2025 10:57 PM EDHOU[facility] LABORATORYBase Deficit, Venous>-1-2 - 0 mmol/L 04/13/2025 10:57 PM EDHOU[facility] LABORATORYBicarbonate, Hgngnx60(L)24 - 28 mmol/L1 10:57 PM EDHOU[facility] OF [facility] LABORATORYOxyhemoglobin, Cqlvds14(H)60 - 85 %04/13/2025 10:57 PM EDHOU[facility] OF [facility] LABORATORYCarboxyhemoglobin, Venous1.90.0 - 2.0 %04/13/2025 10:57 PM [facility] LABORATORYComment:Carboxyhemoglobin Reference Range for Smokers: 2.0-8.0%Methemoglobin, Venous0.60.0 - 1.5 % 04/13/2025 10:57 PM EDHOUSE OF [facility] LABORATORYSodium, Whole Ootzb479686 - 144 mmol/L1 10:57 PM [facility] LABORATORYPotassium, Whole Blood3.63.5 - 5.0 mmol/L1 10:57 PM EDHOU[facility] LABORATORYChloride, Whole Safai549 97 - 105 mmol/L1 10:57 PM [facility] LABORATORYCalcium Ionized, Whole Blood1.141.08 - 1.30 mmol/L1 10:57 PM EDHOU[facility] Calcium Ionized, pH corrected1.171.08 - 1.30 mmol/L1 10:57 PM [facility] LABORATORYGlucose, Whole Bxumx939(H)60 - 105 mg/dL04/13/2025 10:57 PM EDHOU[facility] LABORATORYLactate1.80.5 - 2.2 mmol/L1 10:57 PM [facility] LABORATORYHemoglobin, Whole Blood13.813.0 - 17.0 g/dL04/13/2025 10:57 PM [facility] LABORATORYHematocrit, Whole Blood42.439.0 - 51.0 %04/13/2025 10:57 PM [facility] LABORATORYTemperature, Body0.0C1 10:57 PM EDT [facility] LABORATORYO2 TherapyOther - See dkgswdz9804/13/2025 10:57 PM EDT [facility] LABORATORYSpecimen (Source)Anatomical Location / LateralityCollection Method / VolumeCollection TimeReceived TimeBlood, VenousBLOOD SPECIMEN / UnknownCentral Line / Fhqknom1504/13/2025 10:50 PM EDT1 10:54 PM EDT Narrative Authorizing ProviderResult TypeResult StatusKaleb Pepe MDBLOOD GASES Final ResultPerforming OrganizationAddressCity/State/ZIP CodePhone Number [facility] [address] [place] [id number], * STAPHYLOCOCCUS AUREUS & MRSA SCREEN, PCR, NASAL (04/13/2025 9:33 PM EDT) ComponentValueRef RangeTest MethodAnalysis TimePerformed AtPathologist SignatureStaphylococcus aureus DNANot DetectedNot Detected CEPHEID GENEXPERT COVID19 04/14/2025 4:39 AM EDTCST. [facility] LABSpecimen (Source)Anatomical Location / LateralityCollection Method / VolumeCollection TimeReceived TimeSwab POSTERIOR NARES / UnknownNon Blood / Qxxmxtd2604/13/2025 9:33 PM EDT1 9:38 PM EDT Narrative Authorizing ProviderResult TypeResult StatusKina Vásquez MD LABORATORYFinal ResultPerforming OrganizationAddressCity/State/ZIP CodePhone Number [facility] [address] [place] [address], * (ABNORMAL) PROTHROMBIN TIME (04/13/2025 9:03 PM EDT)ComponentValueRef Range Test MethodAnalysis TimePerformed AtPathologist SignaturePT Sec26.1(H)9.7 - 13.0 sec04/13/2025 9:47 PM EDTFAIRVIEW LABORATORYINR2.6(H)0.9 - 1.310 9:47 PM EDTFBANNER PAYSON MEDICAL CENTERVIEW LABORATORYComment: Vitamin K Antagonist (VKA) Therapeutic Range: INR 2 to 3 (Target INR of 2.5) Note: For patients treated with VKA drugs, such as warfarin, the [place] [employer] 2012 Guideline recommends a therapeutic INR range of 2 to 3 (target INR of 2.5). This recommendation includes high-risk patients with antiphospholipid syndrome with previous arterial or venous thromboembolism, current-generation mechanical or bioprosthetic aortic heart valve replacement. Note: Patients with mechanical aortic valve replacement and additional risk factors for thromboembolic events (atrial fibrillation, previous thromboembolism, LV dysfunction, hypercoagulable conditions) or an older generation mechanical AVR (i.e., ball in-Cage) or any mechanical MVR should have a INR therapeutic range of 2.5 to 3.5 (target INR of 3). Edy VIRAMONTES, et al. Chest 2012, 141:7S-47S Mark RA, et al. JACC 2017, 70: 252-289 Specimen (Source)Anatomical Location / LateralityCollection Method / Volume Collection TimeReceived TimeBloodBLOOD SPECIMEN / UnknownVenipuncture / Unknown 04/13/2025 9:03 PM EDT1 9:14 PM EDT Narrative Authorizing ProviderResult TypeResult StatusKina Vásquez MD LABORATORYFinal ResultPerforming OrganizationAddressCity/State/ZIP CodePhone Number [facility] [address] * (ABNORMAL) HEPATIC FUNCTION PNL (04/13/2025 9:03 PM EDT)ComponentValueRef RangeTest MethodAnalysis TimePerformed AtPathologist SignatureAlbumin3.6(L)3.9 - 4.9 g/dL04/13/2025 9:47 PM EDTFAIRVIEW LABORATORYBilirubin, Total1.5(H)0.2 - 1.3 mg/dL04/13/2025 9:47 PM EDTFAIRVIEW LABORATORYBilirubin, Direct0.6(H) <0.3 mg/dL04/13/2025 9:47 PM EDTFAIRVIEW LABORATORYAlkaline Tfmnhsazfkg48456 - 113 U/L1 9:47 PM EDTFAIRVIEW EVAAKUXYDCGNM74(H)14 - 40 U/L1 9:47 PM EDTFAIRVIEW LBUIYVNOETZPE92(H)10 - 54 U/L1 9:47 PM EDT [facility] LABORATORYProtein, Total5.9(L)6.3 - 8.0 g/dL04/13/2025 9:47 PM EDT [facility] LABORATORYSpecimen (Source)Anatomical Location / LateralityCollection Method / VolumeCollection TimeReceived TimeBloodBLOOD SPECIMEN / Unknown Venipuncture / Fdpekdo3604/13/2025 9:03 PM EDT1 9:14 PM EDT Narrative Authorizing ProviderResult TypeResult StatusKaleb Pepe MDLABORATORYFinal ResultPerforming OrganizationAddressCity/State/ZIP CodePhone Number [facility] [phone] [place] [address], * ACTIVATED PARTIAL THROMBOPLASTIN TIME (04/13/2025 9:03 PM EDT)ComponentValue Ref RangeTest MethodAnalysis TimePerformed AtPathologist XyjhragvoAFJG50.923.0 - 32.4 sec04/13/2025 9:47 PM EDTFBOSTON [facility] FOR [facility] LABORATORYSpecimen (Source) Anatomical Location / LateralityCollection Method / VolumeCollection Time Received TimeBloodBLOOD SPECIMEN / UnknownVenipuncture / Pszqfvp0104/13/2025 9:03 PM EDT1 9:14 PM EDT Narrative [facility] - 04/13/2025 9:47 PM EDT Unfractionated Heparin Therapeutic Ranges: Standard Heparin Nomogram: 53 to 78 seconds (anti-Xa level of 0.3 to 0.7 U/ml) Low Dose/ACS Nomogram: 49 to 67 seconds (anti-Xa level of 0.2 to 0.5 U/ml) Stroke Treatment Nomogram: 49 to 67 seconds (anti-Xa level of 0.2 to 0.5 U/ml) Note: The APTT therapeutic range has been determined for the current lot of laboratory APTT reagentin use throughout the [facility]. Authorizing ProviderResult TypeResult StatusKaleb Pepe MDLABORATORYFinal ResultPerforming OrganizationAddressty/State/[place] [address], * (ABNORMAL) HIGH SENSITIVITY TROPONIN T (04/13/2025 9:03 PM EDT)ComponentValue Ref RangeTest MethodAnalysis TimePerformed AtPathologist SignatureTNT High Ilbbqlhkthm22(H)<12 ng/L1 9:45 PM EDTFAIRVIEW LABORATORYSpecimen (Source)Anatomical Location / LateralityCollection Method / VolumeCollection TimeReceived TimeBloodBLOOD SPECIMEN / UnknownVenipuncture / Mrpcjul3104/13/2025 9:03 PM EDT1 9:14 PM EDT Narrative Authorizing ProviderResult TypeResult StatusMegan Joshua SENIOR MOBILE APPLICATION DEVELOPER.CNPLABORATORY Final ResultPerforming OrganizationAddressCity/State/[place] [address], * (ABNORMAL) NT PRO BNP (04/13/2025 9:03 PM EDT)ComponentValueRef RangeTest MethodAnalysis TimePerformed AtPathologist SignatureNT Pro BNP4,052(H)<125 pg/mL04/13/2025 9:47 PM EDTFAIRVIEW LABORATORYSpecimen (Source)Anatomical Location / LateralityCollection Method / VolumeCollection TimeReceived Time BloodBLOOD SPECIMEN / UnknownVenipuncture / Osbdnkc1204/13/2025 9:03 PM EDT 04/13/2025 9:14 PM EDT Narrative Authorizing ProviderResult TypeResult StatusMegan Joshua SENIOR MOBILE APPLICATION DEVELOPER.CNPLABORATORY Final ResultPerforming OrganizationAddressCity/State/[place] [address], [place] * PHOSPHORUS INORGANIC (04/13/2025 9:03 PM EDT)ComponentValueRef RangeTest MethodAnalysis TimePerformed AtPathologist SignaturePhosphorus3.62.7 - 4.8 mg/dL04/13/2025 9:43 PM EDTFAIRVIEW LABORATORYSpecimen (Source)Anatomical Location / LateralityCollection Method / VolumeCollection TimeReceived Time BloodBLOOD SPECIMEN / UnknownVenipuncture / Bczsgdv8204/13/2025 9:03 PM EDT 04/13/2025 9:14 PM EDT Narrative Authorizing ProviderResult TypeResult StatusMegan Joshua SENIOR MOBILE APPLICATION DEVELOPER.CNPLABORATORY Final ResultPerforming OrganizationAddressCity/State/[place] [address], * MAGNESIUM (04/13/2025 9:03 PM EDT)ComponentValueRef RangeTest MethodAnalysis TimePerformed AtPathologist SignatureMagnesium1.81.7 - 2.3 mg/dL04/13/2025 9:47 PM EDTFAIRVIEW LABORATORYSpecimen (Source)Anatomical Location / LateralityCollection Method / VolumeCollection TimeReceived TimeBloodBLOOD SPECIMEN / UnknownVenipuncture / Axaafdn6304/13/2025 9:03 PM EDT1 9:14 PM EDT Narrative Authorizing ProviderResult TypeResult StatusMegan Joshua SENIOR MOBILE APPLICATION DEVELOPER.CNPLABORATORY Final ResultPerforming OrganizationAddressCity/State/ZIP CodePhone Number [facility] [address] * COMPLETE BLOOD COUNT (04/13/2025 9:03 PM EDT)ComponentValueRef RangeTest MethodAnalysis TimePerformed AtPathologist SignatureWBC9.683.70 - 11.00 k/uL 04/13/2025 9:33 PM EDTFBOSTON HOSPITAL FOR W[facility] LABORATORYRBC4.974.20 - 6.00 m/uL04/13/2025 9:33 PM EDTFAIRMERCY HEALTH CFLKOXENYRHwrnadskzp61.913.0 - 17.0 g/dL04/13/2025 9:33 PM EDTFBOSTON HOSP[facility] FOR [facility] PTNGGADYYKIqxrqguned82.939.0 - 51.0 %04/13/2025 9:33 PM EDT [facility] NKKESUNFRCRTD54.380.0 - 100.0 fL04/13/2025 9:33 PM EDTFBOSTON HOSP[facility] FOR [facility] XCHSTTFETGJPU89.026.0 - 34.0 pg04/13/2025 9:33 PM EDTFBOSTON HOSPITAL FOR WOM[facility] LABORATORYMCHC 32.430.5 - 36.0 g/dL04/13/2025 9:33 PM EDTFBOSTON HOSPITAL FOR WOMEN LABORATORYRDW-CV14.511.5 - 15.0 %04/13/2025 9:33 PM EDTFAIRMERCY HEALTH LABORATORYPlatelet Rijax982153 - 400 k/uL 04/13/2025 9:33 PM EDTFAIRMERCY HEALTH LABORATORYMPV9.79.0 - 12.7 fL04/13/2025 9:33 PM EDTFAIRMERCY HEALTH LABORATORYAbsolute nRBC<0.01<0.01 k/uL04/13/2025 9:33 PM EDT [facility] LABORATORYSpecimen (Source)Anatomical Location / LateralityCollection Method / VolumeCollection TimeReceived TimeBloodBLOOD SPECIMEN / Unknown Venipuncture / Rgjfvek3204/13/2025 9:03 PM EDT1 9:14 PM EDT Narrative Authorizing ProviderResult TypeResult StatusMegan Joshua SENIOR MOBILE APPLICATION DEVELOPER.CNPLABORATORY Final ResultPerforming OrganizationAddressCity/State/ZIP CodePhone Number [facility] [address] * (ABNORMAL) BASIC METABOLIC PANEL (04/13/2025 9:03 PM EDT)ComponentValueRef RangeTest MethodAnalysis TimePerformed AtPathologist EltnasnpfZtajaut724(H)74 - 99 mg/dL04/13/2025 9:47 PM EDTFAIRVIEW LABORATORYComment: The [place] [employer] (ADA) provides guidance for cutoff values for fasting glucose andrandom glucose. The ADA defines fasting as no caloric intake for at least 8 hours. Fasting plasma glucose results between 100 to 125 mg/dL indicate increased risk for diabetes (prediabetes). Fasting plasma glucose results greater than or equal to 126 mg/dL meet the criteria for diagnosis of diabetes. In the absence of unequivocal hyperglycemia, results should be confirmed by repeat testing. In a patient with classic symptoms of hyperglycemia or hyperglycemic crisis, random plasma glucose results greater than or equal to 200 mg/dL meet the criteria for diagnosis of diabetes. Reference: Standards of Medical Care in Diabetes 2016, [place] [employer]. Diabetes Care. 2016.39(Suppl 1). BUN27(H)9 - 24 mg/dL04/13/2025 9:47 PM EDTFAIRVIEW LABORATORYCreatinine1.34(H) 0.73 - 1.22 mg/dL04/13/2025 9:47 PM EDTFAIRVIEW WOJJIDCEOWNhdohm002739 - 144 mmol/L1 9:47 PM EDTFAIRVIEW LABORATORYPotassium3.73.7 - 5.1 mmol/L 04/13/2025 9:47 PM EDTFAIRVIEW WLUFSDGMAFVhucwyub1155 - 107 mmol/L1 9:47 PM EDTFAIRVIEW GCKCLGPXTDQG86224 - 30 mmol/L1 9:47 PM EDTFAIRVIEW LABORATORYAnion Jki255 - 15 mmol/L1 9:47 PM EDTFAIRVIEW LABORATORY Calcium, Total8.98.5 - 10.2 mg/dL04/13/2025 9:47 PM EDTFAIRVIEW LABORATORY Estimated Glomerular Filtration Rate65>=60 mL/min/1.73m 04/13/2025 9:47 PM EDTFAIRVIEW LABORATORYComment:Estimated Glomerular Filtration Rate (eGFR) is calculated using the 2020 CKD-EPI creatinine equation. This equation utilizes serum creatinine, sex, and age as parameters. The creatinine assay has traceable calibration to isotope dilution-mass spectrometry. Refer to KDIGO guidelines for clinical interpretation. In patients with unstable renal function, e.g. those with acute kidney injury, the eGFRmay not accurately reflect actual GFR.Specimen (Source)Anatomical Location / LateralityCollection Method / VolumeCollection TimeReceived TimeBloodBLOOD SPECIMEN / Unknown Venipuncture / Qpuiuym6404/13/2025 9:03 PM EDT1 9:14 PM EDT Narrative Authorizing ProviderResult TypeResult StatusMegan Joshua SENIOR MOBILE APPLICATION DEVELOPER.CNPLABORATORY Final ResultPerforming OrganizationAddressCity/State/[place] [address], * XR CHEST 1V FRONTAL PORT (04/13/2025 8:07 PM EDT)Anatomical RegionLaterality ModalityChestRadiographic ImagingSpecimen (Source)Anatomical Location / LateralityCollection Method / VolumeCollection TimeReceived Time04/13/2025 8:07 PM EDT Impressions 04/13/2025 8:30 PM EDT IMPRESSION: As above. Deckhand: ANALILIAB ?? Transcribe Date/Time: Apr 13 2025 ??8:26P Dictated by : RODDY HALL MD This examination was interpreted and the report reviewed and electronically signed by: RODDY HALL MD on Apr 13 2025 ??8:28PM ??EST Narrative 04/13/2025 8:30 PM EDT * * *Final Report* * * DATE OF EXAM: Apr 13 2025 ??8:07PM ?? FVX ?? [id number] ??- ??XR CHEST 1V FRONTAL PORT ??/ PROCEDURE REASON: Hypoxemia ? * * * * Physician Interpretation * * * * EXAMINATION: ??CHEST RADIOGRAPH (PORTABLE SINGLE VIEW AP) Exam Date/Time: ??04/13/2025 8:07 PM CLINICAL HISTORY: Hypoxemia MQ: ??XCPR_5 Comparison: ??Chest x-ray dated 01/31/2025. RESULT: Multiple overlying electrode leads. Minimal bibasilar streak atelectasis or scarring. No pleural effusion. Global cardiomegaly and/or pericardial effusion. Stable appearing visualized bones. Procedure Note Provider, [facility] - 04/13/2025 * * *Final Report* * * DATE OF EXAM: Apr 13 2025 8:07PM FVX [id number] - XR CHEST 1V FRONTAL PORT / PROCEDURE REASON: Hypoxemia * * * * Physician Interpretation * * * * EXAMINATION: CHEST RADIOGRAPH (PORTABLE SINGLE VIEW AP) Exam Date/Time: 04/13/2025 8:07 PM CLINICAL HISTORY: Hypoxemia MQ: XCPR_5 Comparison: Chest x-ray dated 01/31/2025. RESULT: Multiple overlying electrode leads. Minimal bibasilar streak atelectasis or scarring. No pleural effusion. Global cardiomegaly and/or pericardial effusion. Stable appearing visualized bones. IMPRESSION IMPRESSION: As above. Deckhand: KEATON Transcribe Date/Time: Apr 13 2025 8:26P Dictated by : RODDY HALL MD This examination was interpreted and the report reviewed and electronically signed by: RODDY HALL MD on Apr 13 2025 8:28PM EST Authorizing ProviderResult TypeResult StatusBahaadin Lucas-Ike MDRAD-PAMAFinal Result documented in this encounter Visit Diagnoses Diagnosis Acute right ventricular heart failure (HCC)- Primary Acute hypoxic respiratory failure (HCC) Acute on chronic systolic congestive heart failure (HCC) Acute on chronic systolic heart failure Acute right-sided heart failure (HCC) Congestive heart failure, unspecified Acute right ventricular heart failure (HCC) Biventricular heart failure (HCC) Congestive heart failure, unspecified Acute hypoxic respiratory failure (HCC) Acute on chronic systolic congestive heart failure (HCC) Acute on chronic systolic heart failure Right ventricular dysfunction Heart disease, unspecified Elevated LFTs Other abnormal blood chemistry Methamphetamine use Nondependent amphetamine or related acting sympathomimetic abuse, unspecified Shock circulatory (HCC) Shock, unspecified [place] (acute kidney injury) (HCC) Acute kidney failure, unspecified Methamphetamine abuse (HCC) Nondependent amphetamine or related acting sympathomimetic abuse, unspecified documented in this encounter Admitting Diagnoses Diagnosis Acute right ventricular heart failure (HCC) documented in this encounter Administered Medications Medication OrderMAR ActionAction DateDoseRateSite aluminum-magnesium hydroxide-simethicone 200-200-20 mg/5 mL 30 mL 30 mL, ORAL, EVERY 6 HOURS NEEDED, Starting on Thu04/14/25 at 1418, Until Discontinued, GI upset, SHAKE WELL Given04/14/2025 2:26 PM EDT30 mL amiodarone 200 mg tab(s) (PACERONE) 200 mg, ORAL, DAILY, First dose on Thu04/16/25 at 1000, Until Discontinued Given04/17/2025 8:38 AM [id number] stEnasd4004/16/2025 11:16 AM LLE978 mg empagliflozin 10 mg tab(s) (JARDIANCE) 10 mg, ORAL, DAILY, First dose on Thu04/17/25 at 1100, Until Discontinued Given04/17/2025 10:14 AM EDT10 mg enoxaparin 90 mg injection (LOVENOX) 90 mg (rounded from 85.6 mg = 1 mg/kg/dose ?? 85.6 kg), SUBCUTANEOUS, EVERY 12 HOURS, First dose onThu04/17/25 at 2100, Until Discontinued epoprostenol INHALATION 1.5 mg in NaCl 0.9% 50 mL syringe (VELETRI) 0.01-0.05 mcg/kg/min ?? 73 kg [place] weight (1.46-7.3 mL/hr), INHALATION, CONTINUOUS, Starting on Thu04/14/25 at 1630, Until Discontinued, Administer per ICU INHALED Epoprostenol RT Protocol. Must beadministered by Respiratory Therapy Only. Refrigerate. Protect From Light. New Bag/Syringe/Wbyxqk9104/17/2025 7:19 AM EDT0.05 mcg/kg/min7.3 mL/hrNew Bag/Syringe/Zmnyrs1304/17/2025 2:19 AM EDT0.05 mcg/kg/min7.3 mL/hrRate/Dose Change 04/17/2025 12:46 AM EDT0.05 mcg/kg/min7.3 mL/hr melatonin 9 mg tab(s) 9 mg, ORAL, AT BEDTIME NEEDED, Starting on Thu04/16/25 at 2024, Until Discontinued, insomnia Given04/16/2025 8:36 PM EDT9 mg NaCl 0.9% iv flush bag 20 mL, INTRAVENOUS, NEEDED, Starting on Thu04/13/25 at 2225, Until Discontinued, See admin instructions, If no compatible primary is already running, infuse NaCl 0.9% as primary to flush tubing after non-chemotherapy, non-immunotherapy intermittent infusions. Administer at the same rate as inter mittent infusion. Select the Flush Bag file on smart pump. perflutren lipid microspheres 1.1 mg/mL 1.3 mL injection (DEFINITY) 1.3 mL, INTRAVENOUS, DIRECTED NEEDED, 1 dose, Starting on Thu04/13/25 at 1936, Until Thu04/18/25 at 0000, Per Protocol - for use during ECHO procedure only, Perflutren must be activated priorto administration. Once activated: 1. Diluted IV Bolus: Dilute 1.3 mL of Definity?? with 8.7 mL of preservative-free saline 2. Undiluted IV Bolus: Administer undiluted Definity?? followed by a preservative-free 10 mL saline flush. polyethylene glycol 3350 17 g packet 17 g, ORAL, DAILY, First dose on Thu04/17/25 at 0900, Until Discontinued, Mix powder in 240 ml (8 oz) of water before admin. NOTE: 1 packet=1 tablespoonful=1 capful Given04/17/2025 8:38 AM EDT17 g prochlorperazine 10 mg injection (COMPAZINE) 10 mg, INTRAVENOUS, EVERY 6 HOURS NEEDED, Starting on Thu04/14/25 at 2023, Until Discontinued, Nausea/Vomiting - First Line - Parenteral, Protect From Light Given04/14/2025 8:32 PM EDT10 mg sennosides 8.8 mg oral liquid (SENNA) 8.8 mg, ORAL, AT BEDTIME, First dose on Thu04/17/25 at 2100, Until Discontinued sildenafil 80 mg tab(s) (REVATIO) 80 mg, ORAL, 3 TIMES DAILY, First dose (after last modification) on Thu04/15/25 at 0800, Until Discontinued, Contact LIP if dose is held. Given04/17/2025 8:37 AM EDT80 ukFwxxd8704/16/2025 8:36 PM EDT80 obTbzbt2304/16/2025 2:12 PM EDT80 mg sodium chloride 0.9 % (flush) 2-10 mL (BD POSIFLUSH) 2-10 mL, INTRAVENOUS, DIRECTED NEEDED, 1 dose, Starting on Thu04/13/25 at 1936, Until Thu04/18/25 at 0000, Per Protocol - for use during ECHO procedure only Medication OrderMAR ActionAction DateDoseRateSite amiodarone 150 mg in D5W 100 mL bolus standalone bag (NEXTERONE) 150 mg, INTRAVENOUS, at 600 mL/hr, Administer over 10 Minutes, ONCE, 1 dose, On Thu04/14/25 at 0930, Obtain dose from Automated Dispensing System, or contact pharmacy for dose if more than one medication is running through line (exception: IV fluids) Administer with 0.2 micron filter. New Bag/Syringe/Ousqhu6604/14/2025 9:39 AM UBH345 mg600 mL/hr amiodarone 150 mg in D5W 100 mL bolus standalone bag (NEXTERONE) 150 mg, INTRAVENOUS, at 600 mL/hr, Administer over 10 Minutes, ONCE, 1 dose, On Thu04/14/25 at 0930, Obtain dose from Automated Dispensing System, or contact pharmacy for dose if more than one medication is running through line (exception: IV fluids) Administer with 0.2 micron filter. New Bag/Syringe/Tofxzi2804/14/2025 9:36 AM VCU694 mg600 mL/hr amiodarone 200 mg tab(s) (PACERONE) 200 mg, ORAL, DAILY, First dose on Thu04/13/25 at 2100, Until Discontinued Given04/14/2025 8:31 AM RLH579 kaLptlt0804/13/2025 9:25 PM LKK192 mg amiodarone iv infusion 360 mg in D5W 200 mL (NEXTERONE) 1 mg/min (33.3333 mL/hr, rounded to 33.33 mL/hr), INTRAVENOUS, CONTINUOUS, Starting on Thu04/14/25at 0930, Until Thu04/14/25 at 1529, Administer with 0.2 micron filter. New Bag/Syringe/Vpmuow5404/14/2025 9:52 AM EDT1 mg/min33.33 mL/hr amiodarone iv infusion 360 mg in D5W 200 mL (NEXTERONE) 0.5 mg/min (16.6667 mL/hr, rounded to 16.67 mL/hr), INTRAVENOUS, CONTINUOUS, Starting on Thu04/14/25 at 1530, Until Thu04/16/25 at 0935, Administer with 0.2 micron filter. Rate Atzhks1704/16/2025 7:30 AM EDT0.5 mg/min16.67 mL/hrNew Bag/Syringe/Bottle 04/16/2025 6:32 AM EDT0.5 mg/min16.67 mL/hrNew Bag/Syringe/Sutytw3904/15/2025 9:04 PM EDT0.5 mg/min16.67 mL/hr chlorothiazide 500 mg injection (DIURIL) 500 mg, INTRAVENOUS, ONCE, 1 dose, On Thu04/14/25 at 1830, Reconstitute 500 mg with 18 mL of SWFI.Final Concentration = 28 mg/mL Given04/14/2025 6:41 PM LAS805 mg fentaNYL 50 mcg/mL 25 mcg injection (SUBLIMAZE) 25 mcg, INTRAVENOUS, ONCE, 1 dose, On Thu04/14/25 at 1530 Given04/14/2025 3:11 PM EDT25 mcg furosemide 100 mg injection (LASIX) 100 mg, INTRAVENOUS, ONCE, 1 dose, On Thu04/14/25 at 1830 Given04/14/2025 6:39 PM SUK978 mg furosemide 100 mg injection (LASIX) 100 mg, INTRAVENOUS, ONCE, 1 dose, On Thu04/17/25 at 0930 Given04/17/2025 10:14 AM JQQ322 mg furosemide 120 mg injection (LASIX) 120 mg, INTRAVENOUS, 2 TIMES DAILY 9AM/5PM, First dose on Thu04/16/25 at 1000, Until Discontinued Given04/16/2025 11:16 AM JXL458 mg furosemide 40 mg injection (LASIX) 40 mg, INTRAVENOUS, ONCE, 1 dose, On Lianne 04/13/25 at 2100 Given04/13/2025 9:25 PM EDT40 mg furosemide 500 mg in empty container, plastic bag 50 mL (LASIX) 10 mg/hr (1 mL/hr), INTRAVENOUS, CONTINUOUS, Starting on Thu04/14/25 at 2030, Until 04/16/25 at 0934, Total Volume - Protect From Light Rate Cvcbpt6604/16/2025 7:30 AM EDT10 mg/hr1 mL/hrNew Bag/Syringe/Xiteei4804/15/2025 10:44 PM EDT10 mg/hr1 mL/hrRate Hihgge2604/15/2025 7:52 PM EDT10 mg/hr1 mL/hr furosemide 60 mg injection (LASIX) 60 mg, INTRAVENOUS, ONCE, 1 dose, On Thu04/14/25 at 0930 Given04/14/2025 10:03 AM EDT60 mg furosemide 80 mg injection (LASIX) 80 mg, INTRAVENOUS, ONCE, 1 dose, On Thu04/14/25 at 1430 04/14/2025 2:27 PM EDT80 mg magnesium sulfate iv piggyback in sterile water 2 g 50 mL 2 g, INTRAVENOUS, at 25 mL/hr, Administer over 2 Hours, ONCE, 1 dose, On Lianne 04/13/25 at 2230, Magnesium sulfate iv bolus will be infused at a rate of 1 gram/hr The following nursing units may administer 2 g dose over 1 hour if necessary: ICUs/PACU/ED, Adult Hematology/Oncology, Labor and Delivery, Cardiac Stepdown, Headache Clinic If necessary, a magnesium sulfate bolus may be administeredgreater than 2 g/hr for the following indications: Adult and Pediatric Asthma Exacerbations, [place], Pediatric BMT and Hematology/Oncology, Eclampsia or Preeclampsia New Bag/Syringe/Ucfjbr8404/13/2025 10:31 PM EDT2 g25 mL/hr midazolam (PF) 2 mg injection (VERSED) 2 mg, INTRAVENOUS, ONCE, 1 dose, On Thu04/14/25 at 1800 Given04/14/2025 5:38 PM EDT2 mg naloxone 0.4 mg injection (NARCAN) 0.4 mg, INTRAVENOUS, NOW, 1 dose, On Thu04/14/25 at 1800 04/14/2025 5:53 PM EDT0.4 mg potassium chloride ER 20 mEq tab(s) (KLOR-CON) 20 mEq, ORAL, ONCE, 1 dose, On Thu04/16/25 at 0700, Swallow whole; DO NOT crush or chew. If patient unable to swallow whole tablet; dissolve whole tablet (do not crush) in 120 mL of water prior to administration (may take up to 2 minutes to dissolve). Given04/16/2025 8:52 AM EDT20 mEq potassium chloride ER 20 mEq tab(s) (KLOR-CON) 20 mEq, ORAL, ONCE, 1 dose, On Thu04/17/25 at 0600, Swallow whole; DO NOT crush or chew. If patient unable to swallow whole tablet; dissolve whole tablet (do not crush) in 120 mL of water prior to administration (may take up to 2 minutes to dissolve). Given04/17/2025 6:10 AM EDT20 mEq potassium chloride ER 40 mEq tab(s) (KLOR-CON) 40 mEq, ORAL, ONCE, 1 dose, On Lianne 04/13/25 at 2230, Swallow whole; DO NOT crush or chew. If patient unable to swallow whole tablet; dissolve whole tablet (do not crush) in 120 mL of water prior to administration (may take up to 2 minutes to dissolve). Given04/13/2025 10:31 PM EDT40 mEq potassium chloride ER 40 mEq tab(s) (KLOR-CON) 40 mEq, ORAL, ONCE, 1 dose, On Thu04/17/25 at 0930, Swallow whole; DO NOT crush or chew. If patient unable to swallow whole tablet; dissolve whole tablet (do not crush) in 120 mL of water prior to administration (may take up to 2 minutes to dissolve). Given04/17/2025 10:14 AM EDT40 mEq potassium chloride iv piggyback 20 mEq/100 mL 20 mEq, INTRAVENOUS, at 50-100 mL/hr, Administer over 1-2 Hours, EVERY 1 HOUR, 2 doses, First dose on Thu04/16/25 at 1700, Last dose on Thu04/16/25 at 1800, NONCYTOTOXIC VESICANT If ordered with infusion rate range, start with maximum infusion rate and decrease rate if infusion is not tolerated New Bag/Syringe/Ulugxr1204/16/2025 7:11 PM EDT20 vMx309 mL/hrNew Bag/Syringe/Davfpb5004/16/2025 5:59 PM EDT20 xPv097 mL/hr sildenafil 80 mg tab(s) (REVATIO) 80 mg, ORAL, EVERY 8 HOURS, First dose on Lianne 04/13/25 at 2200, Until Discontinued, Contact LIP if dose is held. Given04/14/2025 2:44 PM EDT80 fxEsuzp7104/14/2025 6:11 AM EDT80 uySicpa0404/13/2025 9:25 PM EDT80 mg warfarin 5 mg tab(s) (COUMADIN) 5 mg, ORAL, ONCE, 1 dose, On Lianne 04/13/25 at 2200, Maintain consistent intake of vitamin K-containing foods. Hazardous Potential Reproductive Risk Drug: Use appropriate PPE. Pharmaceutical Waste: P-Listed, Goal INR: 2.0 - 3.0 (Target 2.5), Indication: Atrial Fibrillation, Patient Warfarin History: Continuation Given04/13/2025 10:31 PM EDT5 mgdocumented in this encounter Active and Recently Administered Medications Times are shown in EDT.Medication Order/ amiodarone 200 mg tab(s) (PACERONE) 200 mg, ORAL, DAILY, First dose on Thu04/16/25 at 1000, Until Discontinued * 1116 (Given - Provider: Annette Shaw RN) * 0838 (Given - Provider: Annette Shaw, RN) empagliflozin 10 mg tab(s) (JARDIANCE) 10 mg, ORAL, DAILY, First dose on Thu04/17/25 at 1100, Until Discontinued * 1014 (Given - Provider: Annette Shaw, CARRILLO) enoxaparin 90 mg injection (LOVENOX) 90 mg (rounded from 85.6 mg = 1 mg/kg/dose ?? 85.6 kg), SUBCUTANEOUS, EVERY 12 HOURS, First dose onThu04/17/25 at 2100, Until Discontinued * 2100 (Due) furosemide 100 mg injection (LASIX) (COMPLETED) 100 mg, INTRAVENOUS, ONCE, 1 dose, On Thu04/17/25 at 0930 * 1014 (Given - Provider: Annette Shaw RN) furosemide 120 mg injection (LASIX) (CANCELED) 120 mg, INTRAVENOUS, 2 TIMES DAILY 9AM/5PM, First dose on Thu04/16/25 at 1000, Until Discontinued * 1116 (Given - Provider: Annette Shaw RN) * 1546 (Order Held by LIP - Provider: Cydney Foster APRN.CNP - Reason: LIP Order to Hold This Dose) * 1552 (Order Unheld by LIP - Provider: Cydney Foster APRN.CNP) * 0100 (Order Unheld by LIP - Provider: Cydney Foster APRN.CNP - Reason: LIP Order to Hold This Dose) polyethylene glycol 3350 17 g packet 17 g, ORAL, DAILY, First dose on Thu04/17/25 at 0900, Until Discontinued, Mix powder in 240 ml (8 oz) of water before admin. NOTE: 1 packet=1 tablespoonful=1 capful * 0838 (Given - Provider: Annette Shaw RN) potassium chloride ER 20 mEq tab(s) (KLOR-CON) (COMPLETED) 20 mEq, ORAL, ONCE, 1 dose, On Thu04/16/25 at 0700, Swallow whole; DO NOT crush or chew. If patient unable to swallow whole tablet; dissolve whole tablet (do not crush) in 120 mL of water prior to administration (may take up to 2 minutes to dissolve). * 0852 (Given - Provider: Gi Irvin RN) potassium chloride ER 20 mEq tab(s) (KLOR-CON) (COMPLETED) 20 mEq, ORAL, ONCE, 1 dose, On Thu04/17/25 at 0600, Swallow whole; DO NOT crush or chew. If patient unable to swallow whole tablet; dissolve whole tablet (do not crush) in 120 mL of water prior to administration (may take up to 2 minutes to dissolve). * 0610 (Given - Provider: Ja Galvez RN) potassium chloride ER 40 mEq tab(s) (KLOR-CON) (COMPLETED) 40 mEq, ORAL, ONCE, 1 dose, On Thu04/17/25 at 0930, Swallow whole; DO NOT crush or chew. If patient unable to swallow whole tablet; dissolve whole tablet (do not crush) in 120 mL of water prior to administration (may take up to 2 minutes to dissolve). * 1014 (Given - Provider: Annette Shaw RN) potassium chloride iv piggyback 20 mEq/100 mL (COMPLETED) 20 mEq, INTRAVENOUS, at 50-100 mL/hr, Administer over 1-2 Hours, EVERY 1 HOUR, 2 doses, First dose on Thu04/16/25 at 1700, Last dose on Thu04/16/25 at 1800, NONCYTOTOXIC VESICANT If ordered with infusion rate range, start with maximum infusion rate and decrease rate if infusion is not tolerated * 1759 (New Bag/Syringe/Bottle - Provider: Annette Shaw RN) * 191 (New Bag/Syringe/Bottle - Provider: Annette Shaw RN) sennosides 8.8 mg oral liquid (SENNA) 8.8 mg, ORAL, AT BEDTIME, First dose on Thu04/17/25 at 2100, Until Discontinued * 2099 (Due) sildenafil 80 mg tab(s) (REVATIO) 80 mg, ORAL, 3 TIMES DAILY, First dose (after last modification) on Thu04/15/25 at 0800, Until Discontinued, Contact LIP if dose is held. * 0932 (Given - Provider: Annette Shaw RN) * 1518 (Given - Provider: Trista Iqbal, CARRILLO) * 2010 (Given - Provider: Anali Prado, RN) * 0852 (Given - Provider: Gi Irvin, CARRILLO) * 141 (Given - Provider: Annette Shaw, CARRILLO) * 2035 (Given - Provider: Anali Prado, RN) * 0837 (Given - Provider: Annette Shaw, CARRILLO) * 1400 (Due) * 1999 (Due) Medication Order04/15/// amiodarone iv infusion 360 mg in D5W 200 mL (NEXTERONE) (CANCELED)(Linked Group 1) 0.5 mg/min (16.6667 mL/hr, rounded to 16.67 mL/hr), INTRAVENOUS, CONTINUOUS, Starting on Thu04/14/25 at 1530, Until Thu04/16/25 at 0935, Administer with 0.2 micron filter. * 0428 (New Bag/Syringe/Bottle - Provider: Sandie Wynne RN) * 0715 (Rate Verify - Provider: Annette Colin, RN) * 0805 (Rate/Dose Change - Provider: Annette Shaw RN) * 0958 (New Bag/Syringe/Bottle - Provider: Annette Shaw RN) * 1349 (Rate Verify - Provider: Trista Iqbal RN) * 1952 (Rate Verify - Provider: Anali Prado, RN) * 2104 (New Bag/Syringe/Bottle - Provider: Anali Prado, RN) * 0632 (New Bag/Syringe/Bottle - Provider: Anali Prado, RN) * 0730 (Rate Verify - Provider: Annette Shaw RN) * 0935 (Infusion Complete - Provider: Annette Shaw RN - Comment: [Order ends at this time. Document the following action when infusion is complete: Infusion Complete]) epoprostenol INHALATION 1.5 mg in NaCl 0.9% 50 mL syringe (VELETRI) 0.01-0.05 mcg/kg/min ?? 73 kg [place] weight (1.46-7.3 mL/hr), INHALATION, CONTINUOUS, Starting on Thu04/14/25 at 1630, Until Discontinued, Administer per ICU INHALED Epoprostenol RT Protocol. Must beadministered by Respiratory Therapy Only. Refrigerate. Protect From Light. * 0358 (Rate Verify - Provider: Tere Huizar RRT) * 0603 (New Bag/Syringe/Bottle - Provider: Tere Huizar RRT) * 0748 (Rate Verify - Provider: Krystin Boone RRT) * 1237 (New Bag/Syringe/Bottle - Provider: Krystin Boone RRT) * 1900 (New Bag/Syringe/Bottle - Provider: Rosy Rivas RRT) * 2308 (Rate Verify - Provider: Rosy Rivas RRT) * 0139 (New Bag/Syringe/Bottle - Provider: Rosy Rivas RRT) * 0406 (Rate Verify - Provider: Rosy Rivas RRT) * 0813 (New Bag/Syringe/Bottle - Provider: Krystin Boone RRT) * 1158 (Rate Verify - Provider: Krystin Boone RRT) * 1430 (New Bag/Syringe/Bottle - Provider: Krystin Boone RRT) * 1536 (Rate/Dose Change - Provider: Krystin Boone RRT) * 1732 (Rate/Dose Change - Provider: Krystin Boone, SHABANA) * 1932 (Rate/Dose Change - Provider: Rosy Rivas, SHABANA) * 2144 (Stopped - Provider: Rosy Rivas, SHABANA) * 2212 (Restarted - Provider: Rosy Rivas, SHABANA) * 2335 (Rate Verify - Provider: Rosy Rivas, SHABANA) * 0032 (Rate/Dose Change - Provider: Rosy Rivas, SHABANA) * 0046 (Rate/Dose Change - Provider: Rosy Rivas, SHABANA) * 0219 (New Bag/Syringe/Bottle - Provider: Rosy Rivas, SHABANA) * 0719 (New Bag/Syringe/Bottle - Provider: Terra Jones, SHABANA) furosemide 500 mg in empty container, plastic bag 50 mL (LASIX) (CANCELED) 10 mg/hr (1 mL/hr), INTRAVENOUS, CONTINUOUS, Starting on Thu04/14/25 at 2030, Until Thu04/16/25 at 0934, Total Volume - Protect From Light * 0715 (Rate Verify - Provider: Annette Shaw, CARRILLO) * 1348 (Rate Verify - Provider: Trista Iqbal, CARRILLO) * 1952 (Rate Verify - Provider: Anali Prado, RN) * 2244 (New Bag/Syringe/Bottle - Provider: Anali Prado, RN) * 0730 (Rate Verify - Provider: Annette Shaw, RN) * 0934 (Infusion Complete - Provider: Annette Shaw RN - Comment: [Order ends at this time. Document the following action when infusion is complete: Infusion Complete]) Medication Order// aluminum-magnesium hydroxide-simethicone 200-200-20 mg/5 mL 30 mL 30 mL, ORAL, EVERY 6 HOURS NEEDED, Starting on Thu04/14/25 at 1418, Until Discontinued, GI upset, SHAKE WELL melatonin 9 mg tab(s) 9 mg, ORAL, AT BEDTIME NEEDED, Starting on 04/16/25 at 2024, Until Discontinued, insomnia * 2035 (Given - Provider: Anali Prado, CARRILLO) NaCl 0.9% iv flush bag 20 mL, INTRAVENOUS, NEEDED, Starting on Thu04/13/25 at 2225, Until Discontinued, See admin instructions, If no compatible primary is already running, infuse NaCl 0.9% as primary to flush tubing after non-chemotherapy, non-immunotherapy intermittent infusions. Administer at the same rate as inter mittent infusion. Select the Flush Bag file on smart pump. perflutren lipid microspheres 1.1 mg/mL 1.3 mL injection (DEFINITY)(Linked Group 2) 1.3 mL, INTRAVENOUS, DIRECTED NEEDED, 1 dose, Starting on Thu04/13/25 at 1936, Until Thu04/18/25 at 0000, Per Protocol - for use during ECHO procedure only, Perflutren must be activated priorto administration. Once activated: 1. Diluted IV Bolus: Dilute 1.3 mL of Definity?? with 8.7 mL of preservative-free saline 2. Undiluted IV Bolus: Administer undiluted Definity?? followed by a preservative-free 10 mL saline flush. prochlorperazine 10 mg injection (COMPAZINE) 10 mg, INTRAVENOUS, EVERY 6 HOURS NEEDED, Starting on Thu04/14/25 at 2024, Until Discontinued, Nausea/Vomiting - First Line - Parenteral, Protect From Light sodium chloride 0.9 % (flush) 2-10 mL (BD POSIFLUSH)(Linked Group 2) 2-10 mL, INTRAVENOUS, DIRECTED NEEDED, 1 dose, Starting on Thu04/13/25 at 1936, Until Thu04/18/25 at 0000, Per Protocol - for use during ECHO procedure only Order Group 1: amiodarone iv infusion 360 mg in D5W 200 mL (NEXTERONE) () 1 mg/min (33.3333 mL/hr, rounded to 33.33 mL/hr), INTRAVENOUS, CONTINUOUS, Starting on Thu04/14/25at 0930, Until Thu04/14/25 at 1529, Administer with 0.2 micron filter. Followed by amiodarone iv infusion 360 mg in D5W 200 mL (NEXTERONE) (CANCELED)Jump to med 0.5 mg/min (16.6667 mL/hr, rounded to 16.67 mL/hr), INTRAVENOUS, CONTINUOUS, Starting on Thu04/14/25 at 1530, Until Thu04/16/25 at 0935, Administer with 0.2 micron filter. Group 2: ECHO (COMPLETED) ONCE, On Lianne 04/13/25 at 1945, For 1 occurrence, ANICETO And sodium chloride 0.9 % (flush) 2-10 mL (BD POSIFLUSH)Jump to med 2-10 mL, INTRAVENOUS, DIRECTED NEEDED, 1 dose, Starting on Lianne 04/13/25 at 1936, Until Thu04/18/25 at 0000, Per Protocol - for use during ECHO procedure only And perflutren lipid microspheres 1.1 mg/mL 1.3 mL injection (DEFINITY)Jump to med 1.3 mL, INTRAVENOUS, DIRECTED NEEDED, 1 dose, Starting on Lianne 04/13/25 at 1936, Until Thu04/18/25 at 0000, Per Protocol - for use during ECHO procedure only, Perflutren must be activated priorto administration. Once activated: 1. Diluted IV Bolus: Dilute 1.3 mL of Definity?? with 8.7 mL of preservative-free saline 2. Undiluted IV Bolus: Administer undiluted Definity?? followed by a preservative-free 10 mL saline flush. documented in this encounter Care Teams Team MemberRelationshipSpecialtyStart DateEnd Date 3, Pharmacist [id number] [place] [address] PharmacistPharmacy02/06/25documented as of this encounter
--- NOTE | 2025-04-13 20:15 | CA_ITS ---
Patient Name: ERIK ZAVALA MR#: [id number] : 1975 Exam Date: 04/13/2025 Ordering Doctor: JAYLA SHEFFIELD ECHOCARDIOGRAM REPORT PROCEDURE: CA ECHO DOPPLER COMPLETE INDICATIONS: A fib, elevated BNP, atrial flutter, pulmonary hypertension, cardiomyopathy COMPARISON: None. DESCRIPTION: COMPLETE ECHOCARDIOGRAM Real-time transthoracic echocardiography with 2D, M-mode, spectral and color flow Doppler performed. QUALITY: Technical quality was good. LEFT VENTRICLE: Normal chamber size. Abnormal septal motion due to RV pressure or volume overload. Systolic function is severely reduced. LV EF: Visual estimation of left ventricular ejection fraction is 15-20%. DIASTOLIC: ATRIAL SEPTUM: Bowing to the left, consistent with high right-sided filling pressures. LEFT ATRIUM: Severe dilatation. RIGHT ATRIUM: Severe dilatation. RIGHT VENTRICLE: Severe dilatation. Severely reduced right ventricular systolic function. TRICUSPID VALVE: Normal mobility and thickness. No stenosis with severe regurgitation. There is mild coaptation of the tricuspid valve leaflets. Right ventricular systolic pressure cannot be calculated due to wide-open tricuspid regurgitation. MITRAL VALVE: Normal mobility and thickness. No evidence of mitral valve stenosis. There is no mitral annular calcification. Moderate mitral regurgitation. AORTIC VALVE: Normal trileaflet appearance. No visible sclerosis. Normal leaflet mobility. No evidence of aortic valve stenosis. No aortic regurgitation. AORTIC ROOT: Normal diameter and appearance. Ascending aorta is normal in size. PULMONIC VALVE: Normal thickness and mobility. No stenosis. No regurgitation. PERICARDIUM: No evidence of pericardial effusion. 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 PLEURA: CONCLUSION: 1. The left ventricle is normal in size and exhibits severely reduced systolic function. LVEF is estimated at 15 to 20%. 2. Severely dilated right ventricle with severely reduced systolic function. 3. Severe biatrial dilatation. 4. Malcoaptation of the tricuspid valve leaflets with severe tricuspid regurgitation. 5. Moderate mitral regurgitation. 6. Severely dilated IVC. 7. Picture is consistent with biventricular failure with right-sided predominance. Adult Echocardiography Procedure Report Left Ventricle LVEDD (3.7 - 5.6 cm): 5.36 cm LVESD (2.2 - 4.0 cm): 4.97 cm LVIVS thickness (0.6 - 1.2 cm): 0.80 cm LVPW thickness (0.5 - 1.0 cm): 0.96 cm e': 0.07 m/s LVOT Max Gradient: 0.45 mm[Hg] LVOT Area (cm2): 0.33 m/s Peak Velocity (LVOT): 0.33 m/s Mean Velocity (LVOT): 0.24 m/s LVOT Diameter 2.79 cm Left Atrium LA Volume Index (2D A2C): 48.76 ml/m2 Left Atrium Systolic Dimension: 3.95 cm Mitral Valve Right Ventricle Aorta AO Root Diam: 3.85 cm Ascending Ao Diam: 2.78 cm Aortic Valve AoV Area (Peak Iban): 4.60 cm2, 4.60 cm2 AoV Area (VTI): 3.35 cm2, 3.35 cm2 Peak Velocity(Antegrade Flow): 0.44 m/s Peak Gradient(Antegrade Flow): 0.79 mm[Hg] Mean Velocity(Antegrade Flow): 0.29 m/s Mean Gradient(Antegrade Flow): 0.39 mm[Hg] Velocity Time Integral: 6.89 cm Tricuspid Valve Peak Velocity (Regurgitant Flow): 1.80 m/s, 1.81 m/s Pulmonic Valve Peak Velocity: 0.88 m/s Peak Gradient: 3.10 mm[Hg] Right Atrium Right Atrium Systolic Pressure: 300.01 ml, 300.01 ml Dictated by: Leonardo Mendoza M.D. on 04/13/2025 at 17:40 Approved by: Leonardo Mendoza M.D. on 04/13/2025 at 18:02
--- OUTSIDE RECORDS SUMMARY | 2025-04-17 10:52 | XMS_ITS | Encounter Summary ---
Author Organization [facility] Address [address] [place] [address] Care Team Providers Care Scales Inspector Name Role Phone 3, Pharmacist Unavailable Unavailable Source Comments In the event this information is protected by the Federal Confidentiality of Alcohol and Drug AbusePatient Records regulations: The Federal rules restrict any use of the information to criminally investigate or prosecute any alcohol or drug abuse patient.[facility] Encounter Details DateTypeDepartmentCare Team (Latest Contact Info)Xclfyogqiga77/23/2025Telephone MT Provider Adult [address] [place] [address] [place] [address] [place] [address] Social History Tobacco UseTypesPacks/DayYears UsedDateSmoking Tobacco: Never AssessedHousing Stability Vital SignAnswerDate RecordedUnable to Pay for Housing in the Last YearNot on file01/30/2025In the past 12 months, how many times have you moved where you were living?Homeless in the Last YearNot on file01/30/2025 Area Deprivation IndexAnswerDate RecordedNational Score (1-100), lower number is lower ihdb542902/06/2025State Score (1-10), lower number is lower jrta184 Data from: https://www.neighborhoodatlas.[facility]/. Last address used for [address]/06/2025Sex and Gender InformationValueDate RecordedSex Assigned at BirthNot on fileLegal NpbTjld2601/25/2025 10:57 AM EDT Gender IdentityNot on fileSexual OrientationNot on filedocumented as of this encounter Functional Status * Are you deaf or do you have serious difficulty hearing?AnswerDate of DyvdbwbvrwFflbqiSa51/14/2025 2:25 PM María Elena Artis RN * Are you blind or do you have serious difficulty seeing, even when wearing glasses?AnswerDate of QburbgzppoDfajfnLf46/14/2025 2:25 PM María Elena Artis RN * Do you have serious difficulty walking or climbing stairs?AnswerDate of MixoogaopkOxqtevAd16/14/2025 2:25 PM María Elena Artis RN * Do you have difficulty dressing or bathing?AnswerDate of AssessmentAuthorNo 02/02/2025 2:25 PM María Elena Artis RN * Because of a physical, mental, or emotional condition, do you have difficulty doing errands alone such as visiting a doctor's office or shopping?AnswerDate of ZidgmwtipqPsozheQr86/14/2025 2:25 PM María Elena Artis RN documented as of this encounter Mental Status * Because of a physical, mental, or emotional condition, do you have serious difficulty concentrating, remembering, or making decisions?AnswerEntry Date LmisdkKl72/14/2025 2:25 PM María Elena Artis RN documented in this encounter Miscellaneous Notes * Telephone Encounter - Angeles Guidry, - 04/13/2025 11:39 AM EDT 49 year old man h/o substance use disorder and hasn't used substances since January, severe pulmonary HTN, and he went to [facility] (?) and was being treated for heart failure (EF 25%) and he got to [facility] and was treated for pulmonary HTN. Yesterday he presented to [facility] in [place], [place], with epigastric pain, and he looks like he's in distress with Shortness of Breath. 93% on 2L NC. Cardiomegaly on imaging. Dr. Corbett spoke w cardiology at [facility], and IV lasix recommended. CT Angio has been ordered. Cardizem gtt for afib w RVR. Given his current level of respiratory distress, [employer] hospitalist is putting him on Bipap now,and given this level of care, coronary ICU or ICU setting would be more appropriate for Mr. Santos. Transfer line is going to call coronary ICU at [place] Guidry DO [facility] documented in this encounter Plan of Treatment DateTypeDepartmentCare Team (Latest Contact Info)Zblpurccmsj48/30/2025 8:30 AM EDTOffice Visit Pulmonary Medicine [address], [address] [place], [place] [phone] [place] [address] [place] [address] PH05/11/2025 12:15 PM ESTProcedure Cardiology [address] [place] [address] Acute systolic congestive heart sdronnw6405/11/2025 12:45 PM ESTOffice Visit Cardiology [address] [place] [address] Cristopher Alonzo MD [address] [place] [address] Acute systolic congestive heart failuredocumented as of this encounter Visit Diagnoses Not on filedocumented in this encounter Care Teams Team MemberRelationshipSpecialtyStart DateEnd Date 3, Pharmacist [address] [facility] [place] [address] PharmacistPharmacy02/06/25documented as of this encounter
--- OUTSIDE RECORDS SUMMARY | 2025-04-17 10:52 | XMS_ITS | Clinical Summary ---
Author Organization [facility] Address [id number] [place] [address] Care Team Providers Care Package Collector Name Role Phone Eloise Pedroza MD Primary Care Provider [phone] Allergies No known active allergies Medications MedicationSigDispense QuantityRefillsLast FilledStart DateEnd DateStatus ibuprofen (ADVIL,MOTRIN) 200 mg tablet Take 1 tablet (200 mg total) by mouth every 6 (six) hours as needed for pain. Active Active Problems ProblemNoted DateDiagnosed DateElevated liver bawgitc6612/27/2022Tobacco abuse 12/27/2022Substance abuse12/27/2022cute intractable headache, unspecified headache type12/24/20229338Lptprcjx94/05/3617Oqchrekzoubrgt60/05/2023Hypokalemia 12/24/20227862Izerbdmlygipk18/05/2023 Immunizations No known immunizations Social History Tobacco UseTypesPacks/DayYears UsedDateSmoking Tobacco: Every DayCigarettes Smokeless Tobacco: Never Tobacco Cessation:Ready to Q uit: Not Asked; Counseling Given: Not Answered Alcohol UseStandard Drinks/WeekCommentsNot Currently0 (1 standard drink = 0.6 oz pure alcohol)PHQ-2AnswerDate RecordedTotal Qvlut359hildcareAnswerDate EchjdgpoZsyqoatskAginicv16/12/2019EmploymentAnswerDate RecordedEmploymentUnknown 12/01/2018Hunger ScreeningAnswerDate RecordedWithin the past 12 months we worried whether our food would run out before we got money to buy more.Never True12/24/2022Within the past 12 months the food we bought just didn't last and we didn't have money to get more.Never True12/24/2022urpose - LifeAnswerDate RecordedPurpose and direction in eaquKbvdmnl05/11/2021ex and Gender Information ValueDate RecordedSex Assigned at BirthNot on fileLegal IfsPrbs5401/25/2015 11:29 AM EDTGender IdentityNot on fileSexual OrientationNot on file Last Filed Vital Signs Vital SignReadingTime TakenCommentsBlood Jtwvzzxs820/9112/28/2022 3:17 PM EDT Qwjko720912/28/2022 3:17 PM YTYKzrzlbswwzi18.6 ??C (97.9 ??F)12/28/2022 11:17 AM EDTRespiratory Pgfu045412/28/2022 3:17 PM EDTOxygen Mgbpevnfnd18%12/28/2022 11:17 AM EDTInhaled Oxygen Concentration--Hqmpwc82.5 kg (190 lb 11.2 oz)12/28/2022 11:17 AM FKRBrofhv919.3 cm (5' 11 )12/27/2022 8:40 AM EDTBody Mass Index26.6 12/27/2022 8:40 AM EDT Plan of Treatment Health MaintenanceDue DateLast DoneCommentsTobacco Eyszlfrhc95/25/1987DTaP,Tdap and Td Vaccines (1 - Tdap)1993Depression Djrrovwia35 Adult BMI Zhzmgqwxf37Zoster (Shingles) Vaccine (1 of 2) 2024Influenza Nyzayzm3702/20/2025 Goals GoalPatient Goal TypeAssociated ProblemsRecent ProgressPatient-Stated?Author safe discharge to home Cecy Kelly RN Note: Evaluation of progress towards goal: safe transition from hospital to home with family support. Medical Devices Not on file Insurance * Guarantor: Nathan Santos TypeRelation to PatientDate of BirthPhone Billing AddressPersonal/HqhzmjYlts60/25/1976 [address] [place] [address] Advance Directives * Full Code (Latest Code Status on File) Date ActivatedDate InactivatedComments12/27/2022 3:50 AM12/28/2022 6:09 PM * Full Code Date ActivatedDate InactivatedComments12/24/2022 1:29 PM12/27/2022 3:30 AM Care Teams Team MemberRelationshipSpecialtyStart DateEnd Date Eloise Pedroza MD [address] [place] [address] PCP - GeneralInternal Medicine01/01/23
--- OUTSIDE RECORDS SUMMARY | 2025-04-17 10:53 | XMS_ITS | Encounter Summary ---
Author Organization [facility] Address [address] [place] [address] Care Team Providers Care Bun Machine Operator Name Role Phone 3, Pharmacist Unavailable Unavailable Source Comments In the event this information is protected by the Federal Confidentiality of Alcohol and Drug AbusePatient Records regulations: The Federal rules restrict any use of the information to criminally investigate or prosecute any alcohol or drug abuse patient.[facility] Encounter Details DateTypeDepartmentCare Team (Latest Contact Info)Yspncakkywn52/23/2025Patient Update FV Provider Adult Critical Care [address] [place] [address] Sylvain Denton, PICTURE ENGRAVER.TIP INSERTER [address] [facility] [address] [place] [phone] Social History Tobacco UseTypesPacks/DayYears UsedDateSmoking Tobacco: Never [...] you from medical appointments or from getting medications?No10/26/2025In the past 12 months, has lack of transportation kept you from meetings, work, or from getting things needed for daily living?04/16/2025Housing Stability Vital SignAnswerDate RecordedIn the last 12 months, was there a time when you were not able to pay the mortgage or rent on time?No04/16/2025In the past 12 months, how many times have you moved where you were living?t any time in the past 12 months, were you homeless or living in a half-way (including now)?No04/16/2025HC UtilitiesAnswerDate RecordedIn the past 12 months has the electric, gas, oil, or water company threatened to shut off services in your home?04/16/2025rea Deprivation IndexAnswerDate RecordedNational Score (1-100), lower number is lower wxvc786602/06/2025State Score (1-10), lower number is lower vnss123 Data from: https://www.neighborhoodatlas.[facility].edu/. Last address used for [address]/06/2025Sex and Gender InformationValueDate RecordedSex Assigned at BirthNot on fileLegal MvhInly5601/25/2025 10:57 AM EDT Gender IdentityNot on fileSexual OrientationNot on filedocumented as of this encounter Functional Status * Are you deaf or do you have serious difficulty hearing?AnswerDate of RvvokixmecXiyrmrCz22/14/2025 2:25 PM María Elena Artis RN * Are you blind or do you have serious difficulty seeing, even when wearing glasses?AnswerDate of DdklrialylQuejzjGl11/14/2025 2:25 PM María Elena Artis, RN * Do you have serious difficulty walking or climbing stairs?AnswerDate of BgvamaasdbDtybbfRd08/14/2025 2:25 PM María Elena Artis, RN * Do you have difficulty dressing or bathing?AnswerDate of AssessmentAuthorNo 02/02/2025 2:25 PM María Elena Artis, RN * Because of a physical, mental, or emotional condition, do you have difficulty doing errands alone such as visiting a doctor's office or shopping?AnswerDate of DtrrzjvoodEnfbuvHv87/14/2025 2:25 PM María Elena Artis, CARRILLO documented as of this encounter Mental Status * Because of a physical, mental, or emotional condition, do you have serious difficulty concentrating, remembering, or making decisions?AnswerEntry Date JqeqslJp65/14/2025 2:25 PM María Elena Artis RN documented in this encounter Plan of Treatment DateTypeDepartmentCare Team (Latest Contact Info)Fvsevhcviot58/30/2025 8:30 AM EDTOffice Visit Pulmonary Medicine [address], [address] [place], [place] [phone] [place] [address] [place], [place] [address] PH05/11/2025 12:15 PM ESTProcedure Cardiology [address] [place], [place] [phone] Acute systolic congestive heart mumwrzr8605/11/2025 12:45 PM ESTOffice Visit Cardiology [address] [place] [address] Cristopher Alonzo MD [address] [place] [address] Acute systolic congestive heart failuredocumented as of this encounter Visit Diagnoses Not on filedocumented in this encounter Care Teams Team MemberRelationshipSpecialtyStart DateEnd Date 3, Pharmacist [address] [facility] [place] [address] PharmacistPharmacy02/06/25documented as of this encounter
--- OUTSIDE RECORDS SUMMARY | 2025-04-17 10:53 | XMS_ITS | Encounter Summary ---
Author Organization [facility] Address [address] [place] [address] Care Team Providers Care Real Estate Development Manager Name Role Phone 3, Pharmacist Unavailable Unavailable Source Comments In the event this information is protected by the Federal Confidentiality of Alcohol and Drug AbusePatient Records regulations: The Federal rules restrict any use of the information to criminally investigate or prosecute any alcohol or drug abuse patient.[facility] Reason for Visit * ReasonCommentsCritical Care Transport Encounter Details DateTypeDepartmentCare Team (Latest Contact Info)Tgqbzyukloz71/23/2025Critical Care Transport Critical Care [address] [place] [phone] Jn Hart APRN.WIND TURBINE ERECTOR [address] [place], [place] [phone] Social History Tobacco UseTypesPacks/DayYears UsedDateSmoking Tobacco: Never AssessedHousing Stability Vital SignAnswerDate RecordedUnable to Pay for Housing in the Last YearNot on file01/30/2025In the past 12 months, how many times have you moved where you were living?Homeless in the Last YearNot on file01/30/2025 Area Deprivation IndexAnswerDate RecordedNational Score (1-100), lower number is lower lesr0482/18/2025State Score (1-10), lower number is lower stif819 Data from: https://www.neighborhoodatlas.[facility]/. Last address used for [address]/06/2025Sex and Gender InformationValueDate RecordedSex Assigned at BirthNot on fileLegal OdcWrlr5401/25/2025 10:57 AM EDT Gender IdentityNot on fileSexual OrientationNot on filedocumented as of this encounter Functional Status * Are you deaf or do you have serious difficulty hearing?AnswerDate of SqooeomxerTskfpdKc39/14/2025 2:25 PM María Elena Artis RN * Are you blind or do you have serious difficulty seeing, even when wearing glasses?AnswerDate of YqkzzsjefiDfjvnfJs75/14/2025 2:25 PM María Elena Artis RN * Do you have serious difficulty walking or climbing stairs?AnswerDate of VskcehoyygIoqykgMx32/14/2025 2:25 PM María Elena Artis RN * Do you have difficulty dressing or bathing?AnswerDate of AssessmentAuthorNo 02/02/2025 2:25 PM María Elena Artis RN * Because of a physical, mental, or emotional condition, do you have difficulty doing errands alone such as visiting a doctor's office or shopping?AnswerDate of FrqocudyxsVzjrulOu06/14/2025 2:25 PM María Elena Artis RN documented as of this encounter Mental Status * Because of a physical, mental, or emotional condition, do you have serious difficulty concentrating, remembering, or making decisions?AnswerEntry Date GxucpcDn83/14/2025 2:25 PM María Elena Artis RN documented in this encounter Progress Notes * Jn Hart APRN.WIND TURBINE ERECTOR - 04/13/2025 6:56 PM EDT Images from the original note were not included. Critical Care Transport Note Patient Name: aNthan Santos Service Date: April 13, 2025 Referring Facility: [facility] Accepting Facility: [facility] SUBJECTIVE/CHIEF COMPLAINT: shortness of breath REASON FOR TRANSPORT: higher level critical care services unavailable at sending facility History of Present Illness: The following history is what was known to CCT team at time of given care and summarized through review of available medical records, patient/family interview and from referring physician and nursing report. 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 He presented to the ED yesterday with shortness of breathas well as chest/epigastric pain that has been going on for few days. Patient states that the symptoms were not related to exertion. Patient states that he has been off his Coumadin for the last few days and has been off his sildenafil for at least 1 or 2 weeks and that [facility] would not refill his sildenafil without being seen. Patient was recently admitted to [facility] on 01/23 he had a EF at the time of that admission and showed severe biventricular systolic dysfunction at LV LVEF of 25%, he underwent IV Lasix and underwent both right and left heart cath which were negative for ischemia. Right heart cath showed severe pulmonary hypertension advanced right heart failure severe low cardiac index with no pulmonary embolism. He was transferred at the time to [facility] for further management he was in a flutter in the 120s at the time and was started on warfarin. Last night patient presented with shortness of of breath and was found to be in afib with RVR. Patient was treated with cardizem bolus and infusion with improvement of symptoms and hemodynamics. Patient was transferred to tele floor where he underwent CT of the chest which revealed cardiomegaly and ascites. Patient had echocardiogram revealinf EF now of 20%. Patient was treated with lasix and placed on HFNC after developing hypoxia and shortness of breath on exertion. At this time, the physician managing the patient requested transfer to [facility] for tertiary and/or quaternary services unavailable at the referring facility. Patient condition at time of exam was: Acutely ill and critically ill. Due to the unique circumstances of the patient, it was determined that this was the closest, most appropriate facility by referring physician. The physician managing the patient requested the [facility] Critical Care Transport Team transport and treat the patient for the purpose of tertiary care, evaluation, and management of his cardiovascular condition(s). Air medical transport was requested to reduce the clx-br-eaijdbiy time, 35 minutes by air vs. approximately 75 minutes by ground, with the potential for increased ground transport time secondary to: distance between facilities and the patient's condition requiring an emergent procedure or evaluation not available at the referring facility ROS: A complete review of systems was performed and is negative except as noted in HPI PAST MEDICAL HISTORY: methamphetamine abuse, HTN, CH wth EF 25%, Afib on coumadin PAST SURGICAL HISTORY: No past surgical history on file. ALLERGIES: Patient has no known allergies. SOCIAL HISTORY: + methamphetamine abuse FAMILY HISTORY: No family history on file. HOME MEDICATIONS: warfarin (COUMADIN) 1 mg tablet Take 5 mg daily or as directed by [facility] torsemide (DEMADEX) 20 mg tablet Take 1 tablet by mouth once daily. amiodarone (PACERONE) 200 mg tablet Take 1 tablet by mouth once daily. sildenafil (REVATIO) 20 mg tablet Take 3 tablets by mouth every 8 hours until MONDAY 02/05. StartingTUESDAY 02/06 take 4 tablets every 8 hours Medications Administered by Referring Facility: Lasix 40 mg OBJECTIVE: Recent Labs, Diagnostics & Procedure Reports by OSH reviewed as available Referring Facility Labs CBC: WBC- 9.3 HGB- 14.1 HCT- 43.7 PLT- 298 Coags: INR- 2.4 Chemistry: NA- 141 K+- 3.2 CL -102 CO2- 28.6 BUN- 24 Cr- 1.31 Glucose- 106 Other Pertinent Labs: AST/ALT 67/99 Diagnostics & Procedure Reports ECG: atrial fibrillation, rate 70-110 IMAGING: CT chest: cardiomegaly and asicites Invasive Lines/Devices/Tubes Placed by Referring Facility: none PHYSICAL EXAM: Upon CCT Arrival at Referring Facility Vital Signs: HR 98bpm, BP 108/70mmHg, RR 20, SpO2 99% Oxygen/Ventilator Settings: HFNC 40L 100% General appearance: alert, pleasant, no distress. HEENT: normocephalic, EOMI, PERRL. Oropharynx clear, no plaques or exudates,Posterior Oropharynx symmetric,Mucous membranes moist Respiratory: clear to auscultation bilaterally,no respiratory distress,no rales,no rhonchi,no wheezing. Cardiovascular: no murmurs, no rubs, no gallops, irregular rate and rhythm, peripheral pulses symmetric. Gastrointestinal: soft, nontender, nondistended. Genitourinary: Deferred. Musculoskeletal: No clubbing, cyanosis or edema Skin: no abrasions or open wounds. Heme/Lymph: No abnormal bleeding Neurologic: Awake, alert and oriented x 3 Glascow Coma Score: GCS Total: 15 CRITICAL CARE COURSE Upon bedside arrival at referring facility the patient was assessed and detailed physical exam performed. Initial exam findings as described above. The patient was placed on the transport monitor andall transport equipment transitioned in standard fashion. The patient was transferred to the transport cot and transported to the Aircraft and loaded without incident. The patient was medically managed, monitored, and reassessed during transport. Medications Managed & Administered by CCT: none Procedures Performed by CCT: none ASSESSMENT/PLAN: Acute Decompensated Systolic and Diastolic Heart Failure Afib with RVR Acute Kidney Injury Respiratory Distress Plan: Treated with lasix Restarted sildenafil, will hold off on afterload reduction Wean off HFNC as patient SPO2> 95% Close HD monitoring The transport was completed without significant incident or change in the patient's status. The patient was transported to [facility] by [facility] (Helicopter) for tertiary and/or quaternary evaluation and management of his Emergent Medical condition(s). Upon arrival to the receiving facility, a itdy-eh-zvke report was given to bedside staff. Patient care was transferred. The patient condition was Critical at the time of transfer. Vital Signs at time care transferred to the receiving facility unit: HR 98bpm, BP 100/73 mmHg, RR 20, SpO2 96% on 30L 50% SPECIAL EQUIPMENT: None MODE OF TRANSPORT: [facility] (Helicopter) CRITICAL CARE TIME:I personally performed 30 minutes of critical care time exclusive of separately billable procedures, ambulance charges and treating other patients. This was necessary to treat or prevent further deterioration of the following condition(s): Respiratory compromise and Hemodynamic compromise Cardiovascular impairment which the patient had and/or had a high probability of suddenly developing. SIGNATURE: Jn Hart APRN.CNP Acute Care Nurse Practitioner [facility] Critical Care Transport Team documented in this encounter Plan of Treatment DateTypeDepartmentCare Team (Latest Contact Info)Irxxmdngmdv45/30/2025 8:30 AM EDTOffice Visit Pulmonary Medicine [address], [address] [place] [phone] [place] [address] [place] [address] PH05/11/2025 12:15 PM ESTProcedure Cardiology [address] [place], [place] [phone] Acute systolic congestive heart wnsqxon6305/11/2025 12:45 PM ESTOffice Visit Cardiology [address] [place], [place] [phone] Cristopher Alonzo MD [address] [place] [address] Acute systolic congestive heart failuredocumented as of this encounter Visit Diagnoses Not on filedocumented in this encounter Care Teams Team MemberRelationshipSpecialtyStart DateEnd Date 3, Pharmacist [address] [place] [address] PharmacistPharmacy02/06/25documented as of this encounter
--- OUTSIDE RECORDS SUMMARY | 2025-04-17 10:53 | XMS_ITS | Encounter Summary ---
Author Organization [facility] Address [address] [place] [address] Care Team Providers Care Learning Support Teacher Name Role Phone 3, Pharmacist Unavailable Unavailable Source Comments In the event this information is protected by the Federal Confidentiality of Alcohol and Drug AbusePatient Records regulations: The Federal rules restrict any use of the information to criminally investigate or prosecute any alcohol or drug abuse patient.[facility] Reason for Visit * ReasonCommentsRefill Request Encounter Details DateTypeDepartmentCare Team (Latest Contact Info)Jfabkovlvbj97/21/2025Refill HOSP MAIN [id number] [place] [address] [place] [address] [address] [place] [id number] Refill Request Social History Tobacco UseTypesPacks/DayYears UsedDateSmoking Tobacco: Never AssessedHousing Stability Vital SignAnswerDate RecordedUnable to Pay for Housing in the Last YearNot on file01/30/2025In the past 12 months, how many times have you moved where you were living?Homeless in the Last YearNot on file01/30/2025 Area Deprivation IndexAnswerDate RecordedNational Score (1-100), lower number is lower wnfs3341/18/2025State Score (1-10), lower number is lower [id number] Data from: https://www.neighborhoodatlas.[facility]/. Last address used for [address]/06/2025Sex and Gender InformationValueDate RecordedSex Assigned at BirthNot on fileLegal UioUjjc5501/25/2025 10:57 AM EDT Gender IdentityNot on fileSexual OrientationNot on filedocumented as of this encounter Functional Status * Are you deaf or do you have serious difficulty hearing?AnswerDate of RzpqomxntyNcmjwnBw87/14/2025 2:25 PM María Elena Artis RN * Are you blind or do you have serious difficulty seeing, even when wearing glasses?AnswerDate of KsbspiasryXojxqjCl10/14/2025 2:25 PM María Elena Artis RN * Do you have serious difficulty walking or climbing stairs?AnswerDate of HmkccnygpdZwajvaVl15/14/2025 2:25 PM María Elena Artis RN * Do you have difficulty dressing or bathing?AnswerDate of AssessmentAuthorNo 02/02/2025 2:25 PM María Elena Artis RN * Because of a physical, mental, or emotional condition, do you have difficulty doing errands alone such as visiting a doctor's office or shopping?AnswerDate of TxrgoxtbojXtuetyMy90/14/2025 2:25 PM María Elena Artis RN documented as of this encounter Mental Status * Because of a physical, mental, or emotional condition, do you have serious difficulty concentrating, remembering, or making decisions?AnswerEntry Date BiqjvoVu11/14/2025 2:25 PM María Elena Artis RN documented in this encounter Miscellaneous Notes * Telephone Encounter - Mireille Conway LPN - 04/11/2025 2:54 PM EDT Duplicate. Messages are open for same request documented in this encounter Plan of Treatment DateTypeDepartmentCare Team (Latest Contact Info)Ebakpxyvdrq73/30/2025 8:30 AM EDTOffice Visit Pulmonary Medicine [id number], [address] [place], [place] [id number] [place] [address] [address] [place], [place] [id number] PH05/11/2025 12:15 PM ESTProcedure Cardiology [address], [place] [id number] Acute systolic congestive heart twmgoni3005/11/2025 12:45 PM ESTOffice Visit Cardiology [address], [place] [phone] Cristopher Alonzo MD [address] [place] [address] Acute systolic congestive heart failuredocumented as of this encounter Visit Diagnoses Not on filedocumented in this encounter Care Teams Team MemberRelationshipSpecialtyStart DateEnd Date 3, Pharmacist [address] [place] [address] PharmacistPharmacy02/06/25documented as of this encounter
--- OUTSIDE RECORDS SUMMARY | 2025-04-17 10:53 | XMS_ITS | Clinical Summary ---
Author Organization [facility] Address [address] [place] [address] Care Team Providers Care Retrieval Specialist Name Role Phone Unavailable Primary Care Provider [...] left and right heart cath today Atrial ajkvbbv3901/23/2025 Assessment & Plan (01/24/2025 4:14 PM EDT): Cardioversion scheduled for 01/25 Tuuryibyyu38/04/2025 Assessment & Plan (01/24/2025 4:14 PM EDT): [...] Blood work is ordered. Patient's creatinine at [facility] was at 1.3. Elevated d-dimer01/23/2025 Assessment & Plan (01/23/2025 11:53 PM EDT): Lower extremities Doppler to rule out DVT CTA of the chest was done and it was negative for PE. 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 Chest x-ray is ordered. Cardiology consult Echo Patient got IV Lasix before came to [facility] Cor pulmonale (chronic)01/23/2025 Encounters DateTypeDepartmentCare AeuuGvdajwwawtn33/05/2025 6:11 PM EDT - 01/24/2025 8:11 PM EDTSurgery [facility] Vascular Lab [address] [place] [id number] Justyn Ramos MD Coronary nodzhzoqzma42/04/2025 9:56 PM EDT - 01/26/2025 11:55 AM EDTHospital Encounter [facility] Medical Intensive Care [address] [place] [id number] Anand Davis MD Saad, Hani, MD Chang, [...] (1 standard drink = 0.6 oz pure alcohol)[facility] UtilitiesAnswerDate Recorded In the past 12 months [...] were you homeless or living in a senior care (including now)? No01/23/2025Hunger Vital SignAnswerDate RecordedWithin the past 12 months, you worried that your food would run out before you got the money to buymore.Never true01/23/2025Ran Out of Food in the Last YearNot on file01/23/2025Sex and Gender InformationValueDate RecordedSex Assigned at BrnobJzqu64/05/2025 6:02 AM EDTLegal CupVyga4001/23/2025 6:28 PM EDTGender FvcmxqpkQmyz38/05/2025 6:02 AM EDT Sexual OrientationHeterosexual or Xgpqbxgh97/05/2025 6:02 AM EDT Last Filed Vital Signs Vital SignReadingTime TakenCommentsBlood Syisopcx707/9401/25/2025 2:00 AM EDT Ibsyq69725/07/2025 10:00 AM OIHMtvwlqppdto84.2 ??C (97.2 ??F)01/26/2025 8:30 AM EDTRespiratory Lwdq0024 10:00 AM EDTOxygen Kedrmahfco75%01/26/2025 10:00 AM EDTInhaled Oxygen Concentration--Pwaxcw21.5 kg (188 lb 7.9 oz)01/25/2025 10:20 AM ESDCkdjbz443.3 cm (5' 11 )01/24/2025 12:14 AM EDTBody Mass Index26.29 01/24/2025 12:14 AM EDT Plan of Treatment Health MaintenanceDue DateLast DoneCommentsCT Xhnqhwamkboo85/25/1975Colonoscopy 1974Colorectal Cancer Albkcfojn69/25/1975FIT-DNA1974FIT1974 FOBT1974 7334Dvvzwlpzhsfsx08/25/1975Depression Gjtayekew35/25/1987Hepatitis B Vaccines (1 of 3 - 19+ 3-dose series)1993Pneumococcal Vaccine: Pediatrics (0 to 5 Years) and At-Risk Patients (6 to 64 Years) (1 of 2 - PCV)1993 Adult Hoyamwd9312/14/1996Zoster Vaccines (1 of 2)5COVID-19 Vaccine (1 - 2024- season)2025Influenza Vaccine (#1)2025HIB VaccinesAged OutNo longer eligible [...] NamePriorityDate/TimeAssociated DiagnosisCommentsCT LOWER EXTREMITY LEFT W IV DHWMAOFAXmamrgf34/07/2025 10:24 AM EDT CTA CHEST W IV BFSBTCYCIfotucf45/07/2025 10:24 AM EDT ABG COMPLETE UNSOLICITED VOCWMVQLtxfcxp93/07/2025 8:15 AM EDT MAGNESIUMPending Erbcjlazp91/07/2025 8:13 AM EDT BASIC METABOLIC PANELPending Xaxbuiuhs87/07/2025 8:13 AM EDT ABG COMPLETE JXXDQcxxchb40/07/2025 7:35 AM EDTANTI-FACTOR XAPending Discharge 01/26/2025 6:58 AM EDT VANCOMYCIN, RANDOMAdd-On01/26/2025 3:20 AM EDT PHOSPHORUSPending Zuwqmkuzl51/07/2025 3:20 AM EDT MAGNESIUMPending Xgetdfxwt63/07/2025 3:20 AM EDT BASIC METABOLIC PANELPending Cxouryuua17/07/2025 3:20 AM EDT CBCPending Afnjnovgc59/07/2025 3:20 AM EDT PERIPHERAL BLOOD BJPXQYtjanhh26/07/2025 12:12 AM EDT EXTRACTABLE NUCLEAR ANTIGEN CPGSEYZIHHQrimfbp49/07/2025 12:12 AM EDT ANTI-SCLERODERMA PTDXMUEKBerdtlx39/07/2025 12:12 AM EDT HIV COMBO 2UOdyxwzd28/07/2025 12:12 AM EDT ANCA-ASSOCIATED VASCULITIS GBZSMANMthptnj57/07/2025 12:12 AM EDT ANTI-FACTOR QBJbhdy8601/26/2025 12:12 AM EDT RHEUMATOID FACTORAdd-On01/25/2025 5:56 PM EDT ANCA-ASSOCIATED VASCULITIS RYJHGMEEylqxnr42/06/2025 5:56 PM EDT KOJGmeouwz56/06/2025 5:56 PM EDT ANTI-FACTOR PDYtsyo8001/25/2025 5:56 PM EDT LIMITED ECHOCARDIOGRAM (TTE) W/ LTD DOPPLER AND COLOR MZOSKQEP28/06/2025 1:33 PM EDT RESPIRATORY ASSESS AND TREAT LMWMCUKSWbbnchz46/06/2025 11:42 AM EDTRESPIRATORY ASSESS AND TREAT JXPPLWSVUfdilhb46/06/2025 11:42 AM EDTEXTUBATIONRoutine 01/25/2025 11:37 AM EDTABG COMPLETE UNSOLICITED RUSEUUZHfxwzps91/06/2025 11:30 AM EDT LACTIC ACID WITH 4 HOUR WYMGSUHlqngkf25/06/2025 11:21 AM EDT TSH3 REFLEX TO JH2Ynv-Jt66/06/2025 11:18 AM EDT CK TOTAL AND CKMBAdd-On01/25/2025 11:18 AM EDT CBC WITH AUTO RHAWEMOLTPWECNYD22/06/2025 11:18 AM EDT CBC AND IDSRUGLTNUEHJBNA56/06/2025 11:18 AM EDT BVHQNRJVTZAKNW76/06/2025 11:18 AM EDT BKIKSJRDAJCIC32/06/2025 11:18 AM EDT COMPREHENSIVE METABOLIC XMNBMALUK37/06/2025 11:18 AM EDT ANTI-FACTOR EYNmame2501/25/2025 11:18 AM EDT ABG ZYPXSlxgibv39/06/2025 11:11 AM EDTABG COMPLETE LGRAKssugit77/06/2025 11:02 AM EDTRESPIRATORY ASSESS AND TREAT IPPSTOAGCgsbqkr09/06/2025 10:16 AM EDT RESPIRATORY ASSESS AND TREAT KLDWQNRDRgcubyw12/06/2025 10:16 AM EDTABG COMPLETE UNSOLICITED GGJBJVPKxtkwsl17/06/2025 10:04 AM EDT QTECHUCFgzyyox27/06/2025 9:57 AM EDT TOXICOLOGY PANEL PAXHOIbcqccq94/06/2025 9:57 AM EDT TOXICOLOGY PANEL URINE WITH LAZIRKIRhthkjk49/06/2025 9:57 AM EDT RESPIRATORY ASSESS AND TREAT HAGAPEAYOkngkpf16/06/2025 9:50 AM EDTXR CHEST 1 ZBRMKfapcib66/06/2025 8:56 AM EDT ABG COMPLETE SULVXarqpmi82/06/2025 8:08 AM EDTXR TIBIA FIBULA 2 VIEWS LEFT Uzqybrk3301/25/2025 8:06 AM EDT RESPIRATORY ASSESS AND TREAT YJOMPSGYTzuljfi90/06/2025 8:00 AM EDTABG COMPLETE UNSOLICITED DALPZZEHtekdbp34/06/2025 7:52 AM EDT BLOOD WPLTIVVCwsueiv11/06/2025 7:52 AM EDT BLOOD HDUSLTAKqqrvor24/06/2025 7:52 AM EDT ABG COMPLETE JWFLOnxncka50/06/2025 7:46 AM EDTPROCALCITONIN TESTAdd-On01/25/2025 4:44 AM EDT UGKKPUWUAHTbyqxoo55/06/2025 4:44 AM EDT QXKXOZZNXSpggnys74/06/2025 4:44 AM EDT FGDLsvfryu38/06/2025 4:44 AM EDT ANTI-FACTOR LTKlwsh0501/25/2025 4:44 AM EDT BASIC METABOLIC GMDQXYplgmtf65/06/2025 4:44 AM EDT ABG COMPLETE UNSOLICITED ZUCPXSOKattjpe59/06/2025 2:53 AM EDT ABG COMPLETE JTXINcdwdtz76/06/2025 2:44 AM EDTCOMPLETE VENOUS BLOOD GAS PANEL Zoueinf4201/25/2025 12:20 AM EDT PROCALCITONIN TESTAdd-01/24/2025 11:47 PM EDT RXLIJIBRDKHDSC67/05/2025 11:47 PM EDT BASIC METABOLIC HYMWJOLUF08/05/2025 11:47 PM EDT URZTERU5501/24/2025 11:47 PM EDT XOILSIFGXSHAS23/05/2025 11:47 PM EDT ANTI-FACTOR VUPbnvk1801/24/2025 11:47 PM EDT COMPLETE VENOUS BLOOD GAS SCCKWEwzdqjy84/05/2025 11:17 PM EDT LACTIC ACID WITH 4 HOUR EPSJXYHKZN22/05/2025 9:52 PM EDT USRWOXFHPVMNHI92/05/2025 9:52 PM EDT IZTSSVMKIOIUB55/05/2025 9:52 PM EDT WXDKJJX7001/24/2025 9:52 PM EDT BASIC METABOLIC SYNXWJYUD34/05/2025 9:52 PM EDT ANTI-FACTOR UHTrgbb8301/24/2025 9:52 PM EDT ECG 12-NSOCTggxp96/05/2025 8:53 PM EDT PULMONARY MHNURJTYONltetzh48/05/2025 5:59 PM EDT New onset of congestive heart failure (CMS/HCC) Cor pulmonale (chronic) (CMS/HCC) SWAN (FLOW DIRECTED CATH) KOHQMGTXKUrixmjj21/05/2025 5:59 PM EDT New onset of congestive heart failure (CMS/HCC) Cor pulmonale (chronic) (CMS/HCC) RIGHT HEART VLZJXkswkpt88/05/2025 5:59 PM EDT New onset of congestive heart failure (CMS/HCC) Cor pulmonale (chronic) (CMS/HCC) CORONARY LEOUGHOOMPKOandqqo20/05/2025 5:59 PM EDT New onset of congestive heart failure (CMS/HCC) Cor pulmonale (chronic) (CMS/HCC) POCT HBO2%Azcgbxx1601/24/2025 5:54 PM EDT POCT HBO2%Gurvtgz6201/24/2025 5:52 PM EDT POCT HBO2%Ifxlcaz4201/24/2025 5:52 PM EDT POCT HBO2%Pronvca1501/24/2025 4:59 PM EDT POCT HBO2%Jiziowz8601/24/2025 4:47 PM EDT POCT HBO2%Wjikpfk2301/24/2025 4:47 PM EDT POCT HBO2%Vzsscgq0201/24/2025 4:32 PM EDT CBSIZQIB97/05/2025 11:17 AM EDT BASIC METABOLIC PANELAdd-On01/24/2025 11:11 AM EDT B-TYPE NATRIURETIC LGZTTECJohzfby00/05/2025 11:11 AM EDT HIGH SENSITIVITY TROPONIN OIimowjq15/05/2025 11:11 AM EDT ECG 12-SWIVTnnrtxk34/05/2025 10:24 AM EDT EHQLMTIBDGBfxaqgh21/05/2025 9:22 AM EDT VASC US LOWER EXTREMITY VENOUS DUPLEX GJNXTHRHYPvonnns65/05/2025 8:46 AM EDT COMPLETE ECHO (TTE) W/ IMAGING JZIGLUjngnfd61/05/2025 8:37 AM EDT ECG 12-BAUMFVUQ84/05/2025 7:07 AM EDT XR CHEST 1 BPTOYflmghf53/05/2025 6:47 AM EDT ECG 12-IFPKLyaofbu87/05/2025 2:25 AM EDT Procedure Note - 01/24/2025 [...] in Inferior lead OPIATE, SERUM OR PLASMA, JPIQKFBUOOZEXbhayil32/04/2025 11:57 PM EDT AMPHETAMINE, SERUM OR PLASMA, FZOJBJIPBUUJFugchcj13/04/2025 11:57 PM EDT CBC WITH AUTO ENHAHLZHZZWXAlwapja10/04/2025 11:57 PM EDT LACTIC ACID, ZIEXZMLkousdk74/04/2025 11:57 PM EDT C-REACTIVE YXAODQYNhdcgkx19/04/2025 11:57 PM EDT DRUG SCREEN PANEL 9, NMIOWNukpyke86/04/2025 11:57 PM EDT TSH3 REFLEX TO IX4Iwhdwnc80/04/2025 11:57 PM EDT HIGH SENSITIVITY TROPONIN DYqgxtoz00/04/2025 11:57 PM EDT D-DIMER, WJGZDGNOGLPYWwkbaar34/04/2025 11:57 PM EDT PROTIME-HQVAfeqkyl46/04/2025 11:57 PM EDT KNSSFCEPUEgxuhsh35/04/2025 11:57 PM EDT HEPATIC FUNCTION TQEHMZvkqznt07/04/2025 11:57 PM EDT CBC AND XBSQIQDUXUYRVsnybmw01/04/2025 11:57 PM EDT BASIC METABOLIC HJFOIHitledp44/04/2025 11:57 PM EDT B-TYPE NATRIURETIC UZJYNYGHzvjesp72/04/2025 11:57 PM EDT NRZTQzcrayq13/04/2025 11:57 PM EDT ECG 12-XUGZMJSH76/04/2025 11:05 PM EDT from Last 3 Months [...] EDT 1. No pulmonary embolism seen. 2. Thorofare-Sharon catheter in the descending left pulmonary artery. [...] the lungs. There is a right IJ Thorofare-Sharon catheter tip in the lobar branch of [...] of the lungs. There is aright IJ Thorofare-Sharon catheter tip in the lobar branch of the left lower lobepulmonary artery. The ascending aorta measures 3.3 cm and the main pulmonaryartery measures 3.4 cm. No filling defects in the visualized pulmonary arterybranches to suggest pulmonary. IMPRESSION: 1. No pulmonary embolism seen. 2. Thorofare-Sharon catheter in the descending left pulmonary artery. [...] Signature pH, Arterial7.437.35 - 7.4508 8:15 AM [facility] RESPIRATORY THERAPYpCO2, Nkyzuutv23(L)35 - 45 mmHg01/26/2025 8:15 AM [facility] RESPIRATORY THERAPYpO2, Eddyxiwy07(L)83 - 108 mmHg01/26/2025 8:15 AM [facility] RESPIRATORY THERAPYHCO3, Lscpmduk32.921.0 - 28.0 mmol/L01/26/2025 8:15 AM [facility] RESPIRATORY THERAPYO2 Sat, Gwxcdslk23.4(L)94.0 - 100.0 %01/26/2025 8:15 AM [facility] RESPIRATORY THERAPY Base Excess, Arterial-1.6-2.0 - 3.0 mmol/L01/26/2025 8:15 AM [facility] RESPIRATORY THERAPYCalcium Ionized, Arterial1.171.13 - 1.32 mmol/L01/26/2025 8:15 AM [facility] RESPIRATORY THERAPYSodium, Itlzsgva644(L)136 - 146 mmol/L01/26/2025 8:15 AM [facility] RESPIRATORY THERAPYPotassium, Arterial4.33.4 - 5.2 mmol/L01/26/2025 8:15 AM [facility] RESPIRATORY THERAPYChloride, Slzqvtib77624 - 107 mmol/L01/26/2025 8:15 AM [facility] RESPIRATORY THERAPYGlucose, Ibxeppdl810(H)65 - 95 mg/dL01/26/2025 8:15 AM [facility] RESPIRATORY THERAPYLactate, Arterial0.400.36 - 1.39 mmol/L 01/26/2025 8:15 AM [facility] RESPIRATORY THERAPYHematocrit, Rqggugzf8027 - 50 % 01/26/2025 8:15 AM [facility] RESPIRATORY THERAPYHemoglobin, Vgenlnfk53.3g/dL 01/26/2025 8:15 AM [facility] RESPIRATORY THERAPYOxyhemoglobin, Lzrihvqs54.8(L)94.0 - 97.0 %01/26/2025 8:15 AM [facility] RESPIRATORY THERAPYMethemoglobin, Arterial0.7 0.0 - 1.5 %01/26/2025 8:15 AM [facility] RESPIRATORY THERAPYCarboxyhemoglobin, Arterial1.1%01/26/2025 8:15 AM [facility] RESPIRATORY THERAPYDeoxyhemoglobin, Arterial9.4%01/26/2025 8:15 AM [facility] RESPIRATORY VACSENCSpurpxvnbvv46.0??C 01/26/2025 8:15 AM [facility] RESPIRATORY THERAPYOxygen Device #1High Flow Cannula 01/26/2025 8:15 AM [facility] RESPIRATORY FBYQZPAGRE78.0LPM01/26/2025 8:15 AM EDT [facility] RESPIRATORY QXQMRBVAtC8005.0%01/26/2025 8:15 AM [facility] RESPIRATORY THERAPY PF Rchvq49snTy18/07/2025 8:15 AM [facility] RESPIRATORY THERAPYA-zFc9796zmWf 01/26/2025 8:15 AM [facility] RESPIRATORY THERAPYpaO2/pAO20.22cbBn0401/26/2025 8:15 AM [facility] RESPIRATORY THERAPYNotify Ptvw556560/07/2025 8:15 AM [facility] RESPIRATORY THERAPYNotify Cbjxojxtkynmnn00/07/2025 8:15 AM [facility] RESPIRATORY THERAPYNotify ProviderDR FKAYRV0901/26/2025 8:15 AM [facility] RESPIRATORY THERAPY Notify VtkibiX6301/26/2025 8:15 AM [facility] RESPIRATORY THERAPYSpecimen (Source) Anatomical Location / LateralityCollection Method / VolumeCollection Time Received TimeBloodArterial blood specimen / Upavdxt7001/26/2025 8:15 AM EDT 01/26/2025 8:15 AM EDT Narrative Authorizing ProviderResult TypeResult StatusZaid Dafne MDLAB BLOOD ORDERABLES Final ResultPerforming OrganizationAddressCity/State/ZIP CodePhone Number [facility] RESPIRATORY THERAPY [address] [place] [address], * Magnesium (01/26/2025 8:13 AM EDT) Only the most recent of7 resultswithin the time period is included. ComponentValueRef RangeTest MethodAnalysis TimePerformed AtPathologist Signature Magnesium2.71.9 - 2.7 mg/dL01/26/2025 9:28 AM [facility] ([facility] [place] Specimen (Source)Anatomical Location / LateralityCollection Method / Volume Collection TimeReceived TimeBloodVenous blood specimen / UnknownArterial Line / Zbjqnpc4101/26/2025 8:13 AM EDT01/26/2025 8:21 AM EDT Narrative Authorizing ProviderResult TypeResult StatusZaid Dafne ELISE BLOOD ORDERABLES Final ResultPerforming OrganizationAddressCity/State/ZIP CodePhone Number [facility] ([facility] [place]) [address] [place] [address] * (ABNORMAL) Basic metabolic panel (01/26/2025 8:13 AM EDT) Only the most recent of7 resultswithin the time period is included. ComponentValueRef RangeTest MethodAnalysis TimePerformed AtPathologist Signature Syiqmh522(L)136 - 145 mmol/L01/26/2025 9:28 AM [facility] ([facility] [place]) Potassium4.63.5 - 5.1 mmol/L01/26/2025 9:28 AM [facility] ([facility] [place]) Dgujvcqt40498 - 107 mmol/L01/26/2025 9:28 AM [facility] ([facility] [place])CO224 21 - 31 mmol/L01/26/2025 9:28 AM [facility] ([facility] [place])PJY576 - 25 mg/dL 01/26/2025 9:28 AM [facility] ([facility] [place])Creatinine0.860.70 - 1.30 mg/dL 01/26/2025 9:28 AM [facility] ([facility] [place])Ldgkgmd813(H)70 - 100 mg/dL 01/26/2025 9:28 AM [facility] ([facility] [place])Calcium8.98.6 - 10.3 mg/dL 01/26/2025 9:28 AM [facility] ([facility] [place])Anion Sts671 - 20 mmol/L 01/26/2025 9:28 AM [facility] ([facility] [place])uDNU306.5>60.0 mL/min/1.73m*2 01/26/2025 9:28 AM [facility] ([facility] [place])Comment:[facility]???s estimated glomerular filtration rate (eGFR) will no [...] group of individuals. BUN/Creatinine Ratio19.8001/26/2025 9:28 AM [facility] ([facility] [place])Specimen (Source)Anatomical Location / LateralityCollection Method / VolumeCollection TimeReceived TimeBloodVenous blood specimen / UnknownArterial Line / Unknown 01/26/2025 8:13 AM EDT01/26/2025 8:21 AM EDT Narrative Authorizing ProviderResult TypeResult StatusBubba ELISE BLOOD ORDERABLES Final ResultPerforming OrganizationAddressCity/State/ZIP CodePhone Number [facility] ([facility] [place]) [address] [place] [address] * (ABNORMAL) Anti-Xa (Heparin Level) (01/26/2025 6:58 AM EDT) Only the most recent of7 resultswithin the time period is included. ComponentValueRef RangeTest MethodAnalysis TimePerformed AtPathologist Signature Anti-Xa (Heparin)0.28(L)0.3 - 0.7 IU/mL01/26/2025 7:41 AM [facility] ([facility] [place])Comment:Rivaroxaban and Apixaban will interfere with the anti Xa assay used to monitor UFH and LMWH.Specimen (Source)Anatomical Location / Laterality Collection Method / VolumeCollection TimeReceived TimeBloodArterial blood specimen / UnknownArterial Line / Uycpajy3601/26/2025 6:58 AM EDT01/26/2025 7:06 AM EDT Narrative Authorizing ProviderResult TypeResult StatusBubba ELISE BLOOD ORDERABLES Final ResultPerforming OrganizationAddressCity/State/ZIP CodePhone Number [facility]) [address] [place] [address] * (ABNORMAL) CBC (01/26/2025 3:20 AM EDT) Only the most recent of4 resultswithin the time period is included. ComponentValueRef RangeTest MethodAnalysis TimePerformed AtPathologist Signature Auto WBC11.90(H)4.00 - 10.60 10*3/uL01/26/2025 3:43 AM [facility] ([facility] [place])RBC4.794.20 - 5.70 10*6/uL01/26/2025 3:43 AM [facility] ([facility] [place])Veqztkbgsn77.513.0 - 17.0 g/dL01/26/2025 3:43 AM [facility] ([facility] [place])Nimtreuvad50.639.0 - 50.0 %01/26/2025 3:43 AM [facility] ([facility] [place])MCV88.982.0 - 98.0 fL01/26/2025 3:43 AM [facility] ([facility] [place])MCH 30.327.0 - 33.0 pg01/26/2025 3:43 AM [facility] ([facility] [place])MCHC34.032.0 - 35.0 g/dL01/26/2025 3:43 AM [facility] ([facility] [place])RDW14.511.5 - 15.0 % 01/26/2025 3:43 AM [facility] ([facility] [place])Mczorxysb611135 - 400 10*3/uL 01/26/2025 3:43 AM [facility] ([facility] [place])Specimen (Source)Anatomical Location / LateralityCollection Method / VolumeCollection TimeReceived TimeBlood Arterial blood specimen / UnknownArterial Line / Dxuolbf5701/26/2025 3:20 AM EDT 01/26/2025 3:36 AM EDT Narrative Authorizing ProviderResult TypeResult StatusZaid Dafne NAVARRETELAB BLOOD ORDERABLES Final ResultPerforming OrganizationAddressCity/State/ZIP CodePhone Number [facility] ([facility] [place]) [address] [place] [address] * Phosphorus (01/26/2025 3:20 AM EDT) Only the most recent of5 resultswithin the time period is included. ComponentValueRef RangeTest MethodAnalysis TimePerformed AtPathologist Signature Phosphorus3.62.5 - 5.0 mg/dL01/26/2025 3:58 AM [facility] ([facility] [place]) Specimen (Source)Anatomical Location / LateralityCollection Method / Volume Collection TimeReceived TimeBloodArterial blood specimen / UnknownArterial Line / Lqikqcu7701/26/2025 3:20 AM EDT01/26/2025 3:36 AM EDT Narrative Authorizing ProviderResult TypeResult StatusBubba Leos ARLAB BLOOD ORDERABLES Final ResultPerforming OrganizationAddressCity/State/ZIP CodePhone Number [facility]) [address] [place] [address] * Vancomycin, random (01/26/2025 3:20 AM EDT)ComponentValueRef RangeTest Method Analysis TimePerformed AtPathologist SignatureVancomycin Rm33.020.0 - 40.0 ug/mL01/26/2025 12:58 PM [facility] ([facility] [place])Specimen (Source) Anatomical Location / LateralityCollection Method / VolumeCollection Time Received TimeBloodArterial blood specimen / UnknownArterial Line / Unknown 01/26/2025 3:20 AM EDT01/26/2025 3:36 AM EDT Narrative Authorizing ProviderResult TypeResult StatusScontreras Strauss [facility] BLOOD ORDERABLESFinal ResultPerforming OrganizationAddressCity/State/ZIP CodePhone Number [facility]) [address] [place] [address] * ANCA-Associated Vasculitis Profile (01/26/2025 12:12 AM EDT) Only the most recent of2 resultswithin the time period is included. ComponentValueRef RangeTest MethodAnalysis TimePerformed AtPathologist Signature Myeloperoxidase (MPO) Ab, IgG00 - 19 AU/mL01/28/2025 2:45 PM [facility] [place]Comment: INTERPRETIVE INFORMATION: Myeloperoxidase Abs, IgG ??19 AU/mL or Less ......... Negative ??20-25 AU/mL .............. Equivocal ??26 AU/mL or Greater ...... Positive Approximately 90% of patients with a P-ANCA pattern by IFA have antibodies specific for MPO. Serine Proteinase 3 (PR3) Ab, IgG00 - 19 AU/mL01/28/2025 2:45 PM [facility] [place]Comment: INTERPRETIVE INFORMATION: Serine Proteinase 3, IgG ??19 AU/mL or Less ........ Negative ??20-25 AU/mL ............. Equivocal ??26 AU/mL or Greater ..... Positive Approximately 85% of patients with a C-ANCA pattern by IFA have antibodies specific for PR3. ANCA IFA Titer<1:20<1: 2:45 PM [facility] ([facility] [place]ANCA IFA PatternNone DetectedNone Nloggewb12/09/2025 2:45 PM [facility] ([facility] [place] Comment: INTERPRETIVE INFORMATION: ANCA IFA Pattern Neutrophil Cytoplasmic Antibodies (C-ANCA = granular cytoplasmic staining, P-ANCA = perinuclear staining) are found in the serum of over 90 percent of patients with certain necrotizing systemic vasculitides, and usually in less than 5 percent of patients with collagen vascular disease or arthritis. Performed By: [facility] [address] [place] [id number] Bunker Worker: Vince Roberts MD, PhD CLIA Number: [id number] Specimen (Source)Anatomical Location / LateralityCollection Method / Volume Collection TimeReceived TimeBloodArterial blood specimen / UnknownArterial Line / [id number]/26/2025 12:12 AM EDT01/26/2025 12:27 AM EDT Narrative Authorizing ProviderResult TypeResult StatusZaid Dafne ELISE BLOOD ORDERABLES Final ResultPerforming OrganizationAddressCity/State/ZIP CodePhone Number [facility] ([facility] [place]) [address] [place] [phone] * HIV combo 4G (01/26/2025 12:12 AM EDT)ComponentValueRef RangeTest Method Analysis TimePerformed AtPathologist SignatureHIV Combo 4GNegativeNegative 01/26/2025 1:26 AM [facility] [place]Specimen (Source)Anatomical Location / LateralityCollection Method / VolumeCollection TimeReceived Time BloodArterial blood specimen / UnknownArterial Line / Flrvikb9001/26/2025 12:12 AM EDT01/26/2025 12:27 AM EDT Narrative Authorizing ProviderResult TypeResult StatusZaid Dafne ELISE BLOOD ORDERABLES Final ResultPerforming OrganizationAddressCity/State/ZIP CodePhone Number [facility] ([facility]) [address] [place] [address] * Extractable nuclear antigen antibodies (01/26/2025 12:12 AM EDT)ComponentValue Ref RangeTest MethodAnalysis TimePerformed AtPathologist SignatureSmith Antibody, IgG10 - 40 AU/mL01/28/2025 1:43 PM [facility] ([facility]) Comment: INTERPRETIVE INFORMATION: Bhatia ([place]) Antibody, IgG ??29 AU/mL or Less ............. Negative ??30 - 40 AU/mL ................ Equivocal ??41 AU/mL or Greater .......... Positive Bhatia antibody is highly specific (greater than 90 percent) for systemic lupus erythematosus (SLE) but only occurs in 30-35 percent of SLE cases. The presence of antibodies to Bhatia has variable associations with SLE clinical manifestations. Bhatia/SAP SPECIALIST Antibody, IgG50 - 19 Units01/28/2025 1:43 PM [facility] ([facility])Comment: INTERPRETIVE INFORMATION: Bhatia/SAP SPECIALIST ([place]) Antibody, IgG ??19 Units or Less ............. Negative ??20 to 39 Units ............... Weak Positive ??40 to 80 Units ............... Moderate Positive ??81 Units or greater .......... Strong Positive Bhatia/SAP SPECIALIST antibodies are frequently seen in patients with mixed connective tissue disease (MCTD) and are also associated with other systemic autoimmune rheumatic diseases (SARDs) such as systemic lupus erythematosus (SLE), systemic sclerosis, and myositis. Antibodies targeting the Bhatia/SAP SPECIALIST antigenic complex also recognize Bhatia antigens, therefore, the Bhatia antibody response must be considered when interpreting these results. Performed By: [facility] [address] [place] [address] Bunker Worker: Vince Roberts MD, PhD CLIA Number: [id number] Specimen (Source)Anatomical Location / LateralityCollection Method / Volume Collection TimeReceived TimeBloodArterial blood specimen / UnknownArterial Line / Mebtgkl9801/26/2025 12:12 AM EDT01/26/2025 12:27 AM EDT Narrative Authorizing ProviderResult TypeResult StatusZaid Dafne ELISE BLOOD ORDERABLES Final ResultPerforming OrganizationAddressCity/State/ZIP CodePhone Number [facility] ([facility]) [address] [place] [address] * Anti-scleroderma antibody (01/26/2025 12:12 AM EDT)ComponentValueRef [...] testing for centromere, RNA polymerase III and U3-SAP SPECIALIST, PM/Scl, or Th/To antibodies. Performed By: [facility] [address] [place] [address] Bunker Worker: Vince Roberts MD, PhD CLIA Number: [id number] Specimen (Source)Anatomical Location / LateralityCollection Method / Volume Collection TimeReceived TimeBloodArterial blood specimen / UnknownArterial Line / Feqyqda1101/26/2025 12:12 AM EDT01/26/2025 12:27 AM EDT Narrative Authorizing ProviderResult TypeResult StatusBubba ELISE BLOOD ORDERABLES Final ResultPerforming OrganizationAddressCity/State/ZIP CodePhone Number [facility] ([facility]) [address] [place] [address] * Peripheral blood smear, path review (01/26/2025 12:12 AM EDT)ComponentValueRef RangeTest MethodAnalysis TimePerformed AtPathologist SignatureWBC Comment Normal count and differential.01/26/2025 11:11 AM [facility] ([facility])RBC CommentNo anemia, no specific RBC morphology.01/26/2025 11:11 AM [facility] ([facility])Platelet CommentDEQUATE.01/26/2025 11:11 AM EDT [facility] ([facility])Specimen (Source)Anatomical Location / Laterality Collection Method / VolumeCollection TimeReceived TimeBloodArterial blood specimen / UnknownArterial Line / Spwjari9801/26/2025 12:12 AM EDT01/26/2025 12:27 AM EDT Narrative [facility] ([facility]) - 01/26/2025 11:11 AM EDT . Authorizing ProviderResult TypeResult Handy ELISE PATHOLOGY ORDERABLESFinal ResultPerforming OrganizationAddressCity/State/ZIP CodePhone Number [facility] ([facility]) [address] [place] [address] * Rheumatoid factor (01/25/2025 5:56 PM EDT)ComponentValueRef RangeTest Method Analysis TimePerformed AtPathologist SignatureRheumatoid Factor<8.0<=12.5 IU/mL08/12/2024 9:38 AM [facility] ([facility])Comment:Testing performed using a new methodology, turbidimetry. Normal ranges have been updated. Old normal range was <20 IU/mL.Specimen (Source)Anatomical Location / Laterality Collection Method / VolumeCollection TimeReceived TimeBloodVenous blood specimen / UnknownArterial Line / Zjwhnge8601/25/2025 5:56 PM EDT01/25/2025 6:06 PM EDT Narrative Authorizing ProviderResult TypeResult StatusBubba DillardFranklin Woods Community HospitalLAB BLOOD ORDERABLES Final ResultPerforming OrganizationAddressCity/State/ZIP CodePhone Number [facility] ([facility]) [address] [place] [address] * (ABNORMAL) MALLY (01/25/2025 5:56 PM EDT)ComponentValueRef RangeTest Method Analysis TimePerformed AtPathologist SignatureANA DbphfvmTgwqudhha13/12/2025 1:39 PM [facility] ([facility])MALLY Titer1:80(H)<=1:40001/31/2025 1:39 PM [facility] ([facility])Comment:Test performed using PABLO IFA MALLY Hep-2 Test, a pre-standardized assay designed for the qualitativeand semi- quantitative detection of antinuclear antibodies.Specimen (Source)Anatomical Location / LateralityCollection Method / VolumeCollection TimeReceived Time BloodVenous blood specimen / UnknownArterial Line / Znfgizb1401/25/2025 5:56 PM EDT01/25/2025 6:06 PM EDT Narrative Authorizing ProviderResult TypeResult Handy Leos [facility] BLOOD ORDERABLES Final ResultPerforming OrganizationAddressCity/State/ZIP CodePhone Number [facility] ([facility]) [address] [place] [address] * LIMITED ECHOCARDIOGRAM (TTE) W/ LTD DOPPLER AND COLOR FLOW (01/25/2025 1:33 PM EDT)Anatomical RegionLateralityModalityOtherSpecimen (Source)Anatomical Location / LateralityCollection Method / VolumeCollection TimeReceived Time 01/25/2025 12:36 PM EDT Addenda Addendum by Ronaldo Valderrama MD on 01/25/2025 2:56 PM EDT 1 1 [facility] Heart Station [address] [place] [address] [phone] (fax) Echocardiogram-[facility] Name: NATHAN SANTOS Study Date: 01/25/2025 12:36 PM B/P: 111 mmHg/94 mmHg HR: 115 bpm Date of : 1975 Location: [facility] Height: 71 in. Age: 49 year(s) Patient Room: 3207 Weight: 188 lb. Gender: Male Patient Status: InPt BSA: 2.05 m2 Indication: pulmonary HTN, Thorofare catheter Examination: Limited Echo/Limited Doppler, Color flow [...] effusion is seen. Procedure Staff Reading Group: [facility] Supervisor Accounts Receivable: KIANNA Churchill, RDCS ??Ordering Physician: RONALDO VALDERRAMA ?? Narrative 01/25/2025 2:56 PM EDT 1 1 [facility] Heart Station [address] [place] [address] [phone] (fax) Echocardiogram-[facility] Name: NATHAN SANTOS Study Date: 01/25/2025 12:36 PM B/P: 111 mmHg/94 mmHg HR: 115 bpm Date of : 1975 Location: [facility] Height: 71 in. Age: 49 year(s) Patient Room: 3207 Weight: 188 lb. Gender: Male Patient Status: InPt BSA: 2.05 m2 Indication: pulmonary HTN, Thorofare catheter Examination: Limited Echo/Limited Doppler, Color flow [...] effusion is seen. Procedure Staff Reading Group: [facility] Supervisor Accounts Receivable: KIANNA Churchill, RDCS ??Ordering Physician: RONALDO VALDERRAMA ?? Procedure Note Ronaldo Valderrama MD - 01/25/2025 1 1 [facility] Heart Station [address] [place] [address] [phone] (fax) Echocardiogram-[facility] Name: NATHAN SANTOS Study Date: 01/25/2025 12:36 PM B/P: 111 mmHg/94 mmHg HR: 115 bpm Date of : 1975 Location: [facility] Height: 71 in. Age: 49 year(s) Patient Room: 3207 Weight: 188 lb. Gender: Male Patient Status: InPt BSA: 2.05 m2 Indication: pulmonary HTN, Thorofare catheter Examination: Limited Echo/Limited Doppler, Color flow [...] effusion is seen. Procedure Staff Reading Group: [facility] Supervisor Accounts Receivable: KIANNA Churchill, RDCS Ordering Physician: RONALDO VALDERRAMA Authorizing ProviderResult TypeResult StatusSarito Valderrama [facility] ECHO PROCEDURES Edited Result - Final * Lactic acid with 4 hour reflex (01/25/2025 11:21 AM EDT) Only the most recent of2 resultswithin the time period is included. ComponentValueRef RangeTest MethodAnalysis TimePerformed AtPathologist Signature Lactate0.60.5 - 2.2 mmol/L01/25/2025 12:01 PM [facility] ([facility]) Specimen (Source)Anatomical Location / LateralityCollection Method / Volume Collection TimeReceived TimeBloodVenous blood specimen / UnknownArterial Line / Ytqeiea0501/25/2025 11:21 AM EDT01/25/2025 11:35 AM EDT Narrative Authorizing ProviderResult TypeResult StatusZaid Dafne MDLAB BLOOD ORDERABLES Final ResultPerforming OrganizationAddressCity/State/ZIP CodePhone Number [facility] ([facility]) [address] [place] [address] * TSH3 Reflex to FT4 (01/25/2025 11:18 AM EDT) Only the most recent of2 resultswithin the time period is included. ComponentValueRef RangeTest MethodAnalysis TimePerformed AtPathologist Signature TSH0.790.34 - 5.60 mIU/L01/25/2025 9:33 PM [facility] ([facility])Specimen (Source)Anatomical Location / LateralityCollection Method / VolumeCollection TimeReceived TimeBloodVenous blood specimen / UnknownArterial Line / Unknown 01/25/2025 11:18 AM EDT01/25/2025 11:36 AM EDT Narrative Authorizing ProviderResult TypeResult StatusBubba Leos MDLAB BLOOD ORDERABLES Final ResultPerforming OrganizationAddressCity/State/ZIP CodePhone Number [facility]) [address] [place] [address] * (ABNORMAL) CBC auto differential (01/25/2025 11:18 AM EDT) Only the most recent of2 resultswithin the time period is included. ComponentValueRef RangeTest MethodAnalysis TimePerformed AtPathologist Signature Auto WBC9.534.00 - 10.60 10*3/uL01/25/2025 11:45 AM [facility] ([facility])RBC4.524.20 - 5.70 10*6/uL01/25/2025 11:45 AM [facility] ([facility])Xhqxmfowvd76.513.0 - 17.0 g/dL01/25/2025 11:45 AM [facility] ([facility])Znppinrlnr91.139.0 - 50.0 %01/25/2025 11:45 AM [facility] ([facility] [place])MCV88.782.0 - 98.0 fL01/25/2025 11:45 AM [facility] ([facility]) MCH29.927.0 - 33.0 pg01/25/2025 11:45 AM [facility] ([facility])MCHC33.7 32.0 - 35.0 g/dL01/25/2025 11:45 AM [facility] ([facility])RDW14.611.5 - 15.0 %01/25/2025 11:45 AM [facility] ([facility])Neutrophils %73.9(H)40.0 - 72.0 %01/25/2025 11:45 AM [facility] ([facility])Lymphocytes %17.2(L) 20.0 - 45.0 %01/25/2025 11:45 AM [facility] ([facility])Monocytes %7.65.0 - 12.0 %01/25/2025 11:45 AM [facility] ([facility])Eosinophils %0.50.0 - 6.0 %01/25/2025 11:45 AM [facility] ([facility])Basophils %0.40.0 - 1.0 % 01/25/2025 11:45 AM [facility] ([facility])Neutrophils Absolute7.041.60 - 7.60 10*3/uL01/25/2025 11:45 AM [facility] ([facility])Lymphocytes Absolute1.641.20 - 4.00 10*3/uL08 11:45 AM [facility] ([facility]) Monocytes Absolute0.720.10 - 1.00 10*3/uL01/25/2025 11:45 AM [facility] ([facility])Eosinophils Absolute0.050.00 - 0.50 10*3/uL08 11:45 AM [facility] ([facility])Basophils Absolute0.040.00 - 0.20 10*3/uL08/11/2024 11:45 AM [facility] ([facility])Thhwregyg032759 - 400 10*01/25/2025 11:45 AM [facility] ([facility])nRBC %0.00 %01/25/2025 11:45 AM [facility] ([facility])Immature Granulocytes %0.40.0 - 1.0 %01/25/2025 11:45 AM [facility] ([facility])Immature Granulocytes Absolute0.040.00 - 0.20 10*301/25/2025 11:45 AM [facility] ([facility])Specimen (Source) Anatomical Location / LateralityCollection Method / VolumeCollection Time Received TimeBloodVenous blood specimen / UnknownArterial Line / Unknown 01/25/2025 11:18 AM EDT01/25/2025 11:37 AM EDT Narrative Authorizing ProviderResult TypeResult StatusBubba ELISE BLOOD ORDERABLES Final ResultPerforming OrganizationAddressCity/State/ZIP CodePhone Number [facility] ([facility]) [address] [place] [address] * (ABNORMAL) CK total and CKMB (01/25/2025 11:18 AM EDT)ComponentValueRef Range Test MethodAnalysis TimePerformed AtPathologist SignatureTotal CK81.030.0 - 223.0 U/L01/25/2025 3:00 PM [facility])CK-MB Index20.0(H)0.0 - 1.9001/25/2025 3:00 PM [facility])CK-MB16.2(H)0.0 - 5.0 ng/mL01/25/2025 3:00 PM [facility])Specimen (Source) Anatomical Location / LateralityCollection Method / VolumeCollection Time Received TimeBloodVenous blood specimen / UnknownArterial Line / Unknown 01/25/2025 11:18 AM EDT01/25/2025 11:36 AM EDT Narrative Authorizing ProviderResult TypeResult StatusBubba ELISE BLOOD ORDERABLES Final ResultPerforming OrganizationAddressCity/State/ZIP CodePhone Number [facility] ([facility]) [address] [place] [address] * (ABNORMAL) Comprehensive metabolic panel (01/25/2025 11:18 AM EDT)Component ValueRef RangeTest MethodAnalysis TimePerformed AtPathologist SignatureSodium 781729 - 145 mmol/L01/25/2025 12:04 [facility] ([facility])Potassium 4.03.5 - 5.1 mmol/L01/25/2025 12:04 [facility] ([facility])Chloride 23010 - 107 mmol/L01/25/2025 12:04 [facility] ([facility])UO70206 - 31 mmol/L01/25/2025 12:04 [facility] ([facility])Anion Jnm404 - 20 mmol/L01/25/2025 12:04 [facility] ([facility])QLG061 - 25 mg/dL 01/25/2025 12:04 [facility] ([facility])Creatinine0.950.70 - 1.30 mg/dL01/25/2025 12:04 [facility] ([facility])BUN/Creatinine Ratio23.2 01/25/2025 12:04 [facility] ([facility])Baqbgdr028(H)70 - 100 mg/dL 01/25/2025 12:04 [facility] ([facility])Calcium8.78.6 - 10.3 mg/dL 01/25/2025 12:04 [facility] ([facility])SWM0269 - 39 U/L01/25/2025 12:04 [facility] ([facility])ALT (SGPT)177 - 52 U/L01/25/2025 12:04 [facility] ([facility])Alkaline Qoonmjqmima2518 - 104 U/L01/25/2025 12:04 [facility] ([facility])Total Protein5.8(L)6.0 - 8.3 g/dL 01/25/2025 12:04 [facility] ([facility])Albumin3.83.5 - 5.7 g/dL 01/25/2025 12:04 PM [facility] ([facility])Total Bilirubin1.6(H)0.3 - 1.0 mg/dL01/25/2025 12:04 PM [facility] ([facility])eGFR97.5>60.0 mL/min/1.73m* 12:04 PM [facility] ([facility])Comment:[facility]???s estimated glomerular filtration rate (eGFR) will no [...] TimeBloodVenous blood specimen / UnknownArterial Line / Jvxlbax0701/25/2025 11:18 AM EDT01/25/2025 11:36 AM EDT Narrative Authorizing ProviderResult TypeResult StatusZaid Dafne ELISE BLOOD ORDERABLES Final ResultPerforming OrganizationAddressCity/State/ZIP CodePhone Number [facility] ([facility]) [address] [place] [address] * (ABNORMAL) Toxicology Screen, Urine (01/25/2025 9:57 AM EDT)ComponentValueRef RangeTest MethodAnalysis TimePerformed AtPathologist SignatureBarbiturates ZgcotlalZtltdysa72/06/2025 1:42 PM [facility] ([facility]) BenzodiazepinesPositive(A)Ldsyokcg97/06/2025 1:42 PM [facility] ([facility])BpstoggqpgzyYdmdxvoeBoatmpyc72/06/2025 1:42 PM [facility] ([facility])ByfoyqzqjIygrqxdoKvbuawhy09/06/2025 1:42 PM [facility] ([facility])PofddwmifgJqymcailCtlocvzj63/06/2025 1:42 PM [facility] ([facility])ZifmdwgzoirioViykosfmFyosrcqm80/06/2025 1:42 PM [facility] ([facility])OpiatesPositive(A)Akrkbwff27/06/2025 1:42 PM [facility] ([facility])VlejjemPedosmqhAflmqhba49/06/2025 1:42 PM [facility] ([facility])Amphetamines/MethamphetaminePositive(A)Aookjrho52/06/2025 1:42 PM EDT [facility] ([facility])SuaoqpnghzqCfhvqhlkYlcfqxxq99/06/2025 1:42 PM EDT [facility] ([facility])Specimen (Source)Anatomical Location / Laterality Collection Method / VolumeCollection TimeReceived TimeUrineUrine specimen obtained by clean catch procedure / UnknownNon-blood Collection / Unknown 01/25/2025 9:57 AM EDT01/25/2025 10:14 AM EDT Narrative [facility] ([facility]) - 01/25/2025 1:42 PM EDT Unconfirmed screening results should only be used for medical purposes. Authorizing ProviderResult TypeResult StatusZaid Dafne ELISE URINE ORDERABLES Final ResultPerforming OrganizationAddressCity/State/ZIP CodePhone Number [facility]) [address] [place] [address] * Ethanol (01/25/2025 9:57 AM EDT)ComponentValueRef RangeTest MethodAnalysis TimePerformed AtPathologist SignatureEthanol Calculated %<0.01%01/25/2025 10:44 AM [facility] ([facility])Ethanol Lvl<10<10 mg/dL01/25/2025 10:44 AM [facility] ([facility])Specimen (Source)Anatomical Location / LateralityCollection Method / VolumeCollection TimeReceived TimeBloodVenous blood specimen / UnknownArterial Line / Cgqkwcj7001/25/2025 9:57 AM EDT 01/25/2025 10:17 AM EDT Narrative Authorizing ProviderResult TypeResult StatusZaid Dafne ELISE BLOOD ORDERABLES Final ResultPerforming OrganizationAddressCity/State/ZIP CodePhone Number [facility]) [address] [place] [address] * XR chest 1 view (01/25/2025 8:56 AM EDT) Only the most recent of2 resultswithin the time period is included. Anatomical RegionLateralityModalityChestComputed RadiographySpecimen (Source) Anatomical Location / LateralityCollection Method / VolumeCollection Time Received Time01/25/2025 9:04 AM EDT Impressions 01/25/2025 9:06 AM EDT 1. There is a Thorofare-Sharon catheter with its tip in the right [...] made with the chest radiograph of the [facility] 2024. FINDINGS: ??There is cardiomegaly. A Thorofare-Sharon catheter is seen with its tip in [...] made with the chest radiograph of the [facility] . FINDINGS: There is cardiomegaly. A Thorofare-Sharon catheter is seen with itstip in the right lower pulmonary arterial branch. Cardiac monitoring leads areseen overlying the chest. There is a parenchymal opacity in the left lower lungs suggestive of atelectasis. There is some mild vascular congestion. No pneumothorax is identified. No pleural effusions are seen. Hemidiaphragms are normal in position and contour. IMPRESSION: 1.There is a Thorofare-Sharon catheter with its tip in the right lowerpulmonary arterial branch . 2.Atelectasis in the left lower lung field and mild vascularcongestion. 3.No evidence of pneumothorax. Electronically signed: Koby Solano. Authorizing ProviderResult TypeResult StatusZaid [facility] XR PROCEDURESFinal Result * XR tibia fibula [...] signed: Jaleel Kimble. Authorizing ProviderResult TypeResult StatusZaid DafneMill[facility]. [facility] XR PROCEDURESFinal Result * Blood culture, peripheral #2 (01/25/2025 7:52 AM EDT) Only the most recent of2 resultswithin the time period is included. ComponentValueRef RangeTest MethodAnalysis TimePerformed AtPathologist Signature Blood CultureNo growth at 5 days GEOFF 01/30/2025 9:01 AM [facility] ([facility])Specimen (Source)Anatomical Location / LateralityCollection Method / VolumeCollection TimeReceived TimeBlood Venous blood specimen / UnknownVenipuncture / Tjalphv6701/25/2025 7:52 AM EDT 01/25/2025 8:14 AM EDT Narrative Authorizing ProviderResult TypeResult StatusZaid Dafne ELISE MICROBIOLOGY - GENERAL ORDERABLESFinal ResultPerforming OrganizationAddressCity/State/ZIP Code Phone Number [facility] ([facility]) [address] [place] [address] * Procalcitonin Test (01/25/2025 4:44 AM EDT) Only the most recent of2 resultswithin the time period is included. ComponentValueRef RangeTest MethodAnalysis TimePerformed AtPathologist Signature Procalcitonin0.060.00 - 0.10 ng/mL01/25/2025 8:12 AM [facility] ([facility])Comment: Suspected Lower Respiratory Tract [...] TimeBloodVenous blood specimen / UnknownArterial Line / Msuvubs4601/25/2025 4:44 AM EDT01/25/2025 5:31 AM EDT Narrative Authorizing ProviderResult TypeResult StatusZaid Dafne MDLAB BLOOD ORDERABLES Final ResultPerforming OrganizationAddressCity/State/ZIP CodePhone Number [facility] [address] [place] [address] * (ABNORMAL) Complete Venous Blood Gas Panel (01/25/2025 12:20 AM EDT) Only the most recent of2 resultswithin the time period is included. ComponentValueRef RangeTest MethodAnalysis TimePerformed AtPathologist Signature pH, Ven7.44(H)7.31 - 7.41001/25/2025 12:20 AM [facility] RESPIRATORY THERAPYpCO2, Oun8040 - 50 mmHg01/25/2025 12:20 AM [facility] RESPIRATORY THERAPYpO2, Ven29(L)35 - 45 mmHg01/25/2025 12:20 AM [facility] RESPIRATORY THERAPYHCO3, Ahjmge92.8mmol/L 01/25/2025 12:20 AM [facility] RESPIRATORY THERAPYO2 Sat, Ven45.4(LL)65.0 - 75.0 % 01/25/2025 12:20 AM [facility] RESPIRATORY THERAPYBase Excess, Ven3.3mmol/L 01/25/2025 12:20 AM [facility] RESPIRATORY THERAPYTotal Hemoglobin,Zkidjj24.16.0 - 18.0 g/dL01/25/2025 12:20 AM [facility] RESPIRATORY THERAPYOxyhemoglobin, Venous 44.9%01/25/2025 12:20 AM [facility] RESPIRATORY THERAPYMethemoglobin, Venous0.5 <=3.0 %01/25/2025 12:20 AM [facility] RESPIRATORY THERAPYCarboxyhemoglobin, Venous 0.6%01/25/2025 12:20 AM [facility] RESPIRATORY THERAPYDeoxyhemoglobin, Artkzs35.9 (HH)<=6.0 %01/25/2025 12:20 AM [facility] RESPIRATORY THERAPYSodium, Whole Tijmk342 (L)136 - 145 mmol/L01/25/2025 12:20 AM [facility] RESPIRATORY THERAPYPotassium, Whole Blood4.23.5 - 5.1 mmol/L01/25/2025 12:20 AM [facility] RESPIRATORY THERAPY Chloride, Rrjlwr42877 - 107 mmol/L01/25/2025 12:20 AM [facility] RESPIRATORY THERAPYGlucose, Naxhtd283(H)65 - 95 mg/dL01/25/2025 12:20 AM [facility] RESPIRATORY THERAPYLactate, Venous0.900.36 - 1.39 mmol/L01/25/2025 12:20 AM [facility] RESPIRATORY THERAPYCalcium, Ion1.231.15 - 1.33 mmol/L01/25/2025 12:20 AM [facility] RESPIRATORY THERAPYHematocrit, Zrkahb1687 - 50 %01/25/2025 12:20 AM [facility] RESPIRATORY CRXUUJDGwbtmiehjcu11.0??C001/25/2025 12:20 AM [facility] RESPIRATORY THERAPYOxygen Device #9Xyksfwe29/06/2025 12:20 AM [facility] RESPIRATORY THERAPY BkX305.0%01/25/2025 12:20 AM [facility] RESPIRATORY THERAPYNotify Rpdu1561 01/25/2025 12:20 AM [facility] RESPIRATORY THERAPYNotify RezmjvdkIMVFC99/06/2025 12:20 AM [facility] RESPIRATORY THERAPYNotify ProviderVERITO NAVARRETE01/25/2025 12:20 AM [facility] RESPIRATORY THERAPYNotify XzitgcJ0901/25/2025 12:20 AM [facility] RESPIRATORY THERAPYSpecimen (Source)Anatomical Location / LateralityCollection Method / VolumeCollection TimeReceived TimeBloodVenous blood specimen / Eqsncsi5501/25/2025 12:20 AM EDT01/25/2025 12:20 AM EDT Narrative Authorizing ProviderResult TypeResult StatusZaid Dafne MDLAB BLOOD ORDERABLES Final ResultPerforming OrganizationAddressCity/State/ZIP CodePhone Number PIN[place] [facility] [address] [place] [address], [place] * ECG 12 lead (01/24/2025 8:53 PM EDT) Only the most recent of4 resultswithin the time period is included. ComponentValueRef RangeTest MethodAnalysis TimePerformed AtPathologist Signature Ventricular Ewvm066XNGQP MUSEAtrial Wwsu635ACGJO MUSEQRS HRSWKUCS893xbWD MUSEQT Ivqsvvin042jzDG MUSEQTC CALCULATION(BAZETT)542msGE MUSEP Xnuv353qwwgjmrPU MUSE R-Rrtl556bwmfnudSB MUSET Wave [place]-47degreesGE MUSESpecimen (Source)Anatomical Location / LateralityCollection Method / [...] coronary angiography (R femoral vein and artery), Thorofare Sharon catheter placement (R IJ), pulmonary angiogram [...] infiltrated over the right femoral artery. ??A 6-Armenian sheath was placed in right femoral artery. ?? Right heart catheterization was performed with a 6 Fr Grover catheter. Coronary angiography was performed with a JL4 and a JR4. After discussion with the inpatient team, he was prepped and draped in sterile fashion over the R neck and after lidocaine a 9Fr sheath and Thorofare Sharon catheter was placed with micropuncture technique. ??An adenosine study at 50, 100, 150 and 200 mcg / min was performed via the PA catheter. ?? AT completion of the procedure all femoral catheters and wires were removed. ??The right IJ sheath was sutured in place with the Thorofare Sharon catheter for continued monitoring. ?? Then [...] [I27.81] Authorizing ProviderResult TypeResult StatusSasaw Cristopher MonRussel [facility] INVASIVE VASCULAR PROCEDURESFinal Result * CORONARY ANGIOGRAPHY, [...] coronary angiography (R femoral vein and artery), Thorofare Sharon catheter placement (R IJ), pulmonary angiogram [...] infiltrated over the right femoral artery. ??A 6-Armenian sheath was placed in right femoral artery. ?? Right heart catheterization was performed with a 6 Fr Grover catheter. Coronary angiography was performed with a JL4 and a JR4. After discussion with the inpatient team, he was prepped and draped in sterile fashion over the R neck and after lidocaine a 9Fr sheath and Thorofare Sharon catheter was placed with micropuncture technique. ??An adenosine study at 50, 100, 150 and 200 mcg / min was performed via the PA catheter. ?? AT completion of the procedure all femoral catheters and wires were removed. ??The right IJ sheath was sutured in place with the Thorofare Sharon catheter for continued monitoring. ?? Then [...] (CMS/HCC) [I27.81] Authorizing ProviderResult TypeResult StatusSasaw Goode [facility] CARDIAC CATH PROCEDURESFinal Result * (ABNORMAL) POC Hb02% (01/24/2025 5:54 PM EDT) Only the most recent of7 resultswithin the time period is included. ComponentValueRef RangeTest MethodAnalysis TimePerformed AtPathologist Signature WTZCPV68%50.8(A)90 - 95 %QC Pass/FailPassedQC LOT #[id number] Expiration [...] MethodAnalysis TimePerformed AtPathologist Signature aPTT34.625.0 - 35.0 Xeeurhm8701/24/2025 11:53 AM [facility] ([facility]) Comment:Clinical significance of the APTT is questionable in the presence of heparin.Specimen (Source)Anatomical Location / LateralityCollection Method / VolumeCollection TimeReceived TimeBloodVenous blood specimen / Unknown Venipuncture / Wwfyegp9001/24/2025 11:17 AM EDT01/24/2025 11:21 AM EDT Narrative Authorizing ProviderResult TypeResult StatusErin ELISE BLOOD ORDERABLESFinal ResultPerforming OrganizationAddressCity/State/ZIP CodePhone Number [facility] ([facility] [place]) [address] [place] [address] * (ABNORMAL) High Sensitivity Troponin I (01/24/2025 11:11 AM EDT) Only the most recent of2 resultswithin the time period is included. ComponentValueRef RangeTest MethodAnalysis TimePerformed AtPathologist Signature High Sensitivity Troponin I60(HH)<20 ng/L01/24/2025 12:31 PM [facility] ([facility] [place])Specimen (Source)Anatomical Location / LateralityCollection Method / VolumeCollection TimeReceived TimeBloodVenous blood specimen / Unknown Venipuncture / Cpswhuq3501/24/2025 11:11 AM EDT01/24/2025 11:28 AM EDT Narrative Authorizing ProviderResult TypeResult StatusErin Goode [facility] BLOOD ORDERABLESFinal ResultPerforming OrganizationAddressCity/State/ZIP CodePhone Number [facility] ([facility]) [address] [place] [address] * (ABNORMAL) B-type natriuretic peptide (01/24/2025 11:11 AM EDT) Only the most recent of2 resultswithin the time period is included. ComponentValueRef RangeTest MethodAnalysis TimePerformed AtPathologist Signature CFB697(H)0 - 100 pg/mL01/24/2025 11:57 AM [facility] ([facility])Specimen (Source)Anatomical Location / LateralityCollection Method / VolumeCollection TimeReceived TimeBloodVenous blood specimen / UnknownVenipuncture / Unknown 01/24/2025 11:11 AM EDT01/24/2025 11:28 AM EDT Narrative Authorizing ProviderResult TypeResult StatusErin Goode [facility] BLOOD ORDERABLESFinal ResultPerforming OrganizationAddressCity/State/ZIP CodePhone Number [facility] ([facility]) [address] [place] [address] * Urinalysis (01/24/2025 9:22 AM EDT)ComponentValueRef RangeTest MethodAnalysis TimePerformed AtPathologist SignatureColor, UrineLight-YellowColorless, Yellow, Light-Kanrut8001/24/2025 10:16 AM [facility] ([facility] [place])Clarity, QaiezZcewfHamip35/05/2025 10:16 AM [facility] ([facility])pH, Urine5.0 5.0 - 8.0 pH01/24/2025 10:16 AM [facility] ([facility])Leukocytes, Urine SjhtiolyOsrdbnlz17/05/2025 10:16 AM [facility] ([facility])Nitrite, DobklPncnkmevKxlvbrsd59/05/2025 10:16 AM [facility] ([facility] [place])Protein, UrineNegativeNegative mg/dL01/24/2025 10:16 AM [facility] ([facility]) Glucose, UrineNormalNormal mg/dL01/24/2025 10:16 AM [facility] ([facility])Bilirubin, EbrldEggqdxwpJtouvtzy84/05/2025 10:16 AM [facility] ([facility] [place])Specific [place], Urine1.0231.010 - 1.4172601/24/2025 10:16 AM EDT [facility] ([facility])Ketones, UrineNegativeNegative mg/dL01/24/2025 10:16 AM [facility] ([facility] [place])Blood, BbxscMhdvpclmFajlnsrb30/05/2025 10:16 AM [facility] ([facility] [place])Urobilinogen, UrineNormalNormal mg/dL 01/24/2025 10:16 AM [facility] ([facility] [place])Specimen (Source)Anatomical Location / LateralityCollection Method / VolumeCollection TimeReceived Time UrineUrine specimen obtained by clean catch procedure / UnknownNon-blood Collection / Hfkdyat2601/24/2025 9:22 AM EDT01/24/2025 9:36 AM EDT Narrative [facility] ([facility]) - 01/24/2025 10:16 AM EDT Microscopics not performed on urines with negative chemical reactions unless requested on original order. Authorizing ProviderResult TypeResult StatusSviprashant ELISE URINE ORDERABLESFinal ResultPerforming OrganizationAddressCity/State/ZIP CodePhone Number [facility] ([facility]) [address] [place] [address] * Vasc Us Lower Extremity Venous Duplex [...] Narrative 01/24/2025 4:53 PM EDT 1 1 [facility] Heart Station [address] [place] [address] [phone] (fax) Echocardiogram-[facility] Name: NATHAN SANTOS Study Date: 01/24/2025 07:48 AM B/P: 139 mmHg/123 mmHg HR: 123 bpm Date of : 1975 Location: [facility] Height: 71 in. Age: 49 year(s) Patient [...] minimal pericardial effusion. Procedure Staff Reading Group: [facility] Supervisor Accounts Receivable: KIANNA Churchill, RDCS ??Ordering Physician: KODY STRAUSS ?? Procedure Note Ronaldo Valderrama MD - 01/24/2025 1 1 [facility] Heart Station [address] [place] [address] [phone] (fax) Echocardiogram-[facility] Name: NATHAN SANTOS Study Date: 01/24/2025 07:48 AM B/P: 139 mmHg/123 mmHg HR: 123 bpm Date of : 1975 Location: [facility] Height: 71 in. Age: 49 year(s) Patient [...] minimal pericardial effusion. Procedure Staff Reading Group: [facility] Supervisor Accounts Receivable: KIANNA Churchill, RDCS Ordering Physician: KODY STRAUSS Authorizing ProviderResult TypeResult StatusSviprashant Strauss [facility] ECHO PROCEDURESFinal Result * Drug screen panel 9, serum (01/23/2025 11:57 PM EDT)ComponentValueRef Range Test MethodAnalysis TimePerformed AtPathologist SignatureAmphetamine Scrn Presumptiveposng/mL01/26/2025 2:03 PM [facility] ([facility])Comment: Presumptive positive results are automatically reflexed to confirmation testing by mass spectrometry. Interpretive Information: Amphetamines Screen, S/P Methodology: Immunoassay Positive Cutoff: 20 ng/mL Methamphetamine ScrnPresumptiveposng/mL01/26/2025 2:03 PM [facility] ([facility])Comment: Presumptive positive results are automatically reflexed to confirmation testing by mass spectrometry. Interpretive Information: Methamphetamine Screen, ?S/P Methodology: Immunoassay Positive Cutoff: 20 ng/mL Barbiturate GnqdHeytrtyv85/07/2025 2:03 PM ED[facility] ([facility])Comment: Presumptively Negative by immunoassay. ??Testing by mass spectrometry is available on request. Interpretive Information: Barbiturates Screen, S/P Methodology: Immunoassay Positive Cutoff: 50 ng/mL Benzodiazepine CjapGxojgfjf83/07/2025 2:03 PM [facility] ([facility]) Comment: Presumptively Negative by immunoassay. ??Testing by mass spectrometry is available on request. Interpretive Information: Benzodiazepines Screen, ?S/P Methodology: Immunoassay Positive Cutoff: 50 ng/mL Buprenorphine OtxvHfsipckk38/07/2025 2:03 PM [facility] ([facility]Comment: Presumptively Negative by immunoassay. ??Testing by mass spectrometry is available on request. Interpretive Information: Buprenorphine Screen, ?S/P Methodology: Immunoassay Positive Cutoff: 1 ng/mL Cocaine OysoIembqetz92/07/2025 2:03 PM [facility] ([facility] [place]Comment: Presumptively Negative by immunoassay. ??Testing by mass spectrometry is available on request. Interpretive Information: Cocaine Screen, S/P Methodology: Immunoassay Positive Cutoff: 20 ng/mL Methadone WmwaEuvdjrdm27/07/2025 2:03 PM [facility] ([facility] [place])Comment: Presumptively Negative by immunoassay. ??Testing by mass spectrometry is available on request. Interpretive Information: Methadone Screen, S/P Methodology: Immunoassay Positive Cutoff: 25 ng/mL Opiates ScrnPresumptiveposng/mL01/26/2025 2:03 PM [facility] ([facility] Comment: Presumptive positive results are automatically reflexed to confirmation testing by mass spectrometry. Interpretive Information: Opiates Screen, S/P Methodology: Immunoassay Positive Cutoff: 20 ng/mL Oxycodone QduaPkhmhalf82/07/2025 2:03 PM ED[facility]AR[facility] ([facility] [place])Comment: Presumptively Negative by immunoassay. ??Testing by mass spectrometry is available on request. Interpretive Information: Oxycodone/Oxymorphone Screen, ?S/P Methodology: Immunoassay Positive Cutoff: 20 ng/mL PCP EgwoJfknlmgi33/07/2025 2:03 PM [facility] ([facility] [place])Comment: Presumptively Negative by immunoassay. ??Testing by mass spectrometry is available on request. Interpretive Information: Phencyclidine Screen, ?S/P Methodology: Immunoassay Positive Cutoff: 10 ng/mL Cannabinoid OcxbGtqofybz28/07/2025 2:03 PM [facility]AR[facility] ([facility])Comment: Presumptively Negative by immunoassay. ??Testing by mass spectrometry is available on request. Interpretive Information: Carboxy-THC Screen, S/P Methodology: Immunoassay Positive Cutoff: 20 ng/mL This test does not distinguish between the delta-8 and delta-9 forms of Carboxy-THC or their metabolites. Drug Screen Comments, Serum or PlasmaSee Note01/26/2025 2:03 PM ED[facility] ([facility])Comment: Interpretive Information: Drug Screen with Reflex to [...] developed and its performance characteristics determined by [facility]. It has not been cleared or approved by the [place] Food and Drug Administration. This test was performed in a CLIA certified laboratory and is intended for clinical purposes. Performed By: [facility] [address] [place] [id number] Bunker Worker: Vince Roberts MD, PhD CLIA Number: [id number] Specimen (Source)Anatomical Location / LateralityCollection Method / Volume Collection TimeReceived TimeBloodVenous blood specimen / UnknownVenipuncture / Scfvumd4401/23/2025 11:57 PM EDT01/24/2025 12:22 AM EDT Narrative Authorizing ProviderResult TypeResult StatusScontreras ELISE BLOOD ORDERABLESFinal ResultPerforming OrganizationAddressCity/State/ZIP CodePhone Number [facility] [address] [place] [address] * Amphetamine, serum or plasma, quantitative (01/23/2025 11:57 PM EDT)Component ValueRef RangeTest MethodAnalysis TimePerformed AtPathologist Signature Amphetamine, Aqmzb92mg/mL01/28/2025 7:40 AM ED[facility] ([facility] Comment: INTERPRETIVE INFORMATION: Amphetamines, Serum or ?Plasma, [...] developed and its performance characteristics determined by [facility]. It has not been cleared or approved by the [place] Food and Drug Administration. This test was performed in a CLIA certified laboratory and is intended for clinical purposes. Methamphetamine Heoih174fp/mL01/28/2025 7:40 AM EDTARUP [facility] ([facility] Methylenedioxyamphetamine Quant<20ng/mL01/28/2025 7:40 AM EDTAR[facility] ([facility] [place]Methylenedioxymethamphetamine Quant<20ng/mL01/28/2025 7:40 AM ED[facility] ([facility] [place])Methylenedioxyethylamphetamine Quant<20ng/mL01/28/2025 7:40 AM EDT[facility] ([facility])Comment: Performed By: [facility] [address] [place] [id number] Bunker Worker: Vince Roberts MD, PhD CLIA Number: [id number] Specimen (Source)Anatomical Location / LateralityCollection Method / Volume Collection TimeReceived TimeBloodVenous blood specimen / UnknownVenipuncture / Cdmemar0201/23/2025 11:57 PM EDT01/24/2025 12:22 AM EDT Narrative Authorizing ProviderResult TypeResult StatusSviprashant ELISE BLOOD ORDERABLESFinal ResultPerforming OrganizationAddressCity/State/ZIP CodePhone Number [facility] ([facility] [address] [place] [phone] * Opiate, serum or plasma, quantitative (01/23/2025 11:57 PM EDT)ComponentValue Ref RangeTest MethodAnalysis TimePerformed AtPathologist Signature6- acetylmorphine, S/P, Quant<2ng/mL02/01/2025 11:10 AM EDTARUP [facility] ([facility])Comment: INTERPRETIVE INFORMATION: Opiates, Serum or Plasma, ?Quantitative [...] developed and its performance characteristics determined by [facility]. It has not been cleared or approved by the [place] Food and Drug Administration. This test was performed in a CLIA certified laboratory and is intended for clinical purposes. Codeine, S/P, Bpooa04oq/mL02/01/2025 11:10 AM EDT[facility] ([facility]) Morphine, S/P, Quant<2ng/mL02/01/2025 11:10 AM [facility] ([facility] Hydrocodone, S/P, Quant<2ng/mL02/01/2025 11:10 AM EDT[facility] ([facility]) Hydromorphone, S/P, Quant<2ng/mL02/01/2025 11:10 AM EDTARUP [facility] ([facility]) Oxycodone, S/P, Quant<2ng/mL02/01/2025 11:10 AM EDT[facility] ([facility]) Oxymorphone, S/P, Quant<2ng/mL02/01/2025 11:10 AM ED[facility] ([facility] Comment: Performed By: [facility] [address] [place] [address] Bunker Worker: Vince Roberts MD, PhD CLIA Number: [id number] Specimen (Source)Anatomical Location / LateralityCollection Method / Volume Collection TimeReceived TimeBloodVenous blood specimen / UnknownVenipuncture / Xjxzjay6101/23/2025 11:57 PM EDT01/24/2025 12:22 AM EDT Narrative Authorizing ProviderResult TypeResult StatusScontreras ELISE URINE ORDERABLESFinal ResultPerforming OrganizationAddressCity/State/ZIP CodePhone Number [facility] ([facility]) [address] [place] [address] * (ABNORMAL) Protime-INR (01/23/2025 11:57 PM EDT)ComponentValueRef RangeTest MethodAnalysis TimePerformed AtPathologist IufoorvzlUcxfupy51.6(H)12.3 - 14.8 Mdfpqaf6001/24/2025 12:42 AM [facility] ([facility])INR1.33(H)0.90 - 1.10 01/24/2025 12:42 AM [facility] ([place])Comment: ACCCP RECOMMENDED INR FOR [...] TimeReceived TimeBloodVenous blood specimen / UnknownVenipuncture / Dnxcepw0101/23/2025 11:57 PM EDT01/24/2025 12:21 AM EDT Narrative Authorizing ProviderResult TypeResult StatusScontreras Strauss [facility] BLOOD ORDERABLESFinal ResultPerforming OrganizationAddressCity/State/ZIP CodePhone Number [facility]) [address] [place] [address] * (ABNORMAL) D-dimer, quantitative (01/23/2025 11:57 PM EDT)ComponentValueRef RangeTest MethodAnalysis TimePerformed AtPathologist SignatureD-Dimer, Quant (FEU)1.06(H)0.27 - 0.49 mcg/mL FEU01/24/2025 12:45 AM [facility] [place])Specimen (Source)Anatomical Location / LateralityCollection Method / VolumeCollection TimeReceived TimeBloodVenous blood specimen / Unknown Venipuncture / Saehnsm4701/23/2025 11:57 PM EDT01/24/2025 12:21 AM EDT Narrative [facility]) - 01/24/2025 12:45 AM EDT D-Dimer values of less than 0.50 ug/ml (FEU) are considered to be a negative predictor of thrombosis. However, the D-Dimer result should be used in conjunction with pretest probability and should not be used alone to diagnose a thrombotic event. Authorizing ProviderResult TypeResult StatusScontreras Strauss [facility] BLOOD ORDERABLESFinal ResultPerforming OrganizationAddressCity/State/ZIP CodePhone Number [facility]) [address] [place] [address] * (ABNORMAL) C-reactive protein (01/23/2025 11:57 PM EDT)ComponentValueRef Range Test MethodAnalysis TimePerformed AtPathologist QgjdbusbkKAC37.9(H)<=5.0 mg/L 01/24/2025 11:21 AM [facility] ([facility])Comment:Testing performed using a new methodology, turbidimetry. Normal ranges have been updated. Old normal range was <8 mg/L.Specimen (Source)Anatomical Location / Laterality Collection Method / VolumeCollection TimeReceived TimeBloodVenous blood specimen / UnknownVenipuncture / Gdhqyxy9501/23/2025 11:57 PM EDT01/24/2025 12:23 AM EDT Narrative Authorizing ProviderResult TypeResult StatusScontreras Strauss [facility] BLOOD ORDERABLESFinal ResultPerforming OrganizationAddressCity/State/ZIP CodePhone Number [facility] ([facility]) [address] [place] [address] * Lactic acid, plasma (01/23/2025 11:57 PM EDT)ComponentValueRef RangeTest MethodAnalysis TimePerformed AtPathologist SignatureLactate1.00.5 - 2.2 mmol/L 01/24/2025 12:49 AM [facility] ([facility])Specimen (Source)Anatomical Location / LateralityCollection Method / VolumeCollection TimeReceived Time BloodVenous blood specimen / UnknownVenipuncture / Ceswhcl2301/23/2025 11:57 PM EDT01/24/2025 12:23 AM EDT Narrative Authorizing ProviderResult TypeResult StatusKody Strauss [facility] BLOOD ORDERABLESFinal ResultPerforming OrganizationAddressCity/State/ZIP CodePhone Number [facility] ([facility]) [address] [place] [address] * (ABNORMAL) Hepatic function panel (01/23/2025 11:57 PM EDT)ComponentValueRef RangeTest MethodAnalysis TimePerformed AtPathologist SignatureTotal Bilirubin 1.1(H)0.3 - 1.0 mg/dL01/24/2025 12:55 AM [facility] ([facility]) Bilirubin, Direct0.4(H)0 - 0.2 mg/dL01/24/2025 12:55 AM [facility] ([facility])Alkaline Ubqpjmucbxu1120 - 104 U/L01/24/2025 12:55 AM [facility] ([facility])AMQ3517 - 39 U/L01/24/2025 12:55 AM [facility] ([facility]) ALT (SGPT)257 - 52 U/L01/24/2025 12:55 AM [facility] ([facility] [place])Total Protein5.7(L)6.0 - 8.3 g/dL01/24/2025 12:55 AM [facility] ([facility]) Albumin3.3(L)3.5 - 5.7 g/dL01/24/2025 12:55 AM [facility] ([facility]) Specimen (Source)Anatomical Location / LateralityCollection Method / Volume Collection TimeReceived TimeBloodVenous blood specimen / UnknownVenipuncture / Alsxntb4401/23/2025 11:57 PM EDT01/24/2025 12:23 AM EDT Narrative Authorizing ProviderResult TypeResult StatusSviprashant Strauss [facility] BLOOD ORDERABLESFinal ResultPerforming OrganizationAddressCity/State/ZIP CodePhone Number [facility] ([facility]) [address] [place], [place] [phone] from Last 3 Months Insurance * Guarantor: Nathan SantosAccount TypeRelation to PatientDate of BirthPhone Billing AddressPersonal/NywzewBxqn23/25/1976 [address] [place] [address] Advance Directives * Full Code (Latest Code Status on File) Date ActivatedDate InactivatedComments01/23/2025 11:36 PM8/12/2024 1:55 PM
--- OUTSIDE RECORDS SUMMARY | 2025-04-17 10:54 | XMS_ITS | Clinical Summary ---
Author Organization [facility] Address [facility] [place] [address] Care Team Providers Care Environmental Restoration Planner Name Role Phone 3, Pharmacist Unavailable Unavailable Allergies No known active allergies Medications MedicationSigDispense QuantityRefillsLast FilledStart DateEnd DateStatus empagliflozin (JARDIANCE) 10 mg tablet Take 1 tablet by mouth daily with breakfast. 90 tablet 04/16/2025tive amiodarone (PACERONE) 200 mg tablet Take 1 tablet by mouth once daily. 30 tablet 02/02/2025 2:02 PM EDT02/03/2025Suspended sildenafil (REVATIO) 20 mg tablet Take 3 tablets by mouth every 8 hours until MONDAY 02/05. Starting TUESDAY 02/06 take 4 tablets every 8 hours 387 tablet 02/02/2025 2:02 PM EDT02/02/2025Suspended sildenafil (REVATIO) 20 mg tablet Take 4 tablets by mouth three times a day. Patient should start on February 17, 2025. 360 tablet /Expired torsemide (DEMADEX) 20 mg tablet Take 1 tablet by mouth once daily. 30 tablet Suspended warfarin (COUMADIN) 1 mg tablet Take 5 mg daily or as directed by Coumadin Clinic 200 tablet Suspended Active Problems Patient Care Coordination No te Formatting of this note migh t be different from the original. Indication for MICU Admission: AHRF, cardiogenic shock Significant PMH/PSH: - Migraines - Substance abuse, methamphetamine use - Afib on Coumadin - CHF (EF 25%) - Severe pHTN, on Sildenafil Hospital Course: 49 y/o male who reportedly ran out of home Sildenafil around one to two months prior to admission. Pt presented to [facility] in [place], [place] with c/o epigastric pain and respiratory distress, saturating 93% on 2L NC. Cardiomegaly seen on imaging. Pt given lasix and sent for CT PE. Pt also noted to be in afib w RVR so started on Cardizem gtt. Given ongoing respiratory distress pt placed on BiPAP. Pt transferred [facility] ICU for acute hypoxic respiratory failure 2/2 acute right HF w exacerbation iso severe PH and med ication non compliance. Pt arrived at [facility] and placed on Airvo 40L 45% with SpO2 96%. Off cardizem drip and in NSR rate 90s, normotensive and afebrile. Luis Eduardo-mckeon breathing, intermittent tachycardia. CVC placed. Twilight placed. Significant New Events Past 24 hrs: [...] to transfer out of MICU: O2 requirements ProblemNoted DateDiagnosed DateMethamphetamine abuse04/16/2025Shock circulatory 04/15/2025KI (acute kidney injury)04/15/2025ute hypoxic respiratory failure 04/14/2025Right ventricular idkdsgrhink96/24/2025Elevated LFTs04/14/2025 Methamphetamine use04/14/2025ute right ventricular heart ckikpwz6404/13/2025 Biventricular heart swbwbis4404/13/2025Long term (current) use of anticoagulants 02/06/2025trial iavccdaspcse45/14/2025Typical atrial srjjzdl8401/30/2025Pulmonary wqpgapurcxse24/07/2025ute right-sided heart wyabeep0901/26/2025ute respiratory failure with jilacxw7101/26/2025ute on chronic systolic congestive heart failure 01/26/2025Drug abuse01/26/2025 Resolved Problems ProblemNoted DateDiagnosed DateResolved FvqnYcstkrycxfitr20 Encounters DateTypeDepartmentCare TowvUsaqraiabpw21/23/2025 6:24 PM EDT - PresentHospital Encounter [facility] [address] [id number] Kina Vásquez MD Kirupaharan, Pradhab, DO Covert, MD My Still Bahaadin, MD Acute right heart failure (HCC) [I50.811]04/13/2025ritical Care Transport Critical Care [address] [place] [address] Jn Hart, UMM.DEPUTY REGISTER OF DEEDS 04/13/2025Patient Update [facility] Provider Adult Critical Care [address] [place] [address] Sylvain Denton, WAFER FABRICATION OPERATOR.DEPUTY REGISTER OF DEEDS 04/13/2025Telephone [place] Provider Adult [address] [phone] Angeles Guidry DO 04/11/2025Refill HOSP MAIN G091 [address] [place] [address] Raysa Cervantes DO Refill Fudflia8604/11/2025Telephone Pulmonary Medicine [address], [address] [place] [address] Raysa Cervantes DO 03/29/2025Telephone [facility] [address] [place] [address] Ashley Hughes, [facility] No Show03/07/2025Telephone Pharmacy Ambulatory Telemanagement [address] [place] [address] Ashley Hughes, [facility] Anticoagulation Telephone Fu03/06/20255023Kacopl00/15/2025Telephone [facility] [address] [place] [address] Lakia Zazueta, TALAT Anticoagulation Telephone Fu02/27/2025Telephone [facility] [address] [place] [address] Pharmacist Anticoagulation Telephone Fu02/21/2025Telephone [facility] [address] [place] [address] Rochelle Le, [facility] 02/21/2025Telephone Pulmonology [address] [place] [address] Raysa Cervantes DO Patient Gtfzymmm09/29/2025Telephone [facility] [address] [place] [address] Padmini Storey, [facility] Anticoagulation Telephone Fu (Lab INR result )02/14/2025 10:45 AM EDT Anticoagulation Visit [facility] Care [facility] [address] [place] [address] 3, Pharmacist Atrial fibrillation, unspecified type (HCC) (Primary Dx); [facility] (current) use of xlqtvwynnyvbuq72/26/2025Refill HOSP MAIN G091 [address] [place] [address] Александр Medina MD Refill Txzocqn9302/10/2025 1:45 PM EDTProcedure PULMONARY [address] [place] [address] Shesenhmis09/22/2025 1:30 PM EDTProcedure PULMONARY [address] [place] [phone] Cqhiljfhjv76/22/2025 1:00 PM EDTProcedure PULMONARY [address] [place] [address] Aoqqayfmus98/22/2025Telephone [facility] [address] [place] [address] Sumi Meadows, [facility] Anticoagulation Telephone Fu (Home INR )02/07/2025Telephone Pharmacy [address] [place] [address] Zuri Acuña, [facility] Anticoagulation Telephone Fu02/06/2025Orders Only [facility] [address] [place], [place] [phone] Raysa Cervantes DO 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 (Primary Dx)02/06/2025Telephone [facility] [address] [place], [place] [phone] Lakia Zazueta [facility] Anticoagulation Telephone Fu02/02/2025Orders Only Pulmonary Medicine [address], [address] [place] [address] Raysa Cervantes DO Pulmonary hypertension (HCC) (Primary Dx)02/02/2025Telephone [facility] [address] [place], [place] [phone] Pharmacist Anticoagulation - Initial Csbhzca7502/02/2025Orders Only Cardiology [address] [place] [address] Cristopher Alonzo MD Acute systolic (congestive) heart failure (HCC) (Primary Dx)02/02/2025Telephone Pulmonary Medicine [address] [phone] Nico Jackson [facility] Medication Authorization (sildenafil: approved)01/30/20251151Wzmomf01/11/2025 Abstract Pulmonary Medicine [address] [phone] Donya Lagunas APRN.DEPUTY REGISTER OF DEEDS 01/26/2025 1:51 PM EDT - 02/02/2025 2:32 PM EDTHospital Encounter HOSP MAIN G[address] [phone] Alex Pierre MD Duggal, Abhijit, MD Ibrahim, Lamia, MD Parambil, MD Tano RV failure, pulmonary HTN Discharge Disposition: Homefrom Last 3 Months Social History Tobacco UseTypesPacks/DayYears UsedDateSmoking Tobacco: Never [...] were you homeless or living in a assisted (including now)?No04/16/2025HC UtilitiesAnswerDate RecordedIn the past 12 months has the electric, gas, oil, or water INDOM threatened to shut off services in your home?No04/16/2025rea Deprivation IndexAnswerDate RecordedNational Score (1-100), lower number is lower pcwd053902/06/2025State Score (1-10), lower number is lower yebk640 Data from: https://www.neighborhoodatlas.medicine.[facility].edu/. Last address used for y[address]wlcijg[address]02/06/2025Sex and Gender InformationValueDate RecordedSex Assigned at BirthNot on fileLegal KsjSidt4701/25/2025 10:57 AM EDT Gender IdentityNot on fileSexual OrientationNot on file Last Filed Vital Signs Vital SignReadingTime TakenCommentsBlood Nbtbwabr82/6904/17/2025 8:45 AM EDT Dazzk316304/17/2025 8:45 AM GNYLixrkuqemxq16.4 ??C (97.5 ??F)04/17/2025 8:00 AM EDTRespiratory Vngd2643 8:45 AM EDTOxygen Xhttocoyuc05%04/17/2025 7:19 AM EDTInhaled Oxygen Concentration--Euxeiu53.6 kg (188 lb 11.4 oz)04/17/2025 4:00 AM UAWAzayxn071.8 cm (5' 10 )04/13/2025 8:05 PM EDTBody Mass Index27.08 04/13/2025 8:05 PM EDT Plan of Treatment DateTypeDepartmentCare Team (Latest Contact Info)Qenugcjybyr00/30/2025 8:30 AM EDTOffice Visit Pulmonary Medicine [address] [facility], [address] [place] [address] [place] [address] [place] [address] 05/11/2025 12:15 PM ESTProcedure Cardiology [address] [phone] Acute systolic congestive heart lmjizds1505/11/2025 12:45 PM ESTOffice Visit Cardiology [address] [phone] Cristopher Alonzo MD [address] [place], [place] [phone] Acute systolic congestive heart failureHealth MaintenanceDue DateLast Done CommentsAnnual PCP Team Chronic Disease Visit1992Anxiety Screening 1992Depression Tbjxamiae12/25/1993DTaP,Tdap,Td Vaccine (1 - Tdap) 1993Hepatitis B Vaccine (1 of 3 - 19+ 3-dose series)1993Pneumococcal Vaccine: 50+ (1 of 2 - PCV)1993Lipid Jitgmkhyj37/25/2010CT Colonography 12/15/2019Cologuard (FIT-DNA)12/15/20199300Otwgffqfknw82/25/2020Colorectal Cancer Zhcxttkbq64/25/2020Fecal Occult Blood12/15/20195171Wudzxgjjpvcvn73/25/2020Shingrix Vaccine (1 of 2)5Covid-19 Vaccine (1 - season)2025 Influenza Vaccine (#1)2025Diabetes Hrdhnfxej16/27/587047, 04/16/2025, 04/16/2025, Additional history existsHIV ScreeningCompleted 01/27/2025, 01/26/2025Hepatitis C WbmyugttjNxxnuxknh67/12/2025, 01/27/2025 Procedures * The patient is currently admitted. The information in this section might not be complete until the patient is discharged. Procedure NamePriorityDate/TimeAssociated DiagnosisCommentsCOMPLETE BLOOD COUNT STAT1 8:46 AM EDT XR CHEST 1V MWXOVIJDAHF06/27/2025 8:32 AM EDT VENOUS BLOOD SQGGGTnubkgj52/27/2025 6:09 AM EDT PROTHROMBIN ICCANrwvxic49/27/2025 4:23 AM EDT MAGNESIUM ZPDIuayewc72/27/2025 4:23 AM EDT COMPREHENSIVE METABOLIC CYDOGVfnpxfb86/27/2025 4:23 AM EDT VENOUS BLOOD QUKVDZDKH77/26/2025 11:29 PM EDT VENOUS BLOOD PMVZVGaktchz84/26/2025 9:00 PM EDT MAGNESIUM IQJLzjhcda51/26/2025 4:03 PM EDT BASIC METABOLIC DOFQZYerpvxo54/26/2025 4:03 PM EDT XR CHEST 1V FRONTAL NBJTCMQN67/26/2025 9:09 AM EDT COMPLETE BLOOD RHCSDAtprfmq49/26/2025 4:13 AM EDT VENOUS BLOOD RVOCXAxupj61/26/2025 4:13 AM EDT ARTERIAL BLOOD UHQHYVocjy20/26/2025 4:13 AM EDT PROTHROMBIN WCICQfjledr64/26/2025 4:13 AM EDT PHOSPHORUS DBMTFUJULPbvcqat89/26/2025 4:13 AM EDT MAGNESIUM DQAUfrwgfs71/26/2025 4:13 AM EDT COMPREHENSIVE METABOLIC FROKYRfizrun16/26/2025 4:13 AM EDT VENOUS BLOOD HMJAEXexhf40/25/2025 8:23 PM EDT ARTERIAL BLOOD AEFYTKgoib67/25/2025 8:23 PM EDT VENOUS BLOOD AETHYBfoafyd74/25/2025 1:28 PM EDT XR CHEST 1V FRONTAL EUAOJfmdmqn60/25/2025 10:18 AM EDT ARTERIAL BLOOD CGWVQVszbc96/25/2025 8:39 AM EDT VENOUS BLOOD EQZAIEzyzo01/25/2025 8:39 AM EDT ARTERIAL BLOOD XNPLFVnrzg01/25/2025 3:50 AM EDT PROTHROMBIN KNWTFkedyhn35/25/2025 3:50 AM EDT PHOSPHORUS CIFIDWDJXQerdban88/25/2025 3:50 AM EDT MAGNESIUM GCAGfqvhfl31/25/2025 3:50 AM EDT COMPREHENSIVE METABOLIC GQCFYWwmebrv46/25/2025 3:50 AM EDT COMPLETE BLOOD ZWOPUXecsflp10/25/2025 3:50 AM EDT VENOUS BLOOD GMDPASndzt20/25/2025 3:50 AM EDT VENOUS BLOOD VVGPPHfvxl04/24/2025 11:48 PM EDT ARTERIAL BLOOD GGVAERjoet66/24/2025 10:25 PM EDT ARTERIAL BLOOD TKLIXRRYI97/24/2025 8:28 PM EDT XR CHEST 1V FRONTAL JVOGOMVD25/24/2025 8:20 PM EDT VENOUS BLOOD YACROGhwps92/24/2025 8:15 PM EDT US VASCULAR ACCESS (POC) ICU USE PQRCLonhlga28/24/2025 7:21 PM EDTINSERTION FLOW DIRECTED CATHETER FOR AUPBJEXBAMHvywzoy77/24/2025 7:14 PM EDT Acute right-sided heart failure (HCC) Acute right ventricular heart failure (HCC) INSERTION FLOW DIRECTED CATHETER FOR ONNXTNMCVOQbjfhjh86/24/2025 7:14 PM EDT Acute right-sided heart failure (HCC) Acute right ventricular heart failure (HCC) ARTERIAL BLOOD HHPAVAeslqyz58/24/2025 5:30 PM EDT ARTERIAL BLOOD EPCAQQIBI93/24/2025 4:20 PM EDT ARTL CATHJ/CANNULJ MNTR/TRANSFUSION SPX IWMNkamnnp55/24/2025 3:25 PM EDT Acute hypoxic respiratory failure (HCC) ARTERIAL LINE (SMARTFORM LINK)Ozrbwzk3404/14/2025 3:25 PM EDT Acute hypoxic respiratory failure (HCC) ARTL CATHJ/CANNULJ MNTR/TRANSFUSION SPX YUXZsnallj29/24/2025 3:25 PM EDT Acute hypoxic respiratory failure (HCC) ARTERIAL BLOOD QFWTPDVPN44/24/2025 1:46 PM EDT LVEF DSPHJtbfhlf89/24/2025 11:46 AM EDT ZDJCCJLT49/24/2025 11:46 AM EDT URINALYSIS (WITH MICROSCOPIC) WITH CULTURE IF TCPESPDXCOjphuju92/24/2025 10:35 AM EDT TOX SCREEN ROUT RGZykepqv89/24/2025 10:35 AM EDT ECG SVCZCLPJFDYU97/24/2025 8:02 AM EDTPHOSPHORUS DQVFTJVCKDbakudk43/24/2025 5:45 AM EDT MAGNESIUM NUNGmvenxj94/24/2025 5:45 AM EDT COMPLETE BLOOD XSDECFgcqjbf50/24/2025 5:45 AM EDT COMPREHENSIVE METABOLIC ADSIWNfcnbne13/24/2025 5:45 AM EDT PROTHROMBIN CTCMBanxajz12/24/2025 5:45 AM EDT VENOUS BLOOD HNKVAFfphaio38/23/2025 10:50 PM EDT STAPHYLOCOCCUS AUREUS & MRSA SCREEN, PCR, ZXJJRGncvkca80/23/2025 9:33 PM EDT PROTHROMBIN HJODPJLQ92/23/2025 9:03 PM EDT HEPATIC FUNCTION RMNGwrvfbh97/23/2025 9:03 PM EDT ACTIVATED JHMEszejtv38/23/2025 9:03 PM EDT HIGH SENSITIVITY TROPONIN TSTAT1 9:03 PM EDT NT PRO FKFSLKR9004/13/2025 9:03 PM EDT PHOSPHORUS ERVAYAKZKFBDS15/23/2025 9:03 PM EDT MAGNESIUM MLXXNUY72/23/2025 9:03 PM EDT COMPLETE BLOOD GYCKVVZES24/23/2025 9:03 PM EDT BASIC METABOLIC VPQAIPZSR66/23/2025 9:03 PM EDT XR CHEST 1V FRONTAL AADGGVCK53/23/2025 8:[address] OUTSIDE CD DICOM MLVWNL0304/13/2025 12:00 AM EDT US OUTSIDE CD DICOM OELSKI9704/13/2025 12:00 AM EDT XR OUTSIDE CD DICOM GFYAUT4504/12/2025 12:00 AM EDT PROTHROMBIN SPXMYcjzfum55/15/2025 2:49 PM EDT [facility] (current) use of anticoagulants PROTHROMBIN DLYGOhouujg87/05/2025 9:52 AM EDT [facility] (current) use of anticoagulants PROTHROMBIN IAUCCfvpugx18/29/2025 8:17 AM EDT 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 INR (POC)Jhnpqtw4402/14/2025 10:57 AM EDT SIX MINUTE ISINWlzrztb47/22/2025 2:15 PM EDT Pulmonary hypertension (HCC) PROTHROMBIN LCJXRytrndt52/22/2025 2:01 PM EDT [facility] (current) use of anticoagulants LUNG DIFFUSION CAPACITY (DLCO)Hwkytqx9502/10/2025 1:05 PM EDT Pulmonary hypertension (HCC) SPIROMETRY WITH DILATOR IF NPIMOFBTFXDtlcpdf06/22/2025 1:05 PM EDT Pulmonary hypertension (HCC) PROTHROMBIN KHLJPtvrkkx41/19/2025 10:28 AM EDT [facility] (current) use of anticoagulants PTT, ANTICOAGULANT THERAPYTimed Stat02/02/2025 2:16 PM EDT PTT, ANTICOAGULANT THERAPYTimed Stat02/02/2025 4:40 AM EDT PROTHROMBIN TIMEAdd-on02/02/2025 4:40 AM EDT MAGNESIUM CSLQbgxqrx2025 4:40 AM EDT BASIC METABOLIC HJPBCIcjykur43/14/2025 4:40 AM EDT CTA NECK W TQRHQJqxwhyd44/13/2025 9:19 PM EDT CTA HEAD W LPKMGCCFB19/13/2025 9:19 PM EDT GLUCOSE, BLOOD (POC)Brsetyk0002/01/2025 4:57 PM EDT GLUCOSE, BLOOD (POC)Yruxtio0702/01/2025 11:32 AM EDT MAGNESIUM BSKAkpxpdy17/13/2025 10:08 AM EDT BASIC METABOLIC KYNWFJttgwic56/13/2025 10:08 AM EDT GLUCOSE, BLOOD (POC)Kexxaqb6502/01/2025 8:29 AM EDT PTT, ANTICOAGULANT THERAPYTimed Stat02/01/2025 5:54 AM EDT PTT, ANTICOAGULANT THERAPYTimed Stat01/31/2025 11:33 PM EDT PTT, ANTICOAGULANT THERAPYTimed Stat01/31/2025 3:18 PM EDT ECG IBCEXYFNSMHO36/12/2025 10:54 AM EDT XR CHEST 1V FRONTAL TZBVHiaimnh39/12/2025 9:46 AM EDT PTT, ANTICOAGULANT THERAPYTimed Stat01/31/2025 9:03 AM EDT PROTHROMBIN IRHKTavzliu03/12/2025 9:03 AM EDT HEPATIC FUNCTION RAQXlwfybo12/12/2025 9:03 AM EDT MAGNESIUM QNJAlfikcf74/12/2025 9:03 AM EDT PHOSPHORUS KIONLTYIGMhxyngv61/12/2025 9:03 AM EDT BASIC METABOLIC LQZYEQasswyx80/12/2025 9:03 AM EDT COMPLETE BLOOD BSDXZCfoxxfu86/12/2025 9:03 AM EDT HEP B CORE AB PWVDOZpebuoq78/12/2025 9:03 AM EDT HEP B SURF AB PBJPSlpvlpz89/12/2025 9:03 AM EDT HEP B SURF AG CIISRjeqowu18/12/2025 9:03 AM EDT HEPATITIS C ANTIBODY IA WITH KNPTLFHKEBINJnrqoqw62/12/2025 9:03 AM EDT HEP REMOTE PANEL WFMhouttm95/05/2025 9:03 AM EDT XR ABDOMEN 1V SYTPVFCqtktkr76/11/2025 12:56 PM EDT XR CHEST 1V FRONTAL CFVWVfshywg17/11/2025 7:44 AM EDT VENOUS BLOOD NPLLBFGKE44/11/2025 7:03 AM EDT ARTERIAL BLOOD OENVFBYXA50/11/2025 7:03 AM EDT ACTIVATED YOFDZXG7601/30/2025 2:34 AM EDT PHOSPHORUS XUCGBGBIANBDC95/10/2025 11:50 PM EDT MAGNESIUM WSOSESM2301/29/2025 11:50 PM EDT COMPREHENSIVE METABOLIC JHBRVVYXV45/10/2025 11:50 PM EDT VENOUS BLOOD QAWLXLFLN77/10/2025 11:48 PM EDT ARTERIAL BLOOD WSGUKEGLO29/10/2025 11:48 PM EDT PTT, ANTICOAGULANT THERAPYTimed Stat01/29/2025 8:24 PM EDT VENOUS BLOOD IBHXTHINN23/10/2025 3:29 PM EDT ARTERIAL BLOOD DEHFQXHRJ30/10/2025 3:29 PM EDT GLUCOSE, BLOOD (POC)Brkykkg3201/29/2025 11:54 AM EDT VENOUS BLOOD MQBDAWULU35/10/2025 11:49 AM EDT ARTERIAL BLOOD SSYANVOPQ53/10/2025 11:49 AM EDT ACTIVATED DDVVELC4201/29/2025 11:49 AM EDT ECG XEENHDOVJlamtvu97/10/2025 9:42 AM EDT XR CHEST 1V OEQRWFZQoagfms72/10/2025 9:27 AM EDT ACTIVATED KJOSEMY6701/29/2025 6:53 AM EDT GLUCOSE, BLOOD (POC)Purcnvk4201/29/2025 5:09 AM EDT GLUCOSE, BLOOD (POC)Josbxqe2801/29/2025 12:14 AM EDT ACTIVATED RRBJSGX9101/29/2025 12:14 AM EDT PHOSPHORUS PNZBNFWCNCOQI70/10/2025 12:14 AM EDT MAGNESIUM VPUUDQP8601/29/2025 12:14 AM EDT COMPLETE BLOOD VXXERCDWA53/10/2025 12:14 AM EDT COMPREHENSIVE METABOLIC CSXXTLRJY64/10/2025 12:14 AM EDT GLUCOSE, BLOOD (POC)Lhipmqt1201/28/2025 5:43 PM EDT PTT, ANTICOAGULANT THERAPYTimed Stat01/28/2025 4:30 PM EDT US DOPPLER BEMEQZEOAwigwsi14/09/2025 1:24 PM EDT US ABD LIVER BKUXHYNCNTQQ26/09/2025 1:24 PM EDT GLUCOSE, BLOOD (POC)Beluxuv7201/28/2025 11:47 AM EDT ACTIVATED NPZLIHT6101/28/2025 8:33 AM EDT XR CHEST 1V MMHKACDIkihquf98/02/2025 7:33 AM EDT GLUCOSE, BLOOD (POC)Ubtikdf9901/28/2025 6:28 AM EDT ACTIVATED SXKEWTZ6301/28/2025 12:51 AM EDT PHOSPHORUS GSEVVHTLAIDMZ64/09/2025 12:51 AM EDT MAGNESIUM PLMAGHF3701/28/2025 12:51 AM EDT COMPREHENSIVE METABOLIC XZCQWMEWF05/09/2025 12:51 AM EDT GLUCOSE, BLOOD (POC)Vbhmcdn7301/27/2025 11:08 PM EDT COMPLETE BLOOD ZGHVQRQDO43/08/2025 11:08 PM EDT VENOUS BLOOD EULIYVPFK46/08/2025 10:03 PM EDT ARTERIAL BLOOD ERFTSULQE21/08/2025 9:16 PM EDT XR CHEST 1V FRONTAL JKFDJJPA81/08/2025 8:15 PM EDT PTT, ANTICOAGULANT THERAPYTimed Stat01/27/2025 6:59 PM EDT GLUCOSE, BLOOD (POC)Qbdvfto2301/27/2025 5:45 PM EDT NM LUNG VENT / PERF URCtcuwlw78/08/2025 4:12 PM EDT APTT INCUBATED MIXING FVWWHZFOUH12/08/2025 1:48 PM EDT EXTRA LT BLUE MAN COAG ZIDAJFHTE49/08/2025 1:48 PM EDTAPTT INCUBATED MIXING NKFAKKCYL45/08/2025 1:48 PM EDT APTT INCUBATED MIXING UWWKMIigqyzs26/08/2025 1:48 PM EDT PLATELET BYOUHNZDAPVMGZU12/08/2025 1:48 PM EDT GLUCOSE, BLOOD (POC)Jxzyujj3101/27/2025 1:25 PM EDT CARDIOLIPIN IGM PAPPFXO9601/27/2025 12:30 PM EDT CARDIOLIPIN IGG BGSBROC8201/27/2025 12:30 PM EDT CARDIOLIPIN IGA OHTEVFV6701/27/2025 12:30 PM EDT HEP B CORE AB UGWHVHWDC99/08/2025 12:30 PM EDT HEP B SURF AB MEPDVCNR22/08/2025 12:30 PM EDT HEP B SURF AG COZWHWFQ95/08/2025 12:30 PM EDT HEPATITIS C ANTIBODY IA WITH IKUAXVMREGCJPVPP62/08/2025 12:30 PM EDT BETA 2 GLYCOPROTEIN, FYRQSZN9801/27/2025 12:30 PM EDT PROTHROMBIN TYKYRCUS58/08/2025 12:30 PM EDT ACTIVATED TNANWLU1601/27/2025 12:30 PM EDT ANTI-CARDIOLIPIN ZIWnbkzyl65/08/2025 12:30 PM EDT RNA POLYMERASE III WSPZXI2901/27/2025 12:30 PM EDT MALLY BY IFA WITH VRQJQKRAQE52/08/2025 12:30 PM EDT HEP REMOTE PANEL VYHuyfmzo14/08/2025 12:30 PM EDT HIV 1/2 COMBO WITH REFLEX TO SFRKVIWGTTZBNDJQFCK49/08/2025 12:30 PM EDT GLUCOSE, BLOOD (POC)Vivihxq2301/27/2025 11:30 AM EDT XR CHEST 1V FRONTAL UPSKXY9501/27/2025 11:03 AM EDT US LEG VEIN DVT KELSEY VAS OHFSPIR7701/27/2025 8:50 AM EDT URINALYSIS (WITH MICROSCOPIC) WITH CULTURE IF YPCAYAMXXKNQZ79/08/2025 5:21 AM EDT TOX SCREEN ROUT BDNPZE3301/27/2025 5:21 AM EDT GLUCOSE, BLOOD (POC)Zlzqadm4001/27/2025 5:07 AM EDT HEPARIN ANTI XA ASSAYTimed Stat01/27/2025 2:23 AM EDT VENOUS BLOOD UKQFJBLHB41/08/2025 1:24 AM EDT ARTERIAL BLOOD XWAWXMBCZ06/08/2025 1:24 AM EDT PHOSPHORUS YHBIHJWSAZSPY04/08/2025 12:08 AM EDT MAGNESIUM SPRYOBT3401/27/2025 12:08 AM EDT COMPLETE BLOOD DYTQJMAAF10/08/2025 12:08 AM EDT COMPREHENSIVE METABOLIC GUBVOBDPV46/08/2025 12:08 AM EDT VENOUS BLOOD OVPSVYMZD76/07/2025 10:23 PM EDT ARTERIAL BLOOD BQYFMLXWV32/07/2025 10:23 PM EDT XR CHEST 1V FRONTAL TRIDLMVQ94/07/2025 9:45 PM EDT XR CHEST 1V FRONTAL QTTEMUUQ31/07/2025 8:34 PM EDT VENOUS BLOOD GUDILFRUH46/07/2025 8:30 PM EDT DIRECT BILIRUBIN BLOODAdd-on01/26/2025 5:37 PM EDT HEPARIN ANTI XA ASSAYTimed Stat01/26/2025 5:37 PM EDT PHOSPHORUS WIHWOZEWQEBMA51/07/2025 5:37 PM EDT COMPREHENSIVE METABOLIC BQWVXNXJB34/07/2025 5:37 PM EDT STAPHYLOCOCCUS AUREUS & MRSA SCREEN, PCR, LITVKZAIV70/07/2025 5:36 PM EDT BACTERIAL CULTURE, UVRVBLAGF85/07/2025 5:29 PM EDT GLUCOSE, BLOOD (POC)Ebbmchj6401/26/2025 5:16 PM EDT BACTERIAL CULTURE, FHXJPEUNK93/07/2025 5:10 PM EDT XR CHEST 1V FRONTAL KIYYOBSM10/07/2025 5:08 PM EDT LVEF ECHO WITH AGITATED SALINE PQLSCOXSDcryuym96/07/2025 4:32 PM EDT ECHO WITH AGITATED SALINE CUMTPKETPCKY57/07/2025 4:32 PM EDT PROTHROMBIN UEQCGJAH99/07/2025 4:23 PM EDT ACTIVATED BURLFOG7501/26/2025 4:23 PM EDT MAGNESIUM EHXLTGJ3601/26/2025 4:23 PM EDT COMPLETE BLOOD RCXSWHMET74/07/2025 4:23 PM EDT ECG ISJXIQKVZSDJ03/07/2025 3:14 PM EDT GLUCOSE, BLOOD (POC)Oeyimbn0601/26/2025 2:12 PM EDT from Last 3 Months Results * (ABNORMAL) COMPLETE BLOOD COUNT (04/17/2025 8:46 AM EDT) Only the most recent of10 resultswithin the time period is included. ComponentValueRef RangeTest MethodAnalysis TimePerformed AtPathologist Signature WBC9.703.70 - 11.00 k/uL04/17/2025 8:59 AM EDTFAIRVIEW LABORATORYRBC4.294.20 - 6.00 m/uL04/17/2025 8:59 AM EDTFAIRVIEW NHVQYKNMEQIowclxirtf75.2(L)13.0 - 17.0 g/dL04/17/2025 8:59 AM EDTFAIRVIEW TZLASQVVPFRearzugbil43.7(L)39.0 - 51.0 % 04/17/2025 8:59 AM EDTFAIR[facility] ZGNODPVRWOHAD96.580.0 - 100.0 fL04/17/2025 8:59 AM EDTFAIRVIEW KUMETYMNDDLOR90.426.0 - 34.0 pg04/17/2025 8:59 AM EDTFAIR[facility] BSCPPIRETPJWJK16.230.5 - 36.0 g/dL04/17/2025 8:59 AM EDTFAIRVIEW LABORATORY RDW-CV14.611.5 - 15.0 %04/17/2025 8:59 AM EDTFAIRVIEW LABORATORYPlatelet Count [id number] - 400 k/uL04/17/2025 8:59 AM EDTFAIRVIEW LABORATORYMPV9.29.0 - 12.7 fL 04/17/2025 8:59 AM EDTFAIRVIEW LABORATORYAbsolute nRBC<0.01<0.01 k/uL04/17/2025 8:59 AM EDTFAIRVIEW LABORATORYSpecimen (Source)Anatomical Location / Laterality Collection Method / VolumeCollection TimeReceived TimeBloodBLOOD SPECIMEN / UnknownVenipuncture / Hazjmby6004/17/2025 8:46 AM EDT1 8:53 AM EDT Narrative Authorizing ProviderResult TypeResult StatusXiomara Arias UMM.CNPLABORATORY Final ResultPerforming OrganizationAddressCity/State/ZIP CodePhone Number [facility] [id number] [place] [address], * XR CHEST 1V FRONTAL (04/17/2025 8:32 AM EDT)Anatomical RegionLaterality ModalityChestRadiographic ImagingSpecimen (Source)Anatomical Location / LateralityCollection Method / VolumeCollection TimeReceived Time04/17/2025 8:32 AM EDT Impressions 04/17/2025 8:35 AM EDT IMPRESSION: Right internal jugular approach pulmonary artery catheter with tip in the right pulmonary artery, slightly more proximal than on prior. Business Analytics Specialist: PSCB ?? Transcribe Date/Time: Apr 17 2025 ??8:32A [...] Cardiomediastinal silhouette: ??Unchanged cardiomegaly. Procedure Note Provider, [facility] [place] - 04/17/2025 * * *Final Report* * [...] artery, slightly more proximal than on prior. Business Analytics Specialist: PSCB Transcribe Date/Time: Apr 17 2025 8:32A Dictated by : ANETA GUZMAN MD This examination was interpreted and the report reviewed and electronically signed by: ANETA GUZMAN MD on Apr 17 2025 8:33AM EST Authorizing ProviderResult TypeResult StatusXiomara Arias APRN.CNPRAD-PAMAFinal Result * (ABNORMAL) VENOUS BLOOD GASES (04/17/2025 6:09 AM EDT) Only the most recent of19 resultswithin the time period is included. ComponentValueRef RangeTest MethodAnalysis TimePerformed AtPathologist Signature pH, Venous7.44(H)7.32 - 7.421 6:32 AM EDTFAIRVIEW LABORATORYpCO2, Vfmhmd0731 - 55 mmHg04/17/2025 6:32 AM EDTFAIRVIEW LABORATORYpO2, Venous<4035 - 45 mmHg04/17/2025 6:32 AM EDTFAIRVIEW LABORATORYO2 Saturation, Hveouc9070 - 85 % 04/17/2025 6:32 AM EDTFAIRVIEW LABORATORYBase Excess, Venous6(H)0 - 2 mmol/L 04/17/2025 6:32 AM EDTFAIRVIEW LABORATORYBicarbonate, Lwlhmn10(H)24 - 28 mmol/L 04/17/2025 6:32 AM EDTFAIRVIEW LABORATORYOxyhemoglobin, Gcazsq1472 - 85 % 04/17/2025 6:32 AM EDTFAIRVIEW LABORATORYCarboxyhemoglobin, Venous0.70.0 - 2.0 % 04/17/2025 6:32 AM EDTFAIRVIEW LABORATORYComment:Carboxyhemoglobin Reference Range for Smokers: 2.0-8.0%Methemoglobin, Venous0.70.0 - 1.5 %04/17/2025 6:32 AM EDTFAIRVIEW LABORATORYSodium, Whole Rcscs558(L)136 - 144 mmol/L1 6:32 AM EDTFAIRVIEW LABORATORYPotassium, Whole Blood3.1(L)3.5 - 5.0 mmol/L1 6:32 AM EDTFAIRVIEW LABORATORYChloride, Whole Piqku9087 - 105 mmol/L1 6:32 AM EDTFAIRVIEW LABORATORYCalcium Ionized, Whole Blood1.151.08 - 1.30 mmol/L 04/17/2025 6:32 AM EDTFAIRF[facility] LABORATORYCalcium Ionized, pH corrected1.171.08 - 1.30 mmol/L1 6:32 AM EDTFAIRVIEW LABORATORYGlucose, Whole Lpjcl2386 - 105 mg/dL04/17/2025 6:32 AM EDTFSAN [facility]ATIONVIEW LABORATORYLactate0.80.5 - 2.2 mmol/L 04/17/2025 6:32 AM [facility]ORATORYHemoglobin, Whole Blood12.3(L)13.0 - 17.0 g/dL04/17/2025 6:32 AM EDH[facility] LABORATORYHematocrit, Whole Blood37.8(L) 39.0 - 51.0 %04/17/2025 6:32 AM EDH[facility] LABORATORYTemperature, Body37.0C 04/17/2025 6:32 AM [facility]TFCHAR[facility] XFETTHJKUQDmJ701%04/17/2025 6:32 AM EDHILLCRE[facility] LABORATORYO2 TherapyHi-Flow Nasal Cannula-Thrnni5104/17/2025 6:32 AM EDHILLCREST [facility] LABORATORYSpecimen (Source)Anatomical Location / LateralityCollection Method / VolumeCollection TimeReceived TimeBlood, VenousBLOOD SPECIMEN / UnknownCentral Line / Bsdecdo3804/17/2025 6:09 AM EDT1 6:12 AM EDT Narrative Authorizing ProviderResult TypeResult StatusPradhab Kirupaharan DOBLOOD GASES Final ResultPerforming OrganizationAddressCity/State/ZIP CodePhone Number [facility] [address] [place] [address], * MAGNESIUM (04/17/2025 4:23 AM EDT) Only the most recent of14 resultswithin the time period is included. ComponentValueRef RangeTest MethodAnalysis TimePerformed AtPathologist Signature Magnesium2.01.7 - 2.3 mg/dL04/17/2025 5:01 AM EDTFAIRVIEW LABORATORYSpecimen (Source)Anatomical Location / LateralityCollection Method / VolumeCollection TimeReceived TimeBloodBLOOD SPECIMEN / UnknownVenipuncture / Hioakmb0904/17/2025 4:23 AM EDT1 4:26 AM EDT Narrative Authorizing ProviderResult TypeResult StatusEileen Panstares PA-CLABORATORYFinal ResultPerforming OrganizationAddressCity/State/ZIP CodePhone Number ELINAURORA [facility] [address] [place] [address], * (ABNORMAL) PROTHROMBIN TIME (04/17/2025 4:23 AM EDT) Only the most recent of14 resultswithin the time period is included. ComponentValueRef RangeTest MethodAnalysis TimePerformed AtPathologist Signature PT Sec20.3(H)9.7 - 13.0 sec04/17/2025 4:54 AM EDTFAIRVIEW LABORATORYINR2.0(H)0.9 - 1.310 4:54 AM EDTFAIRVIEW LABORATORYComment: Vitamin K Antagonist (VKA) Therapeutic Range: INR 2 to 3 (Target INR of 2.5) Note: For patients treated with VKA drugs, such as warfarin, the [place] [employer] 2012 Guideline recommends [...] Chest 2012, 141:7S-47S Mark RA, et al. [employer] 2017, 70: 252-289 Specimen (Source)Anatomical Location / LateralityCollection Method / Volume Collection TimeReceived TimeBloodBLOOD SPECIMEN / UnknownVenipuncture / Unknown 04/17/2025 4:23 AM EDT1 4:26 AM EDT Narrative Authorizing ProviderResult TypeResult StatusEileen Panstares PA-CLABORATORYFinal ResultPerforming OrganizationAddressCity/State/ZIP CodePhone Number [facility] [address] * (ABNORMAL) COMPREHENSIVE METABOLIC PANEL (04/17/2025 4:23 AM EDT) Only the most recent of9 resultswithin the time period is included. ComponentValueRef RangeTest MethodAnalysis TimePerformed AtPathologist Signature Protein, Total5.6(L)6.3 - 8.0 g/dL04/17/2025 5:01 AM EDTFCHARLES RIVER [facility] LABORATORY Albumin3.4(L)3.9 - 4.9 g/dL04/17/2025 5:01 AM EDHILLCRE[facility] LABORATORYCalcium, Total8.4(L)8.5 - 10.2 mg/dL04/17/2025 5:01 AM EDHILLCREST [facility] LABORATORYBilirubin, Total2.0(H)0.2 - 1.3 mg/dL04/17/2025 5:01 AM EDHILLCREST [facility] LABORATORYAlkaline Ylxdqfcavze7469 - 113 U/L1 5:01 AM EDH[facility]CREST [facility] JFTOEVMQCWJGZ14(H)14 - 40 U/L1 5:01 AM EDH[facility]ERV[facility] MCGMCDCMKJNHQ61(H)10 - 54 U/L1 5:01 AM EDH[facility] DHDUUQYQVTFkzyasw4979 - 99 mg/dL04/17/2025 5:01 AM EDT [facility]ORATORYComment: The [place] Diabetes Association (ADA) provides guidance for cutoff [...] Standards of Medical Care in Diabetes 2016, [place] Diabetes Association. Diabetes Care. 2016.39(Suppl 1). XYI134 - 24 mg/dL04/17/2025 5:01 AM EDTFAIRVIEW LABORATORYCreatinine1.060.73 - 1.22 mg/dL04/17/2025 5:01 AM EDTFAIRVIEW PFCHDYLPXVIzhmrb359(L)136 - 144 mmol/L 04/17/2025 5:01 AM EDTFAIRVIEW LABORATORYPotassium3.5(L)3.7 - 5.1 mmol/L 04/17/2025 5:01 AM EDTFAIRVIEW XAHWBHBKZSQamuaddy23(L)98 - 107 mmol/L1 5:01 AM EDTFAIRVIEW RUZGGBPLHMGD33519 - 30 mmol/L1 5:01 AM EDTFAIRVIEW LABORATORYAnion Sal871 - 15 mmol/L1 5:01 AM EDTFAIRVIEW LABORATORY Estimated Glomerular Filtration Rate85>=60 mL/min/1.73m 04/17/2025 5:01 AM EDTFAIRVIEW LABORATORYComment:Estimated Glomerular Filtration Rate (eGFR) [...] TimeReceived TimeBloodBLOOD SPECIMEN / Unknown Venipuncture / Nednevx2104/17/2025 4:23 AM EDT1 4:26 AM EDT Narrative Authorizing ProviderResult TypeResult StatusEileen Panstares PA-CLABORATORYFinal ResultPerforming OrganizationAddressCity/State/ZIP CodePhone Number [facility] [address] * (ABNORMAL) BASIC METABOLIC PANEL (04/16/2025 4:03 PM EDT) Only the most recent of5 resultswithin the time period is included. ComponentValueRef RangeTest MethodAnalysis TimePerformed AtPathologist Signature Cednsos726(H)74 - 99 mg/dL04/16/2025 4:44 PM EDTFAIRVIEW LABORATORYComment: The [place] Diabetes Association (ADA) provides guidance for cutoff [...] Standards of Medical Care in Diabetes 2016, [place] Diabetes Association. Diabetes Care. 2016.39(Suppl 1). HXW994 - 24 mg/dL04/16/2025 4:44 PM EDTFAIRVIEW LABORATORYCreatinine1.100.73 - 1.22 mg/dL04/16/2025 4:44 PM EDTFAIRVIEW TDYIGCQEHOChyrvn497(L)136 - 144 mmol/L 04/16/2025 4:44 PM EDTFAIRVIEW LABORATORYPotassium3.3(L)3.7 - 5.1 mmol/L 04/16/2025 4:44 PM EDTFAIRVIEW ITOHBFNJNLVxvareda00(L)98 - 107 mmol/L1 4:44 PM EDTFAIRVIEW RCDTUUZGABVZ37120 - 30 mmol/L1 4:44 PM EDTFAIRVIEW LABORATORYAnion Qbq731 - 15 mmol/L1 4:44 PM EDTFAIRVIEW LABORATORY [...] TimeReceived TimeBloodBLOOD SPECIMEN / Unknown Venipuncture / Xhglfss1904/16/2025 4:03 PM EDT1 4:29 PM EDT Narrative Authorizing ProviderResult TypeResult StatusAutumn Bittikofer WAFER FABRICATION OPERATOR.CNPLABORATORY Final ResultPerforming OrganizationAddressCity/State/Z[place] [address], * XR CHEST 1V FRONTAL PORT (04/16/2025 9:09 AM EDT)Anatomical RegionLaterality ModalityChestRadiographic ImagingSpecimen (Source)Anatomical Location / LateralityCollection Method / VolumeCollection TimeReceived Time04/16/2025 9:09 AM EDT Impressions 04/16/2025 9:35 AM EDT IMPRESSION: 1. ??Slight interval retraction of the Twilight-Sharon catheter with tip overlying the RIGHT pulmonary artery. 2. ??Otherwise stable when compared with 04/15/2025 at 9:56 AM. Business Analytics Specialist: KEATON ?? Transcribe Date/Time: Apr 16 2025 ??9:31A Dictated by : OLIVERIO MCKINNEY MD This examination was interpreted and the report reviewed and electronically signed by: OLIVERIO MCKINNEY MD on Apr 16 2025 ??9:33AM ??EST [...] 7:58 PM RESULT: Lines, tubes, and devices: ??Twilight-Sharon catheter in place with tip overlying the RIGHT pulmonary artery, only slightly retracted when compared with 04/15/2025. Lungs and pleura: ??Relative, bilateral upper lobe hyperlucency with diminished pulmonary vascular markings. ??No pleural effusion or pneumothorax. ??No discrete focal consolidation. ??Right lower lobe subpleural atelectasis. Cardiomediastinal silhouette: ??Stable enlargement of the cardiac pericardial silhouette. Other: ??No acute osseous abnormality. Procedure Note Provider, [facility] - 04/16/2025 * * *Final Report* [...] 7:58 PM RESULT: Lines, tubes, and devices: Twilight-Sharon catheter in place with tip overlying the [...] IMPRESSION: 1. Slight interval retraction of the Twilight-Sharon catheter with tip overlying the RIGHT pulmonary artery. 2. Otherwise stable when compared with 04/15/2025 at 9:56 AM. Business Analytics Specialist: KEATON Transcribe Date/Time: Apr 16 2025 9:31A Dictated by : OLIVERIO MCKINNEY MD This examination was interpreted and the report reviewed and electronically signed by: OLIVERIO MCKINNEY MD on Apr 16 2025 9:33AM EST Authorizing ProviderResult TypeResult StatusAutturning point mature adult care unit Cristian SALOMON.CNPRAD-PAMA Final Result * (ABNORMAL) ARTERIAL BLOOD GASES (04/16/2025 4:13 AM EDT) Only the most recent of16 resultswithin the time period is included. ComponentValueRef RangeTest MethodAnalysis TimePerformed AtPathologist Signature pH, Arterial7.48(H)7.35 - 7.451 4:25 AM EDTFAIRVIEW LABORATORYpH, Temp Corrected, Xapoztum69/26/2025 4:25 AM EDTFAIRVIEW LABORATORYpCO2, Ammknemr47(L) 36 - 46 mm Hg04/16/2025 4:25 AM EDTFAIRVIEW LABORATORYpCO2, Temp Corrected, Cmoxvshl14/26/2025 4:25 AM EDTFAIRVIEW LABORATORYpO2, Udxcxhdl07(L)85 - 95 mm Hg 04/16/2025 4:25 AM EDTFAIRVIEW LABORATORYpO2, Temp Corrected, Qktdcbdx61/26/2025 4:25 AM EDTFAIRVIEW LABORATORYBicarbonate, Ztkssqfx2505 - 26 mmol/L1 4:25 AM EDTFAIRVIEW LABORATORYO2 Saturation, Zvhhtbwh1244 - 98 %04/16/2025 4:25 AM EDTFAIRVIEW LABORATORYBase Excess, Arterial3(H)0 - 2 mmol/L1 4:25 AM EDTFAIRVIEW LABORATORYOxyhemoglobin, Obsiuvzy36(L)95 - 98 %04/16/2025 4:25 AM EDTFAIRVIEW LABORATORYCarboxyhemoglobin, Arterial1.50.0 - 2.0 %04/16/2025 4:25 AM EDTFAIRVIEW LABORATORYComment:Carboxyhemoglobin Reference Range for Smokers: 2.0-8.0%Methemoglobin, Arterial0.30.0 - 1.5 %04/16/2025 4:25 AM EDTFAIRVIEW LABORATORYSodium, Whole Pibvl423(L)136 - 144 mmol/L1 4:25 AM EDT [facility]ORYPotassium, Whole Blood3.3(L)3.5 - 5.0 mmol/L1 4:25 AM EDTFAIRVIEW LABORATORYChloride, Whole Khhtn6290 - 105 mmol/L1 4:25 AM EDTFAIRVIEW LABORATORYCalcium Ionized, Whole Blood1.091.08 - 1.30 mmol/L 04/16/2025 4:25 AM EDTFAIRVIEW LABORATORYCalcium Ionized, pH corrected1.131.08 - 1.30 mmol/L1 4:25 AM EDTFAIRVIEW LABORATORYGlucose, Whole Ydctk318(H) 60 - 105 mg/dL04/16/2025 4:25 AM EDTFAIRVIEW LABORATORYLactate1.50.5 - 2.2 mmol/L1 4:25 AM EDTFAIRVIEW LABORATORYHemoglobin, Whole Blood13.213.0 - 17.0 g/dL04/16/2025 4:25 AM EDTFAIRVIEW LABORATORYHematocrit, Whole Blood40.5 39.0 - 51.0 %04/16/2025 4:25 AM EDTFAIRVIEW LABORATORYTemperature, Body36.4C 04/16/2025 4:25 AM EDTFAIRVIEW GWKJEFKOJCTyM631%04/16/2025 4:25 AM EDTFAIRVIEW LABORATORYPO2 / FIO2 Dxbuh620(L)>300 mmHg04/16/2025 4:25 AM EDTFAIRVIEW BAULNKPMPCPrridg99Nsszjb/min04/16/2025 4:25 AM EDTFAIRVIEW LABORATORYO2 Therapy Hi-Flow Nasal Cannula-Ylsskc5304/16/2025 4:25 AM EDTFAIRVIEW LABORATORYSpecimen (Source)Anatomical Location / LateralityCollection Method / VolumeCollection TimeReceived TimeBlood, ArterialBLOOD SPECIMEN / Dwurldz1504/16/2025 4:13 AM EDT 04/16/2025 4:20 AM EDT Narrative Authorizing ProviderResult TypeResult StatusSakatelynn Ruiz APRN.CNPBLOOD GASES Final ResultPerforming OrganizationAddressCity/State/ZIP CodePhone Number [facility] [address] [place] [address], * PHOSPHORUS INORGANIC (04/16/2025 4:13 AM EDT) Only the most recent of10 resultswithin the time period is included. ComponentValueRef RangeTest MethodAnalysis TimePerformed AtPathologist Signature Phosphorus2.72.7 - 4.8 mg/dL04/16/2025 4:42 AM EDTFAIRVIEW LABORATORYSpecimen (Source)Anatomical Location / LateralityCollection Method / VolumeCollection TimeReceived TimeBloodBLOOD SPECIMEN / UnknownVenipuncture / Xsmbwbf0604/16/2025 4:13 AM EDT1 4:20 AM EDT Narrative Authorizing ProviderResult TypeResult StatusEileen Panstares PA-CLABORATORYFinal ResultPerforming OrganizationAddressCity/State/ZIP CodePhone Number [facility] [address] [place] [address], * XR CHEST 1V FRONTAL PORT (04/15/2025 10:18 AM EDT)Anatomical RegionLaterality ModalityChestRadiographic ImagingSpecimen (Source)Anatomical Location / LateralityCollection Method / VolumeCollection TimeReceived Time04/15/2025 10:18 AM EDT Impressions 04/15/2025 1:04 PM EDT IMPRESSION: NO SIGNIFICANT INTERVAL CHANGE SINCE 04/14/2025. Business Analytics Specialist: KEATON ?? Transcribe Date/Time: Apr 15 2025 [...] Lines, tubes, and devices: ??The right IJ Twilight-Sharon catheter is again identified. Lungs and pleura: ??The lungs are grossly clear. Cardiomediastinal silhouette: ??Stable cardiomediastinal silhouette. ?? Pericardial effusion cannot be excluded. Other: ??No bony abnormalities. Procedure Note Provider, [facility] - 04/15/2025 * * *Final Report* [...] Lines, tubes, and devices: The right IJ Twilight-Sharon catheter is again identified. Lungs and pleura: The lungs are grossly clear. Cardiomediastinal silhouette: Stable cardiomediastinal silhouette. Pericardial effusion cannot be excluded. Other: No bony abnormalities. IMPRESSION IMPRESSION: NO SIGNIFICANT INTERVAL CHANGE SINCE 04/14/2025. Business Analytics Specialist: KEATON Transcribe Date/Time: Apr 15 2025 1:00P Dictated by : MOHAN RUIZ MD This examination was interpreted and the report reviewed and electronically signed by: MOHAN RUIZ MD on Apr 15 2025 1:02PM EST Authorizing ProviderResult TypeResult StatusPradhab Kiruparan DORAD-PAMAFinal Result * XR CHEST 1V FRONTAL PORT (04/14/2025 [...] great vessels. 3. ??Preexistent right pleural effusion Business Analytics Specialist: KEATON ?? Transcribe Date/Time: Apr 14 2025 [...] cardiac silhouette Other: ??. Procedure Note Provider, [facility] [place] - 04/14/2025 * * *Final Report* * [...] great vessels. 3. Preexistent right pleural effusion Business Analytics Specialist: KEATON Transcribe Date/Time: Apr 14 2025 9:37P Dictated by : ALEXANDER MC MD This examination was interpreted and the report reviewed and electronically signed by: ALEXANDER MC MD on Apr 14 2025 9:46PM EST Authorizing ProviderResult TypeResult StatusDivrena Roman MDRAD-PAMAFinal Result * US VASCULAR ACCESS (POC) ICU USE ONLY (04/14/2025 7:21 PM EDT)Specimen (Source)Anatomical Location / LateralityCollection Method / VolumeCollection TimeReceived Time04/14/2025 7:21 PM EDT Narrative Authorizing ProviderResult TypeResult StatusEileen Panstares PA-CIMAGESFinal ResultPerforming OrganizationAddressCity/State/ZIP CodePhone Number [facility] * INSERTION FLOW DIRECTED CATHETER FOR MONITORING, INSERTION FLOW DIRECTED CATHETER FOR MONITORING (04/14/2025 7:14 PM EDT) Narrative Judi Roman MD - 04/14/2025 7:14 PM EDT Judi Roman MD 04/14/2025 10:02 PM PA CATHETER Performed by: Judi Roman MD Authorized by: Judi Roman MD ?? Where was Patient When this Procedure was Performed: Bedside/Unscheduled Procedure Room Informed Consent Consent Obtained: Written [place] Protocol A moment to CARE was completed. [...] was applied following the usual aseptic technique. [facility] Central Line Insertion Checklist, attached to [...] cm, single-lumen, 8.5 Fr Catheter Size: ??7.5 Yoruba, 110 cm The catheter was inserted through [...] when attempting x 2. Authorizing ProviderResult TypeResult StatusDivrena Roman MDPROCEDUREFinal Result * ARTL CATHJ/CANNULJ MNTR/TRANSFUSION SPX PRQ, ARTERIAL LINE (SMARTFORM LINK), ARTL CATHJ/CANNULJ MNTR/TRANSFUSION SPX PRQ (04/14/2025 3:25 PM EDT) Narrative Portia Rhoades APRN.CNP - 04/14/2025 3:25 PM EDT Portia Rhoades APRN.CNP 04/14/2025 3:26 PM ART LINE/SHEATH Date/Start Time: 04/14/2025 3:15 PM Date/Stop Time: 04/14/2025 3:25 PM Performed by: Portia Rhoades APRN.CNP Authorized by: Portia Rhoades APRN.CNP ?? Where was Patient When this Procedure was Performed: Bedside/Unscheduled Procedure Room This procedure has been performed by a resident/fellow without an attending's supervision ?? Informed Consent Consent Obtained: Written [place] Protocol A moment to CARE was completed. [...] OUT No specimen collected. Authorizing ProviderResult TypeResult StatusPortia Rhoades APRN.CNPPROCEDUREFinal Result * (ABNORMAL) LVEF ECHO (04/14/2025 11:46 AM EDT)ComponentValueRef RangeTest MethodAnalysis TimePerformed AtPathologist SignatureLV Ejection Xbwpilve39(A) <52 %[facility]ITALComment: (visual est.) EF > 52 An LV Ejection Fraction of > 50% is normal Specimen (Source)Anatomical Location / LateralityCollection Method / Volume Collection TimeReceived Time04/14/2025 11:46 AM EDT Narrative Authorizing ProviderResult TypeResult StatusKaleb Pepe MDLVEF RESULTS Final ResultPerforming OrganizationAddressCity/State/ZIP CodePhone Number [facility] [address] [place] [address] * ECHO (04/14/2025 11:46 AM EDT)Specimen (Source)Anatomical Location / LateralityCollection Method / VolumeCollection TimeReceived Time04/14/2025 11:46 AM EDT Impressions [facility] - 04/14/2025 4:10 PM EDT CONCLUSIONS: - [...] * * Final * * * Narrative [facility] - 04/14/2025 4:10 PM EDT Echocardiography Report: Transthoracic Echo [facility] Date of service: 04/14/2025 11:46:51 AM Ordering physician: KALEB PEPE Exam indication: Re-evaluation of known heart failure with a change in clinical status without change in med/diet Technologist: Eddy Navarrete RUST Interpreting physician: Estevan Aguilar MD PATIENT: Name: [...] a trivial pericardial effusion. Authorizing ProviderResult TypeResult StatusBacain Pepe MDECHOFinal ResultPerforming OrganizationAddressCity/State/ZIP CodePhone Number [facility] [address] [place] [address] * (ABNORMAL) URINALYSIS (WITH MICROSCOPIC) WITH CULTURE IF INDICATED (04/14/2025 10:35 AM EDT) Only the most recent of2 resultswithin the time period is included. ComponentValueRef RangeTest MethodAnalysis TimePerformed AtPathologist Signature WcjzuQfcmqlIglywv30/24/2025 10:56 AM EDTFAIRVIEW LABORATORYClarityClearClear 04/14/2025 10:56 AM EDTFCHARLES RIVER [facility]PITAL LABORATORYGlucose, UrineNegativeTrace, Negative 04/14/2025 10:56 AM EDTFSAN CARLOS [facility]ATIONVIEW LABORATORYBilirubin, UrineNegativeNegative 04/14/2025 10:56 AM EDTFSAN [facility]ATIONVIEW LABORATORYKetones, UrineNegativeNegative, Trace 04/14/2025 10:56 AM EDTFCHARLES RIVER [facility] LABORATORYSpecific [place], Ur1.0261.005 - 1.030 04/14/2025 10:56 AM EDTFCHARLES RIVER [facility]ITAL LABORATORYHemoglobin/Blood,UrNegativeNegative, Trace04/14/2025 10:56 AM EDH[facility]CRE[facility] LABORATORYpH, Urine6.05.0 - 8.010 10:56 AM EDHILLCREST [facility]PITAL LABORATORYProtein, UrineNegativeTrace, Aropkqoq68/24/2025 10:56 AM EDHILLCREST [facility]ITAL XXAEJXBETXVsfueghttcgqYyzozxAgtscc39/24/2025 10:56 AM EDT [place] BVWGCACGOEMupczxteXyttvyssFhjkehqw35/24/2025 10:56 AM EDHILLCREST [facility] LABORATORYLeuk EsteraseNegativeNegative, 25 Smita/uL04/14/2025 10:56 AM EDT [place] [facility]OR[facility]ORYWBC, Urine0-5 /HPF0-5 /HPF04/14/2025 10:56 AM EDHILLCREST [facility] LABORATORYRBC, Urine0-3 /HPF0-3 /HPF04/14/2025 10:56 AM EDH[facility]CREST [facility]ATORY Casts, Hyaline4-10 /LPF(A)0 /LPF10 10:56 AM [facility] Specimen (Source)Anatomical Location / LateralityCollection Method / Volume Collection TimeReceived TimeUrineMID-STREAM URINE SPECIMEN / UnknownNon Blood / Sdjbcxz1104/14/2025 10:35 AM EDT1 10:43 AM EDT Narrative Authorizing ProviderResult TypeResult StatusBacain Pepe MDLABORATORYFinal ResultPerforming OrganizationAddressCity/State/ZIP CodePhone Number [facility] [address] [place] [address], * (ABNORMAL) TOXICOLOGY SCREEN, ROUTINE URINE (04/14/2025 10:35 AM EDT) Only the most recent of2 resultswithin the time period is included. ComponentValueRef RangeTest MethodAnalysis TimePerformed AtPathologist Signature Amphetamines, UrinePreliminary positive(A)Rwyqpprh80/24/2025 11:02 AM [facility] LABORATORYComment:Cutoff threshold at 1000 ng/mL.Barbiturates, Urine WjltwjrhHfjgsdcl59/24/2025 11:02 AM [facility] LABORATORYComment:Cutoff threshold at 200 ng/mL.Benzodiazepines, FnzruVczwicqzIrcbgcbf06/24/2025 11:02 AM [facility] LABORATORYComment:Cutoff threshold at 200 ng/mL.Cannabinoids, Urine MauadmhaBekcmexe82/24/2025 11:02 AM [facility] LABORATORYComment:Cutoff threshold at 50 ng/mL.Cocaine, JtfypZtkpaporAzsreayv32/24/2025 11:02 AM [facility] LABORATORYComment:Cutoff threshold at 300 ng/mL.Ethanol, Urine<11<11 mg/dL04/14/2025 11:02 AM [facility] LABORATORYFentanyl, UrineNegativeNegative 04/14/2025 11:02 AM [facility] LABORATORYComment:Cutoff threshold at 5 ng/mL. Opiates, ShhyvGigbhzzkYzpaqata62/24/2025 11:02 AM [facility] LABORATORYComment: Cutoff threshold at 300 ng/mL.Oxycodone, HqekeDiclplocLkqvzcss95/24/2025 11:02 AM [facility] LABORATORYComment:Cutoff threshold at 100 ng/mL.Phencyclidine, RdclnHnscrsrcYigekufc80/24/2025 11:02 AM [facility] LABORATORYComment:Cutoff threshold at 25 ng/mL.Specimen (Source)Anatomical Location / Laterality Collection Method / VolumeCollection TimeReceived TimeUrineURINE SPECIMEN / UnknownNon Blood / Numdgld8704/14/2025 10:35 AM EDT1 10:44 AM EDT [facility] LABORATORY - 04/14/2025 11:02 AM EDT Immunoassay screen [...] on the same specimen through Client Services ([phone]) if contacted within 48 hours of initial testing. [1]Substance Abuse and Mental Health Services Administration (2012). Clinical Drug Testing in Primary Care Technical Assistance Publication Series 32. Department of Health and Human Services, [place], p.10. Authorizing ProviderResult TypeResult StatusKaleb Pepe MDLABORATORYFinal ResultPerforming OrganizationAddressCity/State/ZIP CodePhone Number [facility] [address] [place] [id number], * STAPHYLOCOCCUS AUREUS & MRSA SCREEN, PCR, NASAL (04/13/2025 9:33 PM EDT) Only the most recent of2 resultswithin the time period is included. ComponentValueRef RangeTest MethodAnalysis TimePerformed AtPathologist Signature Staphylococcus aureus DNANot DetectedNot Detected CEPHEID GENEXPERT COVID19 04/14/2025 4:39 AM EDTCDAYTON [facility] LABSpecimen (Source)Anatomical Location / LateralityCollection Method / VolumeCollection TimeReceived TimeSwab POSTERIOR NARES / UnknownNon Blood / Yntvdbq3204/13/2025 9:33 PM EDT1 9:38 PM EDT Narrative Authorizing ProviderResult TypeResult StatusKina Vásquez MD LABORATORYFinal ResultPerforming OrganizationAddressCity/State/ZIP CodePhone Number [facility] [address] [place] [address], * (ABNORMAL) HIGH SENSITIVITY TROPONIN T (04/13/2025 9:03 PM EDT)ComponentValue Ref RangeTest MethodAnalysis TimePerformed AtPathologist SignatureTNT High Ikezaefpbui26(H)<12 ng/L1 9:45 PM EDTFAIRVIEW LABORATORYSpecimen (Source)Anatomical Location / LateralityCollection Method / VolumeCollection TimeReceived TimeBloodBLOOD SPECIMEN / UnknownVenipuncture / Rcmdnjx0204/13/2025 9:03 PM EDT1 9:14 PM EDT Narrative Authorizing ProviderResult TypeResult StatusMegan Joshua WAFER FABRICATION OPERATOR.CNPLABORATORY Final ResultPerforming OrganizationAddressCity/State/ZIP CodePhone Number [facility] [phone] [place] [address], * (ABNORMAL) NT PRO BNP (04/13/2025 9:03 PM EDT)ComponentValueRef RangeTest MethodAnalysis TimePerformed AtPathologist SignatureNT Pro BNP4,052(H)<125 pg/mL04/13/2025 9:47 PM EDTFAIRVIEW LABORATORYSpecimen (Source)Anatomical Location / LateralityCollection Method / VolumeCollection TimeReceived Time BloodBLOOD SPECIMEN / UnknownVenipuncture / Wyvrnky0804/13/2025 9:03 PM EDT 04/13/2025 9:14 PM EDT Narrative Authorizing ProviderResult TypeResult StatusMegan Joshua WAFER FABRICATION OPERATOR.CNPLABORATORY Final ResultPerforming OrganizationAddressCity/State/ZIP CodePhone Number [facility] [phone] [place] [address], * (ABNORMAL) HEPATIC FUNCTION PNL (04/13/2025 9:03 PM EDT) Only the most recent of2 resultswithin the time period is included. ComponentValueRef RangeTest MethodAnalysis TimePerformed AtPathologist Signature Albumin3.6(L)3.9 - 4.9 g/dL04/13/2025 9:47 PM EDTFAIRVIEW LABORATORYBilirubin, Total1.5(H)0.2 - 1.3 mg/dL04/13/2025 9:47 PM EDTFAIRVIEW LABORATORYBilirubin, Direct0.6(H)<0.3 mg/dL04/13/2025 9:47 PM EDTFAIRVIEW LABORATORYAlkaline [id number] - 113 U/L1 9:47 PM EDTFAIRVIEW BNOCSRVJMOLUT55(H)14 - 40 U/L1 9:47 PM EDTFAIRVIEW PWNERARQTXPWG58(H)10 - 54 U/L1 9:47 PM EDTFAIRVIEW LABORATORYProtein, Total5.9(L)6.3 - 8.0 g/dL04/13/2025 9:47 PM EDTFAIRVIEW LABORATORYSpecimen (Source)Anatomical Location / Laterality Collection Method / VolumeCollection TimeReceived TimeBloodBLOOD SPECIMEN / UnknownVenipuncture / Xwbfuhp3504/13/2025 9:03 PM EDT1 9:14 PM EDT Narrative Authorizing ProviderResult TypeResult StatusKaleb Pepe MDLABORATORYFinal ResultPerforming OrganizationAddressCity/State/ZIP CodePhone Number [facility] [phone] [place] [address], * ACTIVATED PARTIAL THROMBOPLASTIN TIME (04/13/2025 9:03 PM EDT) Only the most recent of9 resultswithin the time period is included. ComponentValueRef RangeTest MethodAnalysis TimePerformed AtPathologist Signature APTT27.923.0 - 32.4 sec04/13/2025 9:47 PM EDTFAIRFULTON [facility] LABORATORYSpecimen (Source)Anatomical Location / LateralityCollection Method / VolumeCollection TimeReceived TimeBloodBLOOD SPECIMEN / UnknownVenipuncture / Qrqpzrr6504/13/2025 9:03 PM EDT1 9:14 PM EDT Narrative [facility] - 04/13/2025 9:47 PM EDT Unfractionated [...] of laboratory APTT reagentin use throughout the [facility]. Authorizing ProviderResult TypeResult StatusKaleb Pepe MDLABORATORYFinal ResultPerforming OrganizationAddressCity/State/ZIP CodePhone Number [facility] [phone] [place] [address], * XR CHEST 1V FRONTAL PORT (04/13/2025 8:07 PM EDT)Anatomical RegionLaterality ModalityChestRadiographic ImagingSpecimen (Source)Anatomical Location / LateralityCollection Method / VolumeCollection TimeReceived Time04/13/2025 8:07 PM EDT Impressions 04/13/2025 8:30 PM EDT IMPRESSION: As above. Business Analytics Specialist: KEATON ?? Transcribe Date/Time: Apr 13 2025 ??8:26P [...] Stable appearing visualized bones. Procedure Note Provider, [facility] - 04/13/2025 * * *Final Report* [...] appearing visualized bones. IMPRESSION IMPRESSION: As above. Business Analytics Specialist: KEATON Transcribe Date/Time: Apr 13 2025 8:26P Dictated by : RODDY HALL MD This examination was interpreted and the report reviewed and electronically signed by: RODDY HALL MD on Apr 13 2025 8:28PM EST Authorizing ProviderResult TypeResult StatusKaleb Zavala-Ike MDRAD-PAMAFinal Result * US-US RIGHT UPPER QUADRANT IMPORT (04/13/2025 12:00 AM EDT)Anatomical Region LateralityModalityOtherSpecimen (Source)Anatomical Location / Laterality Collection Method / VolumeCollection TimeReceived Time04/13/2025 Narrative 04/13/2025 8:08 PM EDT Images were obtained outside of [facility] Procedure Note Provider, [facility] [place] - 04/13/2025 Images were obtained outside of [facility] Authorizing ProviderResult TypeResult StatusCcf ProviderRADIOLOGYFinal Result * CT-CT ANGIO CHEST IMPORT (04/13/2025 12:00 AM EDT)Anatomical RegionLaterality ModalityOtherSpecimen (Source)Anatomical Location / LateralityCollection Method / VolumeCollection TimeReceived Time04/13/2025 Narrative 04/13/2025 8:08 PM EDT Images were obtained outside of [facility] Procedure Note Provider, [facility] - 04/13/2025 Images were obtained outside of [facility] Authorizing ProviderResult TypeResult StatusCcf ProviderRADIOLOGYFinal Result * OT-XR CHEST 1V IMPORT (04/12/2025 12:00 AM EDT)Anatomical RegionLaterality ModalityOtherSpecimen (Source)Anatomical Location / LateralityCollection Method / VolumeCollection TimeReceived Time04/12/2025 Narrative 04/13/2025 8:08 PM EDT Images were obtained outside of [facility] Procedure Note Provider, [facility] - 04/13/2025 Images were obtained outside of [facility] Authorizing ProviderResult TypeResult StatusCcf ProviderRADIOLOGYFinal Result * (ABNORMAL) INR (POC) (02/14/2025 10:57 AM EDT)ComponentValueRef RangeTest MethodAnalysis TimePerformed AtPathologist SignatureINR (POCT)2.4(H)0.8 - 1.2 [facility] HospitalInternal Quality CheckAcceptablePenn [facility] Specimen (Source)Anatomical Location / LateralityCollection Method / Volume Collection TimeReceived Time02/14/2025 10:57 AM EDT Narrative [facility] - 02/14/2025 10:57 AM EDT Location:[facility], [address], [place], [place], [facility] Authorizing ProviderResult TypeResult StatusCcf ProviderPOC TESTINGFinal Result Performing OrganizationAddressCity/State/[facility] CodePhone Number [facility] [address] [place] [address] * SIX MINUTE WALK (02/10/2025 2:15 PM EDT)Specimen (Source)Anatomical Location / LateralityCollection Method / VolumeCollection TimeReceived Time02/10/2025 2:15 PM EDT Narrative Rita Zambrano MD - 02/10/2025 2:15 PM EDT Rita Zambrano MD 02/10/2025 4:36 PM RESPIRATORY THERAPY SIX MINUTE WALK TEST OXIMETRY REPORT Six Minute Walk Test for This Encounter ?? Oxygen Device Liters FIO2 SpO2% HR Activity Feet Speed (MPH) ?? R/A ? 97 97 Resting ? R/A ? 100 191 Six Minute Walk 1245 2.4 ?? R/A ? 100 65 Recovery ? General Information ?? Height Weight Pulse Oximetry Site Pre Blood Pressure Post Recovery Blood Pressure 174.3 cm (5' 8.62 ) 79.2 kg (174 lb 9.7 oz) Forehead 100/66 147/90 _ ?? Distance Walked (meters) Distance Walked (feet) Male Predicted Walk Distance (feet) Male Lower Limit of Normal (feet) Male % Predicted Total Duration Of The Stops (seconds) 379.48 1245 2034.45 1532.45 61.2 -- _ ?? Lowest SpO2 During 6 Minute Walk Pre-Moiz Dyspnea Rating Pre-Moiz Fatigue Rating Post Moiz Dyspnea Rating Post Moiz Fatigue Rating Walking Assistance/O2 Supply Carrier 97 % 0.5 0 2 1 -- Six Minute Walk Trend (Previous Encounters) ?? None SIGNATURE: Zoe Fitzgerald RRT PATIENT NAME: Erik Santos DATE: February 10, 2025 TIME: 2:17 PM ?? The patient completed the six minute walk test with No stops. ??. The patient required Room Air ? to complete the test. The distance the patient walked in six minutes is moderately reduced. This is the first time patient takes the six minute walk test. The patient perceived their dyspnea during the six minute walk test to be 2-Slight on the modified Moiz scale. The patient perceived their fatigue during the six minute walk test to be 1-Very slight on the modified Moiz scale. I have reviewed the findings and made appropriate revisions as needed. SIGNATURE: Rita Zambrano MD PATIENT NAME: Erik Santos DATE: February 10, 2025 TIME: 4:36 PM ?? Authorizing ProviderResult TypeResult StatusPradhab Kirupaharan DOSCHEDULED PROCEDURESFinal Result * LUNG DIFFUSION CAPACITY (DLCO) (02/10/2025 1:05 PM EDT)Specimen (Source) Anatomical Location / LateralityCollection Method / VolumeCollection Time Received Time02/10/2025 1:05 PM EDT Narrative [facility] - 02/10/2025 2:34 PM EDT [facility] ? [address] [place] [address] [place] [address] ? Test Date: ? 2025-02-10 Pat Name: ?ERIK SANTOS ? Department: ?Room: ? Gender: ?Male ?Team Supervisor: ? : ? 1975 ?Requested By: ??Emelia Cross MD Order Number: ??[id number] ? Reading MD: ?Emelia Cross MD ? Interpretive Statements PRE and POST BD: Current ATS/ERS acceptability and repeatability standards for spirometry met. Start of test and EOFE criteria met. Current ATS/ERS acceptability and repeatability standards for DLCO met with 2 acceptable maneuvers. DLCO is hemoglobin corrected. Hemoglobin obtained from [facility] on 01/31/25. ??Medications and Allergies were reviewed for possible drug interactions per policy. No contraindications or sensitivities were noted. Meds taken: NONE before testing. 2 puffs Albuterol (180 mcg) delivered by MDI via holding chamber. HR pre = 62 /min, HR post = 76 /min. ??//LW ? IMPRESSION: Spirometry is normal. Negative bronchodilator response. The diffusion capacity (corrected for hemoglobin) is normal. The diffusion capacity (uncorrected for hemoglobin) is normal. Electronically Signed On 02-10-2025 14:34:46 EDT by Emelia Cross MD ID: [id number] ?Name: ERIK SANTOS ?Race: White Ht: 68.62 in ?Wt: 174.61 lbs ?Age: 49 Gender: Male ?: 1975 ?Dx: Pulmonary hypertension, unspecified Smoking Hx: Non-smoker ?Doctor: RAYSA CERVANTES Test Date: 02/10/2025 ?Site: [facility] ?Tech: Fitzgerald, Zoe ?PRE-BRONCH ? POST-BRONCH ?Dejah ?LLN ?? Pred ?ULN %Pred ZScore ?? Dejah %Pred ??%Chg ZScore SPIROMETRY FVC ? 6.36 ?? 3.35 ?? 4.41 ?? 5.48 ?? 144 ?? 2.98 ?? 6.31 ?? 143 ?-1 ?? 2.90 FEV1 ?4.45 ?? 2.66 ?? 3.53 ?? 4.36 ?? 126 ?? 1.84 ?? 4.45 ?? 126 ? 0 ?? 1.84 FEV1/FVC ?0.70 ?? 0.69 ?? 0.80 ?? 0.89 ?87 ??-1.45 ?? 0.71 ?88 ? 0 ??-1.38 FEFMax ? 11.53 ?? 7.29 ?? 9.51 ??11.74 ?? 121 ?? 1.49 ??11.10 ?? 116 ?-3 ?? 1.18 FEF50 ? 3.91 ?? 2.42 ?? 4.55 ?? 6.67 ?86 ??-0.49 ?? 3.76 ?82 ?-3 ??-0.61 FIF50 ? 5.06 ? 4.41 ? -12 ? FEF50/FIF50 ? 0.77 ?90-100 ? 0.85 ?10 ? FIVC ?6.03 ? 5.83 ?-3 ? AKN73-31 ?2.85 ?? 1.87 ?? 3.46 ?? 5.53 ?82 ??-0.58 ?? 2.79 ?80 ?-1 ??-0.63 ExpiredTime ?15.48 ?14.59 ?-5 ? TimeToFEFMax ?0.08 ? 0.07 ? -11 ? JADE ? 0.12 ? 0.11 ?-7 ? VolExtrap% ? 2 ?2 ?-7 ? LUNG DIFFUSION DLCOunc ?29.96 ??21.53 ??28.17 ??35.92 ?? 106 ?? 0.40 ? DLCOStdPB ?29.67 ??21.53 ??28.17 ??35.92 ?? 105 ?? 0.34 ? DLCORefHb ?29.67 ? 28.49 ?104 ? VA ?8.69 ?? 5.13 ?? 6.31 ?? 7.58 ?? 137 ?? 3.00 ? Kco ? 3.41 ?? 3.47 ?? 4.50 ?? 5.60 ?75 ??-1.75 ? Hgb ?15.00 ? 12-18 ? Comments: PRE and POST BD: Current ATS/ERS acceptability and repeatability standards for spirometry met. Start of test and EOFE criteria met. Current ATS/ERS acceptability and repeatability standards for DLCO met with 2 acceptable maneuvers. DLCO is hemoglobin corrected. Hemoglobin obtained from [facility] on 01/31/25. ??Medications and Allergies were reviewed for possible drug interactions per policy. No contraindications or sensitivities were noted. Meds taken: NONE before testing. 2 puffs Albuterol (180 mcg) delivered by MDI via holding chamber. HR pre = 62 /min, HR post = 76 /min. ??//LW ? Authorizing ProviderResult TypeResult StatusPradhab Kirupaharan DOSCHEDULED PROCEDURESFinal ResultPerforming OrganizationAddressCity/State/ZIP CodePhone Number [facility] [address] [place] [address] * SPIROMETRY WITH DILATOR IF OBSTRUCTED (02/10/2025 1:05 PM EDT)ComponentValue Ref RangeTest MethodAnalysis TimePerformed AtPathologist SignatureFVC PRE (L) 6.36LPULMONARY FUNCTION LABFVC POST (L)6.31LPULMONARY FUNCTION LABFVC PREDICTED (L)4.41LPULMONARY FUNCTION LABFVC LLN (L)3.35LPULMONARY FUNCTION LAB FVC ULN (L)5.48LPULMONARY FUNCTION LABFEV1 PRE (L)4.45LPULMONARY FUNCTION LAB FEV1_POST (L)4.45LPULMONARY FUNCTION LABFEV1 PREDICTED (L)3.53LPULMONARY FUNCTION LABFEV1 LLN (L)2.66LPULMONARY FUNCTION LABFEV1 ULN (L)4.36LPULMONARY FUNCTION LABFEV1/FVC PRE (%)70%PULMONARY FUNCTION LABFEV1/FVC POST (%)71% PULMONARY FUNCTION LABFEV1/FVC PREDICTED (%)80%PULMONARY FUNCTION LABFEV1/FVC LLN (%)69%PULMONARY FUNCTION GPTUEZ30% PRE (L/S)8.88L/SPULMON[facility] FUNCTION LAB FEF25% POST (L/S)8.78L/SPULMONARY FUNCTION YWCWEE59% PRE (L/S00.89L/SPULMONARY FUNCTION NZXWNK24% POST (L/S)0.87L/SPULMONARY FUNCTION XIHGEO50% PREDICTED (L/S)1.19L/SPULMONARY FUNCTION PZIQGB60% LLN (L/S)0.53L/SPULMONARY FUNCTION LCFDKA59% ULN (L/S)2.51L/SPULMONARY FUNCTION KCNZDI17-03% PRE (L/S)2.85L/S PULMONARY FUNCTION FFUARE67-16% POST (L/S)2.79L/SPULMONARY FUNCTION HFBGCA08- 75% PREDICTED (L/S)3.46L/SPULMONARY FUNCTION ZONZIF01-32% LLN (L/S)1.87L/S PULMON[facility] FUNCTION LABPEF PRE (L/S)11.53L/SPULMONARY FUNCTION LABPEF POST (L/S)11.10L/SPULMONARY FUNCTION LABPEF LLN (L/S)7.29L/SPULMONARY FUNCTION LAB PEF ULN (L/S)11.74L/SPULMONARY FUNCTION LABSVC PREDICTED (L)4.41L/SPULMONARY FUNCTION LABSVC LLN (L)3.35L/SPULMONARY FUNCTION LABSVC ULN (L)5.48L/S PULMONARY FUNCTION LABIC PREDICTED (L)2.94L/SPULMONARY FUNCTION LABERV PREDICTED (L)1.47L/SPULMONARY FUNCTION LABDLCO (ml/min/mmHg)29.96ml/min/mmHg PULMONARY FUNCTION LABDLCO PREDICTED (ml/min/mmHg)28.17ml/min/mmHgPULMONARY FUNCTION LABDLCO LLN (ml/min/mmHg)21.53ml/min/mmHgPULMONARY FUNCTION LABDLCO ULN (ml/min/mmHg)35.92ml/min/mmHgPULMONARY FUNCTION LABFET PRE (S)15.48S PULMONARY FUNCTION LABFET POST (S)14.59SPULMONARY FUNCTION LABVA (L)8.69L PULMONARY FUNCTION LABVA PREDICTED (L)6.31LPULMONARY FUNCTION LABDLCO/VA (ml/min/mmHg/L)0.03ml/min/mmHg/LPULMONARY FUNCTION LABDLCO/VA PREDICTED (ml/min/mmHg/L)0.05ml/min/mmHg/LPULMONARY FUNCTION LABDLCOcor (ml/min/mmHg) 29.67ml/min/mmHgPULMONARY FUNCTION LABDLCOcor PREDICTED (ml/min/mmHg)28.49 ml/min/mmHgPULMONARY FUNCTION LABDLCO/VAcor (ml/min/mmHg/L)0.03ml/min/mmHg/L PULMONARY FUNCTION LABSpecimen (Source)Anatomical Location / Laterality Collection Method / VolumeCollection TimeReceived Time02/10/2025 1:05 PM EDT Narrative [facility] - 02/10/2025 2:34 PM EDT [facility] ? [address] [place] [address] ? Test Date: ? 2025-02-10 Pat Name: ?ERIK SANTOS ? Department: ?Room: ? Gender: ?Male ?Team Supervisor: ? : ? 1975 ?Requested By: ??Emelia Cross MD Order Number: ??[id number] ? Reading : ?Emelia Cross MD ? Interpretive Statements PRE and POST BD: Current ATS/ERS acceptability and repeatability standards for spirometry met. Start of test and EOFE criteria met. Current ATS/ERS acceptability and repeatability standards for DLCO met with 2 acceptable maneuvers. DLCO is hemoglobin corrected. Hemoglobin obtained from [facility] on 01/31/25. ??Medications and Allergies were reviewed for possible drug interactions per policy. No contraindications or sensitivities were noted. Meds taken: NONE before testing. 2 puffs Albuterol (180 mcg) delivered by MDI via holding chamber. HR pre = 62 /min, HR post = 76 /min. ??//LW ? IMPRESSION: Spirometry is normal. Negative bronchodilator response. The diffusion capacity (corrected for hemoglobin) is normal. The diffusion capacity (uncorrected for hemoglobin) is normal. Electronically Signed On 02-10-2025 14:34:46 EDT by Emelia Cross MD ID: [id number] ?Name: ERIK SANTOS ?Race: White Ht: 68.62 in ?Wt: 174.61 lbs ?Age: 49 Gender: Male ?: 1975 ?Dx: Pulmonary hypertension, unspecified Smoking Hx: Non-smoker ?Doctor: RAYSA CERVANTES Test Date: 02/10/2025 ?Site: [facility] ?Tech: Zoe Fitzgerald ?PRE-BRONCH ? POST-BRONCH ?Dejah ?LLN ?? Pred ?ULN %Pred ZScore ?? Dejah %Pred ??%Chg ZScore SPIROMETRY FVC ? 6.36 ?? 3.35 ?? 4.41 ?? 5.48 ?? 144 ?? 2.98 ?? 6.31 ?? 143 ?-1 ?? 2.90 FEV1 ?4.45 ?? 2.66 ?? 3.53 ?? 4.36 ?? 126 ?? 1.84 ?? 4.45 ?? 126 ? 0 ?? 1.84 FEV1/FVC ?0.70 ?? 0.69 ?? 0.80 ?? 0.89 ?87 ??-1.45 ?? 0.71 ?88 ? 0 ??-1.38 FEFMax ? 11.53 ?? 7.29 ?? 9.51 ??11.74 ?? 121 ?? 1.49 ??11.10 ?? 116 ?-3 ?? 1.18 FEF50 ? 3.91 ?? 2.42 ?? 4.55 ?? 6.67 ?86 ??-0.49 ?? 3.76 ?82 ?-3 ??-0.61 FIF50 ? 5.06 ? 4.41 ? -12 ? FEF50/FIF50 ? 0.77 ?90-100 ? 0.85 ?10 ? FIVC ?6.03 ? 5.83 ?-3 ? VEX01-83 ?2.85 ?? 1.87 ?? 3.46 ?? 5.53 ?82 ??-0.58 ?? 2.79 ?80 ?-1 ??-0.63 ExpiredTime ?15.48 ?14.59 ?-5 ? TimeToFEFMax ?0.08 ? 0.07 ? -11 ? JADE ? 0.12 ? 0.11 ?-7 ? VolExtrap% ? 2 ?2 ?-7 ? LUNG DIFFUSION DLCOunc ?29.96 ??21.53 ??28.17 ??35.92 ?? 106 ?? 0.40 ? DLCOStdPB ?29.67 ??21.53 ??28.17 ??35.92 ?? 105 ?? 0.34 ? DLCORefHb ?29.67 ? 28.49 ?104 ? VA ?8.69 ?? 5.13 ?? 6.31 ?? 7.58 ?? 137 ?? 3.00 ? Kco ? 3.41 ?? 3.47 ?? 4.50 ?? 5.60 ?75 ??-1.75 ? Hgb ?15.00 ? 12-18 ? Comments: PRE and POST BD: Current ATS/ERS acceptability and repeatability standards for spirometry met. Start of test and EOFE criteria met. Current ATS/ERS acceptability and repeatability standards for DLCO met with 2 acceptable maneuvers. DLCO is hemoglobin corrected. Hemoglobin obtained from [facility] on 01/31/25. ??Medications and Allergies were reviewed for possible drug interactions per policy. No contraindications or sensitivities were noted. Meds taken: NONE before testing. 2 puffs Albuterol (180 mcg) delivered by MDI via holding chamber. HR pre = 62 /min, HR post = 76 /min. ??//LW ? Authorizing ProviderResult TypeResult StatusPradhab Kirupaharan DOSCHEDULED PROCEDURESFinal ResultPerforming OrganizationAddressCity/State/ZIP CodePhone Number [facility] [address] [place] [phone] * (ABNORMAL) PTT, ANTICOAGULANT THERAPY (02/02/2025 2:16 PM EDT) Only the most recent of9 resultswithin the time period is included. ComponentValueRef RangeTest MethodAnalysis TimePerformed AtPathologist Signature APTT51.5(H)23.0 - 32.4 sec02/02/2025 3:15 PM EDTCCLERMONT [facility] Specimen (Source)Anatomical Location / LateralityCollection Method / Volume Collection TimeReceived TimeBloodBLOOD SPECIMEN / UnknownVenipuncture / Unknown 02/02/2025 2:16 PM EDT02/02/2025 2:55 PM EDT Narrative [facility] - 02/02/2025 3:15 PM EDT Unfractionated Heparin Therapeutic Ranges: Standard [...] of laboratory APTT reagentin use throughout the [facility]. Authorizing ProviderResult TypeResult StatusJoseph Paramkelsey NAVARRETELABORATORYFinal ResultPerforming OrganizationAddressCity/State/ZIP CodePhone Number [facility] [address] [place] [address], [place] * CTA NECK W IVCON (02/01/2025 9:19 PM EDT)Anatomical RegionLateralityModality NeckComputed TomographySpecimen (Source)Anatomical Location / Laterality Collection Method / VolumeCollection TimeReceived Time02/01/2025 9:19 PM EDT Impressions 02/01/2025 9:35 PM EDT IMPRESSION: No large vessel occlusion or high-grade stenosis. Asymmetric increased size of the RIGHT sternocleidomastoid muscle as above. Arterial blood flow was measured to detect acute large vessel occlusion by computer aided detection software: Not Performed. Concordance between software and imaging review: Not Applicable. Business Analytics Specialist: KEATON ?? Transcribe Date/Time: Feb 01 2025 ??9:25P Dictated by : CHARLES CARRANZA MD This examination was interpreted and the report reviewed and electronically signed by: CHARLES CARRANZA MD on Feb 01 2025 ??9:32PM ??EST Narrative 02/01/2025 9:35 PM EDT * * *Final Report* * * DATE OF EXAM: Feb 01 2025 ??9:19PM ?? [facility] ?? [address]24 ??- ??CTA NECK W IVCON ??/ PROCEDURE REASON: Post operative complication suspected ? * * * * Physician Interpretation * * * * EXAMINATION: ??CTA HEAD W IVCON, CTA NECK W IVCON HISTORY: ??Postoperative complication. TECHNIQUE: ?? Spiral high resolution axial images were obtained through the head, neck and superior mediastinum following bolus administration of intravenous contrast for CT angiography. ? 3D maximum intensity projection images were created, reviewed and archived . MQ: ??CTAHN_4 Contrast: ??80 mL Omnipaque [address] Radiation dose: Integrated Dose-Length Product (DLP) for this visit = ?? 570 mGy*cm. CT Dose Reduction Employed: Automated exposure control (AEC) COMPARISON: None. RESULT: BRAIN: Evaluation of the individual slices of the CTA demonstrates no evidence of an acute stroke. ??ASPECT Score = 10 Hemorrhage: No clear evidence of acute intracranial hemorrhage within the constraints of this contrast enhanced acquisition. ?? ECASS hemorrhagic transformation score: Not Applicable NECK: Soft tissues: ?? Slight asymmetric increased size of the RIGHT sternocleidomastoid muscle could reflect postprocedural change/hematoma formation. ??No active contrast extravasation. Spine: ??Alignment is normal. ??Mild multilevel degenerative changes. degenerative changes are present. Lung apices: ?? The visualized lung apices are clear. CT ARTERIOGRAM: Extracranial Circulation: Aortic Arch: There is a normal branching pattern from the aortic arch. ?? There is no significant stenosis in the proximal brachiocephalic vessels. Carotid Stenosis: Right Common: ??No significant stenosis. Right Internal Carotid ??Plaque: ??Mild Right Internal Carotid Stenosis (% by NASCET Criteria): ??Less than 30 Left Common: ??No significant stenosis. Left Internal Carotid Plaque: ??No significant plaque formation. Left Internal Carotid Stenosis (% by NASCET Criteria): ??Less than 30 Cervical Vertebral Arteries: Patency: ??Bilateral Dominance: ??Right Intracranial Circulation: The petrous, cavernous, and supraclinoid internal carotid arteries are patent. ??Anterior cerebral arteries and middle cerebral arteries are patent. ??Intracranial vertebral arteries, basilar artery, and posterior cerebral arteries are patent. ??No vessel cutoffs or aneurysms are identified. Major dural venous sinuses are patent. Certified Nurse (topogram) images: Noncontributory. Procedure Note Provider, [facility] - 02/01/2025 * * *Final Report* * * DATE OF EXAM: Feb 01 2025 9:19PM [facility] [place] 0024 - CTA NECK W IVCON / PROCEDURE REASON: Post operative complication suspected * * * * Physician Interpretation * * * * EXAMINATION: CTA HEAD W IVCON, CTA NECK W IVCON HISTORY: Postoperative complication. TECHNIQUE: Spiral high resolution axial images were obtained through the head, neck and superior mediastinum following bolus administration of intravenous contrast for CT angiography. 3D maximum intensity projection images were created, reviewed and archived . MQ: CTAHN_4 Contrast: 80 mL Omnipaque [address] Radiation dose: Integrated Dose-Length Product (DLP) for this visit = 570 mGy*cm. CT Dose Reduction Employed: Automated exposure control (AEC) COMPARISON: None. RESULT: BRAIN: Evaluation of the individual slices of the CTA demonstrates no evidence of an acute stroke. ASPECT Score = 10 Hemorrhage: No clear evidence of acute intracranial hemorrhage within the constraints of this contrast enhanced acquisition. ECASS hemorrhagic transformation score: Not Applicable NECK: Soft tissues: Slight asymmetric increased size of the RIGHT sternocleidomastoid muscle could reflect postprocedural change/hematoma formation. No active contrast extravasation. Spine: Alignment is normal. Mild multilevel degenerative changes. degenerative changes are present. Lung apices: The visualized lung apices are clear. CT ARTERIOGRAM: Extracranial Circulation: Aortic Arch: There is a normal branching pattern from the aortic arch. There is no significant stenosis in the proximal brachiocephalicvessels. Carotid Stenosis: Right Common: No significant stenosis. Right Internal Carotid Plaque: Mild Right Internal Carotid Stenosis (% by NASCET Criteria): Less than 30 Left Common: No significant stenosis. Left Internal Carotid Plaque: No significant plaque formation. Left Internal Carotid Stenosis (% by NASCET Criteria): Less than 30 Cervical Vertebral Arteries: Patency: Bilateral Dominance: Right Intracranial Circulation: The petrous, cavernous, and supraclinoid internal carotid arteries are patent. Anterior cerebral arteries and middle cerebral arteries are patent. Intracranial vertebral arteries, basilar artery, and posterior cerebral arteries are patent. No vessel cutoffs or aneurysms are identified. Major dural venous sinuses are patent. Certified Nurse (topogram) images: Noncontributory. IMPRESSION IMPRESSION: No large vessel occlusion or high-grade stenosis. Asymmetric increased size of the RIGHT sternocleidomastoid muscle as above. Arterial blood flow was measured to detect acute large vessel occlusion by computer aided detection software: Not Performed. Concordance between software and imaging review: Not Applicable. Business Analytics Specialist: KEATON Transcribe Date/Time: Feb 01 2025 9:25P Dictated by : CHARLES CARRANZA MD This examination was interpreted and the report reviewed and electronically signed by: CHARLES CARRANZA MD on Feb 01 2025 9:32PM EST Authorizing ProviderResult TypeResult StatusElian Abou Asala MDCT-PAMAFinal Result * CTA HEAD W IVCON (02/01/2025 9:19 PM EDT)Anatomical RegionLateralityModality HeadComputed TomographySpecimen (Source)Anatomical Location / Laterality Collection Method / VolumeCollection TimeReceived Time02/01/2025 9:19 PM EDT Impressions 02/01/2025 9:35 PM EDT IMPRESSION: No large vessel occlusion or high-grade stenosis. Asymmetric increased size of the RIGHT sternocleidomastoid muscle as above. Arterial blood flow was measured to detect acute large vessel occlusion by computer aided detection software: Not Performed. Concordance between software and imaging review: Not Applicable. Business Analytics Specialist: KEATON ?? Transcribe Date/Time: Feb 01 2025 ??9:25P Dictated by : CHARLES CARRANZA MD This examination was interpreted and the report reviewed and electronically signed by: CHARLES CARRANZA MD on Feb 01 2025 ??9:32PM ??EST Narrative 02/01/2025 9:35 PM EDT * * *Final Report* * * DATE OF EXAM: Feb 01 2025 ??9:19PM ?? [facility] [place] ??- ??CTA HEAD W IVCON ??/ PROCEDURE REASON: Post operative complication suspected ? * * * * Physician Interpretation * * * * EXAMINATION: ??CTA HEAD W IVCON, CTA NECK W IVCON HISTORY: ??Postoperative complication. TECHNIQUE: ?? Spiral high resolution axial images were obtained through the head, neck and superior mediastinum following bolus administration of intravenous contrast for CT angiography. ? 3D maximum intensity projection images were created, reviewed and archived . MQ: ??CTAHN_4 Contrast: ??80 mL Omnipaque [address] Radiation dose: Integrated Dose-Length Product (DLP) for this visit = ?? 570 mGy*cm. CT Dose Reduction Employed: Automated exposure control (AEC) COMPARISON: None. RESULT: BRAIN: Evaluation of the individual slices of the CTA demonstrates no evidence of an acute stroke. ??ASPECT Score = 10 Hemorrhage: No clear evidence of acute intracranial hemorrhage within the constraints of this contrast enhanced acquisition. ?? ECASS hemorrhagic transformation score: Not Applicable NECK: Soft tissues: ?? Slight asymmetric increased size of the RIGHT sternocleidomastoid muscle could reflect postprocedural change/hematoma formation. ??No active contrast extravasation. Spine: ??Alignment is normal. ??Mild multilevel degenerative changes. degenerative changes are present. Lung apices: ?? The visualized lung apices are clear. CT ARTERIOGRAM: Extracranial Circulation: Aortic Arch: There is a normal branching pattern from the aortic arch. ?? There is no significant stenosis in the proximal brachiocephalic vessels. Carotid Stenosis: Right Common: ??No significant stenosis. Right Internal Carotid ??Plaque: ??Mild Right Internal Carotid Stenosis (% by NASCET Criteria): ??Less than 30 Left Common: ??No significant stenosis. Left Internal Carotid Plaque: ??No significant plaque formation. Left Internal Carotid Stenosis (% by NASCET Criteria): ??Less than 30 Cervical Vertebral Arteries: Patency: ??Bilateral Dominance: ??Right Intracranial Circulation: The petrous, cavernous, and supraclinoid internal carotid arteries are patent. ??Anterior cerebral arteries and middle cerebral arteries are patent. ??Intracranial vertebral arteries, basilar artery, and posterior cerebral arteries are patent. ??No vessel cutoffs or aneurysms are identified. Major dural venous sinuses are patent. Certified Nurse (topogram) images: Noncontributory. Procedure Note Provider, [facility] - 02/01/2025 * * *Final Report* * * DATE OF EXAM: Feb 01 2025 9:19PM [facility] [place] 0022 - CTA HEAD W IVCON / PROCEDURE REASON: Post operative complication suspected * * * * Physician Interpretation * * * * EXAMINATION: CTA HEAD W IVCON, CTA NECK W IVCON HISTORY: Postoperative complication. TECHNIQUE: Spiral high resolution axial images were obtained through the head, neck and superior mediastinum following bolus administration of intravenous contrast for CT angiography. 3D maximum intensity projection images were created, reviewed and archived . MQ: CTAHN_4 Contrast: 80 mL Omnipaque [address] Radiation dose: Integrated Dose-Length Product (DLP) for this visit = 570 mGy*cm. CT Dose Reduction Employed: Automated exposure control (AEC) COMPARISON: None. RESULT: BRAIN: Evaluation of the individual slices of the CTA demonstrates no evidence of an acute stroke. ASPECT Score = 10 Hemorrhage: No clear evidence of acute intracranial hemorrhage within the constraints of this contrast enhanced acquisition. ECASS hemorrhagic transformation score: Not Applicable NECK: Soft tissues: Slight asymmetric increased size of the RIGHT sternocleidomastoid muscle could reflect postprocedural change/hematoma formation. No active contrast extravasation. Spine: Alignment is normal. Mild multilevel degenerative changes. degenerative changes are present. Lung apices: The visualized lung apices are clear. CT ARTERIOGRAM: Extracranial Circulation: Aortic Arch: There is a normal branching pattern from the aortic arch. There is no significant stenosis in the proximal brachiocephalicvessels. Carotid Stenosis: Right Common: No significant stenosis. Right Internal Carotid Plaque: Mild Right Internal Carotid Stenosis (% by NASCET Criteria): Less than 30 Left Common: No significant stenosis. Left Internal Carotid Plaque: No significant plaque formation. Left Internal Carotid Stenosis (% by NASCET Criteria): Less than 30 Cervical Vertebral Arteries: Patency: Bilateral Dominance: Right Intracranial Circulation: The petrous, cavernous, and supraclinoid internal carotid arteries are patent. Anterior cerebral arteries and middle cerebral arteries are patent. Intracranial vertebral arteries, basilar artery, and posterior cerebral arteries are patent. No vessel cutoffs or aneurysms are identified. Major dural venous sinuses are patent. Certified Nurse (topogram) images: Noncontributory. IMPRESSION IMPRESSION: No large vessel occlusion or high-grade stenosis. Asymmetric increased size of the RIGHT sternocleidomastoid muscle as above. Arterial blood flow was measured to detect acute large vessel occlusion by computer aided detection software: Not Performed. Concordance between software and imaging review: Not Applicable. Business Analytics Specialist: KEATON Transcribe Date/Time: Feb 01 2025 9:25P Dictated by : CHARLES CARRANZA MD This examination was interpreted and the report reviewed and electronically signed by: CHARLES CARRAZNA MD on Feb 01 2025 9:32PM EST Authorizing ProviderResult TypeResult StatusElian Abou Asala MDCT-PAMAFinal Result * (ABNORMAL) GLUCOSE, BLOOD (POC) (02/01/2025 4:57 PM EDT) Only the most recent of16 resultswithin the time period is included. ComponentValueRef RangeTest MethodAnalysis TimePerformed AtPathologist Signature Glucose, Point of Mlby016(A)74 - 99 mg/dLBellevue HospitalComment: Location:[facility], [address] [place] [address], [facility] The Accu-Chek Inform II glucose meter has not been approved for testing on patients receiving intensive medical intervention or therapy and results from this point of care glucose test should not be used for patient management decisions in these cases. ??Inaccurate results may also occur from other interfering factors, such as N-acetylcysteine (blood concentrations of greater than 5mg/dL), galactose, extremes of hematocrit (<10 or >65), or high doses of ascorbic acid (vitamin C) greater than 3mg/dL. ??Consider alternate testing mechanisms (e.g. core lab, blood gas instrument) in the above situations. Specimen (Source)Anatomical Location / LateralityCollection Method / Volume Collection TimeReceived Time02/01/2025 4:57 PM EDT Narrative Authorizing ProviderResult TypeResult StatusCcf ProviderPOC TESTINGFinal Result Performing OrganizationAddressCity/State/ZIP CodePhone Number [facility] [address] [place], [place] * ECG COMPLETE (01/31/2025 10:54 AM EDT)ComponentValueRef RangeTest Method Analysis TimePerformed AtPathologist SignatureVentricular Lsql84OPUDGPWS AND VASCULAR INSTITUTEAtrial Cckg940UGJYWYKY AND VASCULAR INSTITUTEQRS Osmddkud099 msHEART AND VASCULAR INSTITUTEQT Xwsktimi179xxZPTJJ AND VASCULAR INSTITUTEQTC Calculation (Bazett)557msHEART AND VASCULAR INSTITUTECalculated P Owro645 degreesHEART AND VASCULAR INSTITUTECalculated R Bpqk545twiysmhNQLBH AND VASCULAR INSTITUTECalculated T Eakly-27degreesHEART AND VASCULAR INSTITUTE Specimen (Source)Anatomical Location / LateralityCollection Method / Volume Collection TimeReceived Time01/31/2025 10:54 AM EDT Impressions [facility] - 02/06/2025 4:47 PM EDT ATRIAL FLUTTER WITH 2:1 A-V CONDUCTION COMPLETE RIGHT BUNDLE BRANCH BLOCK LATERAL T WAVE ABNORMALITY ABNORMAL ECG Confirmed by FINA LICEA MD ([id number]) on 02/06/2025 4:47:41 PM Narrative [facility] - 02/06/2025 4:47 PM EDT NAME : ERIK SANTOS PID : [id number] : 1975 Gender : Male Race : ORD : [id number] Procedure Date : Jan 31 2025 10:54:46 Edit Date : Feb 06 2025 16:47:43 Diagnosis: ATRIAL FLUTTER WITH 2:1 A-V CONDUCTION COMPLETE RIGHT BUNDLE BRANCH BLOCK LATERAL T WAVE ABNORMALITY ABNORMAL ECG Confirmed by FINA LICEA MD ([id number]) on 02/06/2025 4:47:41 PM Test Reason : Arrhythmia Location : 98 : G91 ??G91-03 Overread By : FINA LICEA MD Edited By : FINA LICEA MD Referred By : REAL RENAE Acquired by : ROBERT PAYAN Authorizing ProviderResult TypeResult StatusJoseph Parambil MDEKGFinal Result Performing OrganizationAddressCity/State/ZIP CodePhone Number [facility] [address] [phone] * XR CHEST 1V FRONTAL PORT (01/31/2025 9:46 AM EDT)Anatomical RegionLaterality ModalityChestRadiographic ImagingSpecimen (Source)Anatomical Location / LateralityCollection Method / VolumeCollection TimeReceived Time01/31/2025 7:44 AM EDT Impressions 02/01/2025 12:01 AM EDT IMPRESSION: See result. Business Analytics Specialist: PSCB ?? Transcribe Date/Time: Jan 31 2025 11:56P Dictated by : KI ESTRELLA MD This examination was interpreted and the report reviewed and electronically signed by: KI ESTRELLA MD on Jan 31 2025 11:59PM ??EST Narrative 02/01/2025 12:01 AM EDT * * *Final Report* * * DATE OF EXAM: Jan 31 2025 ??7:44AM ?? MARCELINO ?? [id number] ??- ??XR CHEST 1V FRONTAL PORT ??/ PROCEDURE REASON: Hypoxemia ? * * * * Physician Interpretation * * * * EXAMINATION: ??CHEST RADIOGRAPH (PORTABLE SINGLE VIEW AP) Exam Date/Time: ??01/31/2025 7:44 AM Clinical History: Hypoxemia MQ: ??XCPMC_6 Comparison: ??1 day prior RESULT: Lines, tubes, and devices: ??Wire-like structures are projecting over the midline are possibly pH probe and appear distorted by peristalsis. ??The tip is below the diaphragm. Lungs and pleura: ??Improvement of basilar atelectasis. ??No pleural effusion or pneumothorax. ??Improvement of diaphragm elevation especially on the right. Cardiomediastinal silhouette: ??Borderline enlarged heart. ??Thoracic aorta is tortuous. Other: ??. Procedure Note Provider, [facility] [place] - 02/01/2025 * * *Final Report* * * DATE OF EXAM: Jan 31 2025 7:44AM M[address] [id number] - XR CHEST 1V FRONTAL PORT / PROCEDURE REASON: Hypoxemia * * * * Physician Interpretation * * * * EXAMINATION: CHEST RADIOGRAPH (PORTABLE SINGLE VIEW AP) Exam Date/Time: 01/31/2025 7:44 AM Clinical History: Hypoxemia MQ: XCPMC_6 Comparison: 1 day prior RESULT: Lines, tubes, and devices: Wire-like structures are projecting over the midline are possibly pH probe and appear distorted by peristalsis. The tip is below the diaphragm. Lungs and pleura: Improvement of basilar atelectasis. No pleural effusion or pneumothorax. Improvement of diaphragm elevation especially on the right. Cardiomediastinal silhouette: Borderline enlarged heart. Thoracic aorta is tortuous. Other: . IMPRESSION IMPRESSION: See result. Business Analytics Specialist: KEATON Transcribe Date/Time: Jan 31 2025 11:56P Dictated by : KI ESTRELLA MD This examination was interpreted and the report reviewed and electronically signed by: KI ESTRELLA MD on Jan 31 2025 11:59PM EST Authorizing ProviderResult TypeResult StatusLamadrian Huggins MDRAD-PAMAFinal Result * HEPATITIS B SURFACE ANTIGEN (01/31/2025 9:03 AM EDT) Only the most recent of2 resultswithin the time period is included. ComponentValueRef RangeTest MethodAnalysis TimePerformed AtPathologist Signature TKwEuSkqylumtEronjhgg31/12/2025 2:11 PM EDTCCLERMONT [facility] LAB Specimen (Source)Anatomical Location / LateralityCollection Method / Volume Collection TimeReceived TimeBloodBLOOD SPECIMEN / UnknownVenipuncture / Unknown 01/31/2025 9:03 AM EDT01/31/2025 9:21 AM EDT Narrative Authorizing ProviderResult TypeResult StatusBobby Lemon MDLABORATORYFinal ResultPerforming OrganizationAddressCity/State/ZIP CodePhone Number [facility] [address] [address], * HEPATITIS B SURFACE ANTIBODY (01/31/2025 9:03 AM EDT) Only the most recent of2 resultswithin the time period is included. ComponentValueRef RangeTest MethodAnalysis TimePerformed AtPathologist Signature Hep B Surface Ab, OsmwPvtupqyd56/12/2025 2:11 PM [facility] LABComment:No serological evidence of immunity to Hepatitis B Virus.Hep B Surface Ab Quant<8.00mIU/mL01/31/2025 2:11 PM [facility] LABComment: <8 mIU/mL: No serological evidence of immunity to Hepatitis B Virus. >/= 8 to <12 mIU/mL: No serological evidence of immunity to Hepatitis B Virus. >/= 12 mIU/mL: Consistent with serological evidence of immunity to Hepatitis B Virus. Specimen (Source)Anatomical Location / LateralityCollection Method / Volume Collection TimeReceived TimeBloodBLOOD SPECIMEN / UnknownVenipuncture / Unknown 01/31/2025 9:03 AM EDT01/31/2025 9:21 AM EDT Narrative Authorizing ProviderResult TypeResult StatusBobby Lemon MDLABORATORYFinal ResultPerforming OrganizationAddressCity/State/ZIP CodePhone Number [facility] [address] * HEPATITIS B CORE ANTIBODY TOTAL (01/31/2025 9:03 AM EDT) Only the most recent of2 resultswithin the time period is included. ComponentValueRef RangeTest MethodAnalysis TimePerformed AtPathologist Signature Hepatitis B Core Ab, MnassKnvuovknSznbwgec60/12/2025 3:11 PM [facility] LABComment:No evidence of current or past infection with Hepatitis B virus. Should recent infection be suspected, repeat testing may be considered 3-4 weeks after this draw.Specimen (Source)Anatomical Location / Laterality Collection Method / VolumeCollection TimeReceived TimeBloodBLOOD SPECIMEN / UnknownVenipuncture / Eemaedv6901/31/2025 9:03 AM EDT01/31/2025 9:21 AM EDT Narrative Authorizing ProviderResult TypeResult StatusBobby Lemon MDLABORATORYFinal ResultPerforming OrganizationAddressCity/State/ZIP CodePhone Number [facility] [address] [facility] [address] [address], [place] * HEPATITIS C ANTIBODY IA WITH CONFIRMATION (01/31/2025 9:03 AM EDT) Only the most recent of2 resultswithin the time period is included. ComponentValueRef RangeTest MethodAnalysis TimePerformed AtPathologist Signature Hep C Antibody LDFszoleurYpvzmvpv65/12/2025 2:14 PM EDTCCLERMONT COUNTY HOSPITAL LABComment:The result suggests no evidence of infection with Hepatitis C virus. Should recent infection be suspected, repeat testing may be considered 4- 6 weeks after this draw.Specimen (Source)Anatomical Location / Laterality Collection Method / VolumeCollection TimeReceived TimeBloodBLOOD SPECIMEN / UnknownVenipuncture / Zbkhlqh6701/31/2025 9:03 AM EDT01/31/2025 9:21 AM EDT Narrative Authorizing ProviderResult TypeResult StatusElian Shaan Lemon MDLABORATORYFinal ResultPerforming OrganizationAddressCity/State/ZIP CodePhone Number [facility] [address] [facility] [address] [address], [place] * XR ABDOMEN 1V SUPINE (01/30/2025 12:56 PM EDT)Anatomical RegionLaterality ModalityAbdomenRadiographic ImagingSpecimen (Source)Anatomical Location / LateralityCollection Method / VolumeCollection TimeReceived Time01/30/2025 11:10 AM EDT Impressions 01/30/2025 2:36 PM EDT IMPRESSION: Lines, tubes, and devices: None. Bowel: Mild gaseous distention of stomach. No dilated bowel. Other: Multilevel degenerative arthropathy of the thoracolumbar spine. Business Analytics Specialist: KEATON ?? Transcribe Date/Time: Jan 30 2025 ??1:10P Dictated by : MAYE DAWSON This examination was interpreted and the report reviewed and electronically signed by: ANETA SARABIA DO on Jan 30 2025 ??2:34PM ??EST Narrative 01/30/2025 2:36 PM EDT * * *Final Report* * * DATE OF EXAM: Jan 30 2025 11:10AM ?? M[place]EL[place] ?? [id number] ??- ??XR ABDOMEN 1V SUPINE ??/ PROCEDURE REASON: Bowel obstruction suspected ? * * * * Physician Interpretation * * * * ABDOMINAL X-RAY, 1 VIEW. CLINICAL INFORMATION: Bowel obstruction suspected. CURRENT STUDY: 01/30/2025 11:09 AM COMPARISON: No recent comparable exam. TECHNIQUE: Supine abdomen, 2 image(s) RESULT: See impression. Procedure Note Provider, [facility] [place] - 01/30/2025 * * *Final Report* * * DATE OF EXAM: Jan 30 2025 11:10AM M[place] 5289 - XR ABDOMEN 1V SUPINE / PROCEDURE REASON: Bowel obstruction suspected * * * * Physician Interpretation * * * * ABDOMINAL X-RAY, 1 VIEW. CLINICAL INFORMATION: Bowel obstruction suspected. CURRENT STUDY: 01/30/2025 11:09 AM COMPARISON: No recent comparable exam. TECHNIQUE: Supine abdomen, 2 image(s) RESULT: See impression. IMPRESSION IMPRESSION: Lines, tubes, and devices: None. Bowel: Mild gaseous distention of stomach. No dilated bowel. Other: Multilevel degenerative arthropathy of the thoracolumbar spine. Business Analytics Specialist: KEATON Transcribe Date/Time: Jan 30 2025 1:10P Dictated by : MAYE DAWSON This examination was interpreted and the report reviewed and electronically signed by: ANETA SARABIA DO on Jan 30 2025 2:34PM EST Authorizing ProviderResult TypeResult StatusLamia [facility] MDRAD-PAMAFinal Result * XR CHEST 1V FRONTAL PORT (01/30/2025 7:44 AM EDT)Anatomical RegionLaterality ModalityChestRadiographic ImagingSpecimen (Source)Anatomical Location / LateralityCollection Method / VolumeCollection TimeReceived Time01/30/2025 7:44 AM EDT Impressions 01/30/2025 12:02 PM EDT IMPRESSION: See result. Business Analytics Specialist: KEATON ?? Transcribe Date/Time: Jan 30 2025 11:58A Dictated by : TANO SCHMIDT MD This examination was interpreted and the report reviewed and electronically signed by: TANO SCHMIDT MD on Jan 30 2025 12:00PM ??EST Narrative 01/30/2025 12:02 PM EDT * * *Final Report* * * DATE OF EXAM: Jan 30 2025 ??7:44AM ?? MARCEL[place] ?? [id number] ??- ??XR CHEST 1V FRONTAL PORT ??/ PROCEDURE REASON: Hypoxemia ? * * * * Physician Interpretation * * * * EXAMINATION: ??CHEST RADIOGRAPH (PORTABLE SINGLE VIEW AP) Exam Date/Time: ??01/30/2025 7:44 AM Clinical History: Hypoxemia MQ: ??XCPMC_6 Comparison: ??1 day prior RESULT: Lines, tubes, and devices: ??A right IJ PA catheter terminates in the right main pulmonary artery. Lungs and pleura: ??There is likely a stable small right pleural effusion with adjacent atelectasis or pneumonia/aspiration. No new consolidation or pulmonary edema. No substantial pneumothorax. Cardiomediastinal silhouette: ??Stable enlargement of the cardiomediastinal silhouette. Other: ??. Procedure Note Provider, [facility] - 01/30/2025 * * *Final Report* * * DATE OF EXAM: Jan 30 2025 7:44AM [place] [id number] - XR CHEST 1V FRONTAL PORT / PROCEDURE REASON: Hypoxemia * * * * Physician Interpretation * * * * EXAMINATION: CHEST RADIOGRAPH (PORTABLE SINGLE VIEW AP) Exam Date/Time: 01/30/2025 7:44 AM Clinical History: Hypoxemia MQ: XCPMC_6 Comparison: 1 day prior RESULT: Lines, tubes, and devices: A right IJ PA catheter terminates in the right main pulmonary artery. Lungs and pleura: There is likely a stable small right pleural effusion with adjacent atelectasis or pneumonia/aspiration. No new consolidation or pulmonary edema. No substantial pneumothorax. Cardiomediastinal silhouette: Stable enlargement of the cardiomediastinal silhouette. Other: . IMPRESSION IMPRESSION: See result. Business Analytics Specialist: PSCB Transcribe Date/Time: Jan 30 2025 11:58A Dictated by : TANO SCHMIDT MD This examination was interpreted and the report reviewed and electronically signed by: TANO SCHMIDT MD on Jan 30 2025 12:00PM EST Authorizing ProviderResult TypeResult StatusLamia Huggins MDRAD-PAMAFinal Result * ECG COMPLETE (01/29/2025 9:42 AM EDT)ComponentValueRef RangeTest Method Analysis TimePerformed AtPathologist SignatureVentricular Ysma347DHBIFGYL AND VASCULAR INSTITUTEQRS Rttrfkbo213atRPSNW AND VASCULAR INSTITUTEQT Snfmiguw430 msHEART AND VASCULAR INSTITUTEQTC Calculation (Davidzett)584msHEART AND VASCULAR INSTITUTECalculated R Aqea545zciyameFVCJZ AND VASCULAR INSTITUTECalculated T Eakly-29degreesHEART AND VASCULAR INSTITUTESpecimen (Source)Anatomical Location / LateralityCollection Method / VolumeCollection TimeReceived Time01/29/2025 9:42 AM EDT Impressions [facility] - 04/16/2025 10:07 AM EDT ATRIAL FIBRILLATION WITH RAPID VENTRICULAR RESPONSE COMPLETE RIGHT BUNDLE BRANCH BLOCK INFEROLATERAL T WAVE ABNORMALITY ABNORMAL ECG Confirmed by FINA LICEA MD ([id number]) on 04/16/2025 10:07:06 AM Narrative [facility] - 04/16/2025 10:07 AM EDT NAME : ERIK SANTOS PID : [id number] : 1975 Gender : Male Race : ORD : [id number] Procedure Date : Jan 29 2025 09:42:42 Edit Date : Apr 16 2025 10:07:12 Diagnosis: ATRIAL FIBRILLATION WITH RAPID VENTRICULAR RESPONSE COMPLETE RIGHT BUNDLE BRANCH BLOCK INFEROLATERAL T WAVE ABNORMALITY ABNORMAL ECG Confirmed by FINA LICEA MD ([id number]) on 04/16/2025 10:07:06 AM Test Reason : BEST POSSIBLE Location : 35 : G62 ??G062-16 Overread By : FINA LICEA MD Edited By : FINA LICEA MD Referred By : REAL RENAE Acquired by : NICOLETTE SANTOS Authorizing ProviderResult TypeResult StatusLamadrian Huggins MDEKGFinal Result Performing OrganizationAddressCity/State/ZIP CodePhone Number [facility] [address] [phone] * XR CHEST 1V FRONTAL (01/29/2025 9:27 AM EDT)Anatomical RegionLaterality ModalityChestRadiographic ImagingSpecimen (Source)Anatomical Location / LateralityCollection Method / VolumeCollection TimeReceived Time01/29/2025 9:27 AM EDT Impressions 01/29/2025 12:19 PM EDT IMPRESSION: See result. Business Analytics Specialist: PSCB ?? Transcribe Date/Time: Jan 29 2025 12:17P Dictated by : LINDA GABRIEL MD This examination was interpreted and the report reviewed and electronically signed by: LINDA GABRIEL MD on Jan 29 2025 12:17PM ??EST Narrative 01/29/2025 12:19 PM EDT * * *Final Report* * * DATE OF EXAM: Jan 29 2025 ??9:27AM ?? [place] ?? [id number] ??- ??XR CHEST 1V FRONTAL ?? / PROCEDURE REASON: Hypoxemia ? * * * * Physician Interpretation * * * * EXAMINATION: ??CHEST RADIOGRAPH (PORTABLE SINGLE VIEW AP) Exam Date/Time: ??01/29/2025 9:27 AM Clinical History: Hypoxemia MQ: ??XCPMC_6 Comparison: ??1 day prior RESULT: Lines, tubes, and devices: ??The tip of the pulmonary artery catheter is in the right pulmonary artery. Lungs and pleura: ??Right basilar opacity may represent atelectasis or pneumonia/aspiration. ??Small right pleural effusion is is seen. ??There is no pneumothorax. Cardiomediastinal silhouette: ??The cardiomediastinal silhouette is enlarged, stable. Procedure Note Provider, [facility] [place] - 01/29/2025 * * *Final Report* * * DATE OF EXAM: Jan 29 2025 9:27AM [address] 5290 - XR CHEST 1V FRONTAL / PROCEDURE REASON: Hypoxemia * * * * Physician Interpretation * * * * EXAMINATION: CHEST RADIOGRAPH (PORTABLE SINGLE VIEW AP) Exam Date/Time: 01/29/2025 9:27 AM Clinical History: Hypoxemia MQ: XCPMC_6 Comparison: 1 day prior RESULT: Lines, tubes, and devices: The tip of the pulmonary artery catheter is in the right pulmonary artery. Lungs and pleura: Right basilar opacity may represent atelectasis or pneumonia/aspiration. Small right pleural effusion is is seen. There is no pneumothorax. Cardiomediastinal silhouette: The cardiomediastinal silhouette is enlarged, stable. IMPRESSION IMPRESSION: See result. Business Analytics Specialist: [place] Transcribe Date/Time: Jan 29 2025 12:17P Dictated by : LINDA GABRIEL MD This examination was interpreted and the report reviewed and electronically signed by: LINDA GABRIEL MD on Jan 29 2025 12:17PM EST Authorizing ProviderResult TypeResult StatusLamadrian Huggins MDRAD-PAMAFinal Result * US ABD LIVER VASCULAR (01/28/2025 1:24 PM EDT)Anatomical RegionLaterality ModalityAbdomenUltrasoundSpecimen (Source)Anatomical Location / Laterality Collection Method / VolumeCollection TimeReceived Time01/28/2025 1:24 PM EDT Impressions 01/28/2025 3:02 PM EDT IMPRESSION: Patent hepatic vasculature with appropriately directed flow. Normal sonographic appearance of the liver. No hepatic lesion. No sonographic findings of portal hypertension as queried. Business Analytics Specialist: [place] ?? Transcribe Date/Time: Jan ??2024 ??2:31P Dictated by : SALLY ANNE MD This examination was interpreted and the report reviewed and electronically signed by: VICTORIA GONZALEZ MD on Jan ??2024 ??2:59PM ??EST Narrative 01/28/2025 3:02 PM EDT * * *Final Report* * * DATE OF EXAM: Jan ??2024 ??1:24PM ?? [facility] ?? 1233 ??- ??US ABD LIVER VASCULAR ??/ PROCEDURE REASON: Portal hypertension ? * * * * Physician Interpretation * * * * EXAMINATION: ??LIVER VASCULAR ULTRASOUND WITH DOPPLER IMAGING CLINICAL HISTORY: Concern for portal hypertension. TECHNIQUE: ??Sonography of the liver with color and spectral Doppler imaging of the hepatic vasculature was performed. ?? Images were obtained and stored in a permanent archive. MQ: ??USLV_1 COMPARISON: None. RESULT: Sonographic Findings: Pancreas: Normal sonographic appearance. ?? Portions obscured: tail Liver: ? Echotexture: ??Normal, homogeneous. ? Echogenicity: ??Normal ? Surface contour: ??Smooth ? Lesions: ??None. Biliary: No intrahepatic biliary duct dilation. ? CBD: 0.5 cm at the hilum. ? Gallbladder: Normal caliber ?-Contents: ??Sludge present ?-Wall: ??Normal ?-Other: ??Small 0.3 cm gallbladder polyp. Right Kidney: No hydronephrosis. Spleen: ??Craniocaudal length 11 cm, normal. ??There are no splenic lesions. Other: Trace perihepatic ascites. HEPATIC VASCULATURE: PORTAL SYSTEM: ? -Splenic Vein: Patent with antegrade flow (towards the liver). ? -Main PV: ??Patent with normal, phasic antegrade flow (towards liver). ??27 cm/sec ? -Right anterior PV: Patent with phasic antegrade flow (towards liver). ? -Right posterior PV: Patent with phasic antegrade flow (towards liver). ? -Left PV: Patent with phasic antegrade flow (towards liver). Splenorenal shunt: None Recanalized paraumbilical vein: None HEPATIC ARTERIES: ?- Main PETERS: ??Normal waveform ?? PSV: ??41 cm/sec. RI: 0.59 ?- Right anterior PETERS: Normal waveform ?- Right posterior PETERS: ??Normal waveform ?- Left PETERS: Normal waveform HEPATIC VEINS: ? -Left: Patent with triphasic waveform. ? -Middle: Patent with triphasic waveform. ? -Right: Patent with triphasic waveform. IVC: Patent with normal, phasic wave form. Procedure Note Provider, [facility] [place] - 01/28/2025 * * *Final Report* * * DATE OF EXAM: Jan 28 2025 1:24PM [facility] [place] 1233 - US ABD LIVER VASCULAR / PROCEDURE REASON: Portal hypertension * * * * Physician Interpretation * * * * EXAMINATION: LIVER VASCULAR ULTRASOUND WITH DOPPLER IMAGING CLINICAL HISTORY: Concern for portal hypertension. TECHNIQUE: Sonography of the liver with color and spectral Doppler imaging of the hepatic vasculature was performed. Images were obtained and stored in a permanent archive. MQ: USLV_1 COMPARISON: None. RESULT: Sonographic Findings: Pancreas: Normal sonographic appearance. Portions obscured: tail Liver: Echotexture: Normal, homogeneous. Echogenicity: Normal Surface contour: Smooth Lesions: None. Biliary: No intrahepatic biliary duct dilation. CBD: 0.5 cm at the hilum. Gallbladder: Normal caliber -Contents: Sludge present -Wall: Normal -Other: Small 0.3 cm gallbladder polyp. Right Kidney: No hydronephrosis. Spleen: Craniocaudal length 11 cm, normal. There are no spleniclesions. Other: Trace perihepatic ascites. HEPATIC VASCULATURE: PORTAL SYSTEM: -Splenic Vein: Patent with antegrade flow (towards the liver). -Main PV: Patent with normal, phasic antegrade flow (towards liver). 27 cm/sec -Right anterior PV: Patent with phasic antegrade flow (towards liver). -Right posterior PV: Patent with phasic antegrade flow (towards liver). -Left PV: Patent with phasic antegrade flow (towards liver). Splenorenal shunt: None Recanalized paraumbilical vein: None HEPATIC ARTERIES: - Main PETERS: Normal waveform PSV: 41 cm/sec. RI: 0.59 - Right anterior PETERS: Normal waveform - Right posterior PETERS: Normal waveform - Left PETERS: Normal waveform HEPATIC VEINS: -Left: Patent with triphasic waveform. -Middle: Patent with triphasic waveform. -Right: Patent with triphasic waveform. IVC: Patent with normal, phasic wave form. IMPRESSION IMPRESSION: Patent hepatic vasculature with appropriately directed flow. Normal sonographic appearance of the liver. No hepatic lesion. No sonographic findings of portal hypertension as queried. Business Analytics Specialist: [facility] Transcribe Date/Time: Jan 28 2025 2:31P Dictated by : SALLY ANNE MD This examination was interpreted and the report reviewed and electronically signed by: VICTORIA GONZALEZ MD on Jan 28 2025 2:59PM EST Authorizing ProviderResult TypeResult StatusLamia Joseluis NAVARRETEUS-PAMAFinal Result * US DOPPLER COMPLETE (01/28/2025 1:24 PM EDT)Anatomical RegionLaterality ModalityUltrasoundSpecimen (Source)Anatomical Location / LateralityCollection Method / VolumeCollection TimeReceived Time01/28/2025 1:24 PM EDT Impressions 01/28/2025 3:02 PM EDT IMPRESSION: Patent hepatic vasculature with appropriately directed flow. Normal sonographic appearance of the liver. No hepatic lesion. No sonographic findings of portal hypertension as queried. Business Analytics Specialist: [facility] ?? Transcribe Date/Time: Jan ??2024 ??2:31P Dictated by : SALLY ANNE MD This examination was interpreted and the report reviewed and electronically signed by: VICTORIA GONZALEZ MD on Jan ??2024 ??2:59PM ??EST Narrative 01/28/2025 3:02 PM EDT * * *Final Report* * * DATE OF EXAM: Jan ??2024 ??1:24PM ?? [facility] ?? 1033 ??- ??US DOPPLER COMPLETE ??/ PROCEDURE REASON: Portal hypertension ? * * * * Physician Interpretation * * * * EXAMINATION: ??LIVER VASCULAR ULTRASOUND WITH DOPPLER IMAGING CLINICAL HISTORY: Concern for portal hypertension. TECHNIQUE: ??Sonography of the liver with color and spectral Doppler imaging of the hepatic vasculature was performed. ?? Images were obtained and stored in a permanent archive. MQ: ??USLV_1 COMPARISON: None. RESULT: Sonographic Findings: Pancreas: Normal sonographic appearance. ?? Portions obscured: tail Liver: ? Echotexture: ??Normal, homogeneous. ? Echogenicity: ??Normal ? Surface contour: ??Smooth ? Lesions: ??None. Biliary: No intrahepatic biliary duct dilation. ? CBD: 0.5 cm at the hilum. ? Gallbladder: Normal caliber ?-Contents: ??Sludge present ?-Wall: ??Normal ?-Other: ??Small 0.3 cm gallbladder polyp. Right Kidney: No hydronephrosis. Spleen: ??Craniocaudal length 11 cm, normal. ??There are no splenic lesions. Other: Trace perihepatic ascites. HEPATIC VASCULATURE: PORTAL SYSTEM: ? -Splenic Vein: Patent with antegrade flow (towards the liver). ? -Main PV: ??Patent with normal, phasic antegrade flow (towards liver). ??27 cm/sec ? -Right anterior PV: Patent with phasic antegrade flow (towards liver). ? -Right posterior PV: Patent with phasic antegrade flow (towards liver). ? -Left PV: Patent with phasic antegrade flow (towards liver). Splenorenal shunt: None Recanalized paraumbilical vein: None HEPATIC ARTERIES: ?- Main PETERS: ??Normal waveform ?? PSV: ??41 cm/sec. RI: 0.59 ?- Right anterior PETERS: Normal waveform ?- Right posterior PETERS: ??Normal waveform ?- Left PETERS: Normal waveform HEPATIC VEINS: ? -Left: Patent with triphasic waveform. ? -Middle: Patent with triphasic waveform. ? -Right: Patent with triphasic waveform. IVC: Patent with normal, phasic wave form. Procedure Note Provider, [facility] - 01/28/2025 * * *Final Report* * * DATE OF EXAM: Jan 28 2025 1:24PM [facility] [place] 1033 - US DOPPLER COMPLETE / PROCEDURE REASON: Portal hypertension * * * * Physician Interpretation * * * * EXAMINATION: LIVER VASCULAR ULTRASOUND WITH DOPPLER IMAGING CLINICAL HISTORY: Concern for portal hypertension. TECHNIQUE: Sonography of the liver with color and spectral Doppler imaging of the hepatic vasculature was performed. Images were obtained and stored in a permanent archive. MQ: USLV_1 COMPARISON: None. RESULT: Sonographic Findings: Pancreas: Normal sonographic appearance. Portions obscured: tail Liver: Echotexture: Normal, homogeneous. Echogenicity: Normal Surface contour: Smooth Lesions: None. Biliary: No intrahepatic biliary duct dilation. CBD: 0.5 cm at the hilum. Gallbladder: Normal caliber -Contents: Sludge present -Wall: Normal -Other: Small 0.3 cm gallbladder polyp. Right Kidney: No hydronephrosis. Spleen: Craniocaudal length 11 cm, normal. There are no spleniclesions. Other: Trace perihepatic ascites. HEPATIC VASCULATURE: PORTAL SYSTEM: -Splenic Vein: Patent with antegrade flow (towards the liver). -Main PV: Patent with normal, phasic antegrade flow (towards liver). 27 cm/sec -Right anterior PV: Patent with phasic antegrade flow (towards liver). -Right posterior PV: Patent with phasic antegrade flow (towards liver). -Left PV: Patent with phasic antegrade flow (towards liver). Splenorenal shunt: None Recanalized paraumbilical vein: None HEPATIC ARTERIES: - Main PETERS: Normal waveform PSV: 41 cm/sec. RI: 0.59 - Right anterior PETERS: Normal waveform - Right posterior PETERS: Normal waveform - Left PETERS: Normal waveform HEPATIC VEINS: -Left: Patent with triphasic waveform. -Middle: Patent with triphasic waveform. -Right: Patent with triphasic waveform. IVC: Patent with normal, phasic wave form. IMPRESSION IMPRESSION: Patent hepatic vasculature with appropriately directed flow. Normal sonographic appearance of the liver. No hepatic lesion. No sonographic findings of portal hypertension as queried. Business Analytics Specialist: [facility] Transcribe Date/Time: Jan 28 2025 2:31P Dictated by : SALLY ANNE MD This examination was interpreted and the report reviewed and electronically signed by: VICTORIA GONZALEZ MD on Jan 28 2025 2:59PM EST Authorizing ProviderResult TypeResult StatusLamia Joseluis MDUS-PAMAFinal Result * XR CHEST 1V FRONTAL (01/28/2025 7:33 AM EDT)Anatomical RegionLaterality ModalityChestRadiographic ImagingSpecimen (Source)Anatomical Location / LateralityCollection Method / VolumeCollection TimeReceived Time01/28/2025 7:33 AM EDT Impressions 01/28/2025 10:35 AM EDT IMPRESSION: See result. Business Analytics Specialist: [place] ?? Transcribe Date/Time: Jan ??2024 10:32A Dictated by : LINDA GABRIEL MD This examination was interpreted and the report reviewed and electronically signed by: LINDA GABRIEL MD on Jan ?2024 10:32AM ??EST Narrative 01/28/2025 10:35 AM EDT * * *Final Report* * * DATE OF EXAM: Jan ??2024 ??7:33AM ?? [facility] ?? [id number] ??- ??XR CHEST 1V FRONTAL ?? / PROCEDURE REASON: Evaluate tube, line, ??or lead position ? * * * * Physician Interpretation * * * * EXAMINATION: ??CHEST RADIOGRAPH (PORTABLE SINGLE VIEW AP) Exam Date/Time: ??01/28/2025 7:33 AM Clinical History: Evaluate tube, line, ??or lead position MQ: ??XCPMC_6 Comparison: ??1 day prior RESULT: Lines, tubes, and devices: ??The tip of the pulmonary artery catheter is in the right pulmonary artery. Lungs and pleura: ??Right basilar opacity likely represents atelectasis. ?? Small right pleural effusion is suspected. ??There is no pneumothorax. Cardiomediastinal silhouette: ??The cardiomediastinal silhouette is enlarged, stable. Procedure Note Provider, [facility] [place] - 01/28/2025 * * *Final Report* * * DATE OF EXAM: Jan 28 2025 7:33AM [facility] [id number] - XR CHEST 1V FRONTAL / PROCEDURE REASON: Evaluate tube, line, or lead position * * * * Physician Interpretation * * * * EXAMINATION: CHEST RADIOGRAPH (PORTABLE SINGLE VIEW AP) Exam Date/Time: 01/28/2025 7:33 AM Clinical History: Evaluate tube, line, or lead position MQ: XCPMC_6 Comparison: 1 day prior RESULT: Lines, tubes, and devices: The tip of the pulmonary artery catheter is in the right pulmonary artery. Lungs and pleura: Right basilar opacity likely represents atelectasis. Small right pleural effusion is suspected. There is no pneumothorax. Cardiomediastinal silhouette: The cardiomediastinal silhouette is enlarged, stable. IMPRESSION IMPRESSION: See result. Business Analytics Specialist: [facility] Transcribe Date/Time: Jan 28 2025 10:32A Dictated by : LINDA GABRIEL MD This examination was interpreted and the report reviewed and electronically signed by: LINDA GABRIEL MD on Jan 28 2025 10:32AM EST Authorizing ProviderResult TypeResult StatusLamia Huggins MDRAD-PAMAFinal Result * XR CHEST 1V FRONTAL PORT (01/27/2025 8:15 PM EDT)Anatomical RegionLaterality ModalityChestRadiographic ImagingSpecimen (Source)Anatomical Location / LateralityCollection Method / VolumeCollection TimeReceived Time01/27/2025 8:15 PM EDT Impressions 01/28/2025 8:10 AM EDT IMPRESSION: See result. Business Analytics Specialist: [place] ?? Transcribe Date/Time: Jan ??2024 ??8:08A Dictated by : HAIM KUMAR MD This examination was interpreted and the report reviewed and electronically signed by: HAIM KUMAR MD on Jan ??2024 ??8:08AM ??EST Narrative 01/28/2025 8:10 AM EDT * * *Final Report* * * DATE OF EXAM: Jan?2024 ??8:15PM ?? [facility] ?? [id number] ??- ??XR CHEST 1V FRONTAL PORT ??/ PROCEDURE REASON: Evaluate tube, line, ??or lead position ? * * * * Physician Interpretation * * * * EXAMINATION: ??CHEST RADIOGRAPH (PORTABLE SINGLE VIEW AP) Exam Date/Time: ??01/27/2025 8:15 PM Clinical History: Evaluate tube, line, ??or lead position MQ: ??XCPMC_6 Comparison: ??9:19 AM the same day RESULT: Lines, tubes, and devices: ??Stable PA catheter with tip in the distal right pulmonary artery. Lungs and pleura: ??No consolidations, pulmonary edema, pleural effusion or pneumothorax Cardiomediastinal silhouette: ??Stable cardiomediastinal silhouette. Other: ??. Procedure Note Provider, [facility] [place] - 01/28/2025 * * *Final Report* * * DATE OF EXAM: Jan 27 2025 8:15PM [facility] [id number] - XR CHEST 1V FRONTAL PORT / PROCEDURE REASON: Evaluate tube, line, or lead position * * * * Physician Interpretation * * * * EXAMINATION: CHEST RADIOGRAPH (PORTABLE SINGLE VIEW AP) Exam Date/Time: 01/27/2025 8:15 PM Clinical History: Evaluate tube, line, or lead position MQ: XCPMC_6 Comparison: 9:19 AM the same day RESULT: Lines, tubes, and devices: Stable PA catheter with tip in the distal right pulmonary artery. Lungs and pleura: No consolidations, pulmonary edema, pleural effusion or pneumothorax Cardiomediastinal silhouette: Stable cardiomediastinal silhouette. Other: . IMPRESSION IMPRESSION: See result. Business Analytics Specialist: [place] Transcribe Date/Time: Jan 28 2025 8:08A Dictated by : HAIM KUMAR MD This examination was interpreted and the report reviewed and electronically signed by: HAIM KUMAR MD on Jan 28 2025 8:08AM EST Authorizing ProviderResult TypeResult StatusLamadrian Huggins MDRAD-PAMAFinal Result * NM LUNG VENT / PERF VQ (01/27/2025 4:12 PM EDT)Anatomical RegionLaterality ModalityLungNuclear MedicineSpecimen (Source)Anatomical Location / Laterality Collection Method / VolumeCollection TimeReceived Time01/27/2025 4:12 PM EDT Impressions 01/27/2025 4:23 PM EDT IMPRESSION: THE STUDY IS MOST CONSISTENT WITH A LOW PROBABILITY OF PULMONARY EMBOLISM. Business Analytics Specialist: [place] ?? Transcribe Date/Time: Jan ??2024 ??4:18P Dictated by : WARD SINCLAIR MD This examination was interpreted and the report reviewed and electronically signed by: WARD SINCLAIR MD on Jan ?2024 ??4:21PM ??EST Narrative 01/27/2025 4:23 PM EDT * * *Final Report* * * DATE OF EXAM: Jan ??2024 ??4:12PM ?? [facility] ?? [id number] ??- ??NM LUNG VENT / PERF VQ ??/ PROCEDURE REASON: Pulmonary hypertension, further testing ? * * * * Physician Interpretation * * * * LUNG SCAN CLINICAL HISTORY: Chest pain, shortness of breath Assess for pulmonary embolism. TECHNIQUE: 0.8 mCi Tc 99m DTPA aerosol inhaled 4.5 mCi Tc 99m MAA IV planar imaging of the lungs in multiple views (anterior, posterior, oblique and lateral views). Comparison was made with a chest x-ray dated 01/27/2025. RESULT: Tracer retention in the central airways. Heterogeneous ventilation compared to perfusion. A few matched ventilation/perfusion abnormalities are identified. No mismatched perfusion defects are seen. Procedure Note Provider, [facility] [place] - 01/27/2025 * * *Final Report* * * DATE OF EXAM: Jan 27 2025 4:12PM [facility] [id number] - NM LUNG VENT / PERF VQ / PROCEDURE REASON: Pulmonary hypertension, further testing * * * * Physician Interpretation * * * * LUNG SCAN CLINICAL HISTORY: Chest pain, shortness of breath Assess for pulmonary embolism. TECHNIQUE: 0.8 mCi Tc 99m DTPA aerosol inhaled 4.5 mCi Tc 99m MAA IV planar imaging of the lungs in multiple views (anterior, posterior, oblique and lateral views). Comparison was made with a chest x-ray dated 01/27/2025. RESULT: Tracer retention in the central airways. Heterogeneous ventilation compared to perfusion. A few matched ventilation/perfusion abnormalities are identified. No mismatched perfusion defects are seen. IMPRESSION IMPRESSION: THE STUDY IS MOST CONSISTENT WITH A LOW PROBABILITY OF PULMONARYEMBOLISM. Business Analytics Specialist: [facility] Transcribe Date/Time: Jan 27 2025 4:18P Dictated by : WARD SINCLAIR MD This examination was interpreted and the report reviewed and electronically signed by: WARD SINCLAIR MD on Jan 27 2025 4:21PM EST Authorizing ProviderResult TypeResult StatusLamia Joseluis NAVARRETENM-PAMAFinal Result * (ABNORMAL) APTT INCUBATED MIXING STUDY (01/27/2025 1:48 PM EDT)ComponentValue Ref RangeTest MethodAnalysis TimePerformed AtPathologist SignaturePT Screen 16.1(H)11.6 - 14.4 lyqhvvw7402/01/2025 7:58 AM [facility] LABAPTT Lxmdya04.9(H)24.0 - 35.1 pftdrfo2602/01/2025 7:58 AM [facility] LABThrombin Time21.5(H)<18.6 vmbblxw2302/01/2025 7:58 AM EDT [facility] LABAnti Xa Screen0.11(H)<0.1008 7:58 AM [facility] LABComment:This test was developed, and its performance characteristics determined by the [facility] Department of Pathology and Laboratory Medicine. It has not been cleared or approved by the FDA. The [facility] Department of Pathology and Laboratory Medicine is regulated under CLIA as qualified to perform high-complexity testing. This test is used for clinical purposes. It should not be regarded as investigational or for research.Anti Xa Hz + DOAC<0.10<0.1008/ 7:58 AM [facility] LABThrombin Time Hz + DOAC19.3(H)<18.6 02/01/2025 7:58 AM [facility] LABAPTT SCRN Hz + DOAC33.2 24.0 - 35.108 7:58 AM [facility] LABSpecimen (Source)Anatomical Location / LateralityCollection Method / VolumeCollection TimeReceived TimeBloodBLOOD SPECIMEN / UnknownVenipuncture / Ychkatj0001/27/2025 1:48 PM EDT01/27/2025 2:00 PM EDT Narrative Authorizing ProviderResult TypeResult StatusJose Lius Huggins MDLABORATORYFinal ResultPerforming OrganizationAddressCity/State/ZIP CodePhone Number [facility] [address] [place] [address], [place] * EXTRA LT BLUE MAN COAG TUBES (01/27/2025 1:48 PM EDT)Specimen (Source) Anatomical Location / LateralityCollection Method / VolumeCollection Time Received TimeBloodBLOOD SPECIMEN / UnknownVenipuncture / Fmfvwqf9501/27/2025 1:48 PM EDT01/27/2025 2:00 PM EDT Narrative Authorizing ProviderResult TypeResult StatusJose Luis Huggins MDOSBORNE COUNTY MEMORIAL HOSPITALORATORYFinal ResultPerforming OrganizationAddressCity/State/ZIP CodePhone Number [facility] [place] [id number], [place] * APTT INCUBATED MIXING INTERP (01/27/2025 1:48 PM EDT)ComponentValueRef Range Test MethodAnalysis TimePerformed AtPathologist SignatureInterpretation (Incubated PTT Mix)Abnormal - see comment below. SIGNIFICANT FINDINGS: - APTT Mixing Study: Not indicated - Drug effect: Heparin, neutralized - Prolonged PT An??immediate APTT mixing study was performed. Both the PT and APTT values were prolonged. The anti-Xa screen was positive with a prolonged thrombin time and the results corrected following heparinase neutralization and DOAC removal. These results indicate an anti-Xa and/or heparin drug effect and are consistent with the medication record indicating unfractionated heparin therapy. After pre-treatment to remove heparin and/or DOAC, the PT remained prolonged, the APTT was normal, and no residual anti-Xa activity was detected. APTT MIXING STUDY: Following heparinase neutralization and DOAC removal, the APTT was normal. An APTT mixing study is not indicated. An inhibitor of the intrinsic and/or common pathway is unlikely. Mixing studies are generally unhelpful when the APTT is normal. Please correlate these laboratory results with clinical findings and medication history.01/31/2025 1:18 PM [facility] LABPathologist Interp Reviewed by Alexsandra Chu MD01/31/2025 1:18 PM [facility] LABSpecimen (Source)Anatomical Location / LateralityCollection Method / VolumeCollection TimeReceived TimeBloodBLOOD SPECIMEN / UnknownVenipuncture / Fnlabhr6301/27/2025 1:48 PM EDT01/27/2025 2:00 PM EDT Narrative Authorizing ProviderResult TypeResult StatusLamia Joseluis NAVARRETELABORATORYFinal ResultPerforming OrganizationAddressCity/State/ZIP CodePhone Number [facility] [address] [place] [address], * (ABNORMAL) PLATELET NEUTRALIZAT (01/27/2025 1:48 PM EDT)ComponentValueRef RangeTest MethodAnalysis TimePerformed AtPathologist SignaturePTT LA Screen 40.630.2 - 43.0 Sshyzkm4602/01/2025 7:58 AM [facility] Comment:This test was developed, and its performance characteristics determined by the [facility] Department of Pathology and Laboratory Medicine. It has not been cleared or approved by the FDA. The [facility] Department of Pathology and Laboratory Medicine is regulated under CLIA as qualified to perform high-complexity testing. This test is used for clinical purposes. It should not be regarded as investigational or for research.PTT LA Mix36.331.5 - 38.3 Hqccujg8802/01/2025 7:58 AM [facility] LABComment:This test was developed, and its performance characteristics determined by the [facility] Department of Pathology and Laboratory Medicine. It has not been cleared or approved by the FDA. The [facility] Department of Pathology and Laboratory Medicine is regulated under CLIA as qualified to perform high-complexity testing. This test is used for clinical purposes. It should not be regarded as investigational or for research. Platelet Neut0.0<1.9 Urhamql4602/01/2025 7:58 AM [facility] LABComment:This test was developed, and its performance characteristics determined by the [facility] Department of Pathology and Laboratory Medicine. It has not been cleared or approved by the FDA. The [facility] Department of Pathology and Laboratory Medicine is regulated under CLIA as qualified to perform high-complexity testing. This test is used for clinical purposes. It should not be regarded as investigational or for research.Anti Xa Screen0.11(H)<0.10002/01/2025 7:58 AM [facility] Comment:This test was developed, and its performance characteristics determined by the [facility] Department of Pathology and Laboratory Medicine. It has not been cleared or approved by the FDA. The [facility] Department of Pathology and Laboratory Medicine is regulated under CLIA as qualified to perform high-complexity testing. This test is used for clinical purposes. It should not be regarded as investigational or for research.Anti Xa Hz + DOAC<0.10<0.10002/01/2025 7:58 AM [facility] Specimen (Source)Anatomical Location / LateralityCollection Method / Volume Collection TimeReceived TimeBloodBLOOD SPECIMEN / UnknownVenipuncture / Yhevrmx0301/27/2025 1:48 PM EDT01/27/2025 2:00 PM EDT Narrative [facility] - 02/01/2025 7:58 AM EDT The specimen was treated with ANTI-XA neutralizing reagents to remove heparin, low molecular weight heparin, and DOAC activity from the plasma. Authorizing ProviderResult TypeResult StatusJose Luis Huggins MDLABORATORYFinal ResultPerforming OrganizationAddressCity/State/ZIP CodePhone Number [facility] [address] [facility] [address] [address], * BETA 2 GLYCOPROTEIN, IGG (01/27/2025 12:30 PM EDT)ComponentValueRef RangeTest MethodAnalysis TimePerformed AtPathologist SignatureBeta 2 Glycoprotein, IgG<9 <20 SGU01/30/2025 2:32 PM EDTRINITY [facility] LABComment: <20 SGU Negative 20-80 SGU ? Low Positive >80 SGU High Positive These results were obtained with the [employer]ova QUANTA Lite B2 GPI IgG KARLOS. B2 GPI IgG values obtainedwith different manufacturers' assay methods may not be used interchangeably. The magnitude of the reported IgG levels cannot be correlated to an endpoint titer. Specimen (Source)Anatomical Location / LateralityCollection Method / Volume Collection TimeReceived TimeBloodBLOOD SPECIMEN / UnknownVenipuncture / Unknown 01/27/2025 12:30 PM EDT01/27/2025 12:42 PM EDT [facility] - 01/30/2025 2:32 PM EDT This test is used as an aid in diagnosis of anti-phospholipid syndrome and to estimate the risk of thrombosis in patients with established diagnosis of systemic lupus erythematous. Clinical correlation is required. Authorizing ProviderResult TypeResult StatusLamia Joseluis NAVARRETELABORATORYFinal ResultPerforming OrganizationAddressCity/State/ZIP CodePhone Number [facility] [address] [place] [address], * CARDIOLIPIN IGG ABS (01/27/2025 12:30 PM EDT)ComponentValueRef RangeTest MethodAnalysis TimePerformed AtPathologist SignatureCardiolipin Ab, IgG9.7 <15.0 GPL01/30/2025 12:52 PM EDTCCLERMONT COUNTY HOSPITAL LABComment: <15 GPL Negative 15-20 ?? GPL ?Indeterminate >20 GPL Positive The following results were obtained with the Inova QUANTA Lite YORDY IgG III KARLOS. Cardiolipin IgG values obtained with the different manufacturers' assay methods may not be used interchangeably. The magnitude of the reported IgG levels cannot be correlated to an endpoint titer. Specimen (Source)Anatomical Location / LateralityCollection Method / Volume Collection TimeReceived TimeBloodBLOOD SPECIMEN / UnknownVenipuncture / Unknown 01/27/2025 12:30 PM EDT01/27/2025 12:42 PM EDT [facility] - 01/30/2025 12:52 PM EDT This test is used as an aid in diagnosis of anti-phospholipid syndrome. The test may occasionally be positive in patients with a range of underlying conditions, secondary syphilis, HIV infection, active Hepatitis C, endocarditis, among others. Clinical correlation is required. Authorizing ProviderResult TypeResult StatusJose Luis BarbosaMercy McCune-Brooks HospitalORATORYFinal ResultPerforming OrganizationAddressty/State/ZIP CodePhone Number [facility] [address] [place] [address], * (ABNORMAL) CARDIOLIPIN IGM ABS (01/27/2025 12:30 PM EDT)ComponentValueRef RangeTest MethodAnalysis TimePerformed AtPathologist SignatureCardiolipin Ab, IgM12.6(H)<12.5 MPL01/30/2025 12:52 PM EDTCCLERMONT COUNTY HOSPITAL LAB Comment: <12.5 MPL Negative 12.5-20 MPL ?Indeterminate >20 MPL Positive The following results were obtained with the Cash Check CardA Lite YORDY IgM III KARLOS. Cardiolipin IgM values obtained with the different manufacturers' assay methods may not be used interchangeably. The magnitude of the reported IgM levels cannot be correlated to an endpoint titer. ?? Specimen (Source)Anatomical Location / LateralityCollection Method / Volume Collection TimeReceived TimeBloodBLOOD SPECIMEN / UnknownVenipuncture / Unknown 01/27/2025 12:30 PM EDT01/27/2025 12:42 PM EDT Narrative [facility] - 01/30/2025 12:52 PM EDT This test is used as an aid in diagnosis of anti-phospholipid syndrome. The test may occasionally be positive in patients with a range of underlying conditions, secondary syphilis, HIV infection, active Hepatitis C, endocarditis, among others. Clinical correlation is required. Authorizing ProviderResult TypeResult StatusJose Luis Huggins MDCOLUMBIA BASIN HOSPITALTORYFinal ResultPerforming OrganizationAddressty/State/ZIP CodePhone Number [facility] [address] [place] [phone], [place] * CARDIOLIPIN IGA ABS (01/27/2025 12:30 PM EDT)ComponentValueRef RangeTest MethodAnalysis TimePerformed AtPathologist SignatureCardiolipin Ab, IgA<9.0 <12.0 APL01/30/2025 12:52 PM EDTCCLERMONT COUNTY HOSPITAL LABComment: <12 APL Negative 12-20 ?? APL ?Indeterminate >20 APL Positive The following results were obtained with the [employer] QUANTA Lite YORDY IgA III KARLOS. Cardiolipin IgA values obtained with the different manufacturers' assay methods may not be used interchangeably. The magnitude of the reported IgA levels cannot be correlated to an endpoint titer. Specimen (Source)Anatomical Location / LateralityCollection Method / Volume Collection TimeReceived TimeBloodBLOOD SPECIMEN / UnknownVenipuncture / Unknown 01/27/2025 12:30 PM EDT01/27/2025 12:42 PM EDT Narrative [facility] - 01/30/2025 12:52 PM EDT This test is used as an aid in diagnosis of anti-phospholipid syndrome. The test may occasionally be positive in patients with a range of underlying conditions, secondary syphilis, HIV infection, active Hepatitis C, endocarditis, among others. Clinical correlation is required. Authorizing ProviderResult TypeResult StatusJose Luis Huggins MDOSBORNE COUNTY MEMORIAL HOSPITALORATORYFinal ResultPerforming OrganizationAddressCity/State/ZIP CodePhone Number [facility] [address] [address], [place] * MALLY BY IFA WITH REFLEX (01/27/2025 12:30 PM EDT)ComponentValueRef RangeTest MethodAnalysis TimePerformed AtPathologist SignatureANANegativeNegative 01/30/2025 12:54 PM EDTCCLERMONT COUNTY HOSPITAL LABComment: Anti-nuclear antibody test is used as an aid in diagnosis of systemic autoimmune diseases. Where positive and clinically warranted, follow-up using disease- specific testing is recommended. Low positive titers are not uncommon with advanced age, certain chronic infections, and malignancies among others. Test methodology: Indirect fluorescence immunoassay (IFA) using HEp-2 cells. Specimen (Source)Anatomical Location / LateralityCollection Method / Volume Collection TimeReceived TimeBloodBLOOD SPECIMEN / UnknownVenipuncture / Unknown 01/27/2025 12:30 PM EDT01/27/2025 12:42 PM EDT Narrative Authorizing ProviderResult TypeResult StatusJose Luis Huggins MDOSBORNE COUNTY MEMORIAL HOSPITALORATORYFinal ResultPerforming OrganizationAddressCity/State/ZIP CodePhone Number [facility] [address] [address], [place] * RNA POLYMERASE III AB (01/27/2025 12:30 PM EDT)ComponentValueRef RangeTest MethodAnalysis TimePerformed AtPathologist SignatureRNA Polymerase III Ab60 - 19 Units01/30/2025 12:57 AM EDTARUP LABORATORIESComment: INTERPRETIVE INFORMATION: RNA Polymerase III Antibody, IgG ??19 Units or less ......Negative ??20 - 39 Units .........Weak Positive ??40 - 80 Units .........Moderate Positive ??81 Units or greater ...Strong Positive The presence of RNA polymerase III IgG antibody, when considered in conjunction with other laboratory and clinical findings, is an aid in the diagnosis of systemic sclerosis (SSc) with increased incidence of skin involvement and renal crisis with the diffuse cutaneous form of SSc. RNA polymerase III IgG antibody occur in about 11-23 percent of SSc patients, and typically in the absence of anti-centromere and anti-Scl-70 antibodies. A negative result indicates no detectable IgG antibodies to the dominant antigen of RNA polymerase III and does not rule out the possibility of SSc. False-positive results may also occur due to non-specific binding of immune complexes. Strong clinical correlation is recommended. If clinical suspicion remains, consider additional testing for other antibodies associated with SSc, including centromere, Scl-70, U3-FITTING ROOM MAINTENANCE MECHANIC, PM/Scl, or Th/To. Performed By: [employer] [address] [place] [id number] [employer] Knitter: Vince Roberts MD, PhD CLIA Number: [id number] Specimen (Source)Anatomical Location / LateralityCollection Method / Volume Collection TimeReceived TimeBloodBLOOD SPECIMEN / UnknownVenipuncture / Unknown 01/27/2025 12:30 PM EDT01/27/2025 12:42 PM EDT Narrative Authorizing ProviderResult TypeResult StatusJose Luis Huggins MDLABORATORYFinal ResultPerforming OrganizationAddressCity/State/ZIP CodePhone Number [facility] [address] [place] [phone] * HIV 1/2 COMBO WITH REFLEX TO DIFFERENTIATION (01/27/2025 12:30 PM EDT) ComponentValueRef RangeTest MethodAnalysis TimePerformed AtPathologist SignatureHIV 12 Combo (Ag/Ab)KnkdnqmschkEtwueknayrp27/08/2025 5:22 PM EDT [facility] LABHIV-1/2 AB (Confirmatory)01/27/2025 5:22 PM EDTRINITY HEALTH SYSTEM WEST CAMP[facility] LABComment:Test not indicated.HIV Fppfxvxjkarado72/08/2025 5:22 PM [facility] LABComment: No evidence of HIV-1 or HIV-2 infection. Should recent infection be suspected, repeat testing may be considered 2-3 weeks after this draw. [place] Rev. Code 3701.243(E): This information has been disclosed to you from confidential records protected from disclosure by state law. You shall make no further disclosure of this information without the specific, written, and informed release of the individual to whom it pertains or as otherwisepermitted by state law. A general authorization for the release of medical or other information is not sufficient for the purpose of the release of HIV test results or diagnoses. Specimen (Source)Anatomical Location / LateralityCollection Method / Volume Collection TimeReceived TimeBloodBLOOD SPECIMEN / UnknownVenipuncture / Unknown 01/27/2025 12:30 PM EDT01/27/2025 12:42 PM EDT Narrative Authorizing ProviderResult TypeResult StatusJose Luis Huggins MDLABORATORYFinal ResultPerforming OrganizationAddressCity/State/ZIP CodePhone Number [facility] [address] [address], * XR CHEST 1V FRONTAL PORT (01/27/2025 11:03 AM EDT)Anatomical RegionLaterality ModalityChestRadiographic ImagingSpecimen (Source)Anatomical Location / LateralityCollection Method / VolumeCollection TimeReceived Time01/27/2025 9:20 AM EDT Impressions 01/27/2025 11:40 AM EDT IMPRESSION: See result. Business Analytics Specialist: PSCB ?? Transcribe Date/Time: Jan 11:38A Dictated by : LINDA GABRIEL MD This examination was interpreted and the report reviewed and electronically signed by: LINDA GABRIEL MD on Jan 11:38AM ??EST Narrative 01/27/2025 11:40 AM EDT * * *Final Report* * * DATE OF EXAM: Jan?8 2025 ??9:20AM ?? MARCELINO ?? [id number] ??- ??XR CHEST 1V FRONTAL PORT ??/ PROCEDURE REASON: Shortness of breath ? * * * * Physician Interpretation * * * * EXAMINATION: ??CHEST RADIOGRAPH (PORTABLE SINGLE VIEW AP) Exam Date/Time: ??01/27/2025 9:20 AM Clinical History: Shortness of breath MQ: ??XCPMC_6 Comparison: ??1 day prior RESULT: Lines, tubes, and devices: ??The tip of the pulmonary artery catheter is in the right pulmonary artery. Lungs and pleura: ??No new focal lung consolidation is seen. There is no overt pulmonary edema. No substantial pleural effusion is seen. There is no pneumothorax. Cardiomediastinal silhouette: ??The cardiomediastinal silhouette is enlarged, stable. Other: ??. Procedure Note Provider, [facility] - 01/27/2025 * * *Final Report* * * DATE OF EXAM: Jan 27 2025 9:20AM MARCELINO [id number] - XR CHEST 1V FRONTAL PORT / PROCEDURE REASON: Shortness of breath * * * * Physician Interpretation * * * * EXAMINATION: CHEST RADIOGRAPH (PORTABLE SINGLE VIEW AP) Exam Date/Time: 01/27/2025 9:20 AM Clinical History: Shortness of breath MQ: XCPMC_6 Comparison: 1 day prior RESULT: Lines, tubes, and devices: The tip of the pulmonary artery catheter is in the right pulmonary artery. Lungs and pleura: No new focal lung consolidation is seen. There is no overt pulmonary edema. No substantial pleural effusion is seen. There is no pneumothorax. Cardiomediastinal silhouette: The cardiomediastinal silhouette is enlarged, stable. Other: . IMPRESSION IMPRESSION: See result. Business Analytics Specialist: PSCB Transcribe Date/Time: Jan 27 2025 11:38A Dictated by : LINDA GABRIEL MD This examination was interpreted and the report reviewed and electronically signed by: LINDA GABRIEL MD on Jan 27 2025 11:38AM EST Authorizing ProviderResult TypeResult StatusLamia Huggins MDRAD-PAMAFinal Result * US LEG VEIN DVT [facility] (01/27/2025 8:50 AM EDT)Specimen (Source) Anatomical Location / LateralityCollection Method / VolumeCollection Time Received Time01/27/2025 8:50 AM EDT [facility] - 01/27/2025 1:46 PM EDT Non-Invasive Vascular Laboratory [facility] Portable Lower Extremity Venous Duplex Bilateral/Complete Date of service/time: 01/27/2025 8:50:44 AM Name: ERIK SANTOS Date of : 1975 Age: 49 years Gender: M Clinical Indication Bilateral leg pain. TECHNIQUE -------- A venous duplex ultrasound examination was performed, including grayscale imaging with compression maneuvers and color Doppler and spectral Doppler examination with augmentation maneuvers and response to respiration of the below mentioned veins. FINDINGS -------- RIGHT SIDE Distal external iliac vein Doppler: normal flow. Common femoral vein Doppler: normal flow. Compression: normal. Femoral vein Doppler: normal flow. Compression: normal. Popliteal vein Doppler: normal flow. Compression: normal. Posterior tibial veins Compression: normal. Peroneal veins Compression: normal. Great saphenous vein Compression: normal. Small saphenous vein Compression: normal. LEFT SIDE Distal external iliac vein Doppler: normal flow. Compression: normal. Common femoral vein Doppler: normal flow. Compression: normal. Femoral vein Doppler: normal flow. Compression: normal. Popliteal vein Doppler: normal flow. Compression: normal. Posterior tibial veins Compression: normal. Peroneal veins Compression: normal. Great saphenous vein Compression: normal. Small saphenous vein Compression: normal. IMPRESSION RIGHT SIDE - DEEP VEINS Negative for acute deep vein thrombosis. Normal color and pulsed Doppler signals noted; however, unable to compress the distal external iliac vein due to patient intolerance. LEFT SIDE - DEEP VEINS Negative for acute deep vein thrombosis. Thickened pugh, patent distal external iliac vein. Multiple heterogenous structures, possible lymph nodes, noted in the left groin, with the largest measuring 3.2 x 3.0 x 1.2 cm. Technologist: Brenda Donovan T Ordering physician: JOSE LUIS HUGGINS Interpreting physician: Susan Blunt MD, RPVI Final See Link below for Image Authorizing ProviderResult TypeResult Luis Miguel Huggins MDVASCULAR LABFinal ResultPerforming OrganizationAddressCity/State/ZIP CodePhone Number [facility] [address] [place] [phone] * HEPARIN ANTI XA ASSAY (01/27/2025 2:23 AM EDT) Only the most recent of2 resultswithin the time period is included. ComponentValueRef RangeTest MethodAnalysis TimePerformed AtPathologist Signature Heparin Anti Xa<0.10<0.10 IU/mL01/27/2025 2:52 AM EDTCCLERMONT COUNTY HOSPITAL LABComment:The recommended therapeutic range for treatment of venous and arterial thrombosis with intravenous unfractionated heparin is an anti Xa activity level of 0.3 to 0.7 IU/mL. In patients with concomitant therapy with thrombolytic agents and/or platelet glycoprotein IIb/IIIa antagonists, the recommended therapeutic range is an anti Xa activity level of 0.2 to 0.5 IU/mL. Specimen (Source)Anatomical Location / LateralityCollection Method / Volume Collection TimeReceived TimeBloodBLOOD SPECIMEN / UnknownVenipuncture / Unknown 01/27/2025 2:23 AM EDT01/27/2025 2:39 AM EDT Narrative Authorizing ProviderResult TypeResult Luis Miguel Huggins MDLABORATORYFinal ResultPerforming OrganizationAddressCity/State/ZIP CodePhone Number [facility] [address] [facility] [address] [address] [place] [phone], * XR CHEST 1V FRONTAL PORT (01/26/2025 9:45 PM EDT)Anatomical RegionLaterality ModalityChestRadiographic ImagingSpecimen (Source)Anatomical Location / LateralityCollection Method / VolumeCollection TimeReceived Time01/26/2025 9:45 PM EDT Impressions 01/26/2025 10:11 PM EDT IMPRESSION: See result. Business Analytics Specialist: KEATON ?? Transcribe Date/Time: Jan ??2024 10:08P Dictated by : KI ESTRELLA MD This examination was interpreted and the report reviewed and electronically signed by: KI ESTRELLA MD on Jan 10:09PM ??EST Narrative 01/26/2025 10:11 PM EDT * * *Final Report* * * DATE OF EXAM: Jan ??9:45PM ?? MARCELINO ?? [id number] ??- ??XR CHEST 1V FRONTAL PORT ??/ PROCEDURE REASON: Evaluate tube, line, ??or lead position ? * * * * Physician Interpretation * * * * EXAMINATION: ??CHEST RADIOGRAPH (PORTABLE SINGLE VIEW AP) Exam Date/Time: ??01/26/2025 9:45 PM Clinical History: Evaluate tube, line, ??or lead position MQ: ??XCPMC_6 Comparison: ??Same day RESULT: Lines, tubes, and devices: ??Right IJ PA catheter advanced to the right hilar region. Lungs and pleura: ??Improvement of predominantly right-sided perihilar and basilar opacities suggesting edema or inflammation. ??Mild increase of basilar atelectasis in the medial bases. ??No pleural effusion or pneumothorax. Cardiomediastinal silhouette: ??Stable cardiomediastinal silhouette. Other: ??. Procedure Note Provider, [facility] - 01/26/2025 * * *Final Report* * * DATE OF EXAM: Jan 26 2025 9:45PM MARCELINO [id number] - XR CHEST 1V FRONTAL PORT / PROCEDURE REASON: Evaluate tube, line, or lead position * * * * Physician Interpretation * * * * EXAMINATION: CHEST RADIOGRAPH (PORTABLE SINGLE VIEW AP) Exam Date/Time: 01/26/2025 9:45 PM Clinical History: Evaluate tube, line, or lead position MQ: XCPMC_6 Comparison: Same day RESULT: Lines, tubes, and devices: Right IJ PA catheter advanced to the right hilar region. Lungs and pleura: Improvement of predominantly right-sided perihilar and basilar opacities suggesting edema or inflammation. Mild increase of basilar atelectasis in the medial bases. No pleural effusion or pneumothorax. Cardiomediastinal silhouette: Stable cardiomediastinal silhouette. Other: . IMPRESSION IMPRESSION: See result. Business Analytics Specialist: KEATON Transcribe Date/Time: Jan 26 2025 10:08P Dictated by : KI ESTRELLA MD This examination was interpreted and the report reviewed and electronically signed by: KI ESTRELLA MD on Jan 26 2025 10:09PM EST Authorizing ProviderResult TypeResult StatusLamia Hugigns MDRAD-PAMAFinal Result * XR CHEST 1V FRONTAL PORT (01/26/2025 8:34 PM EDT)Anatomical RegionLaterality ModalityChestRadiographic ImagingSpecimen (Source)Anatomical Location / LateralityCollection Method / VolumeCollection TimeReceived Time01/26/2025 8:34 PM EDT Impressions 01/26/2025 9:38 PM EDT IMPRESSION: See result. Business Analytics Specialist: KEATON ?? Transcribe Date/Time: Jan ??2024 ??9:34P Dictated by : KI ESTRELLA MD This examination was interpreted and the report reviewed and electronically signed by: KI ESTRELLA MD on Jan ?2024 ??9:36PM ??EST Narrative 01/26/2025 9:38 PM EDT * * *Final Report* * * DATE OF EXAM: Jan ??2024 ??8:34PM ?? MARCELINO ?? [id number] ??- ??XR CHEST 1V FRONTAL PORT ??/ PROCEDURE REASON: Evaluate tube, line, ??or lead position ? * * * * Physician Interpretation * * * * EXAMINATION: ??CHEST RADIOGRAPH (PORTABLE SINGLE VIEW AP) Exam Date/Time: ??01/26/2025 8:34 PM Clinical History: Evaluate tube, line, ??or lead position MQ: ??XCPMC_6 Comparison: ??Same day RESULT: Lines, tubes, and devices: ??PA catheter repositioned with tip in distal right pulmonary artery. Lungs and pleura: ??Increase of haziness in the perihilar and basilar regions. ??This could represent atelectasis with underlying edema and/or inflammation. ??No significant pleural effusion or pneumothorax. Cardiomediastinal silhouette: ??Stable cardiomediastinal silhouette. Other: ??. Procedure Note Provider, [facility] [place] - 01/26/2025 * * *Final Report* * * DATE OF EXAM: Jan 26 2025 8:34PM MARCELINO [id number] - XR CHEST 1V FRONTAL PORT / PROCEDURE REASON: Evaluate tube, line, or lead position * * * * Physician Interpretation * * * * EXAMINATION: CHEST RADIOGRAPH (PORTABLE SINGLE VIEW AP) Exam Date/Time: 01/26/2025 8:34 PM Clinical History: Evaluate tube, line, or lead position MQ: XCPMC_6 Comparison: Same day RESULT: Lines, tubes, and devices: PA catheter repositioned with tip in distal right pulmonary artery. Lungs and pleura: Increase of haziness in the perihilar and basilar regions. This could represent atelectasis with underlying edema and/or inflammation. No significant pleural effusion or pneumothorax. Cardiomediastinal silhouette: Stable cardiomediastinal silhouette. Other: . IMPRESSION IMPRESSION: See result. Business Analytics Specialist: KEATON Transcribe Date/Time: Jan 26 2025 9:34P Dictated by : KI ESTRELLA MD This examination was interpreted and the report reviewed and electronically signed by: KI ESTRELLA MD on Jan 26 2025 9:36PM EST Authorizing ProviderResult TypeResult Luis Miguel Huggins MDRAD-PAMAFinal Result * (ABNORMAL) DIRECT BILIRUBIN BLOOD (01/26/2025 5:37 PM EDT)ComponentValueRef RangeTest MethodAnalysis TimePerformed AtPathologist SignatureBilirubin, Direct0.7(H)<0.3 mg/dL01/26/2025 7:22 PM EDTCCLERMONT COUNTY [facility]OS[facility] LAB Specimen (Source)Anatomical Location / LateralityCollection Method / Volume Collection TimeReceived TimeBloodBLOOD SPECIMEN / UnknownVenipuncture / Ouaavss4401/26/2025 5:37 PM EDT01/26/2025 5:43 PM EDT Narrative Authorizing ProviderResult TypeResult Luis Miguel Huggins MDLABORATORYFinal ResultPerforming OrganizationAddressCity/State/ZIP CodePhone Number [facility] [address] [address], * BACTERIAL CULTURE, BLOOD (01/26/2025 5:29 PM EDT) Only the most recent of2 resultswithin the time period is included. ComponentValueRef RangeTest MethodAnalysis TimePerformed AtPathologist Signature Culture, BloodNo growth 5 days01/31/2025 10:07 PM EDTCCLERMONT COUNTY HOSPITAL LABSpecimen (Source)Anatomical Location / LateralityCollection Method / VolumeCollection TimeReceived TimeBloodBLOOD SPECIMEN / UnknownVenipuncture / Ycmegun5001/26/2025 5:29 PM EDT01/26/2025 5:35 PM EDT Narrative Authorizing ProviderResult TypeResult StatusLamia Huggins MDMICROBIOLOGYFinal ResultPerforming OrganizationAddressCity/State/ZIP CodePhone Number [facility] [address] [facility] [address] [place] [phone], * XR CHEST 1V FRONTAL PORT (01/26/2025 5:08 PM EDT)Anatomical RegionLaterality ModalityChestRadiographic ImagingSpecimen (Source)Anatomical Location / LateralityCollection Method / VolumeCollection TimeReceived Time01/26/2025 5:08 PM EDT Impressions 01/26/2025 5:25 PM EDT IMPRESSION: See result. Business Analytics Specialist: PSCB ?? Transcribe Date/Time: Jan ??2024 ??5:19P Dictated by : KI ESTRELLA MD This examination was interpreted and the report reviewed and electronically signed by: KI ESTRELLA MD on Jan ??2024 ??5:23PM ??EST Narrative 01/26/2025 5:25 PM EDT * * *Final Report* * * DATE OF EXAM: Jan ??2024 ??5:08PM ?? MARCELINO ?? [id number] ??- ??XR CHEST 1V FRONTAL PORT ??/ PROCEDURE REASON: Shortness of breath ? * * * * Physician Interpretation * * * * EXAMINATION: ??CHEST RADIOGRAPH (PORTABLE SINGLE VIEW AP) Exam Date/Time: ??01/26/2025 5:08 PM Clinical History: Shortness of breath MQ: ??XCPMC_6 Comparison: ??None RESULT: Lines, tubes, and devices: ??Right IJ PA catheter has been placed with tip in distal left lower lobe artery. ??Repositioning can be considered. Lungs and pleura: ??Lungs are hypoinflated with partial atelectasis at the bases. ??Vague and reticular opacities in both lungs, involving right more than left, may represent minimal interstitial edema or less likely inflammation. ??Hemorrhage is not excluded. ??No pleural effusion or pneumothorax. Cardiomediastinal silhouette: ??Heart is enlarged. ??Thoracic aorta is minimally tortuous. Other: ??. Procedure Note Provider, [facility] [place] - 01/26/2025 * * *Final Report* * * DATE OF EXAM: Jan 26 2025 5:08PM MARCELINO [id number] - XR CHEST 1V FRONTAL PORT / PROCEDURE REASON: Shortness of breath * * * * Physician Interpretation * * * * EXAMINATION: CHEST RADIOGRAPH (PORTABLE SINGLE VIEW AP) Exam Date/Time: 01/26/2025 5:08 PM Clinical History: Shortness of breath MQ: XCPMC_6 Comparison: None RESULT: Lines, tubes, and devices: Right IJ PA catheter has been placed with tip in distal left lower lobe artery. Repositioning can be considered. Lungs and pleura: Lungs are hypoinflated with partial atelectasis at the bases. Vague and reticular opacities in both lungs, involving right more than left, may represent minimal interstitial edema or less likely inflammation. Hemorrhage is not excluded. No pleural effusion or pneumothorax. Cardiomediastinal silhouette: Heart is enlarged. Thoracic aorta is minimally tortuous. Other: . IMPRESSION IMPRESSION: See result. Business Analytics Specialist: KEATON Transcribe Date/Time: Jan 26 2025 5:19P Dictated by : KI ESTRELLA MD This examination was interpreted and the report reviewed and electronically signed by: KI ESTRELLA MD on Jan 26 2025 5:23PM EST Authorizing ProviderResult TypeResult StatusLamia Huggins MDRAD-PAMAFinal Result * (ABNORMAL) LVEF ECHO WITH AGITATED SALINE CONTRAST (01/26/2025 4:32 PM EDT) ComponentValueRef RangeTest MethodAnalysis TimePerformed AtPathologist SignatureLV Ejection Naddmikw64(A)<52 %[facility] AND VASCULAR INSTITUTEComment: (visual est.) EF > 52 An LV Ejection Fraction of > 50% is normal Specimen (Source)Anatomical Location / LateralityCollection Method / Volume Collection TimeReceived Time01/26/2025 4:32 PM EDT Narrative Authorizing ProviderResult TypeResult StatusJose Luis Huggins MDLVEF RESULTSFinal ResultPerforming OrganizationAddressCity/State/ZIP CodePhone Number [facility] [address] [phone] * ECHO WITH AGITATED SALINE CONTRAST (01/26/2025 4:32 PM EDT)Specimen (Source) Anatomical Location / LateralityCollection Method / VolumeCollection Time Received Time01/26/2025 4:32 PM EDT [facility]ressions [facility] - 01/26/2025 5:08 PM EDT CONCLUSIONS: - Technically difficult exam [...] a prior CC echocardiographic exam for comparison. * * * Final * * * Narrative [facility] - 01/26/2025 5:08 PM EDT Echocardiography Report: Transthoracic Echo Main [facility] Date of service: 01/26/2025 4:32:46 PM CLERK TELEGRAPH OFFICE Ordering physician: JOSE LUIS HUGGINS Exam indication: R/p PFO, eval RVSP Technologist: Maki Corona Interpreting physician: Chester Pisano MD PATIENT: Name: ERIK SANTOS : 1975 Age: 49 years Gender: M Primary rhythm: atrial flutter. Height: 180.30 cm BSA: 2.12 m?? Weight: 90.10 kg ??BMI: 27.7 kg/m?? Heart rate ? 107 bpm Blood pressure 103/67 mmHg Technically difficult exam due to suboptimal positioning and body habitus. Agitated saline was administered to rule out PFO [clips: 2]. Color Doppler was utilized to interrogate the cardiac valves assessed and spectral Doppler was utilized to determine the flow velocities and pressure gradients reported in this exam. MEASUREMENTS: ? Value ?Indexed ?Normal Max aortic dimension 3.7 cm Ao < 3.8 LV ID (diastole) ? 4.6 cm (2D) ?2.16 cm/m?? LV ID (systole) ?3.6 cm (2D) ?1.69 cm/m?? IVS, leaflet tips ?1.1 cm (2D) Posterior wall thickness 1.0 cm (2D) Left ventricular mass ?171 g (2D) ? 81 g/m?? Ejection Fraction 25 % (visual est.) EF > 52 FINDINGS: LEFT VENTRICLE The left ventricle is normal in size. There is no left ventricular hypertrophy. Left ventricular systolic function is severely decreased. Wall Motion: The entire anterior wall, entire lateral wall, entire septum, entire apex, and entire inferior wall are mildly hypokinetic. RIGHT VENTRICLE The right ventricle is severely dilated. A venous catheter is noted in the right ventricle. Right ventricular systolic function is severely decreased. Tricuspid annular displacement is 1.4 cm. Estimated right ventricular systolic pressure is likely underestimated due to a weak or incomplete tricuspid regurgitation signal and is, at least, 61 mmHg consistent with moderate pulmonary hypertension. Estimated right atrial pressure is 15 mmHg based on IVC assessment. LEFT ATRIUM The left atrial cavity is normal in size. RIGHT ATRIUM The right atrial cavity is severely dilated. A venous catheter is noted in the right atrium. Inferior Vena Cava: The inferior vena cava appears dilated measuring 3.4 cm. The vessel decreases less than 50 percent with inspiration. MITRAL VALVE The mitral valve leaflets are structurally normal. There is trace mitral valve regurgitation. TRICUSPID VALVE There is moderately severe (3+) tricuspid valve regurgitation caused by annular dilatation. AORTIC VALVE There is trace aortic valve regurgitation. Tricuspid aortic valve. There is no thickening. PULMONIC VALVE AORTA The visualized aorta is normal in size. Measurements - Sinus: 3.7 cm. INTERATRIAL SEPTUM There is evidence of a right to left shunt as detected by agitated saline contrast. INTERVENTRICULAR SEPTUM There is systolic and diastolic flattening of the interventricular septum consistent with RV pressure and volume overload. PERICARDIUM There is no pericardial effusion. There is an epicardial fat pad. Authorizing ProviderResult TypeResult StatusLamia Joseluis NAVARRETEECHOFinal Result Performing OrganizationAddressCity/State/ZIP CodePhone Number [facility] [address] [phone] * ECG COMPLETE (01/26/2025 3:14 PM EDT)ComponentValueRef RangeTest Method Analysis TimePerformed AtPathologist SignatureVentricular Ilkd348QRPNYVDR AND VASCULAR INSTITUTEAtrial Zmte597LQVNNFWY AND VASCULAR INSTITUTEQRS Vgwbsoaz963 msHEART AND VASCULAR INSTITUTEQT Cboqewib269gkGHZJP AND VASCULAR INSTITUTEQTC Calculation (Bazett)536msHEART AND VASCULAR INSTITUTECalculated P Eakly-82 degreesHEART AND VASCULAR INSTITUTECalculated R Vjso437bkqbahwSFFRR AND VASCULAR INSTITUTECalculated T Eakly-68degreesHEART AND VASCULAR INSTITUTE Specimen (Source)Anatomical Location / LateralityCollection Method / Volume Collection TimeReceived Time01/26/2025 3:14 PM EDT Impressions [facility] - 04/09/2025 10:19 PM EDT ATRIAL FLUTTER WITH 2:1 A-V CONDUCTION COMPLETE RIGHT BUNDLE BRANCH BLOCK RIGHT VENTRICULAR HYPERTROPHY WITH SECONDARY REPOLARIZATION ABNORMALITY LEFT POSTERIOR FASCICULAR BLOCK BIFASCICULAR BLOCK LATERAL T WAVE ABNORMALITY ABNORMAL ECG Confirmed by JANEL PAULSON MD ([id number]) on 04/09/2025 10:18:58 PM Narrative [facility] - 04/09/2025 10:19 PM EDT NAME : ERIK SANTOS PID : [id number] : 1975 Gender : Male Race : ORD : [id number] Procedure Date : Jan 26 2025 15:14:54 Edit Date : Apr 09 2025 22:19:03 Diagnosis: ATRIAL FLUTTER WITH 2:1 A-V CONDUCTION COMPLETE RIGHT BUNDLE BRANCH BLOCK RIGHT VENTRICULAR HYPERTROPHY WITH SECONDARY REPOLARIZATION ABNORMALITY LEFT POSTERIOR FASCICULAR BLOCK BIFASCICULAR BLOCK LATERAL T WAVE ABNORMALITY ABNORMAL ECG Confirmed by JANEL PAULSON MD ([id number]) on 04/09/2025 10:18:58 PM Test Reason : Palpitations Location : 35 : G62 ??G062-16 Overread By : JANEL PAULSON MD Edited By : JANEL PAULSON MD Referred By : REAL RENAE Acquired by : YULIET NORTON Authorizing ProviderResult TypeResult StatusLamadrian Huggins MDEKGFinal Result Performing OrganizationAddressCity/State/ZIP CodePhone Number [facility] [address] [place] [phone] from Last 3 Months Insurance Advance Directives TypeDate RecordedPatient RepresentativeExplanationAdvance Directive(s)04/15/2025 12:47 PM * Full Code (Latest Code Status on File) Date ActivatedDate SshxstznppmImjramth74/23/2025 7:54 PMQuestionAnswerComments Full Code Order Discussed With:* Patient * Full Code Date ActivatedDate WktjmjudeaxMcsafono37/23/2025 7:00 04/13/2025 7:54 PM QuestionAnswerCommentsFull Code Order Discussed With:* Discussion Not Medically Appropriate * Full Code Date ActivatedDate InactivatedComments01/26/2025 5:30 PM02/02/2025 5:37 PMQuestion AnswerCommentsFull Code Order Discussed With:* Patient Care Teams Team MemberRelationshipSpecialtyStart DateEnd Date 3, Pharmacist [address] [place] [address] PharmacistPharmacy02/06/25
--- OUTSIDE RECORDS SUMMARY | 2025-04-17 10:54 | XMS_ITS | Encounter Summary ---
Author Organization [facility] Address [facility] [place] [address] Care Team Providers Care Mill Control Operator Name Role Phone 3, Pharmacist Unavailable Unavailable Source Comments In the event this information is protected by the Federal Confidentiality of Alcohol and Drug AbusePatient Records regulations: The Federal rules restrict any use of the information to criminally investigate or prosecute any alcohol or drug abuse patient.[facility] Encounter Details DateTypeDepartmentCare Team (Latest Contact Info)Pfnihgyjane54/21/2025Telephone Pulmonary Medicine [address], [address] [place] [phone] [place] [address] [place] [phone] Social History Tobacco UseTypesPacks/DayYears UsedDateSmoking Tobacco: Never AssessedHousing Stability Vital SignAnswerDate RecordedUnable to Pay for Housing in the Last YearNot on file01/30/2025In the past 12 months, how many times have you moved where you were living?Homeless in the Last YearNot on file01/30/2025 Area Deprivation IndexAnswerDate RecordedNational Score (1-100), lower number is lower jepz267402/06/2025State Score (1-10), lower number is lower kqqi838 Data from: https://www.neighborhoodatlas.[facility]/. Last address used for [address]/06/[address]25Sex and Gender InformationValueDate RecordedSex Assigned at BirthNot on fileLegal HrnQawj2201/25/2025 10:57 AM EDT Gender IdentityNot on fileSexual OrientationNot on filedocumented as of this encounter Functional Status * Are you deaf or do you have serious difficulty hearing?AnswerDate of ZofwrechvkMvsjgdPm01/14/2025 2:25 PM María Elena Artis RN * Are you blind or do you have serious difficulty seeing, even when wearing glasses?AnswerDate of PupoibjddpOsfnmwNk48/14/2025 2:25 PM María Elena Artis RN * Do you have serious difficulty walking or climbing stairs?AnswerDate of AwwmycremzIcwcbrJq22/14/2025 2:25 PM María Elena Artis RN * Do you have difficulty dressing or bathing?AnswerDate of AssessmentAuthorNo 02/02/2025 2:25 PM María Elena Artis RN * Because of a physical, mental, or emotional condition, do you have difficulty doing errands alone such as visiting a doctor's office or shopping?AnswerDate of IwzuvdcidfDayozbNp73/14/2025 2:25 PM María Elena Artis RN documented as of this encounter Mental Status * Because of a physical, mental, or emotional condition, do you have serious difficulty concentrating, remembering, or making decisions?AnswerEntry Date QtwfdrXe31/14/2025 2:25 PM María Elena Artis RN documented in this encounter Miscellaneous Notes * Telephone Encounter - Mireille Conway LPN - 04/14/2025 8:25 AM EDT Currently admitted to [facility] [phone] * Telephone Encounter - Mireille Conway LPN - 04/11/2025 2:47 PM EDT Mom calling office. Reviewed as noted. Continues to request refill mable. He's completely out of it * Telephone Encounter - Mireille Conway LPN - 04/11/2025 11:17 AM EDT Pt has Cx appts: 03/08,03/16,03/29,04/05,04/06 Appt scheduled 04/20. * Telephone Encounter - Maranda Alexander - 04/11/2025 11:00 AM EDT Needs a refill on Disp Refills Start End sildenafil (REVATIO) 20 mg tablet 360 tablet 0 02/17/2025 03/19/2025 Sig: Take 4 tablets by mouth three times a day. Patient should start on February 17, 2025. Sent to pharmacy as: sildenafil (REVATIO) 20 mg tablet Pharmacy: [facility] [phone] documented in this encounter Plan of Treatment DateTypeDepartmentCare Team (Latest Contact Info)Ujpitlammbb17/30/2025 8:30 AM EDTOffice Visit Pulmonary Medicine [address], [address] [place] [phone] [place] [address] [place] [phone] 05/11/2025 12:15 PM ESTProcedure Cardiology [address] [place] [address] Acute systolic congestive heart xvsyimb2605/11/2025 12:45 PM ESTOffice Visit Cardiology [address] [place], [place] [phone] Cristopher Alonzo MD [address] [place] [address] Acute systolic congestive heart failuredocumented as of this encounter Visit Diagnoses Not on filedocumented in this encounter Care Teams Team MemberRelationshipSpecialtyStart DateEnd Date 3, Pharmacist [address] [place] [address] PharmacistPharmacy02/06/25documented as of this encounter
--- OUTSIDE RECORDS SUMMARY | 2025-04-17 10:54 | XMS_ITS | Encounter Summary ---
Author Organization [facility] Address [facility] [place] [address] Care Team Providers Care Aircraft Maintenance Manager Name Role Phone 3, Pharmacist Unavailable Unavailable Source Comments In the event this information is protected by the Federal Confidentiality of Alcohol and Drug AbusePatient Records regulations: The Federal rules restrict any use of the information to criminally investigate or prosecute any alcohol or drug abuse patient.[facility] Reason for Visit * ReasonCommentsNo Show Encounter Details DateTypeDepartmentCare Team (Latest Contact Info)Mtfcxrjikqm59/08/2025Telephone Pharm Care Clinic [address] [phone] Ashley Hughes [facility] ED No Show Social History Tobacco UseTypesPacks/DayYears UsedDateSmoking Tobacco: Never AssessedHousing Stability Vital SignAnswerDate RecordedUnable to Pay for Housing in the Last YearNot on file01/30/2025In the past 12 months, how many times have you moved where you were living?Homeless in the Last YearNot on file01/30/2025 Area Deprivation IndexAnswerDate RecordedNational Score (1-100), lower number is lower hbrb152502/06/2025State Score (1-10), lower number is lower icfs555 Data from: https://www.neighborhoodatlas.[facility]/. Last address used for [address]/06/2025Sex and Gender InformationValueDate RecordedSex Assigned at BirthNot on fileLegal CynXene8401/25/2025 10:57 AM EDT Gender IdentityNot on fileSexual OrientationNot on filedocumented as of this encounter Functional Status * Are you deaf or do you have serious difficulty hearing?AnswerDate of FtmxgbrvgdFenbquQk15/14/2025 2:25 PM María Elena Artis RN * Are you blind or do you have serious difficulty seeing, even when wearing glasses?AnswerDate of YysyqqkawgNxnbnxZw11/14/2025 2:25 PM María Elena Artis RN * Do you have serious difficulty walking or climbing stairs?AnswerDate of RxgdyxqwmuKbacbmCk63/14/2025 2:25 PM María Elena Artis RN * Do you have difficulty dressing or bathing?AnswerDate of AssessmentAuthorNo 02/02/2025 2:25 PM María Elena Artis RN * Because of a physical, mental, or emotional condition, do you have difficulty doing errands alone such as visiting a doctor's office or shopping?AnswerDate of UfzqqmqedoBbcnrdJi87/14/2025 2:25 PM María Elena Artis RN documented as of this encounter Mental Status * Because of a physical, mental, or emotional condition, do you have serious difficulty concentrating, remembering, or making decisions?AnswerEntry Date LsbybkBl84/14/2025 2:25 PM María Elena Artis RN documented in this encounter Miscellaneous Notes * Telephone Encounter - Linnette Rivera - 04/14/2025 9:50 AM EDT Per chart, patient currently admitted at [place] for acute heart failure since 04/13/2025. Patienthas completed INR checks (most recently 04/14/2025) and results are in chart. Removing from Discharge list. Patient already on hospital list for follow up. * Telephone Encounter - Florencia (Supervisor Roving DepartmentSherry Lopez - 04/11/2025 3:52 PM EDT PATIENT CALL Patient called call center regarding labs. Patient's mother called and stated patient will be having labs drawn at with other appts on 04/20. Will add to [facility] TM list for f/u, if no completed INR patient is due for Final Call. Sherry Don ([employer]) * Telephone Encounter - Xavier Trevino - 04/07/2025 9:14 AM EDT Telephoned the patient to reschedule missed appt. Left a message. INR date updated. Patient's name added to the [facility] discharge list. * Telephone Encounter - Ashley Hughes RPh - 04/07/2025 8:39 AM EDT Multiple requests made to go to lab without a response. This patient is not a TM patient. The patient was due to go for a one time lab today. Will forward to PSS team to schedule POCT ANICETO. INR (no units) Date Value 03/06/2025 2.4 02/24/2025 3.0 02/17/2025 2.5 INR (POCT) (no units) Date Value 02/14/2025 2.4 * Telephone Encounter - Aroldo Del Real RPh - 04/06/2025 3:14 PM EDT No lab in process. Unable to reach patient. Pt has dosing Aroldo Del Real RPh * Telephone Encounter - Padmini Storey RPh - 04/05/2025 3:59 PM EDT No lab in process. Called mother and left message to still go today or tomorrow if possible and call pac. Pt has dosing. Padmini Storey, PharmD. * Telephone Encounter - Xavier Trevino - 04/04/2025 11:19 AM EDT Called and unable to lmom as patient's VM is full. Called and spoke with patient's mother. She states patient will have lab INR drawn while he is at an appt in [place] tomorrow. Added to TM list. Also advised patient's mother to tell patient that his VM is full and to empty it so we can leave a message if needed. * Telephone Encounter - Lakia Zazueta PSS - 03/29/2025 4:00 PM EDT Called pt to schedule POCT unable to reach the pt the phone just kept ringing. * Telephone Encounter - Ashley Hughes RPh - 03/29/2025 3:50 PM EDT This patient is not a TM patient. The patient was due to go for a one time lab today. Will forward to PSS team to schedule POCT ANICETO. INR (no units) Date Value 03/06/2025 2.4 02/24/2025 3.0 02/17/2025 2.5 INR (POCT) (no units) Date Value 02/14/2025 2.4 documented in this encounter Plan of Treatment DateTypeDepartmentCare Team (Latest Contact Info)Nfyoqgvwmng10/30/2025 8:30 AM EDTOffice Visit Pulmonary Medicine [address], [address] [place] [address] Raysa Cervantes, [address] [place] [address] PH05/11/2025 12:15 PM ESTProcedure Cardiology [address] [place] [address] Acute systolic congestive heart jxkzihz2105/11/2025 12:45 PM ESTOffice Visit Cardiology [address] [phone] Cristopher Alonzo MD [address] [place] [address] Acute systolic congestive heart failuredocumented as of this encounter Visit Diagnoses Not on filedocumented in this encounter Care Teams Team MemberRelationshipSpecialtyStart DateEnd Date 3, Pharmacist [address] [place] [address] PharmacistPharmacy02/06/25documented as of this encounter
== END 2025-04-13 17:59 | disposition short-term general hospital (02) | DRG 308 ==
LOC: ER 18:48 → MS 04-13 17:56
PROVIDERS: Physician Assistant; Admitting Provider Internal Medicine; Emergency Provider Emergency Medicine; Visit Provider Student in an Organized Health Care Education/Training Program
DX: I48.91 Unspecified atrial fibrillation (principal); I50.43 Acute on chronic combined systolic (congestive) and diastolic (congestive) heart failure; J96.21 Acute and chronic respiratory failure with hypoxia; I27.20 Pulmonary hypertension, unspecified; I42.9 Cardiomyopathy, unspecified; F15.90 Other stimulant use, unspecified, uncomplicated; Z87.891 Personal history of nicotine dependence; Z79.01 Long term (current) use of anticoagulants; Z79.899 Other long term (current) drug therapy
CPT/HCPCS: 36415; 51798; 71045; 71275; 76705; 80053; 80061; 80074; 80307; 81001; 83690; 83735; 83880; 84100; 84443; 84484; 85025; 85610; 85730; 93005; 93306; 93356; 94660; 94761; 94799; 96365; 96366; 96376; 99285; J1938; Q0162; Q9967